=== PATIENT | female | born 1965 | race Caucasian/White ===

== ENCOUNTER 2017-04-27 17:59 | Observation (INO) | payer MEDICAID, SELFPAY ==
[2017-04-27 18:12] VITALS: BP 99/40; PULSE 97; RESP 28; TEMP 36.6; O2SAT 97; BMI 42.9
--- NOTE | 2017-04-27 18:22 | CT_ITS ---
CT abdomen pelvis wo con CLINICAL INDICATION: Abdominal pain with vomiting and history of small bowel obstruction ITS.REASON: possible sbo ORDERING PHYSICIAN: Nishant Elder MD PATIENT AGE: 51 years COMPARISON: 01/23/2009 TECHNIQUE: Axial images obtained with sagittal and coronal reformats. PROCEDURE: Oral Contrast: None IV Contrast: None . FINDINGS: Lung bases are clear. The liver is unremarkable. There has been a prior cholecystectomy without ductal dilatation. There is mild splenomegaly at 14 cm. The pancreas and adrenal glands are unremarkable. No obstructing renal or ureteral calculi. No hydronephrosis. There are few scattered small mesenteric lymph nodes nonspecific. Unremarkable appearing appendix. No evidence of diverticulitis. Mildly prominent fluid-filled small bowel loops are present with a few air-fluid levels possibly related to enteritis. No transition point identified. No pelvic mass or focal inflammatory change. Post hysterectomy changes. No acute bony anomalies. IMPRESSION: 1. Possible enteritis. 2. Borderline splenomegaly. 3. Otherwise negative CT abdomen pelvis without contrast
--- NOTE | 2017-04-27 18:23 | HMH.EDGENADL ---
ED Disposition Clinical Impression: Enteritis, Upper abdominal pain Vomiting Qualifiers: Vomiting type: unspecified Vomiting Intractability: unspecified Nausea presence: with nausea Qualified Code(s): R11.2 - Nausea with vomiting, unspecified Disposition: Still a Patient Condition on Discharge: Fair - Critical Care Critical Care Time: No Attestation: On , the high probability of a clinically significant, sudden or life threatening deterioration of the following system(s) required my full and direct attention, intervention and personal management. The time I documented below is in addition to time spent performing reported procedures but includes the following listed in this critical care notation. Medical Decision Making - Casimiro Inquiry Pt receiving controlled substance: Yes Casimiro was queried for this patient: No Reason not queried -: Emergent pt cond-no time Risks and benefits of using a controlled substance: were not discussed with pt by me Vital Signs: 04/27/17 18:12 04/27/17 19:32 Temperature 97.9 F Temperature Source Oral Pulse Rate [Left Radial] 97 H 82 Respiratory Rate 28 H 14 Blood Pressure [Left Arm] 99/40 101/69 Blood Pressure Mean [Left Arm] 59 79 Blood Pressure Source [Left Arm] Automatic Cuff Blood Pressure Position [Left Arm] Sitting 02 Sat by Pulse Oximetry 97 93 L Oxygen Delivery Method Room Air Room Air - Lab Data Lab Results 04/27/17 18:40: WBC 18.5 H, RBC 5.72 H, Hgb 16.3 H, Hct 50.8 H, MCV 88.9, MCH 28.5, MCHC 32.0, RDW 14.4, Plt Count 303, MPV 8.8, Neut % (Auto) 86.8 H, Lymph % (Auto) 8.6 L, Navarro % (Auto) 2.8, Eos % (Auto) 1.6, Baso % (Auto) 0.1, Neut # (Auto) 16.0 H, Lymph # (Auto) 1.6, [place] # (Auto) 0.5, Eos # (Auto) 0.3, Baso # (Auto) 0.0, Total Counted 100, Neutrophils % (Manual) 85 H, Lymphocytes % (Manual) 12, Monocytes % (Manual) 2, Eosinophils % (Manual) 1, Platelet Estimate Normal, RBC Morphology Normal 04/27/17 18:40: Sodium 139, Potassium 4.5, Chloride 101, Carbon Dioxide 28, Anion Gap 14.5, BUN 11, Creatinine 0.71, Estimated Creat Clear 80, Estimated GFR 86, Est GFR ( Amer) 105, Glucose 149 H, Calcium 9.2, Total Bilirubin 0.2, AST 13 L, ALT 24, Alkaline Phosphatase 153 H, Total Creatine Kinase 63, CK-MB (CK-2) 0.5, CK-MB (CK-2) Rel Index 0.8, Troponin I < 0.02, Total Protein 8.1, Albumin 4.0, Globulin 4.1 H, Albumin/Globulin Ratio 1.0 L, Lipase 93 Result diagrams: 04/27/17 18:40 04/27/17 18:40 Orders (Tests/Meds): ED MEDICATIONS Discontinued Medications Generic Name Dose Route Start Last Admin Trade Name Dani PRN Reason Stop Dose Admin Morphine Sulfate 4 mg 04/27/17 18:22 04/27/17 18:35 Morphine 4mg/Ml Syringe IV 04/27/17 18:23 4 mg ONCE ONE Administration Ondansetron HCl 4 mg 04/27/17 18:22 04/27/17 18:35 Zofran 4mg/2ml Vial IV 04/27/17 18:23 4 mg ONCE ONE Administration Sodium Chloride 1,000 ml 04/27/17 18:22 04/27/17 18:35 Sod Chlor 0.9% 1000ml Bag IV 04/27/17 18:23 1,000 ml BOLUS ONE Administration ORDERS Category Date Time Status CT abdomen pelvis wo con Stat Cat Scan 04/27/17 18:22 Taken Diarrhea Panel, PCR Stat Lab 04/27/17 18:20 Received - CT Data CT Scan: Abdomen, Pelvis Time Received: 19:[address] Reviewed: Yes: I have viewed the radiologist's interpretation Findings Narrative: Air-fluid levels within minimally distended small bowel loops in the mid abdomen, could be related to enteritis. Possible enteritis. Normal appendix. Normal kidneys. Cholecystectomy. Medical Decision Narrative: 7:52 PM: Patient states the pain is coming back. She is having too much pain and vomiting to be discharged. 8:00 PM: I have discussed the case with Dr. Shirley who agrees to admit the patient to the hospital. We discussed the patient's clinical information, including history, exam, laboratory and radiology results and ED course. Per hospital procedure, I will write temporary bridge inpati
--- NOTE | 2017-04-27 18:27 | ED_ITS ---
ED Disposition Clinical Impression: Enteritis, Upper abdominal pain Vomiting Qualifiers: Vomiting type: unspecified Vomiting Intractability: unspecified Nausea presence : with nausea Qualified Code(s): R11.2 - Nausea with vomiting, unspecified Disposition: Still a Patient Condition on Discharge: Fair - Critical Care Critical Care Time: No Attestation: On , the high probability of a clinically significant, sudden or life threatening deterioration of the following system(s) required my full and direct attention, intervention and personal management. The time I documented below is in addition to time spent performing reported procedures but includes the following listed in this critical care notation. Medical Decision Making - Casimiro Inquiry Pt receiving controlled substance: Yes Casimiro was queried for this patient: No Reason not queried -: Emergent pt cond-no time Risks and benefits of using a controlled substance: were not discussed with pt by me Vital Signs: 04/27/17 18:12 04/27/17 19:32 Temperature 97.9 F Temperature Source Oral Pulse Rate [Left Radial] 97 H 82 Respiratory Rate 28 H 14 Blood Pressure [Left Arm] 99/40 101/69 Blood Pressure Mean [Left Arm] 59 79 Blood Pressure Source [Left Arm] Automatic Cuff Blood Pressure Position [Left Arm] Sitting 02 Sat by Pulse Oximetry 97 93 L Oxygen Delivery Method Room Air Room Air - Lab Data Lab Results 04/27/17 18:40: WBC 18.5 H, RBC 5.72 H, Hgb 16.3 H, Hct 50.8 H, MCV 88.9, MCH 28.5, MCHC 32.0, RDW 14.4, Plt Count 303, MPV 8.8, Neut % (Auto) 86.8 H, Lymph % (Auto) 8.6 L, Greenlee % (Auto) 2.8, Eos % (Auto) 1.6, Baso % (Auto) 0.1, Neut # ( Auto) 16.0 H, Lymph # (Auto) 1.6, Greenlee # (Auto) 0.5, Eos # (Auto) 0.3, Baso # ( Auto) 0.0, Total Counted 100, Neutrophils % (Manual) 85 H, Lymphocytes % (Manual ) 12, Monocytes % (Manual) 2, Eosinophils % (Manual) 1, Platelet Estimate Normal , RBC Morphology Normal 04/27/17 18:40: Sodium 139, Potassium 4.5, Chloride 101, Carbon Dioxide 28, Anion Gap 14.5, BUN 11, Creatinine 0.71, Estimated Creat Clear 80, Estimated GFR 86, Est GFR ( Amer) 105, Glucose 149 H, Calcium 9.2, Total Bilirubin 0.2, AST 13 L, ALT 24, Alkaline Phosphatase 153 H, Total Creatine Kinase 63, CK- MB (CK-2) 0.5, CK-MB (CK-2) Rel Index 0.8, Troponin I < 0.02, Total Protein 8.1 , Albumin 4.0, Globulin 4.1 H, Albumin/Globulin Ratio 1.0 L, Lipase 93 Result diagrams: 04/27/17 18:40 04/27/17 18:40 Orders (Tests/Meds): ED MEDICATIONS Discontinued Medications Generic Name Dose Route Start Last Admin Trade Name Augustoq PRN Reason Stop Dose Admin Morphine Sulfate 4 mg 04/27/17 18:22 04/27/17 18:35 Morphine 4mg/Ml Syringe IV 04/27/17 18:23 4 mg ONCE ONE Administration Ondansetron HCl 4 mg 04/27/17 18:22 04/27/17 18:35 Zofran 4mg/2ml Vial IV 04/27/17 18:23 4 mg ONCE ONE Administration Sodium Chloride 1,000 ml 04/27/17 18:22 04/27/17 18:35 Sod Chlor 0.9% 1000ml Bag IV 04/27/17 18:23 1,000 ml BOLUS ONE Administration ORDERS Category Date Time Status CT abdomen pelvis wo con Stat Cat Scan 04/27/17 18:22 Taken Diarrhea Panel, PCR Stat Lab 04/27/17 18:20 Received - CT Data CT Scan: Abdomen, Pelvis Time Received: 19:[address] Reviewed: Yes: I have viewed the radiologist's interpretation Findings Narrativ
[2017-04-27 18:42] LABS: Adenovirus F 40/41, stool Not Detected (NotDetected); Astrovirus Not Detected (NotDetected); Campylobacter Not Detected (NotDetected); Clostridium Difficile A/B, PCR Not Detected (NotDetected); Cryptosporidium Not Detected (NotDetected); Cyclospora Cayetanesis Not Detected (NotDetected); Entamoeba histolytica Not Detected (NotDetected); Enteroaggregative E coli Not Detected (NotDetected); Enteropathogenic E coli Not Detected (NotDetected); Enterotoxigenic E coli Not Detected (NotDetected); Giardia lamblia Not Detected (NotDetected); Norovirus Not Detected (NotDetected); Plesimonas Shigalloides, PCR Not Detected (NotDetected); Rotavirus A Not Detected (NotDetected); Salmonella, PCR Not Detected (NotDetected); Sapovirus Not Detected (NotDetected); Shiga-like toxin E coli Not Detected (NotDetected); Shigella Enterovasive E coli Not Detected (NotDetected); Vibrio Cholerae Not Detected (NotDetected); Vibrio, PCR Not Detected (NotDetected); Yersinia Entercolitica, PCR Not Detected (NotDetected)
[2017-04-27 18:54] LABS: Basophils % 0.1 % (0.1-2.0); Eosinophils # 0.3 K/mm3 (0.0-0.4); Eosinophils % 1.6 % (0.1-12.0); Hematocrit 50.8 % (37.0-47.0); Hemoglobin 16.3 g/dL (12.2-16.2); Lymphocytes # 1.6 K/mm3 (0.7-4.5); Lymphocytes % 8.6 K/mm3 (10-50); Mean Corpuscular Hemoglobin 28.5 pg (27.0-31.2); Mean Corpuscular Volume 88.9 fl (81-99); Mean Platelet Volume 8.8 fl (7.4-10.4); Monocytes # 0.5 K/mm3 (0.1-1.0); Monocytes % 2.8 % (1.7-9.3); Neutrophils % 86.8 % (37.0-80.0); Platelet Count 303 K/mm3 (142-424); Red Blood Count 5.72 M/mm3 (4.20-5.40); Red Cell Distribution Width 14.4 % (11.5-17.5); White Blood Count 18.5 K/mm3 (4.8-10.8)
[2017-04-27 19:14] LABS: MANUAL DIFFERENTIAL MANUAL DIFFERENTIAL (MANUAL DIFF)
[2017-04-27 19:20] LABS: Eosinophils % 1 % (0-3); Lymphocytes % 12 % (10-50); Monocytes % 2 % (2-9); Neutrophils % 85 % (42-76); Platelet Estimate Normal; RBC Morphology Normal; Total Cells Counted 100
[2017-04-27 19:26] LABS: Alanine Aminotransferase 24 U/L (12-78); Alkaline Phosphatase 153 U/L (46-116); Anion Gap 14.5 mEq/L (5-15); Bilirubin,Total 0.2 mg/dL (0.2-1.0); Blood Urea Nitrogen 11 mg/dL (7-18); CKMB Relative Index 0.8 U/L (0-4.0); Calcium 9.2 mg/dL (8.5-10.1); Carbon Dioxide 28 mmol/L (21.0-32.0); Chloride 101 mmol/L (98-107); Creatine Kinase 63 U/L (26-192); Creatine Kinase MB 0.5 mg/ml (0.0-3.6); Creatinine Clearance Estimated 80 mL/min (0-300); Creatinine,Serum 0.71 mg/dL (0.55-1.02); Estimated Glomerular Filt Rate 86 ml/min (>60); GFR (African American) 105 ML/MIN (>60); Globulin 4.1 gm/dl (1.3-3.2); Glucose 149 mg/dL (74-106); Lipase 93 u/L (73-393); Sodium 139 mmol/L (136-145); Total Protein,Serum 8.1 gm/dL (6.4-8.2); Troponin I < 0.02 ng/ml (0.00-0.06)
[2017-04-27 19:27] LABS: Potassium 4.5 mmoL/L (3.5-5.1)
[2017-04-27 19:28] LABS: Aspartate Amino Transferase 13 U/L (15-37)
[2017-04-27 19:32] VITALS: BP 101/69; PULSE 82; RESP 14; O2SAT 93
[2017-04-27 20:00] VITALS: BP 109/65
--- NOTE | 2017-04-27 20:34 | PC.NURSE ---
PT FULL CODE, REPORT RECEIVED FROM SERENITY
[2017-04-27 20:36] VITALS: BP 109/65; PULSE 79; RESP 20; TEMP 37
[2017-04-27 20:37] VITALS: BMI 41.9
[2017-04-27 20:45] VITALS: BP 155/98; PULSE 84; RESP 18; TEMP 36.2; O2SAT 93
[2017-04-27 23:43] VITALS: O2SAT 93
[2017-04-28 00:43] LABS: POC Glucose,Bedside 142 mg/dL (70-110)
--- NOTE | 2017-04-28 04:21 | PC.NURSE ---
PT STATES WOULD WEAR ANITA HOSE, BUT EVEN THOUGH THEY ARE XLARGE, SHE STATES THEY ARE TOO SMALL FOR HER LEGS
[2017-04-28 04:35] VITALS: BP 104/67; PULSE 78; RESP 20; TEMP 36.6; O2SAT 99
[2017-04-28 06:43] LABS: POC Glucose,Bedside 142 mg/dL (70-110)
--- NOTE | 2017-04-28 07:00 | PC.NURSE ---
PT ALERT AND ORIENTED. SLEPT LONG INTERVALS. C/O PAIN X2 AND NAUSEA X1 MEDS GIVEN PER ORDERS. IV SECURE AND PATENT. CONTINUES ON IV FLUIDS. PT STABLE. WILL CONTINUE TO MONITOR. REPORT TO BE GIVEN TO ONCOMING NURSE.
[2017-04-28 07:10] LABS: Basophils % 0.3 % (0.1-2.0); Eosinophils # 0.3 K/mm3 (0.0-0.4); Eosinophils % 2.3 % (0.1-12.0); Hematocrit 45.2 % (37.0-47.0); Lymphocytes # 3.2 K/mm3 (0.7-4.5); Lymphocytes % 26.8 K/mm3 (10-50); Mean Corpuscular HGB Conc 30.9 g/dL (31.8-35.4); Mean Corpuscular Hemoglobin 28.5 pg (27.0-31.2); Mean Corpuscular Volume 92.2 fl (81-99); Monocytes # 0.5 K/mm3 (0.1-1.0); Monocytes % 4.3 % (1.7-9.3); Neutrophils % 66.2 % (37.0-80.0); Platelet Count 268 K/mm3 (142-424); Red Cell Distribution Width 14.5 % (11.5-17.5); White Blood Count 12.1 K/mm3 (4.8-10.8)
[2017-04-28 07:24] LABS: Anion Gap 5.8 mEq/L (5-15); Blood Urea Nitrogen 10 mg/dL (7-18); Carbon Dioxide 36 mmol/L (21.0-32.0); Chloride 104 mmol/L (98-107); Creatinine Clearance Estimated 91 mL/min (0-300); Creatinine,Serum 0.68 mg/dL (0.55-1.02); Estimated Glomerular Filt Rate 91 ml/min (>60); GFR (African American) 110 ML/MIN (>60); Glucose 122 mg/dL (74-106); Potassium 4.8 mmoL/L (3.5-5.1); Sodium 141 mmol/L (136-145)
--- NOTE | 2017-04-28 07:30 | PC.NURSE ---
REPORT GIVEN TO Yue CORTES W/C
[2017-04-28 07:33] VITALS: BP 98/48; PULSE 71; RESP 22; TEMP 37.7; O2SAT 93
[2017-04-28 07:55] LABS: Hemoglobin 14.2 g/dL (12.2-16.2)
--- NOTE | 2017-04-28 08:05 | HMH.HP ---
*Admission Date: 04/28/17 <Mya Clark 04/28/17 08:23> *Chief complaint: abdominal pain, nausea, vomiting, diarrhea <Mya Clark 04/28/17 08:23> *History of present illness: Ms. Garcia is a 51yo female with a hx of HLP, fibromyalgia, HTN, and DM who began having epigastric abdominal pain with vomiting and diarrhea that started yesterday around 3pm. She denies any fever or sick contacts. She presented to the emergency room for further evaluation and treatment. A CT scan of the abdomen and pelvis showed enteritis. She was admitted and started on IV fluids, antiemetics, and Flagyl. <Mya Clark 04/28/17 08:23> [facility] History Medical History: Reports:: Cerebrovascular Accident, Diabetes Mellitus Type 2, Heart Murmur, Hyperlipidemia, Hypertension Denies:: Cancer, Diabetes Mellitus Type 1, MRSA <Mya Clark 04/28/17 08:23> Other Medical History: Reports: Arthritis, Fibromyalgia, Hypothyroidism, Sinus Problems <Mya Clark 04/28/17 08:23> Comment: Bipolar, Sleep apnea, DJD lumbar spine <Mya Clark 04/28/17 08:23> Laterality Cases: Bilateral: Tonsillectomy, Total Knee Replacement, Partial Knee Replacement, Other <Mya Clark 04/28/17 08:23> Other Surgeries: Yes: , Hysterectomy-Total, Tubal Ligation, Other (Cholecystectomy, Carpal Tunnel, Bone graft right wrist) <Mya Clark 04/28/17 08:23> Amputation: No <Mya Clark 04/28/17 08:23> Fractures: Yes <Mya Clark 04/28/17 08:23> - *Social History Educational Level: Attended College <Mya Clark 04/28/17 08:23> Smoking Status: Current every day smoker <Mya Clark 04/28/17 08:23> Tobacco Type: cigarettes <Mya Clark 04/28/17 08:23> # Packs/Day (cigarettes): 1 <Mya Clark 04/28/17 08:23> #Yrs smoked (if former smoker): 35 <Mya Clark 18 08:23> Alcohol Intake: never <Mya Clark 04/28/17 08:23> Occupational Status: disabled <Mya Clark 04/28/17 08:23> Housing: house <Mya Clark 04/28/17 08:23> Household Members: none <Mya Clark 04/28/17 08:23> - Psychiatric History Expresses thoughts of harming self/others: None <Mya Clark 04/28/17 08:23> Suicide Plan Description: No Plan <Mya Clark 04/28/17 08:23> Pschychiatric History:: Reports:: Bipolar Disorder <Mya Clark 04/28/17 08:23> *Family Hx:: Cancer, Diabetes, Heart Attack, Hypertension, Stroke <Mya Clark 04/28/17 08:23> Review of Systems - Constitutional Reports weakness, Denies fever(s), Denies headache(s) <Mya Clark 04/28/17 08:23> - Eyes Denies blurry vision, Denies double vision <Mya Clark 04/28/17 08:23> - ENT Denies nasal congestion, Denies sore throat <Mya Clark 04/28/17 08:23> - *Cardiovascular Denies chest pain, Denies fast heart rate <Mya Clark 04/28/17 08:23> - *Respiratory Denies cough, Denies shortness of breath <Mya Clark 04/28/17 08:23> - *Gastrointestinal Reports abdominal pain, Reports loose stools, Reports nausea, Reports vomiting, Denies vomiting blood, Denies bright, red blood in stools, Denies black, tarry stools <Mya Clark 04/28/17 08:23> - *Genitourinary Denies difficulty urinating, Denies painful urination <Mya Clark 04/28/17 08:23> - *Musculoskeletal Reports joint pain <Mya Clark 04/28/17 08:23> - *Neurologic Reports weakness, Denies headache(s), Denies dizziness <Mya Clark 04/28/17 08:23> Meds Home Medications Medication Instructions Recorded Confirmed Type Amlodipine Besylate/Benazepril 1 each PO DAILY 04/27/17 04/27/17 History [Lotrel 5-10 mg Capsule] Buprenorphine HCl/Naloxone HCl 2.5 each SL DAILY 04/27/17 04/27/17 History [Suboxone 8 mg-2 mg Sl Film] Fluoxetine HCl [Prozac] 60 mg PO DAILY 04/27/17 04/27/17 History Furosemide [Lasix 40mg tab] 40 mg PO DAILY 04/27/17 04/27/17 History Gabapentin [Neurontin 800mg Tab] 800 mg PO TID 04/27/17 04/27/17 History Levothyroxi
--- NOTE | 2017-04-28 08:09 | P.HP_ITS ---
*Admission Date: 04/28/17 <Mya Clark 04/28/17 08:23> *Chief complaint: abdominal pain, nausea, vomiting, diarrhea <Mya Clark 04/28/17 08:23> *History of present illness: Ms. Garcia is a 51yo female with a hx of HLP, fibromyalgia, HTN, and DM who began having epigastric abdominal pain with vomiting and diarrhea that started yesterday around 3pm. She denies any fever or sick contacts. She presented to the emergency room for further evaluation and treatment. A CT scan of the abdomen and pelvis showed enteritis. She was admitted and started on IV fluids , antiemetics, and Flagyl. <Mya Clark 04/28/17 08:23> [facility] History Medical History: Reports:: Cerebrovascular Accident, Diabetes Mellitus Type 2, Heart Murmur, Hyperlipidemia, Hypertension Denies:: Cancer, Diabetes Mellitus Type 1, MRSA <Mya Clark 04/28/17 08:23> Other Medical History: Reports: Arthritis, Fibromyalgia, Hypothyroidism, Sinus Problems <Mya Clark 04/28/17 08:23> Comment: Bipolar, Sleep apnea, DJD lumbar spine <Mya Clark 04/28/17 08: 23> Laterality Cases: Bilateral: Tonsillectomy, Total Knee Replacement, Partial Knee Replacement, Other <Mya Clark 04/28/17 08:23> Other Surgeries: Yes: , Hysterectomy-Total, Tubal Ligation, Other ( Cholecystectomy, Carpal Tunnel, Bone graft right wrist) <Mya Clark 04/28 08:23> Amputation: No <Mya Clark 04/28/17 08:23> Fractures: Yes <Mya Clark 04/28/17 08:23> - *Social History Educational Level: Attended College <Mya Clark 04/28/17 08:23> Smoking Status: Current every day smoker <Mya Clark 04/28/17 08:23> Tobacco Type: cigarettes <Mya Clark 04/28/17 08:23> # Packs/Day (cigarettes): 1 <Mya Clark 04/28/17 08:23> #Yrs smoked (if former smoker): 35 <Mya Clark 18 08:23> Alcohol Intake: never <Mya Clark 04/28/17 08:23> Occupational Status: disabled <Mya Clark 04/28/17 08:23> Housing: house <Mya Clark 04/28/17 08:23> Household Members: none <Mya Clark 04/28/17 08:23> - Psychiatric History Expresses thoughts of harming self/others: None <Mya Clark 04/28/17 08: 23> Suicide Plan Description: No Plan <Mya Clark 04/28/17 08:23> Pschychiatric History:: Reports:: Bipolar Disorder <Mya Clark 04/28/17 08:23> *Family Hx:: Cancer, Diabetes, Heart Attack, Hypertension, Stroke <Mya Clark 04/28/17 08:23> Review of Systems - Constitutional Reports weakness, Denies fever(s), Denies headache(s) <Mya Clark 08:23> - Eyes Denies blurry vision, Denies double vision <Mya Clark 04/28/17 08:23> - ENT Denies nasal congestion, Denies sore throat <Mya Clark 04/28/17 08:23> - *Cardiovascular Denies chest pain, Denies fast heart rate <Mya Clark 04/28/17 08:23> - *Respiratory Denies cough, Denies shortness of breath <Mya Clark 04/28/17 08:23> - *Gastrointestinal Reports abdominal pain, Reports loose stools, Reports nausea, Reports vomiting, Denies vomiting blood, Denies bright, red blood in stools, Denies black, tarry stools <Mya Clark 04/28/17 08:23> - *Genitourinary Denies difficulty urinating, Denies painful urination <Mya Clark 08:23> - *Musculoskeletal Reports joint pain <Mya Clark 04/28/17 08:23> - *Neurologic Reports weakness, Denies headache(s), Denies dizziness <Mya Clark 08:23> Meds Home Medications Medication Instructions Recorded Confirmed Type Amlodipine Besylate/Benazepril 1 each PO DAILY 04/27/17 04/27/17 Hist
--- NOTE | 2017-04-28 08:19 | P.CONPHA_ITS ---
[facility] Pharmacy VTE Monitoring - Patient Demographics Admission date: 04/27/17 Report Date: 04/28/17 Time: 08:18 Allergies/Adverse Reactions: Patient Allergies Sulfa (Sulfonamide Antibiotics) [SULFA (SULFONAMIDE ANTIBIOTICS)] Allergy ( Unknown, Verified 04/27/17 18:29) Height: 1.68 m Weight: 117.8 kg Patient Problems: Current Active Problems Enteritis (Acute) Upper abdominal pain (Acute) Vomiting (Acute) - VTE Risk Labs: VTE Related Lab Results Hgb 14.2 g/dL (12.2-16.2) D 04/28/17 06:30 Hct 45.2 % (37.0-47.0) 04/28/17 06:30 Plt Count 268 K/mm3 (142-424) 04/28/17 06:30 BUN 10 mg/dL (7-18) 04/28/17 06:30 Creatinine 0.68 mg/dL (0.55-1.02) 04/28/17 06:30 Estimated Creat Clear 91 mL/min (0-300) 04/28/17 06:30 Was VTE Risk Assessment Performed: Yes VTE Score: 5 VTE Risk Level: Low Risk Clinical Trial Participant: No - Prophylaxis VTE Prophylaxis Ordered?: Yes Types of VTE Prophylaxis: TEDS Knee High
--- NOTE | 2017-04-28 09:05 | PC.NURSE ---
[facility] WOULD NOT LET ME EVALUATE THIS PATIENT, PAIN LEVEL 6/10 IN ABDOMEN MORPHINE 4 MG GIVEN PER ORDER. BLAISE FIGUEROA, MSN, RN
--- NOTE | 2017-04-29 14:17 | HMH.DCSUM ---
General - General Admission date: 04/28/17 <Mya Clark - 04/29/17 14:20> Discharge date: 04/28/17 <Mya Clark - 04/29/17 14:20> HPI HPI: Ms. Garcia is a 51yo female with a hx of HLP, fibromyalgia, HTN, and DM who began having epigastric abdominal pain with vomiting and diarrhea that started yesterday around 3pm. She denies any fever or sick contacts. She presented to the emergency room for further evaluation and treatment. A CT scan of the abdomen and pelvis showed enteritis. She was admitted and started on IV fluids, antiemetics, and Flagyl. <Mya Clark - 04/29/17 14:20> Hospital Course Hospital Course: Her vomiting and diarrhea resolved. Her diet was advanced. Her WBC decreased and she was stable to be discharged home with instructions to advance her diet as tolerated. <Mya Clark - 04/29/17 14:20> Objective Vital signs: Temp Pulse Resp BP Pulse Ox 99.9 F H 71 22 98/48 93 L 04/28/17 07:33 04/28/17 07:33 04/28/17 07:33 04/28/17 07:33 04/28/17 07:33 <Kiran Shirley - 05/18/17 08:44> Temp Pulse Resp BP Pulse Ox 99.9 F H 71 22 98/48 93 L 04/28/17 07:33 04/28/17 07:33 04/28/17 07:33 04/28/17 07:33 04/28/17 07:33 <Mya Clark - 04/29/17 14:20> Narrative: - Constitutional no acute distress - *Routine HEENT Exam Head: Present: normocephalic, atraumatic Eye: Present: EOMI, PERRL ENT: Present: mucous membranes dry - *Routine Neck Exam Present: supple, full ROM - *Routine Respiratory Exam Present: CTA bilaterally - *Routine Cardiovascular Exam Present: RRR - *Routine Abdominal Exam Present: soft, normoactive bowel sounds, tenderness (diffuse). Absent: guarding, rigid - *Routine Extremities Exam Absent: edema - *Routine Skin Exam Present: intact - *Routine Neurological Exam Present: alert, oriented X3 <Mya Clark - 04/29/17 14:20> DS: Diagnosis - Discharge Diagnosis (1) Enteritis Status: Acute (2) Hyperlipidemia Status: Chronic (3) Hypertension Status: Chronic (4) Type 2 diabetes mellitus Status: Chronic (5) Fibromyalgia Status: Chronic (6) Bipolar disorder Status: Chronic <Mya Clark - 04/29/17 14:17> (1) Enteritis Status: Acute (2) Hyperlipidemia Status: Chronic (3) Hypertension Status: Chronic (4) Type 2 diabetes mellitus Status: Chronic (5) Fibromyalgia Status: Chronic (6) Bipolar disorder Status: Chronic <Kiran Shirley - 05/18/17 08:44> Discharge Plan - Patient Discharge Instructions ACTIVITY: Continue current activity <Mya Clark - 04/29/17 14:20> DIET: advance to your usual diet <Mya Clark - 04/29/17 14:20> Patient Instructions: DI for Viral Gastroenteritis -- Adult <Kiran Shirley - 05/18/17 08:44> Forms: <Kiran Shirley - 05/18/17 08:44> - Follow up Plan Follow up with: Kiran Shirley MD [Family Provider] - 1 week <Kiran Shirley - 05/18/17 08:44> Disposition: Home, Self-Care <Kiran Shirley - 05/18/17 08:44> Home Medications: Home Medications Medication Instructions Recorded Confirmed Type Amlodipine Besylate/Benazepril 1 each PO DAILY 04/27/17 04/27/17 History [Lotrel 5-10 mg Capsule] Buprenorphine HCl/Naloxone HCl 2.5 each SL DAILY 04/27/17 04/27/17 History [Suboxone 8 mg-2 mg Sl Film] Fluoxetine HCl [Prozac] 60 mg PO DAILY 04/27/17 04/27/17 History Furosemide [Lasix 40mg tablet] 40 mg PO DAILY 04/27/17 04/27/17 History Gabapentin [Neurontin 800mg Tab] 800 mg PO TID 04/27/17 04/27/17 History Levothyroxine Sodium 75 mcg PO DAILY 04/27/17 04/27/17 History [Levothyroxine 75mcg (0.075mg) Tab] Meclizine HCl [Meclizine 25mg Tab] 25 mg PO NEEDED PRN 04/27/17 04/27/17 History Metformin HCl [Metformin 850mg 850 mg PO BID 04/27/17 04/28/17 History Tablet] Naproxen Sodium [Naproxen Sodium 500 mg PO BID
--- NOTE | 2017-04-29 14:20 | P.DS_ITS ---
General - General Admission date: 04/28/17 <Mya Clark - 04/29/17 14:20> Discharge date: 04/28/17 <Mya Clark - 04/29/17 14:20> HPI HPI: Ms. Garcia is a 51yo female with a hx of HLP, fibromyalgia, HTN, and DM who began having epigastric abdominal pain with vomiting and diarrhea that started yesterday around 3pm. She denies any fever or sick contacts. She presented to the emergency room for further evaluation and treatment. A CT scan of the abdomen and pelvis showed enteritis. She was admitted and started on IV fluids , antiemetics, and Flagyl. <Mya Clark - 04/29/17 14:20> Hospital Course Hospital Course: Her vomiting and diarrhea resolved. Her diet was advanced. Her WBC decreased and she was stable to be discharged home with instructions to advance her diet as tolerated. <Mya Clark - 04/29/17 14:20> Objective Vital signs: Temp Pulse Resp BP Pulse Ox 99.9 F H 71 22 98/48 93 L 04/28/17 07:33 04/28/17 07:33 04/28/17 07:33 04/28/17 07:33 04/28/17 07:33 <Kiran Shirley - 05/18/17 08:44> Temp Pulse Resp BP Pulse Ox 99.9 F H 71 22 98/48 93 L 04/28/17 07:33 04/28/17 07:33 04/28/17 07:33 04/28/17 07:33 04/28/17 07:33 <Mya Clark - 04/29/17 14:20> Narrative: - Constitutional no acute distress - *Routine HEENT Exam Head: Present: normocephalic, atraumatic Eye: Present: EOMI, PERRL ENT: Present: mucous membranes dry - *Routine Neck Exam Present: supple, full ROM - *Routine Respiratory Exam Present: CTA bilaterally - *Routine Cardiovascular Exam Present: RRR - *Routine Abdominal Exam Present: soft, normoactive bowel sounds, tenderness (diffuse). Absent: guarding , rigid - *Routine Extremities Exam Absent: edema - *Routine Skin Exam Present: intact - *Routine Neurological Exam Present: alert, oriented X3 <Mya Clark - 04/29/17 14:20> DS: Diagnosis - Discharge Diagnosis (1) Enteritis Status: Acute (2) Hyperlipidemia Status: Chronic (3) Hypertension Status: Chronic (4) Type 2 diabetes mellitus Status: Chronic (5) Fibromyalgia Status: Chronic (6) Bipolar disorder Status: Chronic <Mya Clark - 04/29/17 14:17> (1) Enteritis Status: Acute (2) Hyperlipidemia Status: Chronic (3) Hypertension Status: Chronic (4) Type 2 diabetes mellitus Status: Chronic (5) Fibromyalgia Status: Chronic (6) Bipolar disorder Status: Chronic <Kiran Shirley - 05/18/17 08:44> Discharge Plan - Patient Discharge Instructions ACTIVITY: Continue current activity <Mya Clark - 04/29/17 14:20> DIET: advance to your usual diet <Mya Clark - 04/29/17 14:20> Patient Instructions: DI for Viral Gastroenteritis -- Adult <Kiran Shirley - 05/18/17 08:44> Forms: <Kiran Shirley - 05/18/17 08:44> - Follow up Plan Follow up with: Kiran Shirley MD [Family Provider] - 1 week < Kiran Shirley - 05/18/17 08:44> Disposition: Home, Self-Care <Kiran Shirley - 05/18/17 08:44> Home Medications: Home Medications Medication Instructions Recorded Confirmed Type Amlodipine Besylate/Benazepril 1 each PO DAILY 04/27/17 04/27/17 History [Lotrel 5-10 mg Capsule]
== END 2017-04-28 10:10 | disposition home or self-care (01) ==
LOC: ER 19:53 → 2ND 22:11
PROVIDERS: Admitting Provider Family Medicine; Emergency Provider Emergency Medicine; Family Provider Family Medicine; Visit Provider Family Medicine
DX: K52.9 Noninfective gastroenteritis and colitis, unspecified (principal); E78.9 Disorder of lipoprotein metabolism, unspecified; I10 Essential (primary) hypertension; E11.9 Type 2 diabetes mellitus without complications; M79.7 Fibromyalgia; F31.9 Bipolar disorder, unspecified
CPT/HCPCS: 36415; 74176; 80048; 80053; 82550; 82553; 82962; 83690; 84484; 85007; 85025; 87507; 93005; 93041; 96360; 96365; 96374; 96375; 99284; G0378; J2405

== ENCOUNTER → 2017-11-18 13:47 | Outpatient (CLI) | payer MEDICAID, SELFPAY ==
--- NOTE | 2017-11-18 | XR_ITS ---
EXAM: XR lumbar spine min 4V HISTORY: Low back pain ITS.REASON: PAIN ORDERING PHYSICIAN: LISANDRO Day PATIENT AGE: 52 years COMPARISON: None FINDINGS: There is normal alignment. Degenerative disc disease is present in the lower thoracic spine. Degenerative disc disease is present at L3-L4 L4-5 and L5-S1. There is mild anterolisthesis of L4 on L5 of 5 mm. Prominent bony hypertrophic changes are present involving the facets at L4-L5 and L5-S1. Atherosclerotic calcification noted of the aorta. IMPRESSION: 1. Degenerative disc disease L3-S1 with 5 mm anterolisthesis of L4. 2. Facet arthritic change L4-L5 and L5-S1. 3. Degenerative disc disease lower thoracic spine
== END ==
PROVIDERS: PCP Physician Assistant; Visit Provider Physician Assistant
DX: M47.27 Other spondylosis with radiculopathy, lumbosacral region (principal)
CPT/HCPCS: 72110

== ENCOUNTER → 2017-11-19 12:51 | Outpatient (CLI) | payer MEDICAID, SELFPAY ==
[2017-11-19 16:04] LABS: Hemoglobin A1C 8.7 % (0.0-7.0)
[2017-11-19 16:08] LABS: Alanine Aminotransferase 26 U/L (12-78); Albumin Level 3.7 gm/dL (3.4-5.0); Alkaline Phosphatase 174 U/L (46-116); Anion Gap 13.3 mEq/L (5-15); Aspartate Amino Transferase 13 U/L (15-37); Bilirubin,Total 0.5 mg/dL (0.2-1.0); Blood Urea Nitrogen 10 mg/dL (7-18); Calcium 9.1 mg/dL (8.5-10.1); Carbon Dioxide 30 mmol/L (21.0-32.0); Chloride 102 mmol/L (98-107); Chol/HDL Ratio 5.4 (1-3.5); Cholesterol 210 mg/dL (140-200); Creatinine,Serum 0.58 mg/dL (0.55-1.02); Estimated Glomerular Filt Rate 109 ml/min (>60); GFR (African American) 132 ML/MIN (>60); Globulin 3.6 gm/dl (1.3-3.2); Glucose 134 mg/dL (74-106); HDL Cholesterol 39 mg/dL (29-89); LDL Cholesterol 136 mg/dL (0-130); Potassium 4.3 mmoL/L (3.5-5.1); Sodium 141 mmol/L (136-145); Thyroid Stimulating Hormone 1.95 uIU/ml (0.358-3.740); Total Protein,Serum 7.3 gm/dL (6.4-8.2); Triglycerides 175 mg/dL (30-200); VLDL Cholesterol 35 mg/dL (0-40)
== END ==
PROVIDERS: PCP Family Medicine; Visit Provider Family Medicine
DX: E03.9 Hypothyroidism, unspecified (principal); E11.42 Type 2 diabetes mellitus with diabetic polyneuropathy; E78.2 Mixed hyperlipidemia
CPT/HCPCS: 36415; 80053; 80061; 83036; 84443

== ENCOUNTER → 2017-11-25 07:32 | Outpatient (CLI) | payer MEDICAID, SELFPAY | PROVIDERS: Family Provider Family Medicine; PCP Family Medicine; Visit Provider Physician Assistant | DX: M47.27 Other spondylosis with radiculopathy, lumbosacral region (principal) ==

== ENCOUNTER → 2017-12-08 14:22 | Outpatient (CLI) | payer MEDICAID, SELFPAY ==
--- NOTE | 2017-12-08 14:25 | MR_ITS ---
MR lumbar spine wo con, MR 3-d myelogram/MRCP HISTORY: PT states low back pain X years. Bilateral leg pain, numbness and tingling. PT also states bilateral hand numbness and tingling. No prior surgery. ITS.REASON: LUMBOSACRAL RADICULOPATHY DUE TO DEGENERATIVE JOINT DISEASE ORDERING PHYSICIAN: Sonia Lucas MD PATIENT AGE: 52 years Comparison: X-RAY 11/18/17. CT lumbar 10/21/15 TECHNIQUE: Standard multiplanar multiecho sequences are performed without contrast. 3-D MIP and myelographic images are also rendered and reviewed FINDINGS: The spinal cord ends at the L1-L2 level. There is normal alignment. T11-T12: Degenerative disc disease with minimal bulging disc. T12-L1, L1-L2, and V6-C4-[id number] appearance. L3-L4: Mild disc desiccation with facet and ligamentum flavum hypertrophy and minimal bulging disc with bilateral lateral recess and foraminal narrowing slightly greater on the left. L4-5: Mild anterolisthesis of L4 4 mm with minimal bulging disc along with facet and ligamentum flavum hypertrophy with mild bilateral foraminal narrowing. Prominent bony hypertrophic changes are present of the facets at L4-L5. L5-S1: Mild concentric bulging disc with small central disc protrusion and minimal superior extrusion with facet and ligamentum flavum hypertrophy with mild bilateral foraminal narrowing. There is some edema within the soft tissues of the lumbar region. No canal stenosis. IMPRESSION: 1. Multilevel spondylosis of the lumbar spine with facet and ligamentum flavum hypertrophy and areas of foraminal narrowing. Please see above for detailed description at each level. 2. There is a small central disc protrusion with superior extrusion at L5-S1 without impingement. 3. No evidence of canal stenosis.
== END ==
PROVIDERS: PCP Family Medicine; Visit Provider Family Medicine
DX: M47.27 Other spondylosis with radiculopathy, lumbosacral region (principal)
CPT/HCPCS: 72148; 76376

== ENCOUNTER 2018-04-22 19:03 | Inpatient (IN) ==
[2018-04-22 19:52] LABS: Basophils % 0.4 % (0.1-2.0); Eosinophils # 0.1 K/mm3 (0.0-0.4); Eosinophils % 0.6 % (0.1-12.0); Hematocrit 44.5 % (37.0-47.0); Hemoglobin 15.2 g/dL (12.2-16.2); Lymphocytes # 0.9 K/mm3 (0.7-4.5); Lymphocytes % 8.3 % (10-50); Mean Corpuscular HGB Conc 34.2 g/dL (31.8-35.4); Mean Corpuscular Hemoglobin 30.8 pg (27.0-31.2); Mean Platelet Volume 9.1 fl (7.4-10.4); Monocytes # 0.4 K/mm3 (0.1-1.0); Monocytes % 3.6 % (1.7-9.3); Neutrophils # 9.1 K/mm3 (1.8-7.8); Neutrophils % 87.1 % (37.0-80.0); Platelet Count 224 K/mm3 (142-424); Red Blood Count 4.94 M/mm3 (4.20-5.40); Red Cell Distribution Width 13.7 % (11.5-17.5); White Blood Count 10.5 K/mm3 (4.8-10.8)
[2018-04-22 20:04] LABS: Albumin Level 3.5 gm/dL (3.4-5.0); Albumin/Globulin Ratio 0.7 (1.1-1.8); Anion Gap 14.9 mEq/L (5-15); Bilirubin,Total 0.4 mg/dL (0.2-1.0); Calcium 9.8 mg/dL (8.5-10.1); Potassium 3.9 mmoL/L (3.5-5.1); Total Protein,Serum 8.5 gm/dL (6.4-8.2)
[2018-04-22 20:18] LABS: Eosinophils % 1 % (0-3); Lymphocytes % 10 % (10-50); Neutrophils % 87 % (42-76); RBC Morphology Normal; Total Cells Counted 100
--- NOTE | 2018-04-22 20:25 | Emergency Department Note ---
ED Disposition Clinical Impression: Hypoxia Congestive heart failure Qualifiers: Heart failure type: unspecified Heart failure chronicity: acute Qualified Code(s): I50.9 - Heart failure, unspecified Acute bronchitis Qualifiers: Bronchitis organism: unspecified organism Qualified Code(s): J20.9 - Acute bronchitis, unspecified Disposition: Admitted As Inpatient Condition on Discharge: Fair - Critical Care Critical Care Time: Yes Attestation: On 04/22/18, the high probability of a clinically significant, sudden or life threatening deterioration of the following system(s) required my full and direct attention, intervention and personal management. The time I documented below is in addition to time spent performing reported procedures but includes the following listed in this critical care notation. Total Critical Care Time: 30 Vital system(s) involved:: Respiratory Failure My critical care processes included: Assessment & monitoring of V/S, Initial and Re-exams, Data Review/Interpretation, Coordinating Care, Medication Orders and management, Documentation Medical Decision Making - Casimiro Inquiry Pt receiving controlled substance: No Vital Signs: 04/22/18 19:18 04/22/18 19:53 Temperature 97.8 F Temperature Source Oral Pulse Rate [Right Radial] 88 80 Respiratory Rate 20 14 Blood Pressure [Right Arm] 137/83 144/73 H Blood Pressure Mean [Right Arm] 101 96 Blood Pressure Source [Right Arm] Automatic Cuff Automatic Cuff Blood Pressure Position [Right Arm] Supine Sitting 02 Sat by Pulse Oximetry 88 L 96 Oxygen Delivery Method Room Air Nasal Cannula Oxygen Flow Rate (LPM) 2 - Lab Data Lab Results 04/22/18 19:30: WBC 10.5, RBC 4.94, Hgb 15.2, Hct 44.5, MCV 90.0, MCH 30.8, MCHC 34.2, RDW 13.7, Plt Count 224, MPV 9.1, Neut % (Auto) 87.1 H, Lymph % (Auto) 8.3 L, [place] % (Auto) 3.6, Eos % (Auto) 0.6, Baso % (Auto) 0.4, Neut # (Auto) 9.1 H, Lymph # (Auto) 0.9, [place] # (Auto) 0.4, Eos # (Auto) 0.1, Baso # (Auto) 0.0, Total Counted 100, Neutrophils % (Manual) 87 H, Band Neutrophils % 2.0, Lym phocytes % (Manual) 10, Eosinophils % (Manual) 1, Platelet Estimate Normal, RBC Morphology Normal 04/22/18 19:30: Sodium 140, Potassium 3.9, Chloride 102, Carbon Dioxide 27, A nion Gap 14.9, BUN 28 H, Creatinine 0.81, Estimated Creat Clear 66, Estimated GFR 74, Est GFR ( Amer) 89, Glucose 194 H, Calcium 9.8, Total Bilirubin 0.4, AST 23, ALT 25, Alkaline Phosphatase 191 H, Total Protein 8.5 H, Albumin 3.5, Globulin 5.0 H, Albumin/Globulin Ratio 0.7 L 04/22/18 19:30: Lactate 0.9 04/22/18 19:30: B-Natriuretic Peptide 137 H 04/22/18 19:30: Troponin I < 0.02 04/22/18 19:35: Influenza Type A Ag Negative, Influenza Type B Ag Negative Result diagrams: 04/22/18 19:30 04/22/18 19:30 Orders (Tests/Meds): ED MEDICATIONS Generic Name Dose Route Start Last Admin Trade Name Freq PRN Reason Stop Dose Admin Sodium Chloride 1,000 mls @ 999 mls/hr 04/22/18 19:45 04/22/18 19:41 Sod Chlor 0.9% 1000ml Bag IV 04/22/18 20:45 999 mls/hr .Q1H1M ELIANA Administration Ceftriaxone Sodium 1 gm/ 50 mls @ 100 mls/hr 04/22/18 21:30 04/22/18 21:33 Sodium Chloride IV 05/06/18 21:29 100 mls/hr Q24H ELIANA Administration Protocol Azithromycin 500 mg/ Sodium 250 mls @ 250 mls/hr 04/22/18 21:30 04/22/18 21:39 Chloride IV 05/06/18 21:29 250 mls/hr Q24H ELIANA Administration Protocol Sodium Chloride 10 ml 04/22/18 19:30 Saline Flush 10ml Syringe IV 05/22/18 19:29 NEEDED PRN Maintain IV Site Discontinued Medications Generic Name Dose Route Start Last Admin Trade Name Freq PRN Reason Stop Dose Admin Albuterol/Ipratropium 3 ml 04/22/18 19:33 04/22/18 19:41 Duoneb 3ml Neb IH 04/22/18 19:34 3 ml ONCE ONE Administration Furosemide 40 mg 04/22/18 21:33 04/22/18 21:39 Lasix 40mg/4ml Vial IV 04/22/18 21:34 40 mg ONCE ONE Administration Methylprednisolone Sodium Succinate 125 mg 04/22/18 19:33 04/22/18 19:41 Solu-Medrol 125mg/2ml Vial IV 04/22/18 19:34 125 mg ONCE ONE Administration ORDERS Category Date Time Status Blood Culture Stat Micro 04/22/18 19:30 Received - Radiology Data #1 Image(s): Chest Image Reviewed: Yes I have reviewed radiologist's interpretation IMPRESSION: CHF with interstitial and mild pulmonary edema Dictated By: Gómez Zavala MD Signed By: <Electronically signed by Gómez Zavala MD in [place]> 04/22/182000 - ECG Data Tracing #1 EKG interpreted by Nishant Elder MD: Rhythm: sinus Rate: 80 [place]: normal Ectopy: none Conduction: Incomplete right bundle branch block ST Segment Changes: none T Wave Changes: none Q Waves: none No evidence of acute ischemia or injury - Physician Consults Physician Consulted: Lance Shirley Time: 21:30 Reason -: Admission Comment/Response: Agrees to admit the patient to the hospital. We discussed the patient's clinical information, including history, exam, laboratory and radiology results and ED course. Per hospital procedure, I will write temporary bridge inpatient orders on the patient. Specific orders requested by the admitting physician: Continue antibiotics, steroids, nebulizers, oxygen. Lasix 40 mg IV. Echocardiogram. General Adult HPI - General Chief complaint: Shortness of Breath/Dyspnea Stated complaint: Soa Time Seen by Provider: 04/22/18 20:27 Mode of Arrival: Ambulatory Limitations: No Limitations Description of Symptoms (Recalled from ER Triage Doc. by RN): Pt c/o SOA x 2 days with productive green sputum - History of Present Illness HPI narrative: 2-3-day history of cough producing thick cloudy sputum and shortness of breath. Has a sore throat, but no rhinorrhea. Denies fever. Denies chest pain. Denies swelling. She has oxygen and a nebulizer at home, but does not use either one. She does not have any inhalers. She uses furosemide as needed for leg swelling, but has not had any recent swelling and therefore has not taken it recently. She is a smoker. Denies any prior history of heart disease. States she has had pneumonia. - Related Data Home Medications Medication Instructions Recorded Confirmed Amlodipine Besylate/Benazepril 1 each PO DAILY 04/27/17 04/22/18 [Lotrel 5-10 mg Capsule] Buprenorphine HCl/Naloxone HCl 1.75 each SL DAILY 04/27/17 04/22/18 [Suboxone 8 mg-2 mg Sl Film] Fluoxetine HCl [Prozac] 60 mg PO DAILY 04/27/17 04/22/18 Furosemide [Lasix 40mg tablet] 40 mg PO DAILY PRN 04/27/17 04/22/18 Gabapentin [Neurontin 800mg Tab] 800 mg PO TID 04/27/17 04/22/18 Levothyroxine Sodium 75 mcg PO DAILY 04/27/17 04/22/18 [Levothyroxine 75mcg (0.075mg) Tab] Metformin HCl [Metformin 850mg 850 mg PO BID 04/27/17 04/22/18 Tablet] Naproxen Sodium [Naproxen Sodium 500 mg PO BID 04/27/17 04/22/18 Cr] Quetiapine Fumarate [Seroquel] 300 mg PO HS 04/27/17 04/22/18 Tizanidine HCl [Zanaflex] 12 mg PO HS 04/27/17 04/22/18 Atorvastatin Calcium [Atorvastatin 80 mg PO HS 04/28/17 04/22/18 80mg Tab] Insulin Degludec [Tresiba 38 units SQ 1400 04/28/17 04/22/18 Flextouch U-100] Albuterol Sulfate [Albuterol 2.5 mg IH Q4-6H PRN 04/22/18 04/22/18 0.083% 2.5mg/3mL neb] Allergies Allergy/AdvReac Type Severity Reaction Status Date / Time Sulfa (Sulfonamide Allergy Unknown Verified 04/22/18 19:26 Antibiotics) [SULFA (SULFONAMIDE ANTIBIOTICS)] [facility] History - Hepatitis A Screen Drug use history?: No High risk sexual behaviors?: No History of sexually transmitted infection?: No Currently employed?: No Childcare worker?: No Do you have indoor plumbing?: Yes Do you have electricity?: Yes Attestation statement:: This patient has been screened for Hepatitis A risk factors. I have reviewed the patient's past medical history: Yes Medical History: Reports:: Cerebrovascular Accident, Diabetes Mellitus Type 1, Heart Murmur, Hyperlipidemia, Hypertension Denies:: Cancer, Diabetes Mellitus Type 2, MRSA Other Medical History: Reports: Arthritis, Fibromyalgia, Hypothyroidism, Sinus Problems Comment: Bipolar, Sleep apnea, DJD lumbar spine Laterality Cases: Bilateral: Tonsillectomy, Other Other Surgeries: Yes: , Hysterectomy-Total, Tubal Ligation, Other (Cholecystectomy, Carpal Tunnel, Bone graft right wrist) Amputation: No Fractures: Yes - Social History Smoking Status: Current every day smoker Tobacco Type: cigarettes, e-cigarettes # Packs/Day (cigarettes): 3 #Yrs smoked (if former smoker): 35 Alcohol Intake: never Occupational Status: disabled Housing: house Household Members: none - Psychiatric History Expresses thoughts of harming self/others: None Suicide Plan Description: No Plan Pschychiatric History:: Reports:: Bipolar Disorder Family Hx:: Cancer, Diabetes, Heart Attack, Hypertension, Stroke ROS Obtained: Yes All systems reviewed & no additional complaints - Constitutional Constitutional: Denies fever(s) - ENT Ears, Nose, Mouth, and Throat: Denies nasal discharge, Reports sore throat - Cardiovascular Cardiovascular: Denies chest pain - Respiratory Respiratory: Yes cough, Yes dyspnea, Yes excessive phlegm production - Gastrointestinal Gastrointestingal: Denies: vomiting Physical Exam - General General appearance: alert, in no apparent distress - Head Head exam: atraumatic, normocephalic - Eye Eye exam: Present: normal appearance, PERRL, EOMI - ENT ENT exam: Present: normal oropharynx, mucous membranes moist - Chest Chest inspection: Present: normal inspection, symmetric chest wall rise - Respiratory Respiratory exam: Present: other (bilateral crackles). Absent: respiratory distress, wheezes - Cardiovascular Cardiovascular exam: Present: regular rate, normal rhythm, normal heart sounds - Abdominal Exam Abdominal exam: Present: soft. Absent: distention, tenderness - Extremities Exam Extremities exam: Present: normal inspection. Absent: tenderness, pedal edema, calf tenderness - Neurological Exam Neurological exam: Present: alert, oriented X3 - Psychiatric Psychiatric exam: Present: normal affect, normal mood - Skin Skin exam: Present: warm, dry
[2018-04-22 22:11] LABS: Microscopic, Urine URINE MICROSCOPIC (MICROSCOPIC)
[2018-04-22 22:40] LABS: Appearance,Urine CLEAR (Clear); Bilirubin,Urine Negative (Negative); Blood, Urine TRACE-I (Negative); Color,Urine YELLOW (Yellow); Glucose,Urine (UA) Negative (Negative); Ketones,Urine Negative (Negative); Leukocyte Esterase,Urine Negative (Negative); Protein,Urine TRACE (Negative); Urobilinogen,Urine 0.2 EU/dl (0.2)
[2018-04-22 22:44] LABS: Amorphous Sediment,Urine 1+ /lpf
[2018-04-23 07:18] LABS: Anion Gap 12.5 mEq/L (5-15); Calcium 9.3 mg/dL (8.5-10.1); Potassium 4.5 mmoL/L (3.5-5.1)
--- NOTE | 2018-04-23 09:46 | History & Physical Report ---
*Admission Date: 04/23/18 *Chief complaint: Shortness of breath *History of present illness: Doris presented to the emergency room last evening with a 3-day history that started with a sore throat that became progressively worse associated with congestion and cough. Last night she started feeling more short of breath which prompted her visit to the ER. She was evaluated in the emergency room. Most significant finding was chest x-ray showing some pulmonary congestion consistent with congestive heart failure. She has no history of heart failure. She does use Lasix as needed for leg swelling but denies any recent swelling in her feet or legs. Her cough is been productive of thick yellow sputum. She states yesterday she just generally felt weak and tired. No complaints of nausea or vomiting. No chest pain, palpitations or abdominal pain. She has been admitted at this time for further evaluation and treatment. She has been empirically started on IV antibiotics for acute bronchitis and was given Lasix for her pulmonary edema. Of note her BNP was only mildly elevated at 137. [facility] History Medical History: Reports:: Chronic Obstructive Pulmonary Disease (COPD), Cerebrovascular Accident, Diabetes Mellitus Type 2, Heart Murmur, Hyperlipidemia, Hypertension Denies:: Cancer, Diabetes Mellitus Type 1, MRSA *Have you ever received a pneumonia vaccine?: Yes *Have you received a flu vaccine this season?: No Other Medical History: Reports: Arthritis, Fibromyalgia, Hypothyroidism, Sinus Problems, Other (bipolar d/o; DDD with chronic back pain;Opioid dependence (Suboxone clinic)) Laterality Cases: Right: Carpal Tunnel Release, Bilateral: Tonsillectomy, Total Knee Replacement, Other Other Surgeries: Yes: Cholecystectomy, , Hysterectomy-Total, Tubal Ligation, Other ( Bone graft right wrist) Amputation: No Fractures: Yes - *Social History Educational Level: Attended College Smoking Status: Current every day smoker Tobacco Type: cigarettes # Packs/Day (cigarettes): 2 #Yrs smoked (if former smoker): 35 Alcohol Intake: never *Occupational Status:: disabled Housing: house Household Members: none *Travel in the last 8 weeks: None - Psychiatric History Expresses thoughts of harming self/others: None Suicide Plan Description: No Plan Pschychiatric History:: Reports:: Bipolar Disorder Family Hx:: Cancer, Diabetes, Heart Attack, Hypertension, Stroke Review of Systems - Constitutional Reports body ache(s), Reports fatigue, Reports malaise - Eyes Denies change in vision, Denies double vision, Denies sensitivity to light - ENT Reports dry mouth, Reports hoarseness (with acute illness), Reports nasal discharge, Denies abnormal hearing - *Cardiovascular Reports shortness of breath, Reports shortness of breath with activity, Denies chest pain, Denies generalized swelling, Denies irregular heart rhythm, Denies leg swelling, Denies rapid, pounding, or irregular heartbeat - *Respiratory Reports change in phlegm color, Reports chest congestion, Reports cough, Reports shortness of breath, Denies pain with cough - *Gastrointestinal Denies abdominal pain, Denies change in bowel habits, Denies loose stools, Denies nausea, Denies vomiting - *Genitourinary Reports urinary urgency, Denies urinary incontinence - *Musculoskeletal Reports back pain (chronic), Reports muscle weakness - Integumentary/Breasts Denies hair loss, Denies yellowing of the skin - *Neurologic Denies dizziness, Denies headache(s), Denies dizziness - Psychiatric Reports abnormal sleep pattern, Denies hearing things others do not hear, Denies behavioral changes, Denies mood swings - Endocrine Denies cold intolerance, Denies excessive sweating - Hematologic/Lymphatic Denies easy bleeding - Allergic/Immunologic Denies seasonal runny nose Meds Home Medications Medication Instructions Recorded Confirmed Type Amlodipine Besylate/Benazepril 1 each PO DAILY 04/27/17 04/22/18 History [Lotrel 5-10 mg Capsule] Fluoxetine HCl [Prozac] 60 mg PO DAILY 04/27/17 04/22/18 History Furosemide [Lasix 40mg tablet] 40 mg PO DAILY PRN 04/27/17 04/22/18 History Gabapentin [Neurontin 800mg Tab] 800 mg PO TID 04/27/17 04/22/18 History Levothyroxine Sodium 75 mcg PO DAILY 04/27/17 04/22/18 History [Levothyroxine 75mcg (0.075mg) Tab] Metformin HCl [Metformin 850mg 850 mg PO BID 04/27/17 04/22/18 History Tablet] Naproxen Sodium [Naproxen Sodium 500 mg PO BID PRN 04/27/17 04/22/18 History Cr] Quetiapine Fumarate [Seroquel] 300 mg PO HS 04/27/17 04/22/18 History Tizanidine HCl [Zanaflex] 12 mg PO HS 04/27/17 04/22/18 History Atorvastatin Calcium [Atorvastatin 80 mg PO HS 04/28/17 04/22/18 History 80mg Tab] Insulin Degludec [Tresiba 38 units SQ 1400 04/28/17 04/22/18 History Flextouch U-100] Albuterol Sulfate [Albuterol 2.5 mg IH Q4-6H PRN 04/22/18 04/22/18 History 0.083% 2.5mg/3mL neb] Buprenorphine HCl/Naloxone HCl 2 each SL DAILY 04/23/18 04/23/18 History [Buprenorphin-Naloxon 8-2 mg Sl] Allergies Allergy/AdvReac Type Severity Reaction Status Date / Time Sulfa (Sulfonamide Allergy Unknown Verified 04/22/18 19:26 Antibiotics) [SULFA (SULFONAMIDE ANTIBIOTICS)] Exam Vital signs and Labs for Last 24 Hours: Temp Pulse Resp BP Pulse Ox 97.6 F 72 19 97/69 L 92 L 04/23/18 07:51 04/23/18 07:51 04/23/18 07:51 04/23/18 07:51 04/23/18 08:00 Laboratory Results - last 24 hr 04/22/18 19:30: WBC 10.5, RBC 4.94, Hgb 15.2, Hct 44.5, MCV 90.0, MCH 30.8, MCHC 34.2, RDW 13.7, Plt Count 224, MPV 9.1, Neut % (Auto) 87.1 H, Lymph % (Auto) 8.3 L, [place] % (Auto) 3.6, Eos % (Auto) 0.6, Baso % (Auto) 0.4, Neut # (Auto) 9.1 H, Lymph # (Auto) 0.9, [place] # (Auto) 0.4, Eos # (Auto) 0.1, Baso # (Auto) 0.0, Total Counted 100, Neutrophils % (Manual) 87 H, Band Neutrophils % 2.0, Lymphocytes % (Manual) 10, Eosinophils % (Manual) 1, Platelet Estimate Normal, RBC Morphology Normal 04/22/18 19:30: Sodium 140, Potassium 3.9, Chloride 102, Carbon Dioxide 27, Anion Gap 14.9, BUN 28 H, Creatinine 0.81, Estimated Creat Clear 66, Estimated GFR 74, Est GFR ( Amer) 89, Glucose 194 H, Calcium 9.8, Total Bilirubin 0.4, AST 23, ALT 25, Alkaline Phosphatase 191 H, Total Protein 8.5 H, Albumin 3.5, Globulin 5.0 H, Albumin/Globulin Ratio 0.7 L 04/22/18 19:30: Lactate 0.9 04/22/18 19:30: B-Natriuretic Peptide 137 H 04/22/18 19:30: Troponin I < 0.02 04/22/18 19:35: Influenza Type A Ag Negative, Influenza Type B Ag Negative 04/22/18 22:00: Urine Color Yellow, Urine Appearance Clear, Urine pH 6.0, Ur Specific [place] 1.020, Urine Protein Trace, Urine Glucose (UA) Negative, Urine Ketones Negative, Urine Blood Trace-i, Urine Nitrate Negative, Urine Bilirubin Negative, Urine Urobilinogen 0.2, Ur Leukocyte Esterase Negative, Urine RBC 3-5, Ur Squamous Epith Cells 10-20, Amorphous Sediment 1+ 04/23/18 05:55: Sodium 140, Potassium 4.5, Chloride 102, Carbon Dioxide 30, Anion Gap 12.5, BUN 26 H, Creatinine 0.79, Estimated Creat Clear 68, Estimated GFR 76, Est GFR ( Amer) 92, Glucose 267 H D, Calcium 9.3 04/23/18 06:07: POC Glucose 255 H I & O for Last 24 hours: Intake & Output 04/20/18 04/21/18 04/22/18 04/23/18 11:59 11:59 11:59 11:59 Intake Total 300 / 300 Output Total 1600 / 1600 Balance -1300 / -1300 Weight 248 lb Narrative: She is sleeping initially but arouses easily. She appears drowsy. Color is normal. No respiratory distress. HEENT shows the sclerae and conjunctivae to be clear. Mild nasal congestion. Throat is erythematous with no exudate. Voice is hoarse. Neck is stocky but supple with no adenopathy or thyromegaly. No bruits. Chest reveals generally diminished breath sounds. There are some fine rales in the bases. No wheezes. Heart tones are distant but regular with no murmurs. Abdomen obese, soft, nondistended. No unusual tenderness. Bowel sounds are present. Extremities show no edema. Assessment and Plan (1) Acute bronchitis Current visit: Yes Status: Acute Qualifiers: Bronchitis organism: unspecified organism Qualified Code(s): J20.9 - Acute bronchitis, unspecified Category: Medical Code(s): J20.9 - Acute bronchitis, unspecified (2) Congestive heart failure Current visit: Yes Status: Acute Qualifiers: Heart failure type: unspecified Heart failure chronicity: acute Qualified Code(s): I50.9 - Heart failure, unspecified Category: Medical Code(s): I50.9 - Heart failure, unspecified (3) Dyspnea or other respiratory complaints Current visit: No Status: Acute Category: Medical (4) Chronic back pain Current visit: Yes Status: Acute Category: Medical Code(s): M54.9 - Dorsalgia, unspecified; G89.29 - Other chronic pain (5) Opioid dependence in controlled environment Current visit: Yes Status: Acute Category: Medical Code(s): F11.20 - Opioid dependence, uncomplicated (6) Bipolar disorder Current visit: No Status: Chronic Category: Medical Code(s): F31.9 - Bipolar disorder, unspecified (7) Fibromyalgia Current visit: No Status: Chronic Category: Medical Code(s): M79.7 - Fibromyalgia (8) Hypertension Current visit: No Status: Chronic Category: Medical Code(s): I10 - Essential (primary) hypertension (9) Type 2 diabetes mellitus Current visit: No Status: Chronic Category: Medical Code(s): E11.9 - Type 2 diabetes mellitus without complications (10) Hypothyroidism Current visit: Yes Status: Acute Category: Medical Code(s): E03.9 - Hypothyroidism, unspecified (11) Hyperlipidemia Current visit: No Status: Chronic Category: Medical Code(s): E78.5 - Hyperlipidemia, unspecified - Assessment and plan all Dx Assessment and Plan for all problems:: She has been admitted for further observation and treatment. She has been empirically started on IV Rocephin and Zithromax for acute bronchitis. She has received Lasix for congestive heart failure. We will plan to obtain echocardiogram. She will be continued on her maintenance medications from home. She has been placed on sliding scale insulin with close monitoring of her blood sugar as she received IV steroids in the emergency room. Additional workup and treatment will be as indicated by her hospital course.
--- NOTE | 2018-04-23 13:13 | Pharmacy Consult Notes ---
[facility] Pharmacy VTE Monitoring - Patient Demographics Admission date: 04/23/18 Report Date: 04/23/18 Time: 13:13 Allergies/Adverse Reactions: Patient Allergies Sulfa (Sulfonamide Antibiotics) [SULFA (SULFONAMIDE ANTIBIOTICS)] Allergy (Unknown, Verified 04/22/18 19:26) Height: 1.6 m Weight: 112.491 kg Patient Problems: Current Active Problems Hypoxia (Acute) Congestive heart failure (Acute) Acute bronchitis (Acute) Chronic back pain (Acute) Opioid dependence in controlled environment (Acute) Hypothyroidism (Acute) - VTE Risk Labs: VTE Related Lab Results Hgb 15.2 g/dL (12.2-16.2) 04/22/18 19:30 Hct 44.5 % (37.0-47.0) 04/22/18 19:30 Plt Count 224 K/mm3 (142-424) 04/22/18 19:30 BUN 26 mg/dL (7-18) H 04/23/18 05:55 Creatinine 0.79 mg/dL (0.55-1.02) 04/23/18 05:55 Estimated Creat Clear 68 mL/min (50-200) 04/23/18 05:55 Was VTE Risk Assessment Performed: Yes VTE Score: 4 VTE Risk Level: Low Risk - Prophylaxis Types of VTE Prophylaxis: TEDS Knee High (ANITA HOSE ORDERED)
[2018-04-24 07:03] LABS: Basophils % 0.1 % (0.1-2.0); Eosinophils # 0.1 K/mm3 (0.0-0.4); Eosinophils % 0.6 % (0.1-12.0); Hematocrit 40.9 % (37.0-47.0); Hemoglobin 13.4 g/dL (12.2-16.2); Lymphocytes % 5.4 % (10-50); Mean Corpuscular HGB Conc 32.7 g/dL (31.8-35.4); Mean Corpuscular Volume 91.8 fl (81-99); Monocytes # 0.5 K/mm3 (0.1-1.0); Monocytes % 2.6 % (1.7-9.3); Neutrophils # 16.8 K/mm3 (1.8-7.8); Neutrophils % 91.4 % (37.0-80.0); Platelet Count 298 K/mm3 (142-424); Red Blood Count 4.46 M/mm3 (4.20-5.40); Red Cell Distribution Width 13.6 % (11.5-17.5); White Blood Count 18.3 K/mm3 (4.8-10.8)
[2018-04-24 07:14] LABS: Anion Gap 12.2 mEq/L (5-15); Calcium 9.6 mg/dL (8.5-10.1); Potassium 5.2 mmoL/L (3.5-5.1)
[2018-04-24 07:21] LABS: Lymphocytes % 12 % (10-50); Neutrophils % 81 % (42-76); Rouleaux 1+; Total Cells Counted 100
--- NOTE | 2018-04-24 09:44 | Progress Note ---
Internal Medicine - PN: Subj Interval history: She states she rested fairly well last night. Her throat is not as sore and her voice has improved. She still has a cough that is mostly nonproductive. She feels less tight in her chest. Appetite is okay. Exam Vital signs and Labs for Last 24 Hours: Temp Pulse Resp BP Pulse Ox 97.6 F 66 18 107/60 L 90 L 04/24/18 03:59 04/24/18 06:53 04/24/18 03:59 04/24/18 09:20 04/24/18 06:53 Laboratory Results - last 24 hr 04/23/18 11:11: POC Glucose 280 H 04/23/18 16:58: POC Glucose 307 H* 04/23/18 21:02: POC Glucose 334 H* 04/24/18 06:37: WBC 18.3 H D, RBC 4.46, Hgb 13.4, Hct 40.9, MCV 91.8, MCH 30.0, MCHC 32.7, RDW 13.6, Plt Count 298 D, MPV 9.0, Neut % (Auto) 91.4 H, Lymph % (Auto) 5.4 L, [place] % (Auto) 2.6, Eos % (Auto) 0.6, Baso % (Auto) 0.1, Neut # (Auto) 16.8 H, Lymph # (Auto) 1.0, [place] # (Auto) 0.5, Eos # (Auto) 0.1, Baso # (Auto) 0.0, Total Counted 100, Neutrophils % (Manual) 81 H, Band Neutrophils % 7.0, Lymphocytes % (Manual) 12, Platelet Estimate Normal, Rouleaux 1+ 04/24/18 06:37: Sodium 137, Potassium 5.2 H, Chloride 99, Carbon Dioxide 31, Anion Gap 12.2, BUN 26 H, Creatinine 0.79, Estimated Creat Clear 68, Estimated GFR 76, Est GFR ( Amer) 92, Glucose 322 H, Calcium 9.6 04/24/18 07:03: POC Glucose 313 H* I & O for Last 24 hours: Intake & Output 04/21/18 04/22/18 04/23/18 04/24/18 11:59 11:59 11:59 12:59 Intake Total 300 / 300 840 / 840 Output Total 1600 / 1600 2300 / 2300 Balance -1300 / -1300 -1460 / -1460 Weight 248 lb 252 lb 3 oz Microbiology Reports for the Last 24 Hours: Microbiology 04/23/18 10:50 Sputum - Expectorated Sputum Gram Stain - Final 04/23/18 10:50 Sputum - Expectorated Sputum Sputum Culture - Preliminary Narrative: She is sitting up in bed and appears in no respiratory distress. Mucous membranes are slightly dry. Chest reveals coarse breath sounds with scattered rhonchi and a few faint wheezes. Heart is regular. Abdomen is obese, soft, and nondistended. No tenderness. Extremities show no edema. Assessment and Plan (1) Acute bronchitis Current visit: Yes Status: Acute Qualifiers: Bronchitis organism: unspecified organism Qualified Code(s): J20.9 - Acute bronchitis, unspecified Category: Medical Code(s): J20.9 - Acute bronchitis, unspecified (2) Congestive heart failure Current visit: Yes Status: Acute Qualifiers: Heart failure type: unspecified Heart failure chronicity: acute Qualified Code(s): I50.9 - Heart failure, unspecified Category: Medical Code(s): I50.9 - Heart failure, unspecified (3) Dyspnea or other respiratory complaints Current visit: No Status: Acute Category: Medical (4) Chronic back pain Current visit: Yes Status: Acute Category: Medical Code(s): M54.9 - Dorsalgia, unspecified; G89.29 - Other chronic pain (5) Opioid dependence in controlled environment Current visit: Yes Status: Acute Category: Medical Code(s): F11.20 - Opioid dependence, uncomplicated (6) Bipolar disorder Current visit: No Status: Chronic Category: Medical Code(s): F31.9 - Bipolar disorder, unspecified (7) Fibromyalgia Current visit: No Status: Chronic Category: Medical Code(s): M79.7 - Fibromyalgia (8) Hypertension Current visit: No Status: Chronic Category: Medical Code(s): I10 - Essential (primary) hypertension (9) Type 2 diabetes mellitus Current visit: No Status: Chronic Category: Medical Code(s): E11.9 - Type 2 diabetes mellitus without complications (10) Hypothyroidism Current visit: Yes Status: Acute Category: Medical Code(s): E03.9 - H ypothyroidism, unspecified (11) Hyperlipidemia Current visit: No Status: Chronic Category: Medical Code(s): E78.5 - Hyperlipidemia, unspecified - Assessment and plan all Dx Assessment and Plan for all problems:: She is feeling a little better. Her white blood cell count has increased significantly which may be related to the steroids. We will switch from the IV Solu-Medrol to oral prednisone. Echocardiogram is still pending. We will repeat her chest x-ray today.
[2018-04-25 07:16] LABS: Basophils % 0.1 % (0.1-2.0); Eosinophils # 0.1 K/mm3 (0.0-0.4); Eosinophils % 0.5 % (0.1-12.0); Hematocrit 43.2 % (37.0-47.0); Hemoglobin 13.8 g/dL (12.2-16.2); Lymphocytes # 3.1 K/mm3 (0.7-4.5); Lymphocytes % 21.1 % (10-50); Mean Corpuscular HGB Conc 31.9 g/dL (31.8-35.4); Mean Corpuscular Hemoglobin 29.5 pg (27.0-31.2); Mean Corpuscular Volume 92.7 fl (81-99); Mean Platelet Volume 8.9 fl (7.4-10.4); Monocytes # 0.7 K/mm3 (0.1-1.0); Neutrophils # 10.7 K/mm3 (1.8-7.8); Neutrophils % 73.2 % (37.0-80.0); Platelet Count 254 K/mm3 (142-424); Red Blood Count 4.66 M/mm3 (4.20-5.40); Red Cell Distribution Width 13.9 % (11.5-17.5); White Blood Count 14.6 K/mm3 (4.8-10.8)
[2018-04-25 07:31] LABS: Anion Gap 13.2 mEq/L (5-15); Calcium 9.7 mg/dL (8.5-10.1); Potassium 5.2 mmoL/L (3.5-5.1)
--- NOTE | 2018-04-25 13:36 | Progress Note ---
Internal Medicine - PN: Subj *Date: 04/25/18 *Time: 08:05 Interval history: She rested well last night and is feeling better. Still with nonproductive cough. Tolerating activity in her room. No chest pain. No swelling. Exam Vital signs and Labs for Last 24 Hours: Temp Pulse Resp BP Pulse Ox 98.1 F 70 16 141/69 H 79 L 04/25/18 08:00 04/25/18 09:43 04/25/18 08:00 04/25/18 08:00 04/25/18 09:43 Laboratory Results - last 24 hr 04/24/18 16:37: POC Glucose 339 H* 04/24/18 20:47: POC Glucose 301 H* 04/25/18 06:01: POC Glucose 265 H 04/25/18 06:38: WBC 14.6 H, RBC 4.66, Hgb 13.8, Hct 43.2, MCV 92.7, MCH 29.5, MCHC 31.9, RDW 13.9, Plt Count 254, MPV 8.9, Neut % (Auto) 73.2, Lymph % (Auto) 21.1, [place] % (Auto) 5.0, Eos % (Auto) 0.5, Baso % (Auto) 0.1, Neut # (Auto) 10.7 H, Lymph # (Auto) 3.1, [place] # (Auto) 0.7, Eos # (Auto) 0.1, Baso # (Auto) 0.0 04/25/18 06:38: Sodium 138, Potassium 5.2 H, Chloride 100, Carbon Dioxide 30, Anion Gap 13.2, BUN 25 H, Creatinine 0.72, Estimated Creat Clear 75, Estimated GFR 85, Est GFR ( Amer) 103, Glucose 245 H, Calcium 9.7 04/25/18 10:57: POC Glucose 236 H I & O for Last 24 hours: Intake & Output 04/23/18 04/24/18 04/25/18 04/26/18 10:59 11:59 11:59 11:59 Intake Total 600 / 600 Output Total Balance 600 / 600 Weight 252 lb 3 oz 252 lb Microbiology Reports for the Last 24 Hours: Microbiology 04/23/18 10:50 Sputum - Expectorated Sputum Gram Stain - Final 04/23/18 10:50 Sputum - Expectorated Sputum Sputum Culture - Preliminary Gram Positive Cocci 04/22/18 19:30 Blood Blood Culture - Preliminary NO GROWTH AFTER 48 HOURS 04/22/18 19:30 Blood Blood Culture - Preliminary NO GROWTH AFTER 48 HOURS - Constitutional no acute distress - *Routine HEENT Exam Comments: voice still hoarse - *Routine Respiratory Exam Comments: coarse BS, no rales or wheezes Assessment and Plan (1) Acute bronchitis Current visit: Yes Status: Acute Qualifiers: Bronchitis organism: unspecified organism Qualified Code(s): J20.9 - Acute bronchitis, unspecified Category: Medical Code(s): J20.9 - Acute bronchitis, unspecified (2) Congestive heart failure Current visit: Yes Status: Acute Qualifiers: Heart failure type: unspecified Heart failure chronicity: acute Qualified Code(s): I50.9 - Heart failure, unspecified Category: Medical Code(s): I50.9 - Heart failure, unspecified (3) Dyspnea or other respiratory complaints Current visit: No Status: Acute Category: Medical (4) Chronic back pain Current visit: Yes Status: Acute Category: Medical Code(s): M54.9 - Dorsalgia, unspecified; G89.29 - Other chronic pain (5) Opioid dependence in controlled environment Current visit: Yes Status: Acute Category: Medical Code(s): F11.20 - Opioid dependence, uncomplicated (6) Bipolar disorder Current visit: No Status: Chronic Category: Medical Code(s): F31.9 - Bipolar disorder, unspecified (7) Fibromyalgia Current visit: No Status: Chronic Category: Medical Code(s): M79.7 - Fibromyalgia (8) Hypertension Current visit: No Status: Chronic Category: Medical Code(s): I10 - Essential (primary) hypertension (9) Type 2 diabetes mellitus Current visit: No Status: Chronic Category: Medical Code(s): E11.9 - Type 2 diabetes mellitus without complications (10) Hypothyroidism Current visit: Yes Status: Acute Category: Medical Code(s): E03.9 - Hypothyroidism, unspecified (11) Hyperlipidemia Current visit: No Status: Chronic Category: Medical Code(s): E78.5 - Hyperlipidemia, unspecified - Assessment and plan all Dx Assessment and Plan for all problems:: Clincially improved. Awaiting Echo to be done this AM. If stable, will likely discharge home later today.
--- NOTE | 2018-04-25 19:42 | Cardiology Report ---
PROCEDURE: 2-D M-mode and color Doppler study INDICATIONS FOR THE TEST: Chest pain COPD+ Heart Murmur+ Tobacco Smoking Palpitations Fatigue Syncope Edema Hypertension+Diabetes Mellitus+ Rheumatic Fever SOB RUTLEDGE Obesity Hyperlipidemia+ Family History HD Additional History CVA PATIENT INFORMATION HEIGHT: 62 WEIGHT:260 GENDER: Female B/P:97/69 2-D/M-MODE INTERPRETATION: 2-D MEASUREMENTS OBSERVED VALUES IN CMS Right Ventricular Dimension (RVDd) 1.8 Interventricular Septum (Thickness)(IVsd) 1.6 Left Ventricular Internal Dimensions(LVIDd) 5.2 Left Ventricular Posterior Wall (Thickness)(LVPWd) 0.9 Aortic Root 2.9 Aortic Cusp Separation 1.8 Left Atrial Dimensions (LAD) 4.5 2D 1. Left atrium is mildly enlarged, left ventricle is normal size, mild concentric left ventricular hypertrophy, visually estimated ejection fraction 55% with no regional wall motion abnormality. 2. The right atrium is mildly enlarged, right ventricle is mildly dilated with normal contractility. 3. The aortic valve is thickened and calcified leaflet mobility. 4. The mitral and tricuspid valvular grossly normal. 5. The pulmonic valve is poorly visualized. 6. No significant pericardial effusion noted. DOPPLER INTERROGATION: Doppler interrogation of the aortic, mitral and tricuspid valvular presence of mild mitral and tricuspid regurgitation, calculated right ventricular systolic pressure is 44 mmHg consistent with moderate pulmonary hypertension, diastolic parameters are inconclusive. CONCLUSION: 1. Mild biatrial enlargement, normal left ventricular size, mild concentric left ventricular hypertrophy, visually estimated ejection fraction 55% with no regional wall motion abnormality, diastolic parameters are inconclusive. 2. Mildly enlarged right ventricle with normal contractility. 3. Mild mitral and tricuspid regurgitation, calculated right ventricular systolic pressure is 44 mmHg consistent with moderate pulmonary hypertension. 4. No significant pericardial effusion noted.
--- NOTE | 2018-04-25 22:15 | Discharge Summary ---
General - General Admission date:: 04/22/18 Discharge date: 04/25/18 HPI HPI: Doris presented to the emergency room last evening with a 3-day history that started with a sore throat that became progressively worse associated with congestion and cough. Last night she started feeling more short of breath which prompted her visit to the ER. She was evaluated in the emergency room. Most significant finding was chest x-ray showing some pulmonary congestion consistent with congestive heart failure. She has no history of heart failure. She does use Lasix as needed for leg swelling but denies any recent swelling in her feet or legs. Her cough is been productive of thick yellow sputum. She states yesterday she just generally felt weak and tired. No complaints of nausea or vomiting. No chest pain, palpitations or abdominal pain. She has been admitted at this time for further evaluation and treatment. She has been empirically started on IV antibiotics for acute bronchitis and was given Lasix for her pulmonary edema. Of note her BNP was only mildly elevated at 137. Hospital Course Hospital Course: The patient was empirically started on IV Rocephin and Zithromax for acute bronchitis. She received Lasix for CHF and an echocardiogram was ordered. She was continued on her maintenance medications from home and was placed on sliding scale insulin with close monitoring of her blood sugar as she received IV steroids in the emergency room. The patient did begin feeling better. Her white blood cell count increased significantly likely related to the steroids. She was switched from IV Solu-Medrol to oral prednisone. A repeat chest x-ray was ordered. Her echo showed an EF of 55%. There was mild biatrial enlargement and mild concentric left ventricular hypertrophy. There was also moderate pulmonary hypertension. The patient's symptoms greatly improved and she was stable to be discharged home on Ceftin 250 mg p.o. twice daily. She will follow-up in the office [facility] with Dr. Shirley. Objective Vital signs: Temp Pulse Resp BP Pulse Ox 98.1 F 78 16 141/69 H 79 L 04/25/18 08:00 04/25/18 14:02 04/25/18 08:00 04/25/18 08:00 04/25/18 09:43 Narrative: She is sleeping initially but arouses easily. She appears drowsy. Color is normal. No respiratory distress. HEENT shows the sclerae and conjunctivae to be clear. Mild nasal congestion. Throat is erythematous with no exudate. Voice is hoarse. Neck is stocky but supple with no adenopathy or thyromegaly. No bruits. Chest reveals generally diminished breath sounds. There are some fine rales in the bases. No wheezes. Heart tones are distant but regular with no murmurs. Abdomen obese, soft, nondistended. No unusual tenderness. Bowel sounds are present. Extremities show no edema. Results Labs on day of discharge: Labs from last 24 hours 04/25/18 04/25/18 04/25/18 10:57 06:38 06:38 WBC 14.6 H RBC 4.66 Hgb 13.8 Hct 43.2 MCV 92.7 MCH 29.5 MCHC 31.9 RDW 13.9 Plt Count 254 MPV 8.9 Neut % (Auto) 73.2 Lymph % (Auto) 21.1 [place] % (Auto) 5.0 Eos % (Auto) 0.5 Baso % (Auto) 0.1 Neut # (Auto) 10.7 H Lymph # (Auto) 3.1 [place] # (Auto) 0.7 Eos # (Auto) 0.1 Baso # (Auto) 0.0 Sodium 138 Potassium 5.2 H Chloride 100 Carbon Dioxide 30 Anion Gap 13.2 BUN 25 H Creatinine 0.72 Estimated Creat Clear 75 Estimated GFR 85 Est GFR ( Amer) 103 Glucose 245 H POC Glucose 236 H Calcium 9.7 04/25/18 04/24/18 06:01 20:47 WBC RBC Hgb Hct MCV MCH MCHC RDW Plt Count MPV Neut % (Auto) Lymph % (Auto) [place] % (Auto) Eos % (Auto) Baso % (Auto) Neut # (Auto) Lymph # (Auto) [place] # (Auto) Eos # (Auto) Baso # (Auto) Sodium Potassium Chloride Carbon Dioxide Anion Gap BUN Creatinine Estimated Creat Clear Estimated GFR Est GFR ( Amer) Glucose POC Glucose 265 H 301 H* Calcium Preliminary micro results at discharge 04/23/18 10:50 Sputum Culture - Preliminary Sputum - Expectorated Sputum Gram Positive Cocci 04/22/18 19:30 Blood Culture - Preliminary Blood NO GROWTH AFTER 48 HOURS 04/22/18 19:30 Blood Culture - Preliminary Blood NO GROWTH AFTER 48 HOURS DS: Diagnosis - Discharge Diagnosis (1) Acute bronchitis Status: Acute (2) Congestive heart failure Status: Acute (3) Dyspnea or other respiratory complaints Status: Acute (4) Chronic back pain Status: Acute (5) Opioid dependence in controlled environment Status: Acute (6) Bipolar disorder Status: Chronic (7) Fibromyalgia Status: Chronic (8) Hypertension Status: Chronic (9) Type 2 diabetes mellitus Status: Chronic (10) Hypothyroidism Status: Acute (11) Hyperlipidemia Status: Chronic Discharge Plan - Patient Discharge Instructions ACTIVITY: Continue current activity DIET: diabetic diet Patient Instructions: Acute Bronchitis, DI for Heart Failure, DI for Acute Bronchitis - Follow up Plan Follow up with: Kiran Shirley MD [Primary Care Provider] - 1 week Disposition: Home, Self-Residential Medications: Home Medications Medication Instructions Recorded Confirmed Type Amlodipine Besylate/Benazepril 1 each PO DAILY 04/27/17 04/22/18 History [Lotrel 5-10 mg Capsule] Fluoxetine HCl [Prozac] 20 mg PO DAILY 04/27/17 04/23/18 History Furosemide [Lasix 40mg tablet] 40 mg PO DAILY PRN 04/27/17 04/22/18 History Gabapentin [Neurontin 800mg Tab] 800 mg PO TID 04/27/17 04/22/18 History Levothyroxine Sodium 75 mcg PO DAILY 04/27/17 04/22/18 History [Levothyroxine 75mcg (0.075mg) Tab] Metformin HCl [Metformin 850mg 850 mg PO BID 04/27/17 04/22/18 History Tablet] Naproxen Sodium [Naproxen Sodium 500 mg PO BID PRN 04/27/17 04/22/18 History Cr] Quetiapine Fumarate [Seroquel] 300 mg PO HS 04/27/17 04/22/18 History Tizanidine HCl [Zanaflex] 12 mg PO HS 04/27/17 04/22/18 History Atorvastatin Calcium [Atorvastatin 80 mg PO HS 04/28/17 04/22/18 History 80mg Tab] Insulin Degludec [Tresiba 38 units SQ 1400 04/28/17 04/22/18 History Flextouch U-100] Albuterol Sulfate [Albuterol 2.5 mg IH Q4-6H PRN 04/22/18 04/22/18 History 0.083% 2.5mg/3mL neb] Buprenorphine HCl/Naloxone HCl 2 each SL DAILY 04/23/18 04/23/18 History [Buprenorphin-Naloxon 8-2 mg Sl] Fluoxetine HCl 40 mg PO DAILY 04/23/18 04/23/18 History cefUROXime axetil [Ceftin 250mg 250 mg PO BID #14 tab 04/25/18 Rx Tablet] Prescriptions/Medication Reconciliation: New cefUROXime axetil [Ceftin 250mg Tablet] 250 mg PO BID #14 tab Continue Furosemide [Lasix 40mg tablet] 40 mg PO DAILY PRN PRN Reason: Edema Levothyroxine Sodium [Levothyroxine 75mcg (0.075mg) Tab] 75 mcg PO DAILY Tizanidine HCl [Zanaflex] 12 mg PO HS Quetiapine Fumarate [Seroquel] 300 mg PO HS Naproxen Sodium [Naproxen Sodium Cr] 500 mg PO BID PRN PRN Reason: PAIN Metformin HCl [Metformin 850mg Tablet] 850 mg PO BID Fluoxetine HCl [Prozac] 20 mg PO DAILY Amlodipine Besylate/Benazepril [Lotrel 5-10 mg Capsule] 1 each PO DAILY Atorvastatin Calcium [Atorvastatin 80mg Tab] 80 mg PO HS Insulin Degludec [Tresiba Flextouch U-100] 38 units SQ 1400 Fluoxetine HCl 40 mg PO DAILY Gabapentin [Neurontin 800mg Tab] 800 mg PO TID Albuterol Sulfate [Albuterol 0.083% 2.5mg/3mL neb] 2.5 mg IH Q4-6H PRN PRN Reason: Shortness Of Breath Buprenorphine HCl/Naloxone HCl [Buprenorphin-Naloxon 8-2 mg Sl] 2 each SL DAILY
== END 2018-04-25 14:46 | disposition home or self-care (01) | DRG 202 ==
LOC: ER 19:03 → 2ND 21:43
PROVIDERS: ADMIT Family Medicine; ATTEND Family Medicine
CPT/HCPCS: 36415; 71020; 71046; 80048; 80053; 81001; 82962; 83605; 83880; 84484; 85007; 85025; 87040; 87070; 87077; 87186; 87205; 87275; 87276; 90686; 90732; 93005; 93306; 94640; 94761; 96365; 96366; 99285; J0456; J0571

== ENCOUNTER 2018-05-14 12:33 | Inpatient (IN) ==
--- NOTE | 2018-05-14 13:27 | Progress Note ---
Internal Medicine - PN: Subj *Date: 05/14/18 *Time: 13:24 Interval history: 52 y.o. WF seen in [facility] today. Admitted with abdominal pain, distention, fullness on exam on the left side, and with bandemia. Symptoms over past 2 months, possible colitis. See H&P from office. Patient with chronic pain, diabetes, hypothyroidism. Exam Vital signs and Labs for Last 24 Hours: Temp Pulse Resp BP Pulse Ox 98.6 F 111 H 20 118/98 H 93 L 05/14/18 13:05 05/14/18 13:05 05/14/18 13:05 05/14/18 13:05 05/14/18 13:05 I & O for Last 24 hours: Intake & Output 05/12/18 05/13/18 05/14/18 05/15/18 11:59 11:59 11:59 11:59 Weight 261 lb 3 oz - Constitutional no acute distress - *Routine HEENT Exam Eye: Present: PERRL ENT: Present: mucous membranes dry - *Routine Respiratory Exam Present: CTA bilaterally - *Routine Cardiovascular Exam Present: RRR - *Routine Abdominal Exam Present: distended, firm (especially on left. Obese) - *Routine Extremities Exam Present: edema (3+) Assessment and Plan (1) Abdominal pain Current visit: Yes Status: Acute Category: Medical Code(s): R10.9 - Unspecified abdominal pain (2) Diverticulitis Current visit: Yes Status: Acute Category: Medical Code(s): K57.92 - Diverticulitis of intestine, part unspecified, without perforation or abscess without bleeding (3) Edema Current visit: Yes Status: Acute Category: Medical Code(s): R60.9 - Edema, unspecified (4) Bandemia Current visit: Yes Status: Acute Category: Medical Code(s): D72.825 - Bandemia (5) Hypothyroidism Current visit: No Status: Acute Category: Medical Code(s): E03.9 - Hypothyroidism, unspecified (6) Opioid dependence in controlled environment Current visit: No Status: Acute Category: Medical Code(s): F11.20 - Opioid dependence, uncomplicated (7) Upper abdominal pain Current visit: No Status: Acute Category: Medical Code(s): R10.10 - Upper abdominal pain, unspecified (8) Vomiting Current visit: No Status: Acute Qualifiers: Vomiting type: unspecified Vomiting Intractability: unspecified Nausea presence: with nausea Qualified Code(s): R11.2 - Nausea with vomiting, unspecified Category: Medical Code(s): R11.10 - Vomiting, unspecified (9) Bipolar disorder Current visit: No Status: Chronic Category: Medical Code(s): F31.9 - Bipolar disorder, unspecified (10) Hypertension Current visit: No Status: Chronic Category: Medical Code(s): I10 - Essential (primary) hypertension (11) Type 2 diabetes mellitus Current visit: No Status: Chronic Category: Medical Code(s): E11.9 - Type 2 diabetes mellitus without complications - Assessment and plan all Dx Assessment and Plan for all problems:: See orders. CT, IV antibiotics
--- NOTE | 2018-05-15 08:32 | Progress Note ---
Internal Medicine - PN: Subj Interval history: Doris was admitted from the office yesterday with epigastric abdominal pain and elevated white count with concern for diverticulitis. She states she has been having upper abdominal pain off and on for several weeks and has been to the emergency room at least twice this month although I can only find documentation of one visit which was for respiratory symptoms. Of note, she does go to a Suboxone clinic for chronic pain and has had issues with constipation for the last few weeks. She has been taking medication at home and states she had a good bowel movement 3 days ago. Since then she has had some loose stool. She has had no nausea or vomiting. No history of peptic ulcer disease. She has had a previous cholecystectomy. CT scan of the abdomen and pelvis did not show diverticulitis. She has some air-fluid levels consistent with enteritis versus ileus. She still has a large amount of stool in the colon. Exam Vital signs and Labs for Last 24 Hours: Temp Pulse Resp BP Pulse Ox 97.8 F 73 20 94/55 L 90 L 05/15/18 07:57 05/15/18 07:57 05/15/18 07:57 05/15/18 07:57 05/15/18 07:57 Laboratory Results - last 24 hr 05/14/18 17:05: POC Glucose 173 H 05/14/18 20:05: POC Glucose 159 H 05/15/18 06:41: POC Glucose 125 H I & O for Last 24 hours: Intake & Output 05/12/18 05/13/18 05/14/18 05/15/18 11:59 11:59 11:59 11:59 Intake Total 657 / 657 Output Total 3000 / 3000 Balance -2343 / -2343 Weight 261 lb 3 oz Narrative: She is sitting up in bed and appears in no distress. Color is normal. Rotation. Heart is distant but regular with no murmurs. Abdomen is obese, soft, and slightly distended. There is mild epigastric tenderness. No rebound or guarding. Extremities show no edema. Assessment and Plan (1) Therapeutic opioid-induced constipation (OIC) Current visit: Yes Status: Acute Category: Medical Code(s): K59.03 - Drug induced constipation; T40.2X5A - Adverse effect of other opioids, initial encounter (2) Chronic pain disorder Current visit: Yes Status: Acute Category: Medical Code(s): G89.4 - Chronic pain syndrome (3) Abdominal pain Current visit: Yes Status: Acute Category: Medical Code(s): R10.9 - Unspecified abdominal pain (4) Edema Current visit: Yes Status: Acute Category: Medical Code(s): R60.9 - Edema, unspecified (5) Hypothyroidism Current visit: No Status: Acute Category: Medical Code(s): E03.9 - Hypothyroidism, unspecified (6) Opioid dependence in controlled environment Current visit: No Status: Acute Category: Medical Code(s): F11.20 - Opioid dependence, uncomplicated (7) Upper abdominal pain Current visit: No Status: Acute Category: Medical Code(s): R10.10 - Upper abdominal pain, unspecified (8) Vomiting Current visit: No Status: Acute Qualifiers: Vomiting type: unspecified Vomiting Intractability: unspecified Nausea presence: with nausea Qualified Code(s): R11.2 - Nausea with vomiting, unspecified Category: Medical Code(s): R11.10 - Vomiting, unspecified (9) Bipolar disorder Current visit: No Status: Chronic Category: Medical Code(s): F31.9 - Bipolar disorder, unspecified (10) Hypertension Current visit: No Status: Chronic Category: Medical Code(s): I10 - Essential (primary) hypertension (11) Type 2 diabetes mellitus Current visit: No Status: Chronic Category: Medical Code(s): E11.9 - Type 2 diabetes mellitus without complications - Assessment and plan all Dx Assessment and Plan for all problems:: She will be started on MiraLAX, stool softeners, and Dulcolax suppository for constipation. Diet will be advanced. Morning labs are pending
[2018-05-15 09:16] LABS: Basophils % 0.3 % (0.1-2.0); Eosinophils # 0.3 K/mm3 (0.0-0.4); Eosinophils % 3.5 % (0.1-12.0); Hematocrit 41.6 % (37.0-47.0); Hemoglobin 13.4 g/dL (12.2-16.2); Lymphocytes # 2.7 K/mm3 (0.7-4.5); Lymphocytes % 30.1 % (10-50); Mean Corpuscular HGB Conc 32.3 g/dL (31.8-35.4); Mean Corpuscular Hemoglobin 29.2 pg (27.0-31.2); Mean Corpuscular Volume 90.6 fl (81-99); Monocytes # 0.4 K/mm3 (0.1-1.0); Monocytes % 4.2 % (1.7-9.3); Neutrophils # 5.6 K/mm3 (1.8-7.8); Neutrophils % 61.8 % (37.0-80.0); Platelet Count 225 K/mm3 (142-424); Red Blood Count 4.59 M/mm3 (4.20-5.40); Red Cell Distribution Width 14.5 % (11.5-17.5); White Blood Count 9.1 K/mm3 (4.8-10.8)
--- NOTE | 2018-05-15 09:17 | Pharmacy Consult Notes ---
[facility] Pharmacy VTE Monitoring - Patient Demographics Admission date: 05/15/18 Report Date: 05/15/18 Time: 09:17 Allergies/Adverse Reactions: Patient Allergies codeine Allergy (Unknown, Verified 05/14/18 13:47) duloxetine [From Cymbalta] Allergy (Unknown, Verified 05/14/18 13:47) Sulfa (Sulfonamide Antibiotics) [SULFA (SULFONAMIDE ANTIBIOTICS)] Allergy (Unknown, Verified 04/22/18 19:26) atorvastatin [From Lipitor] Adverse Reaction (Mild, Verified 05/14/18 13:47) leg pain Height: 1.6 m Weight: 118.473 kg Patient Problems: Current Active Problems Abdominal pain (Acute) Edema (Acute) Bandemia (Acute) Therapeutic opioid-induced constipation (OIC) (Acute) Chronic pain disorder (Acute) - VTE Risk VTE Score: 4 VTE Risk Level: Low Risk - Prophylaxis VTE Prophylaxis Ordered?: Yes Types of VTE Prophylaxis: TEDS Knee High (ANITA HOSE ORDER PLACED.) Location of Applied Device: Refused
[2018-05-15 09:29] LABS: Albumin Level 3.3 gm/dL (3.4-5.0); Albumin/Globulin Ratio 0.8 (1.1-1.8); Anion Gap 8.9 mEq/L (5-15); Bilirubin,Total 0.6 mg/dL (0.2-1.0); Calcium 8.8 mg/dL (8.5-10.1); Globulin 3.9 gm/dl (1.3-3.2); Potassium 3.9 mmoL/L (3.5-5.1); Total Protein,Serum 7.2 gm/dL (6.4-8.2)
[2018-05-16 07:31] VITALS: BP 122/79
--- NOTE | 2018-05-16 08:00 | Progress Note ---
<Melissa Lincoln - Last Filed: 05/16/18 07:53> Internal Medicine - PN: Subj *Date: 05/16/18 *Time: 07:53 Interval history: Bowels still not have not moved. She is passing very little flatus. She has been ambulating without difficulty. She is voiding QS. She denies chest pain, shortness of breath, and vomiting. She has had very little nausea. She does have periodic upper abdominal discomfort. She is eating well. Exam Vital signs and Labs for Last 24 Hours: Temp Pulse Resp BP Pulse Ox 97.7 F 88 18 122/79 96 05/16/18 07:30 05/16/18 07:30 05/16/18 07:30 05/16/18 07:30 05/16/18 07:30 Laboratory Results - last 24 hr 05/15/18 09:02: WBC 9.1, RBC 4.59, Hgb 13.4, Hct 41.6, MCV 90.6, MCH 29.2, MCHC 32.3, RDW 14.5, Plt Count 225, MPV 8.0, Neut % (Auto) 61.8, Lymph % (Auto) 30.1, Sac % (Auto) 4.2, Eos % (Auto) 3.5, Baso % (Auto) 0.3, Neut # (Auto) 5.6, Lymph # (Auto) 2.7, Sac # (Auto) 0.4, Eos # (Auto) 0.3, Baso # (Auto) 0.0 05/15/18 09:02: Sodium 140, Potassium 3.9, Chloride 103, Carbon Dioxide 32, Anion Gap 8.9, BUN 6 L, Creatinine 0.70, Estimated Creat Clear 77, Estimated GFR 88, Est GFR ( Amer) 106, Glucose 115 H, Calcium 8.8, Total Bilirubin 0.6, AST 20, ALT 21, Alkaline Phosphatase 142 H, Total Protein 7.2, Albumin 3.3 L, Globulin 3.9 H, Albumin/Globulin Ratio 0.8 L, Amylase 21 L, Lipase 59 L 05/15/18 21:35: POC Glucose 128 H I & O for Last 24 hours: Intake & Output 05/13/18 05/14/18 05/15/18 05/16/18 11:59 11:59 11:59 11:59 Intake Total 657 / 657 2331 / 2331 Output Total 3000 / 3000 3500 / 3500 Balance -2343 / -2343 -1169 / -1169 Weight 261 lb 3 oz 265 lb 2 oz - Constitutional no acute distress Comments: Sitting up in the bed and appears comfortable. - *Routine Respiratory Exam Present: CTA bilaterally (Anteriorly and posteriorly) - *Routine Cardiovascular Exam Present: RRR - *Routine Abdominal Exam Present: soft Comments: Has good bowel sounds in all 4 quads - *Routine Extremities Exam Absent: edema, calf tenderness - *Routine Neurological Exam Present: alert, oriented X3 Assessment and Plan (1) Therapeutic opioid-induced constipation (OIC) Current visit: Yes Status: Acute Category: Medical Code(s): K59.03 - Drug induced constipation; T40.2X5A - Adverse effect of other opioids, initial encounter (2) Chronic pain disorder Current visit: Yes Status: Acute Category: Medical Code(s): G89.4 - Chronic pain syndrome (3) Abdominal pain Current visit: Yes Status: Acute Category: Medical Code(s): R10.9 - Unspecified abdominal pain (4) Edema Current visit: Yes Status: Acute Category: Medical Code(s): R60.9 - Edema, unspecified (5) Hypothyroidism Current visit: No Status: Acute Category: Medical Code(s): E03.9 - Hypothyroidism, unspecified (6) Opioid dependence in controlled environment Current visit: No Status: Acute Category: Medical Code(s): F11.20 - Opioid dependence, uncomplicated (7) Upper abdominal pain Current visit: No Status: Acute Category: Medical Code(s): R10.10 - Upper abdominal pain, unspecified (8) Vomiting Current visit: No Status: Acute Qualifiers: Vomiting type: unspecified Vomiting Intractability: unspecified Nausea presence: with nausea Qualified Code(s): R11.2 - Nausea with vomiting, unspecified Category: Medical Code(s): R11.10 - Vomiting, unspecified (9) Bipolar disorder Current visit: No Status: Chronic Category: Medical Code(s): F31.9 - Bipolar disorder, unspecified (10) Hypertension Current visit: No Status: Chronic Category: Medical Code(s): I10 - Essential (primary) hypertension (11) Type 2 diabetes mellitus Current visit: No Status: Chronic Category: Medical Code(s): E11.9 - Type 2 diabetes mellitus without complications - Assessment and plan all Dx Assessment and Plan for all problems:: Will discharge home today on Linzess. <Kiran Shirley - Last Filed: 05/16/18 08:16> Exam Vital signs and Labs for Last 24 Hours: Temp Pulse Resp BP Pulse Ox 97.7 F 88 18 122/79 96 05/16/18 07:30 05/16/18 07:30 05/16/18 07:30 05/16/18 07:30 05/16/18 07:30 Laboratory Results - last 24 hr 05/15/18 09:02: WBC 9.1, RBC 4.59, Hgb 13.4, Hct 41.6, MCV 90.6, MCH 29.2, MCHC 32.3, RDW 14.5, Plt Count 225, MPV 8.0, Neut % (Auto) 61.8, Lymph % (Auto) 30.1, Sac % (Auto) 4.2, Eos % (Auto) 3.5, Baso % (Auto) 0.3, Neut # (Auto) 5.6, Lymph # (Auto) 2.7, Sac # (Auto) 0.4, Eos # (Auto) 0.3, Baso # (Auto) 0.0 05/15/18 09:02: Sodium 140, Potassium 3.9, Chloride 103, Carbon Dioxide 32, Anion Gap 8.9, BUN 6 L, Creatinine 0.70, Estimated Creat Clear 77, Estimated GFR 88, Est GFR ( Amer) 106, Glucose 115 H, Calcium 8.8, Total Bilirubin 0.6, AST 20, ALT 21, Alkaline Phosphatase 142 H, Total Protein 7.2, Albumin 3.3 L, Globulin 3.9 H, Albumin/Globulin Ratio 0.8 L, Amylase 21 L, Lipase 59 L 05/15/18 21:35: POC Glucose 128 H I & O for Last 24 hours: Intake & Output 05/13/18 05/14/18 05/15/18 05/16/18 11:59 11:59 11:59 11:59 Intake Total 657 / 657 2331 / 2331 Output Total 3000 / 3000 3500 / 3500 Balance -2343 / -2343 -1169 / -1169 Weight 261 lb 3 oz 265 lb 2 oz Assessment and Plan (1) Therapeutic opioid-induced constipation (OIC) Current visit: Yes Status: Acute Category: Medical Code(s): K59.03 - Drug induced constipation; T40.2X5A - Adverse effect of other opioids, initial encounter (2) Chronic pain disorder Current visit: Yes Status: Acute Category: Medical Code(s): G89.4 - Chronic pain syndrome (3) Abdominal pain Current visit: Yes Status: Acute Category: Medical Code(s): R10.9 - Unspecified abdominal pain (4) Edema Current visit: Yes Status: Acute Category: Medical Code(s): R60.9 - Edema, unspecified (5) Hypothyroidism Current visit: No Status: Acute Category: Medical Code(s): E03.9 - Hypothyroidism, unspecified (6) Opioid dependence in controlled environment Current visit: No Status: Acute Category: Medical Code(s): F11.20 - Opioid dependence, uncomplicated (7) Upper abdominal pain Current visit: No Status: Acute Category: Medical Code(s): R10.10 - Upper abdominal pain, unspecified (8) Vomiting Current visit: No Status: Acute Qualifiers: Vomiting type: unspecified Vomiting Intractability: unspecified Nausea presence: with nausea Qualified Code(s): R11.2 - Nausea with vomiting, unspecified Category: Medical Code(s): R11.10 - Vomiting, unspecified (9) Bipolar disorder Current visit: No Status: Chronic Category: Medical Code(s): F31.9 - Bipolar disorder, unspecified (10) Hypertension Current visit: No Status: Chronic Category: Medical Code(s): I10 - Essential (primary) hypertension (11) Type 2 diabetes mellitus Current visit: No Status: Chronic Category: Medical Code(s): E11.9 - Type 2 diabetes mellitus without complications - Assessment and plan all Dx Assessment and Plan for all problems:: Patient seen and examined. Will discharge home on Linzess and Miralax and f/u in 1 week.
--- NOTE | 2018-05-17 22:04 | Discharge Summary ---
General - General Admission date:: 05/14/18 <Kiran Shirley - 05/18/18 09:10> 05/14/18 <Mya Clark - 05/17/18 22:10> Discharge date: 05/16/18 <Mya Clark - 05/17/18 22:10> HPI HPI: Ms. Garcia is a 52-year-old female who presented to the office of [facility] on 05/14/18 stating she had been in the hospital and ER off and on for approximately 2 months and was told she had had a colitis. She was still having trouble with her bowels and felt like she had a bowel blockage. She was having upper abdominal pains and some shortness of breath. She was also having some swelling in her legs. She was evaluated in the office and felt to have a diverticulitis with an elevated white blood cell count. She stated she has been having upper abdominal pain off and on for several weeks and has been to the emergency room at least twice this month although Dr. Shirley could only find documentation of one visit which was for respiratory symptoms. Of note, she d oes go to a Suboxone clinic for chronic pain and has had issues with constipation for the last few weeks. She has been taking medication at home and states she had a good bowel movement 3 days ago. Since then she has had some loose stool. She has had no nausea or vomiting. No history of peptic ulcer disease. She has had a previous cholecystectomy. <Mya Clark - 05/17/18 22:10> Hospital Course Hospital Course: The patient was started on IV antibiotics and pain management and a CT scan was ordered. It showed mild developing enteritis versus a possible ileus. The patient was started on MiraLAX, stool softeners, and Dulcolax suppositories for constipation as stool was seen in the colon. Her diet was advanced. Her bowels still did not move but she was passing flatus. She was ambulating without difficulty. She was eating well. She was stable to be discharged home on Linzess and MiraLAX and will follow-up in the office [facility] in 1 week. <Mya Clark - 05/17/18 22:10> Objective Vital signs: Temp Pulse Resp BP Pulse Ox 97.7 F 88 18 122/79 96 05/16/18 07:30 05/16/18 07:30 05/16/18 07:30 05/16/18 07:30 05/16/18 07:30 <Kiran Shirley - 05/18/18 09:10> Temp Pulse Resp BP Pulse Ox 97.7 F 88 18 122/79 96 05/16/18 07:30 05/16/18 07:30 05/16/18 07:30 05/16/18 07:30 05/16/18 07:30 <Mya Clark - 05/17/18 22:10> Narrative: - Constitutional no acute distress - *Routine HEENT Exam Eye: Present: PERRL ENT: Present: mucous membranes dry - *Routine Respiratory Exam Present: CTA bilaterally - *Routine Cardiovascular Exam Present: RRR - *Routine Abdominal Exam Present: distended, firm (especially on left. Obese) - *Routine Extremities Exam Present: edema (3+) <Mya Clark 05/17/18 22:10> Results Labs on day of discharge: Preliminary micro results at discharge 05/14/18 14:15 Blood Culture - Preliminary Blood NO GROWTH AFTER 48 HOURS 05/14/18 14:15 Blood Culture - Preliminary Blood NO GROWTH AFTER 48 HOURS <Kiran Shirley - 05/18/18 09:10> Preliminary micro results at discharge 05/14/18 14:15 Blood Culture - Preliminary Blood NO GROWTH AFTER 48 HOURS 05/14/18 14:15 Blood Culture - Preliminary Blood NO GROWTH AFTER 48 HOURS <Mya Clark - 05/17/18 22:10> DS: Diagnosis - Discharge Diagnosis (1) Therapeutic opioid-induced constipation (OIC) Status: Acute (2) Chronic pain disorder Status: Acute (3) Abdominal pain Status: Acute (4) Edema Status: Acute (5) Hypothyroidism Status: Acute (6) Opioid dependence in controlled environment Status: Acute (7) Upper abdominal pain Status: Acute (8) Vomiting Status: Acute (9) Bipolar disorder Status: Chronic (10) Hypertension Status: Chronic (11) Type 2 diabetes mellitus Status: Chronic <Mya Clark 05/17/18 22:01> (1) Therapeutic opioid-induced constipation (OIC) Status: Acute (2) Chronic pain disorder Status: Acute (3) Abdominal pain Status: Acute (4) Edema Status: Acute (5) Hypothyroidism Status: Acute (6) Opioid dependence in controlled environment Status: Acute (7) Upper abdominal pain Status: Acute (8) Vomiting Status: Acute (9) Bipolar disorder Status: Chronic (10) Hypertension Status: Chronic (11) Type 2 diabetes mellitus Status: Chronic <Kiran Shirley - 05/18/18 09:10> Discharge Plan - Patient Discharge Instructions ACTIVITY: Continue current activity <Mya Clark - 05/17/18 22:10> DIET: continue same diet <Mya Clark - 05/17/18 22:10> Additional Instructions: Please take medications as prescribed. Follow up with Dr. Shirley in one week. <Kiran Shirley - 05/18/18 09:10> Patient Instructions: Constipation (Alternative Therapy), DI for Constipation <Kiran Shirley - 05/18/18 09:10> Forms: <Kiran Shirley - 05/18/18 09:10> - Follow up Plan Follow up with: Kiran Shirley MD [Staff Physician] - 1 week <Kiran Shirley - 05/18/18 09:10> Disposition: Home, Self-Care <Kiran Shirley - 05/18/18 09:10> Home Medications: Home Medications Medication Instructions Recorded Confirmed Type RX: Fluoxetine HCl [Prozac] 20 mg PO DAILY 04/27/17 05/14/18 History RX: Furosemide [Lasix 40mg tablet] 40 mg PO DAILY PRN 04/27/17 05/14/18 History RX: Gabapentin [Neurontin 800mg 800 mg PO TID 04/27/17 05/14/18 History Tab] RX: Levothyroxine Sodium 75 mcg PO DAILY 04/27/17 05/14/18 History [Levothyroxine 75mcg (0.075mg) Tab] RX: Metformin HCl [Metformin 850mg 850 mg PO BID 04/27/17 05/14/18 History Tablet] RX: Naproxen Sodium [Naproxen 500 mg PO BID PRN 04/27/17 05/14/18 History Sodium Cr] RX: Tizanidine HCl [Zanaflex] 12 mg PO HS 04/27/17 05/14/18 History RX: Atorvastatin Calcium 80 mg PO HS 04/28/17 05/14/18 History [Atorvastatin 80mg Tab] RX: Insulin Degludec [Tresiba 30 units SQ 1400 04/28/17 05/14/18 History Flextouch U-100] RX: Albuterol Sulfate [Albuterol 2.5 mg IH Q4-6H PRN 04/22/18 05/14/18 History 0.083% 2.5mg/3mL neb] RX: Buprenorphine HCl/Naloxone HCl 2 each SL DAILY 04/23/18 05/14/18 History [Buprenorphin-Naloxon 8-2 mg Sl] RX: Fluoxetine HCl 40 mg PO DAILY 04/23/18 05/14/18 History RX: Amlodipine Besylate/Benazepril 1 each PO DAILY 05/14/18 05/14/18 History [Lotrel 5-10 mg Capsule] RX: Quetiapine Fumarate [Seroquel] 400 mg PO HS 05/14/18 05/14/18 History Linaclotide [Linzess] 290 mcg PO DAILY #30 cap 05/16/18 Rx Polyethylene Glycol 3350 [Miralax 17 gm PO DAILY #1 bottle 05/16/18 Rx Powder] <Kiran Shirley - 05/18/18 09:10> Prescriptions/Medication Reconciliation: New Linaclotide [Linzess] 290 mcg PO DAILY #30 cap Polyethylene Glycol 3350 [Miralax Powder] 17 gm PO DAILY #1 bottle Continue RX: Furosemide [Lasix 40mg tablet] 40 mg PO DAILY PRN PRN Reason: Edema RX: Levothyroxine Sodium [Levothyroxine 75mcg (0.075mg) Tab] 75 mcg PO DAILY RX: Tizanidine HCl [Zanaflex] 12 mg PO HS RX: Naproxen Sodium [Naproxen Sodium Cr] 500 mg PO BID PRN PRN Reason: PAIN RX: Metformin HCl [Metformin 850mg Tablet] 850 mg PO BID RX: Fluoxetine HCl [Prozac] 20 mg PO DAILY RX: Atorvastatin Calcium [Atorvastatin 80mg Tab] 80 mg PO HS RX: Insulin Degludec [Tresiba Flextouch U-100] 30 units SQ 1400 RX: Fluoxetine HCl 40 mg PO DAILY RX: Quetiapine Fumarate [Seroquel] 400 mg PO HS RX: Gabapentin [Neurontin 800mg Tab] 800 mg PO TID RX: Albuterol Sulfate [Albuterol 0.083% 2.5mg/3mL neb] 2.5 mg IH Q4-6H PRN PRN Reason: Shortness Of Breath RX: Buprenorphine HCl/Naloxone HCl [Buprenorphin-Naloxon 8-2 mg Sl] 2 each SL DAILY RX: Amlodipine Besylate/Benazepril [Lotrel 5-10 mg Capsule] 1 each PO DAILY <Kiran Shirley - 05/18/18 09:10> - Additional Information Additional Information: Concur with above plan for discharge. <Kiran Shirley - 05/18/18 09:10>
== END 2018-05-16 14:09 | disposition home or self-care (01) | DRG 392 ==
LOC: INTOOBSV 12:33 → 2ND 12:33 → OBSVTOIN 12:33
PROVIDERS: ADMIT Family Medicine; ATTEND Family Medicine
CPT/HCPCS: 36415; 74176; 80053; 82150; 82962; 83690; 85025; 87040; J1335

== ENCOUNTER → 2018-08-15 17:20 | Outpatient (CLI) | payer MEDICAID, SELFPAY ==
[2018-08-15 18:23] LABS: Blood Urea Nitrogen 13 mg/dL (7-18); Creatinine,Serum 0.84 mg/dL (0.55-1.02); Estimated Glomerular Filt Rate 71 ml/min (>60); GFR (African American) 86 ML/MIN (>60)
== END ==
PROVIDERS: Visit Provider Nurse Practitioner Family
DX: Z01.818 Encounter for other preprocedural examination (principal)
CPT/HCPCS: 36415; 82565; 84520

== ENCOUNTER → 2018-08-16 13:47 | Outpatient (CLI) | payer MEDICAID, SELFPAY ==
--- NOTE | 2018-08-16 13:54 | CT_ITS ---
CT chest wo/w con HISTORY: Cough and shortness of air, smoker ITS.REASON: COUGH ORDERING PHYSICIAN: Melissa Lincoln APRN PATIENT AGE: 52 years COMPARISON: None Technique: Contrast Used:75ml Optiray 350 Axial images were obtained without and with contrast. Sagittal, and coronal reformatted images are also generated and reviewed. All CT scans at the facility use one or more dose reduction, viz: automated exposure control, ma/kV adjustment per patient size (including targeted exams where dose is matched to indication, i.e. head), or iterative reconstruction technique. FINDINGS: Scattered small nodes are present in the mediastinum and axilla. There are scattered coronary artery calcifications. No evidence of aortic aneurysm. There is mild thickening of the esophagus throughout possibly related to esophagitis. Coarsening of the bronchovascular markings which may be seen with smoking-related lung disease. There are scattered calcified nodules. There is a subsolid 4 mm nodule within the left upper lobe. Patchy groundglass density is also present in the left upper lobe. No effusions or infiltrates. No central obstructing lesions. There is mild diffuse bronchial thickening. IMPRESSION: 1. Mild diffuse bronchial thickening with coarsening of the bronchovascular markings/mild prominence of the interstitium which may be related to smoking-related lung disease. 2. Patchy groundglass density is present in the left upper lobe suggesting some mild pneumonitis. 3. 4 mm noncalcified nodule left upper lobe. This may have been present previously slightly more prominent. Consider 6 month follow-up.
== END ==
PROVIDERS: PCP Nurse Practitioner Family; Visit Provider Nurse Practitioner Family
DX: R05 Cough (principal)
CPT/HCPCS: 71270; Q9967

== ENCOUNTER → 2018-08-25 15:59 | Outpatient (CLI) | payer MEDICAID, SELFPAY ==
--- NOTE | 2018-08-25 16:03 | CT_ITS ---
CT head/brain wo con HISTORY: Headache, pain, dizziness with headache and swelling left parietal high following injury ITS.REASON: HEAD INJURY ORDERING PHYSICIAN: LISANDRO Day PATIENT AGE: 52 years COMPARISON: 10/21/2015 TECHNIQUE: Axial images were obtained. Brain and bone windows reviewed. All CT scans at the facility use one or more dose reduction, viz: automated exposure control, ma/kV adjustment per patient size (including targeted exams where dose is matched to indication, i.e. head), or iterative reconstruction technique. FINDINGS: No midline shift, mass effect, intracranial hemorrhage, hydrocephalus, or extra-axial fluid collection is evident. Encephalomalacic changes are present in the left occipital lobe. Prominent soft tissue swelling is present in the right supraorbital region without obvious underlying fracture. The calvarium has an unremarkable appearance. No mastoid effusion. No sinus air-fluid levels.. IMPRESSION: 1. No acute intracranial findings. 2. Right supraorbital hematoma
== END ==
PROVIDERS: PCP Family Medicine; Visit Provider Physician Assistant
DX: S09.90XA Unspecified injury of head, initial encounter (principal)
CPT/HCPCS: 70450

== ENCOUNTER → 2018-09-05 15:58 | Outpatient (CLI) | payer MEDICAID, SELFPAY ==
--- NOTE | 2018-09-05 16:30 | MM_ITS ---
MM Dig screening mamm BI w/CAD CAD Screening COMPARISON: Digital mammograms with CAD 09/14/2013 INDICATION: There is no personal or family history of breast cancer TECHNIQUE: Standard CC and MLO images were obtained. R2 CAD reviewed. FINDINGS: Scattered fibroglandular densities are seen throughout each breast. There is a tubular metallic device overlying the inner quadrant left breast likely a loop recorder. There is a stable benign-appearing nodular density outer quadrant left breast. There is no new or suspicious lesion in either breast and there are no suspicious microcalcifications. IMPRESSION: Fibrofatty parenchyma no suspicious lesion seen BI-RADS Category: 2 Benign Finding(s) RECOMMENDED FOLLOW-UP: 1YR - 1 YEAR FOLLOW-UP (A letter has been sent to the patient regarding results of the study.)
== END ==
PROVIDERS: PCP Family Medicine; Visit Provider Nurse Practitioner Family
DX: Z12.31 Encounter for screening mammogram for malignant neoplasm of breast (principal)
CPT/HCPCS: 77067

== ENCOUNTER → 2018-09-08 20:21 | Outpatient (CLI) | payer MEDICAID, SELFPAY | PROVIDERS: PCP Family Medicine; Visit Provider Nurse Practitioner Family | DX: G47.33 Obstructive sleep apnea (adult) (pediatric) (principal); I10 Essential (primary) hypertension; R40.0 Somnolence; R06.83 Snoring | CPT/HCPCS: 95810 ==

== ENCOUNTER → 2019-07-20 14:06 | Outpatient (CLI) | payer OTHER, SELFPAY ==
--- NOTE | 2019-07-20 14:10 | MR_ITS ---
PROCEDURE: MR LUMBAR SPINE WO CON CLINICAL INDICATION: LUMBOSACRAL RADICULOPATHY Low back pain when walking and standing COMPARISON: SPLUMBWO MR lumbar spine wo con from 12/08/2017 TECHNIQUE: Standard multiplanar multiecho sequences are performed without contrast. 3-D MIP and myelographic images are also rendered and reviewed FINDINGS: Spinal cord ends at the L1-L2 level. Degenerative disc disease T11-T12 T12-L1: Mild disc desiccation. L1-L2: Mild disc desiccation. L2-L3: Unremarkable. L3-L4: Mild degenerative disc disease with minimal bulging disc along with facet and ligamentum hypertrophy with mild bilateral lateral recess and foraminal narrowing not significantly changed. L4-5: Bulging disc. There is mild anterolisthesis of L4 on L5 of 5 mm not significantly changed. There is facet and ligamentum hypertrophy with moderate bilateral foraminal narrowing not significantly changed. L5-S1: Degenerative disc disease with bulging disc. There is a small central herniated disc with superior extrusion without impingement not significantly changed. There is mild bilateral foraminal narrowing from facet hypertrophy. There is generalized subcutaneous edema in the lumbar region. IMPRESSION: 1. Mild multilevel lumbar spondylosis. Please see above for detailed description at each level. Degenerative disc disease bulging disc along facet ligamentum hypertrophy with lateral recess and foraminal narrowing. Not significantly changed. 2. Small central disc herniation with minimal superior extrusion at L5-S1 without impingement not significantly changed Dictated by: Gómez Zavala MD 07/21/2019 11:44 Electronically signed by Gómez Zavala MD in [place] 07/21/2019 11:44
== END ==
PROVIDERS: PCP Family Medicine; Visit Provider Family Medicine
DX: M47.27 Other spondylosis with radiculopathy, lumbosacral region (principal)
CPT/HCPCS: 72148; 76376

== ENCOUNTER → 2019-08-08 10:09 | Outpatient (CLI) | payer OTHER, SELFPAY ==
[2019-08-08 11:17] LABS: Total Iron Binding Capacity 342 ug/dL (265-497)
[2019-08-08 11:19] LABS: Hemoglobin A1C 8.3 % (4.0-6.0)
[2019-08-08 11:41] LABS: Thyroid Stimulating Hormone 6.25 uIU/mL (0.465-4.68)
[2019-08-08 11:47] LABS: Alanine Aminotransferase 15 U/L (12-78); Albumin Level 4.3 g/dl (3.5-5.0); Albumin/Globulin Ratio 1.5 (1.1-1.8); Alkaline Phosphatase 142 U/L (38-126); Anion Gap 9.3 mEq/L (5-15); Aspartate Amino Transferase 19 U/L (14-36); Bilirubin,Total 0.4 mg/dl (0.2-1.3); Blood Urea Nitrogen 7 mg/dl (7-17); Calcium 9.6 mg/dl (8.4-10.2); Carbon Dioxide 36 mmol/L (22.0-30.0); Chloride 98 mmol/L (98-107); Chol/HDL Ratio 4.1 (1-3.5); Cholesterol 176 mg/dl (140-200); Estimated Glomerular Filt Rate 104 ml/min (>60); GFR (African American) 126 ML/MIN (>60); Globulin 2.9 g/dL (1.3-3.2); Glucose 163 mg/dl (74-100); HDL Cholesterol 43 mg/dl (40-60); Iron 32 ug/dL (37-170); Potassium 4.3 mmoL/L (3.5-5.1); Sodium 139 mmol/L (136-145); Total Protein,Serum 7.2 g/dl (6.3-8.2); Triglycerides 178 mg/dl (30-150); VLDL Cholesterol 36 mg/dL (0-40)
[2019-08-08 11:58] LABS: Direct LDL Cholesterol 111.06 mg/dL (100-129)
[2019-08-09 11:01] LABS: Vitamin B12 364 pg/mL (232-1245)
== END ==
PROVIDERS: Visit Provider Family Medicine
DX: E11.42 Type 2 diabetes mellitus with diabetic polyneuropathy (principal); E53.8 Deficiency of other specified B group vitamins; E03.9 Hypothyroidism, unspecified; I10 Essential (primary) hypertension; D64.9 Anemia, unspecified; Z79.84 Long term (current) use of oral hypoglycemic drugs
CPT/HCPCS: 36415; 80053; 80061; 82607; 83036; 83540; 83550; 84443

== ENCOUNTER → 2020-06-10 16:22 | Outpatient (CLI) | payer OTHER, SELFPAY ==
--- NOTE | 2020-06-10 16:27 | XR_ITS ---
PROCEDURE: XR HIP RT 2-3V W/PELVIS CLINICAL INDICATION: Right lower quadrant pain COMPARISON: CR XR PELVIS 1-2V from 03/08/2019 FINDINGS: Igot-la-nmiboicv osteoarthritic changes are present involving the right hip with decrease in the joint space osteosclerosis of the acetabular roof and osteophyte formation along the head. No acute fracture or dislocation. There is sclerosis of the pubic bone on both sides consistent with osteitis pubis. 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 Dictated by: Gómez Zavala MD 06/11/2020 05:18 Gómez Zavala MD in [facility] 06/11/2020 05:18
== END ==
PROVIDERS: PCP Family Medicine; Visit Provider Family Medicine
DX: R10.31 Right lower quadrant pain (principal); M25.551 Pain in right hip
CPT/HCPCS: 73502

== ENCOUNTER 2020-06-12 18:17 | Emergency (ER) | payer OTHER, SELFPAY ==
[2020-06-12 18:18] VITALS: BP 155/74; PULSE 89; RESP 18; TEMP 36.6; O2SAT 98; BMI 44.6
--- NOTE | 2020-06-12 19:05 | [facility].EDGENADL ---
ED Disposition Clinical Impression: Esophageal obstruction due to food impaction Disposition: Home, Self-Care Condition on Discharge: Good Instructions: DI for Removal of Foreign Body From Esophagus Referrals: Kiran Shirley MD [Primary Care Provider] - Dawson Rivera MD [Staff Physician] - - Critical Care Critical Care Time: No Attestation: On 06/12/20, the high probability of a clinically significant, sudden or life threatening deterioration of the following system(s) required my full and direct attention, intervention and personal management. The time I documented below is in addition to time spent performing reported procedures but includes the following listed in this critical care notation. Medical Decision Making - Medical Records Medical records reviewed: Yes: I reviewed the patient's medical records. - Casimiro Inquiry Pt receiving controlled substance: No Vital Signs: 06/12/20 18:18 Temperature 97.8 F Temperature Source Oral Pulse Rate [Right] 89 Respiratory Rate 18 Blood Pressure [Right Arm] 155/74 H Blood Pressure Mean [Right Arm] 101 02 Sat by Pulse Oximetry 98 Orders (Tests/Meds): ED MEDICATIONS Discontinued Medications Generic Name Dose Route Start Last Admin Trade Name Dani PRN Reason Stop Dose Admin Glucagon 1 mg 06/12/20 18:40 06/12/20 18:42 Glucagon 1 Mg/Ml Vial IM 06/12/20 18:41 1 mg ONCE ONE Administration Nitroglycerin 0.4 mg 06/12/20 18:40 06/12/20 18:49 Nitroglycerin 0.4mg Sl Tablet SL 06/12/20 18:41 1 % ONCE ONE Administration - Reevaluation(s) Time: 19:25 Reevaluation #1: On reevaluation, patient is feeling much better. Tolerating oral intake. No vomiting. Patient was placed on clear liquid diet. Needs to follow-up with PCP in 24 hours. Given strict return precautions. Verbalized understanding. Medical Decision Narrative: 54-year-old female presented to the emergency department with a possible food bolus. Patient was having some nausea and vomiting. She was provided nitroglycerin as well as glucagon. She will be given oral challenge and reevaluated. No evidence of respiratory compromise. General Adult HPI - General Chief complaint: PAIN Stated complaint: FB in throat Time Seen by Provider: 06/12/20 18:20 Mode of Arrival: Family Vehicle Limitations: No Limitations Description of Symptoms (Recalled from ER Triage Doc. by RN): PATIENT REPORTS SHE WAS EATING ONE HOUR PRIOR TO ARRIVAL AND IS HERE DUE TO FEELING LIKE THERE IS A FOOD BOLUS STUCK IN HER THROAT. PT REPORTS THIS HAS HAPPENED BEFORE BUT HAS NEVER NEEDED MEDICAL ATTENTION. PT DENIES DIFFICULTY BREATHING AT THIS TIME. PT REPORTS SHE WAS ABLE TO VOMMIT SOME FOOD PARTICLES UP PRIOR TO ARRIVAL BUT PT REPORTS SHE STILL FEELS LIKE THERE IS A FOOD BOLUS STUCK. - History of Present Illness HPI narrative: 54-year-old female presented to the emergency department with discomfort after eating. The patient states that she was eating some lobster ravioli when she felt like it got stuck in her upper throat. Patient proceeded to vomit afterwards, but had some discomfort in her upper throat. Patient states that she has been nauseous since then. She feels like something is stuck in her throat. She has not been able to tolerate oral intake. She denies any chest pain or shortness of breath. No coughing. No fevers or chills. No headache or change in vision. No focal weakness. No abdominal pain. - Related Data Home Medications Medication Instructions Recorded Confirmed Fluoxetine HCl [Prozac] 20 mg PO DAILY 04/27/17 03/08/19 Furosemide [Lasix 40mg tablet] 40 mg PO DAILY PRN 04/27/17 03/08/19 Gabapentin [Neurontin 800mg Tab] 800 mg PO QID 04/27/17 03/08/19 Levothyroxine Sodium 1,000 mcg PO DAILY 04/27/17 03/08/19 [Levothyroxine 75mcg (0.075mg) Tab] Metformin HCl [Metformin 850mg 1,000 mg PO BID 04/27/17 03/08/19 Tablet] Naproxen Sodium [Naproxen Sodium 50
[2020-06-12 19:32] VITALS: BP 105/56; PULSE 78; RESP 16; TEMP 36.6; O2SAT 95
== END 2020-06-12 19:33 | disposition home or self-care (01) ==
PROVIDERS: Emergency Provider Emergency Medicine; PCP Family Medicine
DX: K22.2 Esophageal obstruction (principal); T17.228A Food in pharynx causing other injury, initial encounter; R01.1 Cardiac murmur, unspecified; F41.8 Other specified anxiety disorders; J44.9 Chronic obstructive pulmonary disease, unspecified; E11.9 Type 2 diabetes mellitus without complications; I10 Essential (primary) hypertension; E03.9 Hypothyroidism, unspecified; M79.7 Fibromyalgia; F17.210 Nicotine dependence, cigarettes, uncomplicated; Z86.73 Personal history of transient ischemic attack (TIA), and cerebral infarction without residual deficits; E78.5 Hyperlipidemia, unspecified; Z79.899 Other long term (current) drug therapy
CPT/HCPCS: 99281; J1610

== ENCOUNTER 2020-09-01 16:09 | Emergency (ER) | payer OTHER, SELFPAY ==
[2020-09-01 16:24] VITALS: BP 147/77; PULSE 88; RESP 20; TEMP 36.9; O2SAT 93; BMI 41.1
[2020-09-01 16:30] LABS: UTC Strep Screen (Rapid) Negative (Negative)
--- NOTE | 2020-09-01 16:32 | HMH.EDUTC ---
[facility] [place] Impression: COPD exacerbation Pharyngitis Qualifiers: Pharyngitis/tonsillitis etiology: unspecified etiology Qualified Code(s): J02.9 - Acute pharyngitis, unspecified Disposition: Home, Self-Care Condition on Discharge: Good Instructions: DI for Chronic Obstructive Pulmonary Disease, DI for Pharyngitis/Tonsillopharyngitis -- Adult Additional Instructions: Drink plenty of fluids. Take tylenol or ibuprofen for pain or fever. Take the medications as directed. Follow up with your regular doctor. GO TO THE ER FOR ANY WORSENING SYMPTOMS Prescriptions: Promethazine/Dextromethorphan [Promethazine-Dm Syrup] 5 ml PO Q6HP PRN #240 syrup PRN Reason: Cough Transmission Status: Received by [facility] Amoxicillin/Potassium Clav [Augmentin 875-125 Tablet] 1 tab PO Q12H 10 Days #20 tab Transmission Status: Received by [facility] predniSONE [Prednisone 20mg Tab] 20 mg PO BID 4 Days #8 tab Transmission Status: Received by [facility] Benzonatate [Tessalon Perle 100mg Cap] 100 mg PO TIDP PRN #30 cap PRN Reason: Cough Transmission Status: Received by [facility] Referrals: Kiran Shirley MD [Primary Care Provider] - Time of Disposition: 16:39 Medical Decision Making - Medical Records Medical records reviewed: No: I reviewed the patient's medical records. - Casimiro Inquiry Pt receiving controlled substance: No Vital Signs: 09/01/20 16:24 09/01/20 16:37 Temperature 98.5 F 98.5 F Temperature Source Oral Pulse Rate 82 Pulse Rate [Left] 88 Respiratory Rate 20 20 Blood Pressure 147/77 H Blood Pressure [Right Arm] 147/77 H Blood Pressure Mean [Right Arm] 100 02 Sat by Pulse Oximetry 93 L Oxygen Delivery Method Room Air - Lab Data Lab results reviewed: Yes: I reviewed the patient's lab results. Lab Results 09/01/20 16:26: Strep Scn Rapid Clinic Negative Orders (Tests/Meds): ORDERS Category Date Time Status Strep Screen Confirmation Stat Micro 09/01/20 16:26 [place] [facility] [place] - General Stated complaint: sore throat,cough Time Seen by Provider: 09/01/20 16:32 Mode of Arrival: Ambulatory Source of Information: Patient Limitations: No Limitations Description of Symptoms (Recalled from Triage Doc. by RN): pt c/o a sore throat and nonproductive cough. HEENT Symptoms (Recalled from RN notes): Yes (sore throat) Resp Symptoms (Recalled from RN notes): Yes (nonproductive cough) Skin Symptoms (Recalled from RN notes): No MS Symptoms (Recalled from RN notes): No Functional Status (Recalled from RN notes): na - History of Present Illness Provider Complaint: She complains of having a sore throat for the past 2 days. She also has a cough that has been ongoing for the past 2 weeks. She denies any fever/chills or other symptoms. - Related Data Home Medications Medication Instructions Recorded Confirmed Fluoxetine HCl [Prozac] 20 mg PO DAILY 04/27/17 03/08/19 Furosemide [Lasix 40mg tablet] 40 mg PO DAILY PRN 04/27/17 03/08/19 Gabapentin [Neurontin 800mg Tab] 800 mg PO QID 04/27/17 03/08/19 Levothyroxine Sodium 1,000 mcg PO DAILY 04/27/17 03/08/19 [Levothyroxine 75mcg (0.075mg) Tab] Metformin HCl [Metformin 850mg 1,000 mg PO BID 04/27/17 03/08/19 Tablet] Naproxen Sodium [Naproxen Sodium 500 mg PO BID PRN 04/27/17 03/08/19 Cr] Tizanidine HCl [Zanaflex] 12 mg PO HS 04/27/17 03/08/19 Atorvastatin Calcium [Lipitor 80mg 80 mg PO HS 04/28/17 03/08/19 Tab] Insulin Degludec [Tresiba 40 units SQ 1400 04/28/17 03/08/19 Flextouch U-100] Albuterol Sulfate [Albuterol 2.5 mg IH Q4-6H PRN 04/22/18 03/08/19 0.083% 2.5mg/3mL neb] Buprenorphine HCl/Naloxone HCl 1.5 each SL DAILY 04/23/18 03/08/19 [Buprenorphine-Nalox 8-2 mg Tab] Fluoxetine HCl 40 mg PO DAILY 04/23/18 03/08/19 Amlodipine Besylate/Benazepril 1 each PO DAILY 05/14/18 03/08/19 [Lotrel 5-10 mg Capsule] Quetiapine Fumarate [S
[2020-09-01 16:37] VITALS: BP 147/77; PULSE 82; RESP 20; TEMP 36.9
== END 2020-09-01 16:50 | disposition home or self-care (01) ==
LOC: ER 16:14 → UTC 16:15
PROVIDERS: Emergency Provider Nurse Practitioner Family; PCP Family Medicine
DX: J44.1 Chronic obstructive pulmonary disease with (acute) exacerbation (principal); J02.9 Acute pharyngitis, unspecified; E11.9 Type 2 diabetes mellitus without complications; M79.7 Fibromyalgia; F41.8 Other specified anxiety disorders; E78.5 Hyperlipidemia, unspecified; I10 Essential (primary) hypertension; F17.210 Nicotine dependence, cigarettes, uncomplicated
CPT/HCPCS: 87880; 99202; G0463

== ENCOUNTER → 2020-10-14 06:17 | Outpatient (CLI) | payer OTHER, SELFPAY ==
--- NOTE | 2020-10-14 | CA_ITS ---
APPROVED REPORT Exam: Pharmacologic Technologist: Yuliet Zuniga Ht: 5 ft 3 in Wt: 260 lbs BSA: 2.16 m2 HR: 76 bpm BP: 133/79 mmHg Medical History Medications: Levothyroxine,,,,, Metformin,,,,, Gabapentin,,,,, Lasix,,,,, Naproxen,,,,, Lipitor,,,,, Zanaflex,,,,, Seroquel,,,,, Prozac,,,,, Fluoxetine,,,,, LoTREL,,,,, LiNZESS,,,,, Stress Test Details Test: LEXISCAN HR Resting HR: 73 bpm Max Heart Rate (APMHR): 165.938505 bpm Max HR Achieved: 94 bpm Target HR (85% APMHR): 140.655234 bpm % of APMHR: 56.97 Recovery HR: 91 bpm BP Resting BP: 133.0/79.0 mmHg Max BP: 133.0/79.0 mmHg Recovery BP: 121.0/72.0 mmHg ECG Resting ECG: Normal sinus rhythm, NSST abnormalities inferiorly. Clinical Reason for Termination: Completed Protocol Exercise duration: 04:05 min Highest Stage Achieved: Exercise capacity: 1.0 METs Stress ECG Conclusion Non-diagnostic lexiscan stress test. Patient received the infusion per protocol without chest pain, ST segment changes or arrhythmias. See the nuclear report for further information. Electronically signed by : Darion Trammell MD 10/14/2020 19:21:29
--- NOTE | 2020-10-14 06:35 | NM_ITS ---
APPROVED REPORT Exam: Nuclear Stress Test Indication: Chest pain, HTN, DM, High cholesterol, Tobacco use Patient Location: Outpatient Stress Tech: Yuliet Zuniga MT Tech:Jayla Mondragon, ARRT, RT (R)(N) Ht: 5 ft 4 in Wt: 260 lbs Bra Size: 42DD HR: 76 bpm BP: 133/79 mmHg BSA: 2.19 m2 BMI: 44.6 History: Chest pain, HTN, DM, High cholesterol, Tobacco use Procedure: Patient received a 0.4 mg of intravenous Lexiscan, resting heart rate 76 bpm, resting blood pressure 133/79 mmHg, with Lexiscan maximum heart rate achived was 89 bpm which is Less than 85 % of the maximum predicted heart rate and blood pressure was 125/70 mmHg. With Lexiscan, patient denied any complaint of chest pain. Electrocardiogram Resting electrocardiogram showed sinus rhythm, with Lexiscan there is less than 1.[address] segment depression noted from the baseline EKG. The EKG portion of the Lexiscan is nondiagnostic. Cardiac Stress and Resting SPECT Images: Cardiac Stress and Resting SPECT images were obtained using technetium 99m Myoview 28.5 mCi stress and 10.61 mCi at rest. Gated SPECT for analysis of segmental wall motion and calculation of the ejection fraction also done. Cardiac stress and rest SPECT images show uniform myocardial activity without segmental perfusion abnormality, computer derived ejection fraction is 61% with no regional wall motion abnormality, right ventricle is normal size and contractility. Conclusion: 1. The EKG portion of the Lexiscan is nondiagnostic. 2. No scintigraphic evidence of reversible ischemia seen, computer derived ejection fraction 61% with no regional wall motion abnormality, right ventricle is normal size and contractility. 3. Normal Lexiscan Myoview study. Electronically signed by : Darion Trammell MD 10/14/2020 19:44:28
--- NOTE | 2020-10-14 08:59 | HMH.ITSHM ---
Current Home Medications as stated by this patient Shoshana Garcia or veterans contact representative. []PREDNISONE TIZANIDINE SEROQUEL METFORMIN LINZESS LEVOTHYROXINE INSULIN GABAPENTIN FUROSEMIDE FLUOXETINE BENSONATATE ATORVASTATIN ALBUTEROL AMLODIPINE
[2020-10-14 11:23] LABS: Alanine Aminotransferase 25 U/L (12-78); Albumin Level 4.3 g/dl (3.5-5.0); Albumin/Globulin Ratio 1.3 (1.1-1.8); Alkaline Phosphatase 168 U/L (38-126); Aspartate Amino Transferase 28 U/L (14-36); Bilirubin,Total 0.4 mg/dl (0.2-1.3); Blood Urea Nitrogen 13 mg/dl (7-17); Calcium 9.2 mg/dl (8.4-10.2); Carbon Dioxide 35 mmol/L (22.0-30.0); Chloride 97 mmol/L (98-107); Cholesterol 190 mg/dl (140-200); Estimated Glomerular Filt Rate 104 ml/min (>60); GFR (African American) 126 ML/MIN (>60); Globulin 3.2 g/dL (1.3-3.2); Glucose 174 mg/dl (74-100); HDL Cholesterol 38 mg/dl (40-60); Sodium 140 mmol/L (136-145); Total Protein,Serum 7.5 g/dl (6.3-8.2); Triglycerides 209 mg/dl (30-150); VLDL Cholesterol 42 mg/dL (0-40)
[2020-10-14 11:53] LABS: Thyroid Stimulating Hormone 2.84 uIU/mL (0.465-4.68)
== END ==
PROVIDERS: PCP Family Medicine; Visit Provider Family Medicine
DX: R07.9 Chest pain, unspecified (principal); Z79.899 Other long term (current) drug therapy
CPT/HCPCS: 36415; 78452; 80053; 80061; 84443; 93017; A9502; J2785

== ENCOUNTER → 2020-10-28 10:51 | Outpatient (POV) | payer OTHER, SELFPAY ==
[2020-10-28 11:22] VITALS: BP 141/84; PULSE 109; RESP 20; O2SAT 93; BMI 44.6
--- NOTE | 2020-10-28 11:45 | HMH.PMCON ---
Assessment and Plan (1) Chronic low back pain Status: Chronic Category: Medical Code(s): M54.5 - Low back pain; G89.29 - Other chronic pain (2) Bilateral sacroiliitis Status: Chronic Category: Medical Code(s): M46.1 - Sacroiliitis, not elsewhere classified - Assessment and plan all Dx Assessment and Plan for all problems:: We will schedule the patient for bilateral SI joint injections. She is not on any anticoagulation therapy. She has pain in her low back with radiation into her bilateral buttock, thighs, and legs. She is tender to palpation to her bilateral SI joints today. She also has positive Sara's, compression, distraction test. We will schedule her for bilateral SI joint injections with her psychiatrist to reevaluate her symptoms. She has been instructed to contact If she has any concerns for next appointment. Possible side effects of corticosteroids have been discussed with the patient. Risks and benefits of the procedure have been explained to the patient. Patient would like to proceed with the procedure. Patient has been instructed to contact the clinic with any concerns before the next appointment. Dr. Lee has reviewed this note and agrees with this plan of care. This note was dictated using voice recognition software and make contain errors or omissions. HPI - Data of Consult Patient: new to practice Consult date: 10/28/20 Requesting Physician: Calista Azul APRN - Consult Narrative Reason for consult: Low back pain History of present illness: Ms. Garcia is a 55 year old female who presents today for consultation for chronic low back pain. Patient says that she has had back pain for nearly 10 years. It has progressively worsened over the last 5 to 7 years. Patient says that she has had worsening pain to her low back area with radiation into her bilateral buttock, groin, and hips. She is also having pain into her bilateral lower extremities with numbness and tingling. Patient is having a heaviness and weakness sensation to her bilateral legs and feet. Patient says that her pain will stop as soon as she sits down. Immediately upon standing, the pain starts once again. She is diabetic. She does take insulin and Metformin for blood glucose control. She has tried physical therapy for greater than 6 weeks and does continue with home stretching. She is also tried ice and heat therapies. Patient does take Suboxone. She is inquiring about oral pain medication today. She does rate her pain a 7 or an 8 out of 10. CC: Calista Azul APRN [facility] History I have reviewed the patient's past medical history: Yes Medical History: Reports:: Anxiety, Chronic Obstructive Pulmonary Disease (COPD), Cerebrovascular Accident, Depression, Diabetes Mellitus Type 2, Heart Murmur, Hyperlipidemia, Hypertension Denies:: Cancer, Diabetes Mellitus Type 1, MRSA *Have you ever received a pneumonia vaccine?: No *Have you received a flu vaccine this season?: No Other Medical History: Reports: Arthritis, Fibromyalgia, Hypothyroidism, Sinus Problems, Thyroid Disease, Other Laterality Cases: Right: Carpal Tunnel Release, Bilateral: Arthroscopy Knee, Tonsillectomy, Other Other Surgeries: Yes: Appendectomy, Cholecystectomy, , Hysterectomy-Total, Tubal Ligation, Other ( Bone graft right wrist) Amputation: No Fractures: Yes - *Social History Smoking Status: Current every day smoker Tobacco Type: cigarettes # Packs/Day (cigarettes): 2 #Yrs smoked (if former smoker): 35 Alcohol Intake: former Alcohol Intake Frequency:: other Substance Use Type: denies use *Occupational Status:: unemployed Housing: house Household Members: none *Travel in the last 8 weeks: None - Psychiatric History Pschychiatric History:: Reports:: Anxiety, Bipolar Disorder, Depression Family Hx:: Cancer, Diabetes, Heart Attack, Hypertension, Stroke Review of Systems - Review of Systems review of Systems General: No recent weight changes,
== END ==
PROVIDERS: Visit Provider Clinical Nurse Specialist Family Health
DX: M54.5 Low back pain (principal); M46.1 Sacroiliitis, not elsewhere classified; G89.29 Other chronic pain
CPT/HCPCS: 99202; G0463

== ENCOUNTER 2020-11-01 11:23 | Day surgery (SDC) | payer OTHER, SELFPAY ==
[2020-11-01 11:25] VITALS: BP 132/71; PULSE 90; RESP 18; TEMP 36.4; O2SAT 93; BMI 44.6
[2020-11-01 11:45] VITALS: BP 144/72; PULSE 85; RESP 18; O2SAT 95
[2020-11-01 11:47] VITALS: BP 144/72; PULSE 89; RESP 18; O2SAT 94
--- NOTE | 2020-11-01 12:06 | HMH.PMPROC ---
- Procedure Date: 11/01/20 Time: 12:07 Anesthesiologist:: Manav Lee MD Complications:: None Pre-procedure Diagnosis:: Sacroiliitis Post-procedure Diagnosis:: Same Indications for Procedure:: Patient is a pleasant 55-year-old white female who we are treating for bilateral hip pain. She is tender over both SI joints. She has a positive Sara's test bilaterally. She has positive SI joint compression test bilaterally. She has a positive distraction test bilaterally. We will plan on bilateral SI joint injections under fluoroscopy today to help with pain symptoms. Procedure Details:: B/L SI joint injection under fluoroscopy Informed consent was obtained and the risks and benefits of the procedure was explained to the patient. The patient was taken to the procedure room and placed prone on the procedure table. The patient was prepped using ChloraPrep. The skin and subcutaneous tissues overlying the SI joints were anesthetized using lidocaine. I placed a 22-gauge needle first in the left SI joint and second in the right SI joint. Needle placement was confirmed with dye. After this we injected 5 mL bupivacaine 0.25% and Depo-Medrol 40 mg into each SI joint. Patient tolerated the procedure well with no complication. Plan and Disposition:: We will follow-up with her in 2 weeks. Will reevaluate symptoms at that time.
[2020-11-01 12:09] VITALS: BP 136/83; PULSE 83; RESP 20; TEMP 36.4; O2SAT 95
== END 2020-11-01 12:10 | disposition home or self-care (01) ==
LOC: SC.PAINP 11:24
PROVIDERS: PCP Family Medicine; Visit Provider Anesthesiology
DX: M46.1 Sacroiliitis, not elsewhere classified (principal); E78.5 Hyperlipidemia, unspecified; I10 Essential (primary) hypertension; J44.9 Chronic obstructive pulmonary disease, unspecified; M19.90 Unspecified osteoarthritis, unspecified site; E11.9 Type 2 diabetes mellitus without complications; E03.9 Hypothyroidism, unspecified; F41.9 Anxiety disorder, unspecified; F32.9 Major depressive disorder, single episode, unspecified; M79.18 Myalgia, other site; Z88.2 Allergy status to sulfonamides; Z88.6 Allergy status to analgesic agent
CPT/HCPCS: 27096; G0260; J1040; Q9966

== ENCOUNTER → 2020-11-26 11:26 | Outpatient (POV) | payer OTHER, SELFPAY ==
[2020-11-26 11:53] VITALS: BP 95/62; PULSE 68; RESP 18; O2SAT 95; BMI 43.9
--- NOTE | 2020-11-26 12:39 | HMH.PAINSOAP ---
[facility] Pain Management SOAP Note Subjective:: Patient is a 55-year-old white female who presents today for follow-up after an SI injection bilaterally. Patient is having low back pain with radiation into her bilateral lower extremities. She describes the pain is burning and with a great deal of pressure to the area. The patient says she is having significant leg pain. She is being worked up for possible blockages in bilateral lower extremities. She rates her pain a 7 out of 10. She is having difficulty ambulating. She reports to have not gotten minimal relief with the injections. She has tried physical therapy for more than 6 weeks and continues with home stretching. She does have imaging of her lumbar spine. Patient is not interested in neurosurgery evaluation. She is on Suboxone for history of opiate abuse. She does not want any controlled substances for pain relief. She is using ice and heat therapies as needed as well. Review of Systems General: No recent weight changes, no fever, no sleep disturbances Respiratory: No cough, no shortness of air, no recurring pulmonary infections Cardiovascular/peripheral vascular: No chest pain, no palpitations, no edema, no shortness of breath Gastrointestinal: No new onset incontinence, normal bowel movements reported Genitourinary: No new onset incontinence Musculoskeletal: Low back pain with radiation into bilateral lower extremities with with burning and pressure to the low back area, severe leg pain weakness bilateral lower extremities Psychiatric: [Normal mood/affect] Neurological: [Denies weakness in extremities], [denies balance issues] Objective:: Physical exam General: Alert and oriented x3, no acute distress, pleasant and cooperative Lungs: Respirations even and unlabored, symmetrical chest expansion Eyes: PERRL Musculoskeletal: Flexion and extension of lumbar [spine] somewhat guarded secondary to pain, [antalgic gait noted] Neurological: Speech clear, no gross sensory deficit Assessment:: Degenerative disc disease lumbar spine with lumbar radiculopathy symptoms Plan:: Patient is a 55-year-old white female who is following up after bilateral SI injections. The patient did not get any relief from the injections. We did discuss the patient's MRI in detail today. Per the MRI report, Small central disc herniation with minimal superior extrusion at L5-S1 without impingement . Patient is certain she is not interested in neurosurgical evaluation. She would like to proceed with a injection. We will schedule the patient for a lumbar epidural steroid injection at the L4-L5 area. She is not on any anticoagulation therapy. Patient is diabetic. She and I did discuss if she gets significant relief with the injection but pain returns she may require more than 1 injection. If she does not get any significant relief with injective therapy, she may be a candidate for implanted devices with spinal cord stimulation versus bupivacaine only intrathecal therapy. She was given educational information today. Possible side effects of corticosteroids have been discussed with the patient. Risks and benefits of the procedure have been explained to the patient. Patient would like to proceed with the procedure. Patient has been instructed to contact the clinic with any concerns before the next appointment. Dr. Lee has reviewed this note and agrees with this plan of care. This note was dictated using voice recognition software and make contain errors or omissions. [facility] History I have reviewed the patient's past medical history: Yes Medical History: Reports:: Anxiety, Chronic Obstructive Pulmonary Disease (COPD), Congenital Heart Disease, Cerebrovascular Accident, Depression, Diabetes Mellitus Type 2, Heart Murmur, Hyperlipidemia, Hypertension Denies:: Cancer, Diabetes Mellitus Type 1, MRSA, Seizures *Have you ever received a pneumonia vaccine?: No *Have you received a flu vaccine this sea
== END ==
PROVIDERS: Visit Provider Clinical Nurse Specialist Family Health
DX: M51.16 Intervertebral disc disorders with radiculopathy, lumbar region (principal)
CPT/HCPCS: 99212; G0463

== ENCOUNTER → 2020-12-02 13:19 | Outpatient (CLI) | payer OTHER, SELFPAY ==
--- NOTE | 2020-12-02 13:28 | US_ITS ---
APPROVED REPORT Exam Type: Ankle to Brachial Index Process Mechanic: RT Constantine(R) Indications Claudication: Bilaterally Rest Pain: Bilaterally Current Smoker PAD, bilateral hip and thigh pain Risk Factors Hypertension Hyperlipidemia Diabetes Pressures/Indices Right Indices Left Indices Brachial 111.00 mmHg Brachial 116.00 mmHg Low Thigh 108.00 mmHg 0.93 Low Thigh 114.00 mmHg 0.98 Calf 141.00 mmHg 1.22 Calf 120.00 mmHg 1.03 Ankle(PT) 137.00 mmHg 1.18 Ankle(PT) 110.00 mmHg 0.95 Ankle(DP) 103.00 mmHg 0.89 Ankle(DP) 115.00 mmHg 0.99 Digit 93.00 mmHg 0.80 Digit 90.00 mmHg 0.78 Findings RT YOLIS=1.18 LT YOLIS=0.99 RT TBI=0.80 LT TBI=0.78 Normal pulses Normal waveforms Conclusion RT YOLIS=1.18 LT YOLIS=0.99 RT TBI=0.80 LT TBI=0.78 Normal pulses Normal waveforms Normal appearing resting noninvasive lower extremity arterial study. Electronically signed by : Gómez Zavala MD 12/02/2020 15:22:23
--- NOTE | 2020-12-02 13:48 | XR_ITS ---
PROCEDURE: XR HIP LT 2-3V W/PELVIS CLINICAL INDICATION: EDE HIP PAIN COMPARISON: CR XR HIP RT 2-3V W/PELVIS from 06/10/2020 FINDINGS: Mild osteoarthritis of the left hip. No fracture or dislocation. No lytic or blastic change. Minimal sclerosis of the inferior aspect of the left SI joint. Osteitis pubis. IMPRESSION: Mild osteoarthritis of the left hip. Osteitis pubis Mild sclerotic changes inferior aspect of the left SI joint Dictated by: Gómez Zavala MD 12/02/2020 14:50 Gómez Zavala MD in [facility] 12/02/2020 14:50
--- NOTE | 2020-12-02 13:48 | XR_ITS ---
PROCEDURE: XR HIP RT 2-3V W/PELVIS CLINICAL INDICATION: EDE HIP PAIN COMPARISON: CR XR HIP RT 2-3V W/PELVIS from 06/10/2020 FINDINGS: Mild to moderate osteoarthritic changes are present involving the right hip with loss of joint space and osteophyte formation. No fracture or dislocation. No lytic or blastic change. Osteitis pubis is noted. IMPRESSION: Osteoarthritis right hip. Dictated by: Gómez Zavala MD 12/02/2020 14:46 Gómez Zavala MD in [facility] 12/02/2020 14:46
--- NOTE | 2020-12-02 13:48 | XR_ITS ---
PROCEDURE: XR FEMUR LT 2V CLINICAL INDICATION: EDE HIP PAIN COMPARISON: CR XR HIP RT 2-3V W/PELVIS from 12/02/2020 FINDINGS: No fracture or dislocation. No lytic or blastic change. There is normal mineralization. Mild osteoarthritic changes are present involving the left hip. Total knee prosthesis is present with good alignment. IMPRESSION: Status post total left knee replacement with good alignment. Mild osteoarthritic change left hip Dictated by: Gómze Zavala MD 12/02/2020 14:48 Gómez Zavala MD in [facility] 12/02/2020 14:48
--- NOTE | 2020-12-02 13:48 | XR_ITS ---
PROCEDURE: XR FEMUR RT 2V CLINICAL INDICATION: EDE HIP PAIN COMPARISON: No exams were available for comparison FINDINGS: There [id number] osteoarthritic changes of the right hip. There is a total knee prosthesis present with good alignment. No acute fracture or dislocation. No lytic or blastic change. Other findings:None. IMPRESSION: Right total knee prosthesis present with osteoarthritic change of the right hip. No acute finding. Dictated by: Gómez Zavala MD 12/02/2020 14:49 Gómez Zavala MD in [facility] 12/02/2020 14:49
== END ==
PROVIDERS: PCP Family Medicine; Visit Provider Nurse Practitioner Family
DX: M25.552 Pain in left hip (principal); M25.551 Pain in right hip; M79.652 Pain in left thigh; M79.651 Pain in right thigh; I73.9 Peripheral vascular disease, unspecified
CPT/HCPCS: 73502; 73552; 93923

== ENCOUNTER 2020-12-13 13:57 | Day surgery (SDC) | payer OTHER, SELFPAY ==
[2020-12-13 14:06] VITALS: BP 135/68; PULSE 102; RESP 18; TEMP 36.7; O2SAT 91; BMI 41.1
[2020-12-13 14:31] VITALS: BP 132/84; PULSE 110; RESP 18; O2SAT 92
[2020-12-13 14:32] VITALS: BP 132/84; PULSE 101; RESP 18; O2SAT 92
--- NOTE | 2020-12-13 14:36 | P.PCN_ITS ---
- Procedure Date: 12/13/20 Time: 14:36 Anesthesiologist:: Manav Lee MD Complications:: None Pre-procedure Diagnosis:: Degenerative disc disease of lumbar spine with lumbar radiculopathy symptoms Post-procedure Diagnosis:: Same Indications for Procedure:: Patient is a pleasant 55-year-old white female who we are treating for low back pain with lumbar radiculopathy symptoms. She did have SI joint injections which did help her some however she still has significant radicular symptoms down both legs. We will do lumbar epidural steroid injection today to see if this helps with her pain symptoms. Procedure Details:: Informed consent was obtained and the risk and benefits of the procedure was explained to the patient. The patient was taken to the procedure room. The patient was placed prone on the procedure table. The patient was prepped and draped in sterile fashion. C-arm fluoroscopy was used to view the lumbar spine. Skin and subcutaneous tissues were anesthetized using lidocaine. I placed an 18-gauge epidural needle and advanced into the L4-L5 interspace using fluoroscopic guidance and [id number] to air. After confirmation of n eedle placement in the epidural space with dye I injected 2 mL of lidocaine 1.5% with Depo-Medrol 80 mg. Patient tolerated the procedure well with no complications. Plan and Disposition:: We will follow-up with her in 2 weeks. Will reevaluate her symptoms at that time.
[2020-12-13 14:47] VITALS: BP 133/76; PULSE 96; RESP 20; O2SAT 92
== END 2020-12-13 14:48 | disposition home or self-care (01) ==
LOC: SC.PAINP 13:59
PROVIDERS: PCP Family Medicine; Visit Provider Anesthesiology
DX: M51.16 Intervertebral disc disorders with radiculopathy, lumbar region (principal); E78.5 Hyperlipidemia, unspecified; I10 Essential (primary) hypertension; J44.9 Chronic obstructive pulmonary disease, unspecified; E11.9 Type 2 diabetes mellitus without complications; E03.9 Hypothyroidism, unspecified; F41.9 Anxiety disorder, unspecified; F32.9 Major depressive disorder, single episode, unspecified; Z72.0 Tobacco use; I50.9 Heart failure, unspecified; Z99.81 Dependence on supplemental oxygen; Z88.2 Allergy status to sulfonamides
CPT/HCPCS: 62323; J1040; Q9966

== ENCOUNTER → 2020-12-31 14:13 | Outpatient (POV) | payer OTHER, SELFPAY ==
[2020-12-31 14:26] VITALS: BP 120/75; PULSE 91; RESP 20; O2SAT 96; BMI 40.7
--- NOTE | 2020-12-31 15:21 | HMH.PAINSOAP ---
[facility] Pain Management SOAP Note Subjective:: Patient is a 55-year-old white female who presents today for follow-up after a lumbar epidural steroid injection at L4-L5. Patient is having pain in her low back with radiation into her bilateral lower extremities and anterior thigh area. She has had bilateral SI joint injections which gave her some relief but not as much relief as the lumbar epidural steroid injection. Patient says that she was much more mobile and able to walk for longer distances following the injection. Pain is slowly returning. She has tried physical therapy for more than 6 weeks and continues with home stretching. She has also tried anti-inflammatories with limited relief. Patient is not diabetic and is not on any anticoagulation therapy. She would like to proceed with a repeat lumbar epidural steroid injection. Review of Systems General: No recent weight changes, no fever, no sleep disturbances Respiratory: No cough, no shortness of air, no recurring pulmonary infections Cardiovascular/peripheral vascular: No chest pain, no palpitations, no edema, no shortness of breath Gastrointestinal: No new onset incontinence, normal bowel movements reported Genitourinary: No new onset incontinence Musculoskeletal: Back pain with radiation into bilateral lower extremities Psychiatric: [Normal mood/affect] Neurological: [Denies weakness in extremities], [denies balance issues] Objective:: Physical exam General: Alert and oriented x3, no acute distress, pleasant and cooperative Lungs: Respirations even and unlabored, symmetrical chest expansion Eyes: PERRL Musculoskeletal: Flexion and extension of lumbar [spine] somewhat guarded secondary to pain, [antalgic gait noted] Neurological: Speech clear, no gross sensory deficit Assessment:: Degenerative disc disease lumbar spine with lumbar radiculopathy symptoms Plan:: Patient did get up to 70 to 80% relief with her last lumbar epidural steroid injection for approximately 2 weeks. The patient's pain has returned. She would like to undergo a second lumbar epidural steroid injection at L4-L5. We will schedule her for the injection and see her back afterwards for reevaluation symptoms. Patient is not on any anticoagulation therapy and is not diabetic. She has had bilateral SI injections with some relief but not as well as the epidural. Possible side effects of corticosteroids have been discussed with the patient. Risks and benefits of the procedure have been explained to the patient. Patient would like to proceed with the procedure. Patient has been instructed to contact the clinic with any concerns before the next appointment. Dr. Lee has reviewed this note and agrees with this plan of care. This note was dictated using voice recognition software and make contain errors or omissions. [facility] History I have reviewed the patient's past medical history: Yes Medical History: Reports:: Anxiety, Congestive Heart Failure, Chronic Obstructive Pulmonary Disease (COPD), Congenital Heart Disease, Cerebrovascular Accident, Depression, Diabetes Mellitus Type 2, Heart Murmur, Hyperlipidemia, Hypertension Denies:: Cancer, Diabetes Mellitus Type 1, MRSA, Seizures *Have you ever received a pneumonia vaccine?: Yes *Have you received a flu vaccine this season?: Yes Other Medical History: Reports: Arthritis, Fibromyalgia, Hypothyroidism, Sinus Problems, Thyroid Disease, Other. Denies: Blood Transfusion Reaction Laterality Cases: Right: Carpal Tunnel Release, Bilateral: Arthroscopy Knee, Tonsillectomy, Other Other Surgeries: Yes: Appendectomy, Cholecystectomy, , Hysterectomy-Total, Tubal Ligation, Other ( Bone graft right wrist) Amputation: No Fractures: Yes - *Social History Smoking Status: Current every day smoker Tobacco Type: cigarettes # Packs/Day (cigarettes): 1 #Yrs smoked (if former smoker): 35 Alcohol Intake: never Alcohol Intake Frequency:: other Substance Use Type:
== END ==
PROVIDERS: PCP Family Medicine; Visit Provider Clinical Nurse Specialist Family Health
DX: M51.16 Intervertebral disc disorders with radiculopathy, lumbar region (principal)
CPT/HCPCS: 99212; G0463

== ENCOUNTER 2021-01-17 13:03 | Day surgery (SDC) | payer OTHER, SELFPAY ==
[2021-01-17 13:07] VITALS: BP 117/69; PULSE 86; RESP 18; TEMP 36.4; O2SAT 93; BMI 41.1
[2021-01-17 13:21] VITALS: BP 100/69; PULSE 84; RESP 18; O2SAT 94
[2021-01-17 13:24] VITALS: PULSE 79; RESP 18; O2SAT 95
[2021-01-17 13:32] VITALS: BP 123/72; PULSE 81; RESP 20; O2SAT 93
--- NOTE | 2021-01-17 13:37 | HMH.PMPROC ---
- Procedure Date: 01/17/21 Time: 13:37 Anesthesiologist:: Manav Lee MD Complications:: None Pre-procedure Diagnosis:: Degenerative disc disease of lumbar spine with lumbar radiculopathy symptoms Post-procedure Diagnosis:: Same Indications for Procedure:: Patient is a pleasant 55-year-old white female who we are treating for low back pain with lumbar radiculopathy symptoms. She has increasing pain radiating to her back down both legs. We will do a repeat lumbar epidural steroid injection under fluoroscopy today to help with her pain symptoms. Procedure Details:: Informed consent was obtained and the risk and benefits of the procedure was explained to the patient. The patient was taken to the procedure room. The patient was placed prone on the procedure table. The patient was prepped and draped in sterile fashion. C-arm fluoroscopy was used to view the lumbar spine. Skin and subcutaneous tissues were anesthetized using lidocaine. I placed an 18-gauge epidural needle and advanced into the L4-L5 interspace using fluoroscopic guidance and [id number] to air. After confirmation of needle placement in the epidural space with dye I injected 2 mL of lidocaine 1.5% with Depo-Medrol 80 mg. Patient tolerated the procedure well with no complications. Plan and Disposition:: We will follow-up with her in 2 weeks. Will reevaluate symptoms at that time.
== END 2021-01-17 13:33 | disposition home or self-care (01) ==
LOC: SC.PAINP 13:04
PROVIDERS: PCP Family Medicine; Visit Provider Anesthesiology
DX: M51.16 Intervertebral disc disorders with radiculopathy, lumbar region (principal); E78.5 Hyperlipidemia, unspecified; E07.9 Disorder of thyroid, unspecified; I10 Essential (primary) hypertension; J44.9 Chronic obstructive pulmonary disease, unspecified; E11.9 Type 2 diabetes mellitus without complications; I50.9 Heart failure, unspecified; M79.7 Fibromyalgia; Z72.0 Tobacco use; Z99.81 Dependence on supplemental oxygen; F31.9 Bipolar disorder, unspecified; F32.A Depression, unspecified; Z86.73 Personal history of transient ischemic attack (TIA), and cerebral infarction without residual deficits
CPT/HCPCS: 62323; J1040; Q9966

== ENCOUNTER 2021-01-31 13:35 | Day surgery (SDC) | payer OTHER, SELFPAY ==
[2021-01-31 14:05] VITALS: BP 123/65; PULSE 97; RESP 18; TEMP 36.5; O2SAT 98; BMI 46.3
--- NOTE | 2021-01-31 14:32 | P.PCN_ITS ---
- Procedure Date: 01/31/21 Time: 14:32 Anesthesiologist:: Inge Ley MD Complications:: None Pre-procedure Diagnosis:: bilateral sacroiliitis, chronic low back pain, bilateral hip pain Post-procedure Diagnosis:: same Indications for Procedure:: Patient is a very pleasant 55-year-old white female who presents today with chronic low back pain and bilateral hip pain related to the above diagnosis. She has tried and failed conservative treatment including oral pain medications at home stretching program for greater than 6 weeks. She has previously undergone lumbar epidural steroid injection at L4-L5 helped with her low back and leg pain. The plan for today is for the patient to undergo repeat bilateral SI joint injections under fluoroscopy. Procedure Details:: B/L SI joint injection under fluoroscopy Informed consent was obtained and the risks and benefits of the procedure was explained to the patient. The patient was taken to the procedure room and placed prone on the procedure table. The patient was prepped using ChloraPrep. The skin and subcutaneous tissues overlying the SI joints were anesthetized using lidocaine. I placed a 22-gauge needle first in the left SI joint and second in the right SI joint. Needle placement was confirmed with dye. After this we injected 5 mL bupivacaine 0.25% and Depo-Medrol 40 mg into each SI join t. Patient tolerated the procedure well with no complication. Plan and Disposition:: Follow-up with this patient in 2 weeks. Will evaluate pain symptoms at that time.
[2021-01-31 14:35] VITALS: BP 120/76; PULSE 101; RESP 18; O2SAT 92
[2021-01-31 14:37] VITALS: PULSE 102; RESP 18; O2SAT 92
[2021-01-31 14:54] VITALS: BP 99/62; PULSE 78; RESP 20; O2SAT 96
== END 2021-01-31 14:55 | disposition home or self-care (01) ==
LOC: SC.PAINP 13:35
PROVIDERS: PCP Family Medicine; Visit Provider Anesthesiology Pain Medicine
DX: M46.1 Sacroiliitis, not elsewhere classified (principal); M54.59 Other low back pain; M25.551 Pain in right hip; M25.552 Pain in left hip; G89.29 Other chronic pain; E03.9 Hypothyroidism, unspecified; E78.5 Hyperlipidemia, unspecified; I10 Essential (primary) hypertension; J44.9 Chronic obstructive pulmonary disease, unspecified; E11.9 Type 2 diabetes mellitus without complications; M79.18 Myalgia, other site; I50.9 Heart failure, unspecified
CPT/HCPCS: 27096; G0260; J1040; Q9966

== ENCOUNTER → 2021-02-20 12:41 | Outpatient (POV) | payer OTHER, SELFPAY ==
--- NOTE | 2021-02-23 20:03 | HMH.VVPMSO ---
[facility] Virtual Visit SOAP Consent for virtual visit:: With the recent concerns about the COVID-19, we are trying to minimize exposure to you by shifting to telehealth appointments whenever possible. It restricts me from seeing you in person, but the trade off is protecting you during this pandemic. Can you see and hear me okay, and do you consent to this option? If not, I would be happy to see if we can reschedule your appointment in the future, when feasible. Has patient consented to this virtual visit?: Yes Subjective:: Patient is a 55-year-old white female who is following up today via telehealth medicine. She is following up after bilateral SI joint injections. She reports that she got significant relief of her hip pain, but continues to have low back pain bilaterally. Pain is going into her lower extremities as well. Today, she rates her pain a 7 out of 10. In the past, she has had injective therapy with lumbar epidural steroid injections. She says that she feels the lumbar epidural steroid injections have given her better relief in the past compared to the SI injections. She has tried physical therapy for more than 6 weeks in the past along with continued home stretching. She is also tried anti-inflammatories in the past. She would like to proceed with a repeat lumbar epidural steroid injection. At last injection, she does report that she got up to 80% relief for 2 weeks with the injection. Review of Systems General: No recent weight changes, no fever, no sleep disturbances Respiratory: No cough, no shortness of air, no recurring pulmonary infections Cardiovascular/peripheral vascular: No chest pain, no palpitations, no edema, no shortness of breath Gastrointestinal: No new onset incontinence, normal bowel movements reported Genitourinary: No new onset incontinence Musculoskeletal: Low back pain with radiation into lower extremities made worse with standing and walking. Psychiatric: [Normal mood/affect] Neurological: [Denies weakness in extremities], [denies balance issues] Objective:: Physical exam General: Alert and oriented x3, no acute distress, pleasant and cooperative Assessment:: Degenerative disc disease lumbar spine with lumbar radiculopathy symptoms Plan:: We will schedule the patient for a lumbar epidural steroid injection at L5-S1. She is not on any anticoagulation therapy She is diabetic. We will follow up with her after the injection for further evaluation. Possible side effects of corticosteroids have been discussed with the patient. Risks and benefits of the procedure have been explained to the patient. Patient would like to proceed with the procedure. Patient has been instructed to contact the clinic with any concerns before the next appointment. Dr. Lee has reviewed this note and agrees with this plan of care. This note was dictated using voice recognition software and make contain errors or omissions. Time In:: 11:15 Time Out:: 11:25 [facility] History I have reviewed the patient's past medical history: Yes Medical History: Reports:: Anxiety, Congestive Heart Failure, Chronic Obstructive Pulmonary Disease (COPD), Congenital Heart Disease, Cerebrovascular Accident, Depression, Diabetes Mellitus Type 2, Heart Murmur, Hyperlipidemia, Hypertension Denies:: Cancer, Diabetes Mellitus Type 1, MRSA, Seizures *Have you ever received a pneumonia vaccine?: No *Have you received a flu vaccine this season?: No Other Medical History: Reports: Arthritis, Fibromyalgia, Hypothyroidism, Sinus Problems, Thyroid Disease, Other. Denies: Blood Transfusion Reaction Laterality Cases: Right: Carpal Tunnel Release, Bilateral: Arthroscopy Knee, Tonsillectomy, Other Other Surgeries: Yes: Appendectomy, Cholecystectomy, , Hysterectomy-Total, Tubal Ligation, Other ( Bone graft right wrist) Amputation: No Fractures: Yes - *Social History Smoking Status: Current every day smoker Tobacco Type: cigarettes # Pack
== END ==
PROVIDERS: Visit Provider Clinical Nurse Specialist Family Health
DX: M51.16 Intervertebral disc disorders with radiculopathy, lumbar region (principal)
CPT/HCPCS: 99212; G0463

== ENCOUNTER 2021-03-14 12:27 | Day surgery (SDC) | payer OTHER, SELFPAY ==
[2021-03-14 12:53] VITALS: BP 96/49; PULSE 94; RESP 18; TEMP 37; O2SAT 92; BMI 41.1
--- NOTE | 2021-03-14 13:04 | P.PCN_ITS ---
- Procedure Date: 03/14/21 Time: 13:07 Anesthesiologist:: Manav Lee MD Complications:: None Pre-procedure Diagnosis:: Degenerative disc disease of lumbar spine with lumbar spinal stenosis and neurogenic claudication with radiculopathy symptoms Post-procedure Diagnosis:: Same Indications for Procedure:: The patient is a pleasant 55-year-old white female who we are treating for low back pain with lumbar radiculopathy symptoms and lumbar spinal stenosis with neurogenic claudication symptoms. She has increasing pain in her back radiating down her right leg. Worst pain is while walking and standing. She does have neurogenic claudication is in her back and down her legs especially while walking and standing. We will plan on lumbar pleural steroid injection with epidurogram today to assess levels of stenosis and candidacy for minimally invasive lumbar decompression. Procedure Details:: Informed consent was obtained and the risk and benefits of the procedure was explained to the patient. The patient was taken to the procedure room. The patient was placed prone on the procedure table. The patient was prepped and draped in sterile fashion. C-arm fluoroscopy was used to view the lumbar spine. Skin and subcutaneous tissues were anesthetized using lidocaine. I placed an 18-gauge epidural needle and advanced into the L4-L5 interspace using f luoroscopic guidance and [id number] to air. After confirmation of needle placement in the epidural space with dye I injected 2 mL of lidocaine 1.5% with Depo-Medrol 80 mg. Patient tolerated the procedure well with no complications. Plan and Disposition:: We will follow-up with her in 2 weeks. Will reevaluate symptoms at that time. We will plan on SI joint injections at that time as she has had these in the past her pain is starting to return. Also based on epidurogram she is a candidate for minimally invasive lumbar decompression bilateral L3-L4 and L4-L5. We will schedule this as soon as possible.
[2021-03-14 13:15] VITALS: BP 117/79; PULSE 89; RESP 18; O2SAT 93
[2021-03-14 13:16] VITALS: PULSE 89; RESP 18; O2SAT 93
[2021-03-14 13:27] VITALS: BP 127/88; PULSE 94; RESP 20; O2SAT 93
== END 2021-03-14 13:28 | disposition home or self-care (01) ==
LOC: SC.PAINP 12:27
PROVIDERS: PCP Family Medicine; Visit Provider Anesthesiology
DX: M51.36 Other intervertebral disc degeneration, lumbar region (principal); M48.062 Spinal stenosis, lumbar region with neurogenic claudication; E07.9 Disorder of thyroid, unspecified; E78.5 Hyperlipidemia, unspecified; I11.0 Hypertensive heart disease with heart failure; I50.9 Heart failure, unspecified; J44.9 Chronic obstructive pulmonary disease, unspecified; E11.9 Type 2 diabetes mellitus without complications; M79.7 Fibromyalgia; Z86.73 Personal history of transient ischemic attack (TIA), and cerebral infarction without residual deficits
CPT/HCPCS: 62323; J1040; Q9966

== ENCOUNTER → 2021-04-04 14:33 | Outpatient (CLI) | payer OTHER, SELFPAY ==
--- NOTE | 2021-04-04 14:38 | MM_ITS ---
PROCEDURE INFORMATION: Exam: MG Bilateral Screening 3D Mammography Exam date and time: 04/04/2021 2:38 PM Age: 55 years old Clinical indication: Screening mammogram TECHNIQUE: Imaging protocol: Bilateral Screening tomosynthesis and 2D mammography including computer-aided detection (CAD) when performed. COMPARISON: DIG MAMM-SCREEN EDE 09/05/2018 4:37 PM FINDINGS: MAMMOGRAPHY: Breast composition: There are scattered areas of fibroglandular density. Mass: None. Architectural distortion: No new or suspicious architectural distortion. Calcifications: No new or suspicious calcifications are present Asymmetric density: No new or suspicious asymmetric density is present Skin thickening: None. Axillary adenopathy: None. IMPRESSION: No mammographic evidence of malignancy. Recommend annual screening mammography unless otherwise clinically indicated. ASSESSMENT: BI-RADS category 1: Negative
== END ==
PROVIDERS: PCP Family Medicine; Visit Provider Family Medicine
DX: Z12.31 Encounter for screening mammogram for malignant neoplasm of breast (principal)
CPT/HCPCS: 77063; 77067

== ENCOUNTER 2021-04-18 12:24 | Day surgery (SDC) | payer OTHER, SELFPAY ==
[2021-04-18 12:29] VITALS: BP 119/77; BP 139/82; PULSE 102; PULSE 109; RESP 18; TEMP 36.9; O2SAT 92; BMI 44.6
[2021-04-18 12:49] VITALS: BP 140/82; PULSE 110; RESP 20; O2SAT 92
--- NOTE | 2021-04-18 12:53 | P.PCN_ITS ---
- Procedure Date: 04/18/21 Time: 12:53 Anesthesiologist:: Manav Lee MD Complications:: None Pre-procedure Diagnosis:: Sacroiliitis Post-procedure Diagnosis:: Same Indications for Procedure:: Patient is a pleasant 55-year-old white female who we have been treating for low back pain with lumbar radicular symptoms. She has pain over both SI joints. She is tender over both SI joints. Positive Sara's test bilaterally. She is positive SI joint compression test bilaterally. She has positive distraction test bilaterally. We will plan on bilateral SI joint injections under fluorosc opy to help her with her pain symptoms. We are also awaiting schedule for her mill invasive lumbar decompression bilateral L3-L4 and L4-L5. Procedure Details:: B/L SI joint injection under fluoroscopy Informed consent was obtained and the risks and benefits of the procedure was explained to the patient. The patient was taken to the procedure room and placed prone on the procedure table. The patient was prepped using ChloraPrep. The skin and subcutaneous tissues overlying the SI joints were anesthetized using lidocaine. I placed a 22-gauge needle first in the left SI joint and second in the right SI joint. Needle placement was confirmed with dye. After this we injected 5 mL bupivacaine 0.25% and Depo-Medrol 40 mg into each SI joint. Patient tolerated the procedure well with no complication. Plan and Disposition:: We will follow-up with her in 2 weeks. Will reevaluate symptoms at that time. We will also follow-up on when we are scheduling her bilateral minimally invasive lumbar decompression L3-L4 and L4-L5.
[2021-04-18 13:02] VITALS: BP 125/83; PULSE 102; O2SAT 95
== END 2021-04-18 13:02 | disposition home or self-care (01) ==
LOC: SC.PAINP 12:24
PROVIDERS: PCP Family Medicine; Visit Provider Anesthesiology
DX: M46.1 Sacroiliitis, not elsewhere classified (principal); E78.5 Hyperlipidemia, unspecified; I11.0 Hypertensive heart disease with heart failure; I50.9 Heart failure, unspecified; J44.9 Chronic obstructive pulmonary disease, unspecified; E11.9 Type 2 diabetes mellitus without complications; E03.9 Hypothyroidism, unspecified; M79.7 Fibromyalgia; Z72.0 Tobacco use
CPT/HCPCS: 27096; G0260; J1040; Q9966

== ENCOUNTER → 2021-05-05 14:32 | Outpatient (POV) | payer OTHER, SELFPAY ==
[2021-05-05 15:04] VITALS: BP 112/73; PULSE 96; RESP 18; TEMP 36.7; O2SAT 90; BMI 44.6
--- NOTE | 2021-05-05 15:37 | HMH.PAINSOAP ---
[facility] Pain Management SOAP Note Subjective:: Patient is a pleasant 55-year-old female who is here today for follow-up after a bilateral SI joint injection. After the procedure, patient had relief of about 60 to 70%. Patient reports no issues after the injection. Patient says that he still having low back pain that radiates to bilateral lower extremities. Patient says that her SI pains have improved, however, she is still not able to walk for long periods of time and feels like her legs are weighing down on her after a while. She says that she needs to sit on the electronic chair to do grocery shopping. This pain that she gets on her low back does get better whenever she leans down. She denies any recent falls or traumas. She denies any loss of bowel and bladder functions. For pain management, she is taking naproxen and gabapentin. [facility] #[id number] with an active morphine equivalent of 0. She rates her pain today as 6 out of 10. ORT score is low risk. General: No recent weight changes, no fever, no sleep disturbances Respiratory: No cough, no shortness of air, no recurring pulmonary infections Cardiovascular/peripheral vascular: No chest pain, no palpitations, no edema, no shortness of breath Gastrointestinal: No new onset incontinence, normal bowel movements reported Genitourinary: No new onset incontinence Musculoskeletal: Low back pain Psychiatric: [Normal mood/affect] Neurological: [Denies weakness in extremities], [denies balance issues] Objective:: General: Alert and oriented x3, no acute distress, pleasant and cooperative, [on room air] Lungs: Respirations even and unlabored, symmetrical chest expansion Eyes: PERRL Musculoskeletal: Flexion and extension of lumbar [spine] somewhat guarded secondary to pain, [antalgic gait noted]; limited range of motion of bilateral hips secondary to pain Neurological: Speech clear, no gross sensory deficit Assessment:: Sacroiliitis Degenerative disc disease of the lumbar spine with lumbar radiculopathy symptoms Facet arthropathy Osteoarthritis of bilateral hips Plan:: Patient had 60 to 70% relief after her bilateral SI injections. Patient says that her SI pain have gotten better. She is still having low back pain that radiates to bilateral lower extremities. We have done 2 lumbar epidural steroid injections with minimal relief. I will refer the patient to physical therapy for evaluation and treatment of low back pain. Additionally, I discussed with the patient that she would be a good candidate for a spinal cord stimulator. I will also refer her for psychiatric evaluation. Also provided her with information regarding the stimulator. Patient is still having pain around her groin and hips even after the SI injections. Patient does have arthritis on bilateral hip joints. I will schedule the patient for an intra-articular bilateral hip injections. Risks and benefits of the procedure have been explained to the patient. Patient would like to proceed with the procedure. Patient has been instructed to contact the clinic with any concerns before the next appointment. Dr. Lee has reviewed this note and agrees with this plan of care. This note was dictated using voice recognition software and make contain errors or omissions. [facility] History Medical History: Reports:: Anxiety, Congestive Heart Failure, Chronic Obstructive Pulmonary Disease (COPD), Congenital Heart Disease, Cerebrovascular Accident, Depression, Diabetes Mellitus Type 2, Heart Murmur, Hyperlipidemia, Hypertension Denies:: Cancer, Diabetes Mellitus Type 1, Internal Pacemaker, MRSA, Seizures *Have you ever received a pneumonia vaccine?: Yes *Have you received a flu vaccine this season?: Yes Other Medical History: Reports: Arthritis, Fibromyalgia, Hypothyroidism, Sinus Problems, Thyroid Disease, Other. Denies: Blood Transfusion Reaction Laterality Cases: Right: Carpal Tunnel Release, Bilateral: Arthroscopy Knee, Tonsill
== END ==
PROVIDERS: Visit Provider Student in an Organized Health Care Education/Training Program
DX: M46.1 Sacroiliitis, not elsewhere classified (principal); M51.16 Intervertebral disc disorders with radiculopathy, lumbar region; M54.06 Panniculitis affecting regions of neck and back, lumbar region; M16.0 Bilateral primary osteoarthritis of hip
CPT/HCPCS: 99212; G0463

== ENCOUNTER 2021-06-03 14:10 | Outpatient (RCR) | payer OTHER, SELFPAY ==
--- NOTE | 2021-06-03 14:59 | HMH.PTOPEV ---
PT Outpatient Evaluation Rehab PT Outpatient Evaluation Start: 06/03/21 14:18 Freq: Status: Active Protocol: Document 06/03/21 14:39 GUSTAVO (Rec: 06/03/21 14:59 GUSTAVO [id number]) Electronically Signed By Kip Bo, PT 06/03/21 14:39 Outpatient Therapy Subjective History Subjective History Pt reports h/o chronic LBP for ~2 yrs, recent exacerbation of LBP has caused right LE radicular s/s. Pt reports right LE s/s from hip to lateral thigh to knee level. Pt reports recent imaging studies of lumbar spine have revealed disc buldging and herniations. Pt reports recent pain mngt injections have ' only helped temporarily'. Chief Complaint Pain,Stiff,Swelling, Paresthesia,Weakness Symptom Type Ache,Sharp,Dull,Burning Symptoms Relieved By Rest/Positioning,Heat,Ice Symptoms Aggravated By Standing,Physical Activity, Walking Prior Functional Limitations Housework,Standing,Walking Current Functional Limitations Lifting,Housework,Standing, Walking Symptom Description Constant but Variable Level of pain today (0-10) 8 Pain scale - at its best (0-10) 6 Pain scale - at its worst (0-10) 8 Lumbopelvic Eval Posture Thoracic Spine Posture Standing Position Flattened Lumbar Spine Posture Standing Position Flattened Gait Observation General Gait Pattern Observation Antalgic Gait Palapation tenderness bilateral lumbar spinal tenderness Yes: 1/4 paraspinal tenderness Yes: 3/4 buttock tenderness Yes: 3/4 Lumbar/Sacral Palpation Findings Tenderness,Trigger Point, Muscle Guarding Accessory Movement L-spine Vertebrae Accessory Movements [place] [employer] [place] that Elicit Symptoms L4 right L5 right Range of Motion Lumbar Spine Active Flexion Range of 0-90 Motion (degrees) Lumbar Spine Active Extension Range of 0-25 Motion (degrees) Left Lumbar Spine Lateral Flexion Active 0-30 Range of Motion (degrees) Right Lumbar Spine Lateral Flexion 0-30 Active Range of Motion (degrees) Lumbar Spine ROM Limitations Pain Manual Muscle Test Bilateral Knee Extension Strength Grade 5 Normal Knee Flexion Strength Grade 5 Normal Hip Flexion Strength Grade 4- Good- Hip Abduction Strength Grade 4- Good- Hip Adduction Strength Grade 4- Goo
== END 2021-06-03 14:15 | disposition home or self-care (01) ==
LOC: PT 14:10
PROVIDERS: PCP Family Medicine; Visit Provider Student in an Organized Health Care Education/Training Program
DX: M54.50 Low back pain, unspecified (principal); M25.552 Pain in left hip; M25.551 Pain in right hip; M79.605 Pain in left leg; M79.604 Pain in right leg
CPT/HCPCS: 97163

== ENCOUNTER → 2021-06-06 12:53 | Day surgery (SDC) | payer OTHER, SELFPAY ==
[2021-06-06 13:21] VITALS: BP 99/63; PULSE 65; RESP 24; TEMP 36.7; O2SAT 90; BMI 44.6
--- NOTE | 2021-06-06 13:35 | P.PCN_ITS ---
- Procedure Date: 06/06/21 Time: 13:35 Anesthesiologist:: Terrell Lunsford CRNA Complications:: None Pre-procedure Diagnosis:: Bilateral hip osteoarthritis Post-procedure Diagnosis:: Same Indications for Procedure:: Very pleasant 55-year-old white female that comes to our injection clinic today for bilateral intra-articular hip injections. Patient has had bilateral SI joint injections with some improvement. However continuing to walk any long distance and or sit causes can to annual bilateral anterior hip pain. She rates the pain 6/10. Procedure Details:: Procedure: Right sacroliliac joint injection under fluoroscopy Informed consent was obtained and the risk and benefits of the procedure were explained to the patient.~ The patient was taken to the procedure room and noninvasive monitors were placed including noninvasive blood pressure cuff and pulse oximeter.~ The patient was placed prone on the procedure table.~ The~ right hip was cleansed using Betadine as a cleansing solution.~ C-arm fluorosocpy was used to view the right SI joint.~ The skin and subcutaneous tissues were anesthetized using Lidocaine 1.5% and a 25-gauge needle.~ After thi s, a 22-gauge spinal needle was inserted under fluoroscopic guidance into the inferior aspect of the right SI joint.~ Omnipaque dye was injected and a good spread was seen throughout the joint.~ After this, approximately 5 mL of bupivacaine 0.25% and Depo-Medrol 40 mg was incrementally injected into the sacroiliac joint.~ The patient tolerated the procedure well with no complications.~ The patient was observed in the Pain Clinic, then discharged home neurologically intact.~ Procedure: Right trochanteric bursa injection under fluoroscopy We then moved to the right trochanteric bursa.~ C-arm fluoroscopy was used to view the left greater trochanter.~ The skin and subcutaneous tissues overlying the right greater trochanter were anesthetized using lidocaine, 1.5% and a 25- gauge needle.~ After this, a 22-gauge spinal needle was inserted and advanced until it contacted the right greater trochanter.~ Dye was injected and good spread was seen throughout the right trochanteric bursa. After this, approximately 5 mL of bupivacaine, 0.25% and Depo-Medrol, 40 mg was incrementally injected into the right right trochanteric bursa.~ The patient tolerated the procedure well with no complications. Plan and Disposition:: Patient was discharged without incident.
[2021-06-06 13:54] VITALS: BP 135/78; PULSE 83; RESP 18; O2SAT 95
[2021-06-06 14:02] VITALS: BP 143/86; PULSE 81; RESP 18; O2SAT 96
--- NOTE | 2021-06-06 14:05 | HMH.PMPROC ---
- Procedure Date: 06/06/21 Time: 14:05 Anesthesiologist:: Terrell Lunsford CRNA Complications:: None Pre-procedure Diagnosis:: Bilateral hip osteoarthritis Post-procedure Diagnosis:: Same Indications for Procedure:: This pleasant 55-year-old white female that has been seen in our clinic in the past regarding lumbar back pain as well as bilateral hip and leg pain. She had responded well to bilateral SI joint injections. However, still having some anterior hip pain that she describes as constant, dull, aching. We will inject her bilateral hips today. Procedure Details:: Details of the procedure were explained to the patient. The patient was taken to the procedure room placed in the supine position on the fluoroscopy table. The area over the bilateral groins anterior hip was cleaned using chlorhexidine as a cleansing solution. Using fluoroscopy guidance a 3 and half inch spinal needle 22-gauge was used to access the intra-articular right hip joint. At this time an injection of 5 cc containing 2 cc of 1% lidocaine 2 cc of 0.25% Marcaine +40 mg of Depo-Medrol was injected. The same procedure was carried out on the left side without incident. Patient tolerated the procedure without difficulty. There were no complications. Plan and Disposition:: Patient was discharged home without incident.
[2021-06-06 14:14] VITALS: BP 127/83; PULSE 71; RESP 20; O2SAT 99
== END ==
PROVIDERS: PCP Family Medicine; Visit Provider Nurse Anesthetist, Certified Registered
DX: M16.0 Bilateral primary osteoarthritis of hip (principal); F41.9 Anxiety disorder, unspecified; J44.9 Chronic obstructive pulmonary disease, unspecified; F32.A Depression, unspecified; E11.9 Type 2 diabetes mellitus without complications; E78.5 Hyperlipidemia, unspecified; I11.0 Hypertensive heart disease with heart failure; I50.9 Heart failure, unspecified; M19.90 Unspecified osteoarthritis, unspecified site; E03.9 Hypothyroidism, unspecified; Z86.73 Personal history of transient ischemic attack (TIA), and cerebral infarction without residual deficits; R01.1 Cardiac murmur, unspecified
CPT/HCPCS: 20610; 77002; J1030

== ENCOUNTER → 2021-08-28 14:19 | Outpatient (POV) | payer OTHER, SELFPAY ==
[2021-08-28 14:45] VITALS: BP 126/73; PULSE 94; RESP 20; TEMP 36.4; O2SAT 91; BMI 44.6
--- NOTE | 2021-08-30 08:47 | HMH.PAINSOAP ---
[facility] Pain Management SOAP Note Subjective:: Patient is a pleasant 55-year-old female who presents today for follow-up. We are currently treating this patient for degenerative disc disease lumbar spine with lumbar radiculopathy symptoms, facet arthropathy, sacroiliitis, osteoarthritis of bilateral hips. We have been managing this patient with injective therapy. She previously had bilateral SI injections that provided 60 to 70% relief. States that her SI pain has gotten better. We also have done 2 lumbar epidural steroid injections that provided minimal relief. When I last saw this patient, she states that she was still having pain around her hips so I had scheduled her for intra-articular hip injections. She states that she only had about a week of relief after this hip injection. Today, she is complaining of pain around her right buttocks that radiates down to her right leg. She cannot tolerate any prolonged activities such as standing and walking. For pain, she does take naproxen and gabapentin which are helping manage some of her pain. She also uses a compounding cream that has been providing significant relief. She finished her physical therapy that provided some relief as well. Rates pain today as 8 out of 10. Patient is currently on Suboxone therapy and has been for years. Casimiro [phone] with an active morphine equivalent of 0. Review of Systems: General: No recent weight changes, no fever, no sleep disturbances Respiratory: No cough, no shortness of air, no recurring pulmonary infections Cardiovascular/peripheral vascular: No chest pain, no palpitations, no edema, no shortness of breath Gastrointestinal: No new onset incontinence, normal bowel movements reported Genitourinary: No new onset incontinence Musculoskeletal: Low back pain, hip pain Psychiatric: [Normal mood/affect] Neurological: [Denies weakness in extremities], [denies balance issues] Objective:: Physical Exam: General: Alert and oriented x3, no acute distress, pleasant and cooperative Lungs: Respirations even and unlabored, symmetrical chest expansion Eyes: PERRL Musculoskeletal: Flexion and extension of lumbar [spine] somewhat guarded secondary to pain, [antalgic gait noted]; patient is tender to palpation around the right piriformis muscle and has reproducible radicular pain going down her leg during palpation; negative SI exam Neurological: Speech clear, no gross sensory deficit Assessment:: Sacroiliitis, degenerative disc disease of lumbar spine with lumbar radiculopathy symptoms, piriformis syndrome, osteoarthritis of bilateral hips Plan:: Patient presents today with a complaint of pain starting around her right buttock that radiates down to her right leg. She does have reproducible radicular pain after palpating the right piriformis muscle. We will schedule the patient for a right piriformis injection. I discussed previously that if the patient gets minimal relief from these injections, she might be a good candidate for spinal cord stimulator therapy. I did refer her to psychiatric evaluation last time, she canceled that appointment. Patient has been instructed to contact the clinic with any concerns before the next appointment. Dr. Lee has reviewed this note and agrees with this plan of care. This note was dictated using voice recognition software and make contain errors or omissions. [facility] History Medical History: Reports:: Anxiety, Congestive Heart Failure, Chronic Obstructive Pulmonary Disease (COPD), Congenital Heart Disease, Cerebrovascular Accident, Depression, Diabetes Mellitus Type 2, Heart Murmur, Hyperlipidemia, Hypertension Denies:: Cancer, Diabetes Mellitus Type 1, Internal Pacemaker, MRSA, Seizures *Have you ever received a pneumonia vaccine?: Yes *Have you received a flu vaccine this season?: Yes Other Medical History: Reports: Arthritis, Fibromyalgia, Hypothyroidism, Sinus Problems, Thyroid Disease, Other. Denies: Blood Transfusion Reaction Late
== END ==
PROVIDERS: Visit Provider Student in an Organized Health Care Education/Training Program
DX: M51.16 Intervertebral disc disorders with radiculopathy, lumbar region (principal); G57.00 Lesion of sciatic nerve, unspecified lower limb; M46.1 Sacroiliitis, not elsewhere classified; M16.0 Bilateral primary osteoarthritis of hip
CPT/HCPCS: 99212; G0463

== ENCOUNTER 2021-09-05 14:24 | Day surgery (SDC) | payer OTHER, SELFPAY ==
[2021-09-05 14:29] VITALS: BP 110/73; PULSE 93; RESP 18; TEMP 36.5; O2SAT 93; BMI 44.6
--- NOTE | 2021-09-05 14:35 | HMH.PMPROC ---
- Procedure Date: 09/05/21 Time: 14:35 Anesthesiologist:: Terrell Lunsford CRNA Complications:: None Pre-procedure Diagnosis:: Right piriformis muscle inflammation and pain. Post-procedure Diagnosis:: Same. Indications for Procedure:: This patient is a pleasant 55-year-old female that comes today for with right buttock pain that she also describes radiates into the lateral thigh including some of the anterior thigh above the knee. She rates the pain 8/10. Patient states the pain is intermittent. Its not a constant pain. However, when the pain comes on it is a 10/10 sharp stabbing. Procedure Details:: Details of the procedure were explained to the patient. The patient was taken the procedure room placed in the prone position on the fluoroscopy table. The area over the right buttock was cleansed using chlorhexidine as a cleansing solution. Using fluoroscopy guidance a 22-gauge 3 inch needle was used to access the right piriformis muscle. 3 cc 1% lidocaine +3 cc of 0.25% Marcaine and 40 mg of Depo-Medrol was injected. This was after negative aspiration. Patient tolerated procedure without difficulty. Plan and Disposition:: I discussed in detail with the patient regarding her pain. I informed the patient we may need to try several different type of injections before we are able to eliminate her pain or help her significantly. This would be a good place to start with the right piriformis. Patient understands. She was discharged from the clinic without incident.
[2021-09-05 14:37] VITALS: BP 115/93; PULSE 97; RESP 20
[2021-09-05 14:44] VITALS: BP 112/72; PULSE 87; RESP 18; O2SAT 94
== END 2021-09-05 14:46 | disposition home or self-care (01) ==
LOC: SC.PAINP 14:25
PROVIDERS: PCP Family Medicine; Visit Provider Nurse Anesthetist, Certified Registered
DX: G57.01 Lesion of sciatic nerve, right lower limb (principal); M19.90 Unspecified osteoarthritis, unspecified site; M79.7 Fibromyalgia; M46.1 Sacroiliitis, not elsewhere classified; M51.16 Intervertebral disc disorders with radiculopathy, lumbar region
CPT/HCPCS: 20552; 77002; J1040

== ENCOUNTER → 2021-09-22 13:30 | Outpatient (POV) | payer OTHER, SELFPAY ==
[2021-09-22 13:39] VITALS: BP 130/82; PULSE 101; RESP 20; BMI 44.6
--- NOTE | 2021-09-22 13:54 | HMH.PAINSOAP ---
[facility] Pain Management SOAP Note Subjective:: Patient is a pleasant 55-year-old female who presents today for a follow-up of a right piriformis injection on 09/05/2021. We are currently treating the patient for right piriformis muscle inflammation and pain. Patient states that she has had significant improvement from her injection. She states that she has had 90% improvement and is still currently helping. Today, however she does rate her pain an 8 out of 10. She states that she had mowed the yard last week and when she got off she got twisted and fell on her left side. She states the pain is in her low back and left hip to her knee. Patient states it is a constant aching sensation. She states it is hard to be comfortable even when she sleeps. She states she has tried [id number] Tylenol/ibuprofen and heat and ice with minimal improvement. She states she has been using her compounding cream and it does work well. Patient is interested in injective therapy at this time. Patient does take gabapentin 800 mg 4 times a day that is prescribed by Dr. Shirley. She states this does adequately manage her pain. She denies any side effects from this medication. Her Casimiro is [id number]. It has been reviewed and appropriate. Review of Systems: General: No recent weight changes, no fever, no sleep disturbances Respiratory: No cough, no shortness of air, no recurring pulmonary infections Cardiovascular/peripheral vascular: No chest pain, no palpitations, no edema, no shortness of breath Gastrointestinal: No new onset incontinence, normal bowel movements reported Genitourinary: No new onset incontinence Musculoskeletal: Left low back pain, left hip pain, left leg pain Psychiatric: [Normal mood/affect] Neurological: [Denies weakness in extremities], [denies balance issues] Objective:: Physical Exam: General: Alert and oriented x3, no acute distress, pleasant and cooperative Lungs: Respirations even and unlabored, symmetrical chest expansion Eyes: PERRL Musculoskeletal: Flexion and extension of left lumbar [spine] somewhat guarded secondary to pain, [antalgic gait noted] point tenderness noted at the left lumbar spine and left hip. Positive left Sara's, Diandra's, Gaenslen's, compression and distraction exam Neurological: Speech clear, no gross sensory deficit Assessment:: Right piriformis muscle inflammation and pain, left sacroiliitis, left greater trochanteric bursitis Plan:: Patient has had significant improvement in her right sided lumbar pain since having her right piriformis injection. Patient has worsening left lumbar pain and left hip pain from falling off her mower last week. She did have positive point tenderness along her lumbar spine on the left side and left hip. Patient had a positive left Diandra's, Sara, Gaenslen's, compression and distraction test during today's exam. I have discussed with the patient regarding a left SI and left greater trochanteric bursa injection. Risk and benefits were discussed with the patient. The patient would like to proceed forward with these injections. Patient is not currently on any blood thinners. We will also prescribe diclofenac 75 mg twice daily. I will give a 14-day supply of this medication. Patient has been counseled on taking the medication with food and stopping all other NSAIDs while using the diclofenac. I will schedule the patient for a left SI and left greater trochanteric bursa injection at today's visit. Patient has been instructed to contact the clinic with any concerns before the next appointment. Dr. Lee has reviewed this note and agrees with this plan of care. This note was dictated using voice recognition software and make contain errors or omissions. [facility] History I have reviewed the patient's past medical history: Yes Medical History: Reports:: Anxiety, Congestive Heart Failure, Chronic Obstructive Pulmonary Disease (COPD), Congenital Heart Disease, Cerebrovascular Accident, Depr
== END ==
PROVIDERS: PCP Family Medicine; Visit Provider Nurse Practitioner Family
DX: M46.1 Sacroiliitis, not elsewhere classified (principal); M70.62 Trochanteric bursitis, left hip; M79.18 Myalgia, other site
CPT/HCPCS: 99212; G0463

== ENCOUNTER 2021-10-06 17:32 | Emergency (ER) | payer OTHER, SELFPAY ==
--- NOTE | 2021-10-06 17:56 | HMH.EDUTC ---
[facility] [place]position Clinical Impression: UTI (urinary tract infection) Qualifiers: Urinary tract infection type: site unspecified Hematuria presence: with hematuria Qualified Code(s): N39.0 - Urinary tract infection, site not specified Disposition: Home, Self-Care Condition on Discharge: Good Instructions: Urinary Tract Infection, DI for Urinary Tract Infection (UTI), Phenazopyridine Additional Instructions: Drink plenty of fluids. Take tylenol or ibuprofen for pain or fever. Take the medications as directed. Follow up with your regular doctor. GO TO THE ER FOR ANY WORSENING SYMPTOMS The pyridium will make your urine turn orange, this is an expected side effect. It will stain your clothes if it comes into contact with them. We will culture the urine. That will tell what bacteria is causing your infection and which antibiotics will treat it best. Sometimes the first antibiotic we prescribe turns out to not work against different bacteria. So, make sure you follow up within 3 days if you are not getting better. Prescriptions: Ondansetron [Zofran 4mg ODT] 4 mg PO Q8HP PRN #20 tab PRN Reason: Nausea Transmission Status: Received by [facility] Cefdinir [Omnicef 300mg Capsule] 300 mg PO BID #20 cap Transmission Status: Received by [facility] Phenazopyridine HCl [Pyridium 200mg Tablet] 200 pow PO TID #6 tab Transmission Status: Received by [facility] Referrals: Kiran Shirley MD [Primary Care Provider] - Time of Disposition: 18:44 Medical Decision Making - Medical Records Medical records reviewed: No: I reviewed the patient's medical records. - Casimiro Inquiry Pt receiving controlled substance: No Vital Signs: 10/06/21 18:10 10/06/21 18:43 Temperature 97.8 F 97.8 F Temperature Source Oral Pulse Rate 88 Pulse Rate [Right Brachial] 88 Respiratory Rate 24 24 Blood Pressure 158/81 H Blood Pressure [Right Arm] 158/81 H Blood Pressure Mean [Right Arm] 106 Blood Pressure Source [Right Arm] Automatic Cuff Blood Pressure Position [Right Arm] Sitting 02 Sat by Pulse Oximetry 95 Oxygen Delivery Method Room Air - Lab Data Lab results reviewed: Yes: I reviewed the patient's lab results. Lab Results 10/06/21 18:08: Urine Color Yellow, Urine Appearance Clear, Urine pH 6.0, Ur Specific [place] <= 1.005, Urine Protein Negative, Urine Glucose (UA) Negative, Urine Ketones Negative, Urine Blood 2+, Urine Nitrate Negative, Urine Bilirubin Negative, Urine Urobilinogen 0.2, Ur Leukocyte Esterase Negative Orders (Tests/Meds): ED MEDICATIONS Discontinued Medications Generic Name Dose Route Start Last Admin Trade Name Dani PRN Reason Stop Dose Admin Ceftriaxone Sodium 1 gm 10/06/21 18:35 10/06/21 18:43 Ceftriaxone 1gm Vial IM 10/06/21 18:36 1 gm ONCE ONE Administration Lidocaine HCl 0 ml 10/06/21 18:35 10/06/21 18:43 Lidocaine 1% 5ml Pf Vial IM 10/06/21 18:36 2 ml ONCE ONE Administration Ondansetron HCl 4 mg 10/06/21 18:36 10/06/21 18:42 Ondansetron 4mg Odt SL 10/06/21 18:37 4 mg ONCE ONE Administration ORDERS Category Date Time Status Urine Culture Stat Micro 10/06/21 18:00 Received [facility] [place] HPI - General Stated complaint: possible uti, blood in urine Time Seen by Provider: 10/06/21 17:56 - History of Present Illness Provider Complaint: She states that for the past 2 days she has had worsening dysuria and urinary frequency. She has also had some low back pain. - Related Data Home Medications Medication Instructions Recorded Confirmed Furosemide [Lasix 40mg tablet] 40 mg PO DAILY PRN 04/27/17 09/22/21 Gabapentin [Neurontin 800mg Tab] 800 mg PO QID 04/27/17 09/22/21 Levothyroxine Sodium 75 mcg PO DAILY 04/27/17 09/22/21 [Levothyroxine 75mcg (0.075mg) Tab] Metformin HCl [Metformin 850mg 1,000 mg PO BID 04/27/17 09/22/21 Tablet] Tizanidine HCl [Zanaflex] 12 mg PO HS
[2021-10-06 18:10] VITALS: BP 158/81; PULSE 88; RESP 24; TEMP 36.6; O2SAT 95; BMI 44.1
[2021-10-06 18:33] LABS: Apearance,Urine Clear (Clear); Bilirubin,Urine Negative (Negative); Blood, Urine 2+ (Negative); Color,Urine Yellow (Yellow); Glucose,Urine (UA) Negative (Negative); Ketones,Urine Negative (Negative); Protein,Urine Negative (Negative); Specific Gravity, Urine <= 1.005 (1.005-1.030); UTC Leukocyte Esterase,Urine Negative (Negative); UTC Nitrate,Urine Negative (Negative); Urobilinogen,Urine 0.2 EU/dl (0.2)
[2021-10-06 18:43] VITALS: BP 158/81; PULSE 88; RESP 24; TEMP 36.6; O2SAT 95
== END 2021-10-06 18:51 | disposition home or self-care (01) ==
PROVIDERS: Emergency Provider Nurse Practitioner Family; PCP Family Medicine
DX: M54.50 Low back pain, unspecified; R31.9 Hematuria, unspecified; I11.0 Hypertensive heart disease with heart failure; I50.9 Heart failure, unspecified; R01.1 Cardiac murmur, unspecified; E78.5 Hyperlipidemia, unspecified; E11.9 Type 2 diabetes mellitus without complications; E03.9 Hypothyroidism, unspecified; M19.90 Unspecified osteoarthritis, unspecified site; M79.7 Fibromyalgia; G47.30 Sleep apnea, unspecified; Q24.9 Congenital malformation of heart, unspecified; F17.210 Nicotine dependence, cigarettes, uncomplicated; J44.9 Chronic obstructive pulmonary disease, unspecified; F31.9 Bipolar disorder, unspecified; F41.9 Anxiety disorder, unspecified; Z79.1 Long term (current) use of non-steroidal anti-inflammatories (NSAID); Z79.4 Long term (current) use of insulin; Z79.51 Long term (current) use of inhaled steroids; Z79.84 Long term (current) use of oral hypoglycemic drugs; Z88.2 Allergy status to sulfonamides; Z88.5 Allergy status to narcotic agent; Z88.8 Allergy status to other drugs, medicaments and biological substances; Z86.73 Personal history of transient ischemic attack (TIA), and cerebral infarction without residual deficits
CPT/HCPCS: 81003; 87086; 96372; 99212; 99213; G0463; J0696

== ENCOUNTER 2021-11-19 17:31 | Emergency (ER) | payer OTHER, SELFPAY ==
[2021-11-19 18:10] VITALS: BP 136/78; PULSE 86; RESP 16; TEMP 36.9; O2SAT 99; BMI 46.0
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
[2021-11-19 19:04] VITALS: BP 136/78; PULSE 86; RESP 16; TEMP 36.9
== END 2021-11-19 19:10 | disposition home or self-care (01) ==
PROVIDERS: Emergency Provider Nurse Practitioner; PCP Family Medicine
DX: T25.222A Burn of second degree of left foot, initial encounter (principal); T79.9XXA Unspecified early complication of trauma, initial encounter; R06.02 Shortness of breath; R60.0 Localized edema; I10 Essential (primary) hypertension; F17.210 Nicotine dependence, cigarettes, uncomplicated; Z79.4 Long term (current) use of insulin; Z79.51 Long term (current) use of inhaled steroids; Z79.84 Long term (current) use of oral hypoglycemic drugs; Z79.899 Other long term (current) drug therapy; Z88.5 Allergy status to narcotic agent; Z88.8 Allergy status to other drugs, medicaments and biological substances; X08.8XXA Exposure to other specified smoke, fire and flames, initial encounter; Y92.009 Unspecified place in unspecified non-institutional (private) residence as the place of occurrence of the external cause
CPT/HCPCS: 16000; 99213; G0463

== ENCOUNTER 2021-12-01 11:40 | Emergency (ER) | payer OTHER, SELFPAY ==
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
[2021-12-01 12:41] VITALS: BP 123/75; PULSE 107; RESP 16; TEMP 36.9; O2SAT 96; BMI 46.0
[2021-12-01 13:13] VITALS: BP 123/75; PULSE 107; RESP 16; TEMP 36.9
== END 2021-12-01 13:18 | disposition home or self-care (01) ==
PROVIDERS: Emergency Provider Nurse Practitioner Family; PCP Family Medicine
DX: T25.022D Burn of unspecified degree of left foot, subsequent encounter (principal); E11.9 Type 2 diabetes mellitus without complications; Z79.84 Long term (current) use of oral hypoglycemic drugs; Z79.899 Other long term (current) drug therapy; Z88.6 Allergy status to analgesic agent; Z88.8 Allergy status to other drugs, medicaments and biological substances
CPT/HCPCS: 99212; G0463

== ENCOUNTER → 2022-01-05 09:27 | Outpatient (POV) | payer OTHER, SELFPAY ==
--- NOTE | 2022-01-05 09:50 | A.OFFVIS_ITS ---
[facility] Pain Management SOAP Note Subjective:: Patient is a pleasant 56-year-old female who presents today for follow-up. We are currently treating the patient for right piriformis syndrome, low back pain. Patient rates her pain today an 8 out of 10. Patient denies any new trauma or injury. Patient denies any change location or type of pain she experiences. Patient states her pain started approximately 2 weeks ago. Patient states that her last piriformis injection provided 90% improvement for over 2 months. Patient is interested in injective therapy at today's visit. Patient is prescribed compounding cream that she states provides significant improvement of her symptoms. She is also managed with gabapentin 800 mg 4 times a day from Dr. Shirley's office. Patient denies any side effects from this medication. She states this medication helps with her neuropathy. Patient is on Suboxone therapy from Marisel Roa's office. Her Casimiro is [phone]. It is been reviewed and appropriate. Review of Systems: General: No recent weight changes, no fever, no sleep disturbances Respiratory: No cough, no shortness of air, no recurring pulmonary infections Cardiovascular/peripheral vascular: No chest pain, no palpitations, no edema, no shortness of breath Gastrointestinal: No new onset incontinence, normal bowel movements reported Genitourinary: No new onset incontinence Musculoskeletal: Right buttocks pain Psychiatric: [Normal mood/affect] Neurological: [Denies weakness in extremities], [denies balance issues] Objective:: Physical Exam: General: Alert and oriented x3, no acute distress, pleasant and cooperative Lungs: Respirations even and unlabored, symmetrical chest expansion Eyes: PERRL Musculoskeletal: Flexion and extension of lumbar [spine] somewhat guarded secondary to pain, [antalgic gait noted]. Extreme point tenderness along right piriformis muscle Neurological: Speech clear, no gross sensory deficit Assessment:: Chronic piriformis syndrome, low back pain Plan:: Patient is experiencing worsening pain in her right buttocks. Patient did have limited range of motion of her lumbar spine during today's visit and extreme point tenderness along her right piriformis muscle. I have counseled the patient that she may benefit from a repeat right piriformis injection. Risk and benefits were discussed with the patient. She would like to proceed forward with this plan of care. We will schedule her for a right piriformis injection. Patient has been instructed to contact the clinic with any concerns before the next appointment. Dr. Lee has reviewed this note and agrees with this plan of care. This note was dictated using voice recognition software and make contain errors or omissions. [facility] Social History Smoking Status: Current every day smoker tobacco type: cigarettes packs per day: 1 second hand exposure: No alcohol intake: never substance use type: denies use current occupational status: other Travel in the last 8 weeks: None household members: none housing: house current occupational exposures/hazards: No caffeine: Yes
[2022-01-05 10:09] VITALS: BP 138/83; PULSE 93; RESP 18; O2SAT 95; BMI 43.7
== END ==
PROVIDERS: PCP Family Medicine; Visit Provider Nurse Practitioner Family
DX: G57.00 Lesion of sciatic nerve, unspecified lower limb (principal)
CPT/HCPCS: 99212; G0463

== ENCOUNTER 2022-01-13 10:06 | Day surgery (SDC) | payer OTHER, SELFPAY ==
[2022-01-13 10:20] VITALS: BP 133/82; PULSE 88; RESP 18; TEMP 36.6; O2SAT 96; BMI 42.4
[2022-01-13 10:49] VITALS: BP 118/82; PULSE 91; RESP 18; O2SAT 97
[2022-01-13 10:50] VITALS: BP 118/82; PULSE 91; RESP 18; O2SAT 97
[2022-01-13 10:57] VITALS: BP 132/68; PULSE 80; RESP 18; O2SAT 96
--- NOTE | 2022-01-13 11:29 | P.PCN_ITS ---
Procedure Date: 01/13/22 Time: 10:50 Anesthesiologist:: Terrell Lunsford CRNA Complications:: None Pre-procedure Diagnosis:: Chronic right posterior hip pain. Post-procedure Diagnosis:: Same. Indications for Procedure:: Very pleasant 56-year-old female that comes our clinic today for right pir iformis injection. Patient describes right posterior hip pain is constant, dull, sharp, stabbing at times. She rates her pain 8/10. Patient also complaining of left side posterior hip pain. Patient would like to return in 2 weeks for left side piriformis injection. Procedure Details:: Details of the procedure were explained to the patient. The patient was taken the procedure room placed in prone position. The area over the right posterior hip was cleansed using chlorhexidine as a cleansing solution. Using a 25-gauge 3-1/2 inch needle the right piriformis muscle was accessed with ease. Needle position was confirmed using 0.5 cc of contrast dye and obvious spread laterally in the piriformis muscle. At this time after negative aspiration 2 cc of 0.25% Marcaine +3 cc of 1% lidocaine and 40 mg of Depo-Medrol was injected. Patient taught the procedure without difficulty. There are no complications. Plan and Disposition:: Patient was discharged without incident
== END 2022-01-13 10:57 | disposition home or self-care (01) ==
LOC: SC.PAINP 10:06
PROVIDERS: PCP Family Medicine; Visit Provider Nurse Anesthetist, Certified Registered
DX: G57.01 Lesion of sciatic nerve, right lower limb (principal); M25.551 Pain in right hip; G89.29 Other chronic pain
CPT/HCPCS: 20552; 77002; J1040; Q9966

== ENCOUNTER 2022-01-20 09:33 | Day surgery (SDC) | payer OTHER, SELFPAY ==
[2022-01-20 09:45] VITALS: BP 125/75; PULSE 87; RESP 18; TEMP 36.8; O2SAT 94; BMI 43.4
[2022-01-20 09:48] VITALS: BP 127/85; PULSE 91; RESP 18; O2SAT 97
[2022-01-20 09:49] VITALS: BP 127/85; PULSE 91; RESP 18; O2SAT 97
[2022-01-20 10:09] VITALS: BP 120/75; PULSE 84; RESP 20; O2SAT 94
--- NOTE | 2022-01-20 13:46 | EXP.PAIN.PRO ---
Procedure Date: 01/20/22 Time: 09:15 Anesthesiologist:: Terrell Lunsford CRNA Complications:: None Pre-procedure Diagnosis:: Left piriformis syndrome Post-procedure Diagnosis:: Same Indications for Procedure:: Patient is a pleasant 56-year-old female that comes our clinic today for left piriformis injection. Patient has had the right side injected in the past with significant improvement. She has point tenderness in the posterior hip/buttock area. She describes it as constant, sharp, stabbing. She rates her pain 8/10. Procedure Details:: Details of the procedure were explained to the patient. The patient taken procedure room placed in the prone position. The area over the posterior hip was cleaned using chlorhexidine as a cleansing solution. Using fluoroscopy guidance and a 3 and half inch 22-gauge needle the left piriformis muscle was accessed. Needle position confirmed using 0.5 cc of contrast dye and a lateral spread. After negative aspiration 3 cc of 0.25% Marcaine +3 cc of 1% lidocaine and 40 mg of Depo-Medrol was injected. Needle was removed. Patient was discharged without incident. Plan and Disposition:: Patient was discharged without incident.
== END 2022-01-20 10:10 | disposition home or self-care (01) ==
LOC: SC.PAINP 09:33
PROVIDERS: PCP Family Medicine; Visit Provider Nurse Anesthetist, Certified Registered
DX: G57.02 Lesion of sciatic nerve, left lower limb (principal)
CPT/HCPCS: 20552; 77002; J1040; Q9966

== ENCOUNTER 2022-02-07 12:53 | Observation (INO) | payer OTHER, SELFPAY ==
[2022-02-07] VITALS (12 sets, daily range): BP systolic 120–175; BP diastolic 92–115; PULSE 103–119; RESP 18–22; TEMP 36.8–36.9; O2SAT 92–98; BMI 42.9; BMI 40.1
--- NOTE | 2022-02-07 12:59 | CT_ITS ---
PROCEDURE INFORMATION: Exam: CT Head Without Contrast Exam date and time: 02/07/2022 1:10 PM Age: 56 years old Clinical indication: Altered mental status/memory loss; Additional info: AMS, stroke protocol TECHNIQUE: Imaging protocol: Computed tomography of the head without contrast. Radiation optimization: All CT scans at this facility use at least one of these dose optimization techniques: automated exposure control; mA and/or kV adjustment per patient size (includes targeted exams where dose is matched to clinical indication); or iterative reconstruction. COMPARISON: CT HEAD/BRAIN WO CON 03/08/2019 9:28 PM FINDINGS: Brain: Encephalomalacia changes noted within the left posterior parietal lobe. Age-related atrophy and chronic white matter ischemic changes, with no evidence of an acute intracranial abnormality. No hemorrhage, mass effect or midline shift. Old right occipital lobe infarct. Cerebral ventricles: No ventriculomegaly. Paranasal sinuses: Visualized sinuses are unremarkable. No fluid levels. Mastoid air cells: Visualized mastoid air cells are well aerated. Bones/joints: No acute fracture. Soft tissues: No acute changes Vasculature: The vasculature demonstrates diffuse mild atherosclerotic calcification. IMPRESSION: 1. Age-related atrophy and chronic white matter ischemic changes, with no evidence of an acute intracranial abnormality. 2. No hemorrhage, mass effect or midline shift.
--- NOTE | 2022-02-07 13:02 | PC.NURSE ---
pt to Ct via stretcher
--- NOTE | 2022-02-07 13:03 | CT_ITS ---
PROCEDURE INFORMATION: Exam: CTA Head With Contrast, Arteriography Exam date and time: 02/07/2022 1:38 PM Age: 56 years old Clinical indication: Cognitive deficit; Type not specified; Additional info: Cvavrule out. Aphasia TECHNIQUE: Imaging protocol: Computed tomographic angiography of the head with contrast. Exam focused on the arteries. 3D rendering (Not supervised by radiologist): MIP and/or 3D reconstructed images were created by the technologist. Radiation optimization: All CT scans at this facility use at least one of these dose optimization techniques: automated exposure control; mA and/or kV adjustment per patient size (includes targeted exams where dose is matched to clinical indication); or iterative reconstruction. Contrast material: ISOVUE; Contrast volume: 72 ml; Contrast route: INTRAVENOUS (IV); COMPARISON: CT ANGIO HEAD 02/07/2022 1:26 PM FINDINGS: ANTERIOR CIRCULATION: Right internal carotid artery: Intracranial segment is patent with mild significant stenosis. No aneurysm. Right middle cerebral artery: No occlusion or significant stenosis. No aneurysm. Right anterior cerebral artery: No occlusion or significant stenosis. No aneurysm. Left internal carotid artery: Intracranial segment is patent with mild significant stenosis. No aneurysm. Left middle cerebral artery: No occlusion or significant stenosis. No aneurysm. Left anterior cerebral artery: No occlusion or significant stenosis. No aneurysm. POSTERIOR CIRCULATION: Right vertebral artery: No occlusion or significant stenosis. No aneurysm. Left vertebral artery: No occlusion or significant stenosis. No aneurysm. Basilar artery: No occlusion or significant stenosis. No aneurysm. Right posterior cerebral artery: No occlusion or significant stenosis. No aneurysm. Left posterior cerebral artery: No occlusion or significant stenosis. No aneurysm. Brain: No definite mass, mass effect, or midline shift. Left occipital encephalomalacia/gliosis. Cerebral ventricles: No ventriculomegaly. Bones/joints: Unremarkable. No acute fracture. Soft tissues: Unremarkable. IMPRESSION: 1. No large vessel stenosis or occlusion. 2. Mild atherosclerotic changes in cavernous carotid arteries bilaterally.
--- NOTE | 2022-02-07 13:03 | CT_ITS ---
PROCEDURE INFORMATION: Exam: CTA Neck With Contrast Exam date and time: 02/07/2022 1:38 PM Age: 56 years old Clinical indication: Cognitive deficit; Type not specified; Additional info: CVA rule out. Aphasia TECHNIQUE: Imaging protocol: Computed tomographic angiography of the neck with contrast. 3D rendering (Not supervised by radiologist): MIP and/or 3D reconstructed images were created by the technologist. Radiation optimization: All CT scans at this facility use at least one of these dose optimization techniques: automated exposure control; mA and/or kV adjustment per patient size (includes targeted exams where dose is matched to clinical indication); or iterative reconstruction. Contrast material: ISOVUE; Contrast volume: 72 ml; Contrast route: INTRAVENOUS (IV); COMPARISON: CT ANGIO NECK 02/07/2022 1:26 PM FINDINGS: Right common carotid artery: Mild atherosclerotic changes in the right carotid bulb without flow-limiting stenosis. Right internal carotid artery: No stenosis of the extracranial segment. No dissection or occlusion. Right external carotid artery: No occlusion or stenosis of the origin. Left common carotid artery: Mild atherosclerotic changes in the left carotid bulb without flow-limiting stenosis. Left internal carotid artery: No stenosis of the extracranial segment. No dissection or occlusion. Left external carotid artery: No occlusion or stenosis of the origin. Right vertebral artery: No stenosis. No dissection or occlusion. Left vertebral artery: No stenosis. No dissection or occlusion. Left subclavian artery: Drqxqabj-ex-rrftph narrowing of the origin of left subclavian artery. Soft tissues: Normal. No significant soft tissue swelling. Bones/joints: No acute fracture. Lungs: Scattered ground-glass opacities in both lungs accentuated by motion respiratory artifact. Findings are nonspecific and can be seen in the context of multifocal pneumonia or interstitial edema. Correlate clinically. Other findings: Motion artifact does moderately limit the sensitivity of this examination. IMPRESSION: 1. Usysdhvh-vo-beebck narrowing of the origin of left subclavian artery. 2. Mild atherosclerotic changes in carotid bulbs without flow-limiting stenosis. 3. Scattered ground-glass opacities in both lungs accentuated by motion respiratory artifact. Findings are nonspecific and can be seen in the context of multifocal pneumonia or interstitial edema. Correlate clinically. REFERENCES: NASCET CRITERIA. The degree of stenosis in the cervical segment of the internal carotid artery is based on NASCET criteria. Normal is no stenosis. Mild is less than 50% stenosis. Moderate is 50-69% stenosis. Severe is 70% to 99% stenosis. Total occlusion is no detectable patent lumen.
--- NOTE | 2022-02-07 13:12 | HMH.EDGENADL ---
Discharge Plan Disposition Patient Disposition: Admitted As Inpatient Condition: Undetermined Prescriptions Prescriptions: No Action albuterol sulfate 2.5 MG/NEB solution for nebulization 2.5 mg IH Q4-6H PRN (Reason: Shortness Of Breath) buprenorphine-naloxone 1 EACH tablet, sublingual 1.5 each SL DAILY Rx Instructions: CALLED TO VERIFY AT [facility]. 2 (16mg) SL TABLETS DAILY fluoxetine 40 MG capsule 40 mg PO DAILY Rx Instructions: TAKES WITH 20 MG FOR TOTAL DOSE OF 60 MG quetiapine 400 MG tablet 400 mg PO HS amlodipine-benazepril 1 EACH capsule 1 each PO DAILY ondansetron 4 MG tablet,disintegrating 4 mg PO Q8HP PRN (Reason: Nausea) Qty: 20 0RF furosemide 40 MG tablet 40 mg PO DAILY PRN (Reason: Edema) metformin 850 MG tablet 1,000 mg PO BID levothyroxine 75 MCG tablet 75 mcg PO DAILY gabapentin 800 MG tablet 800 mg PO QID tizanidine 4 MG capsule 12 mg PO HS atorvastatin 80 MG tablet 80 mg PO HS insulin degludec 100 insulin pen 60 units SQ 1400 Label Comments: linaclotide 290 MCG capsule 290 mcg PO DAILY naproxen 500 MG tablet 500 mg PO BID phenazopyridine 200 MG tablet 200 pow PO TID diclofenac sodium 75 MG tablet,delayed release (DR/EC) 75 mg PO BID buprenorphine-naloxone 8-2 mg tablet, sublingual 2 tab SUBLINGUAL DAILY Referrals Follow up/Referrals: Kiran Shirley MD [Primary Care Provider] - See instructions Clinical Impressions Clinical Impression: Polycythemia, Influenza A with pneumonia, Acute non-ST elevation myocardial infarction (NSTEMI) Altered mental status Qualifiers: Altered mental status type: disorientation Qualified Code(s): R41.0 - Disorientation, unspecified Discharge ED Provider: Juwan Sibley General Adult HPI General Chief complaint: Altered Mental Status Stated complaint: AMS Time Seen by Provider: 02/07/22 13:00 Mode of Arrival: EMS Source of Information: EMS Limitations: Aphasia versus uncooperative History of Present Illness HPI narrative: This is a 56-year-old female with history (obtained from chart review) of type 2 diabetes, bipolar disorder, fibromyalgia, COPD, CHF, diabetes, coronary artery disease presenting with altered mental status. Little history is known, but per EMS, daughter called EMS for evaluation because patient was agitated, uncooperative, not following commands. Patient just keeps repeating yes, and I don't know, without regard for question context or timing. Review of systems unable to be obtained secondary to aphasia versus altered mental status versus uncooperative behavior. Related Data Home Medications Medication Instructions Recorded Confirmed furosemide 40 mg tablet 40 mg PO DAILY PRN Edema 04/27/17 01/20/22 gabapentin 800 mg tablet 800 mg PO QID NEUROPATHY 04/27/17 01/20/22 levothyroxine 75 mcg tablet 75 mcg PO DAILY hypothyroidism 04/27/17 01/20/22 metformin 850 mg tablet 1,000 mg PO BID Diabetes 04/27/17 01/20/22 tizanidine 4 mg capsule 12 mg PO HS muscle pain 04/27/17 01/20/22 atorvastatin 80 mg tablet 80 mg PO HS hyperlipidemia 04/28/17 01/20/22 insulin degludec 100 unit/mL (3 60 units SQ 1400 Diabetes 04/28/17 01/20/22 mL) subcutaneous pen albuterol sulfate 2.5 mg/3 mL 2.5 mg IH Q4-6H PRN Shortness Of 04/22/18 01/20/22 (0.083 %) solution for nebulization Breath buprenorphine 8 mg-naloxone 2 mg 1.5 each SL DAILY WITHDRAWAL 04/23/18 01/20/22 sublingual tablet fluoxetine 40 mg capsule 40 mg PO DAILY Depression 04/23/18 01/20/22 amlodipine 5 mg-benazepril 10 mg 1 each PO DAILY BLOOD PRESSURE 05/14/18 01/20/22 capsule quetiapine 400 mg tablet 400 mg PO HS sleep 05/14/18 01/20/22 linaclotide 290 mcg capsule 290 mcg PO DAILY UNK 03/08/19 01/20/22 naproxen 500 mg tablet 500 mg PO BID Pain 04/02/21 01/20/22 diclofenac sodium 75 mg 75 mg PO BID Pain 01/05/22 01/20/22 tablet,
[2022-02-07 13:13] LABS: Basophils # 0.3 K/mm3 (0-0.2); Basophils % 1.9 % (0.1-2.0); Eosinophils # 0.1 K/mm3 (0.0-0.4); Eosinophils % 0.8 % (0.1-12.0); Lymphocytes # 1.1 K/mm3 (0.7-4.5); Lymphocytes % 7.7 % (10-50); Mean Corpuscular HGB Conc 32.4 g/dL (31.8-35.4); Mean Corpuscular Hemoglobin 31.2 pg (27.0-31.2); Mean Corpuscular Volume 96.3 fl (81-99); Mean Platelet Volume 8.7 fl (7.4-10.4); Monocytes # 0.6 K/mm3 (0.1-1.0); Monocytes % 3.9 % (1.7-9.3); Neutrophils # 12.7 K/mm3 (1.8-7.8); Neutrophils % 85.8 % (37.0-80.0); Platelet Count 266 K/mm3 (142-424); Red Blood Count 6.24 M/mm3 (4.20-5.40); Red Cell Distribution Width 13.4 % (11.5-17.5); White Blood Count 14.7 K/mm3 (4.8-10.8)
[2022-02-07 13:27] LABS: Hematocrit 60.1 % (37.0-47.0)
--- NOTE | 2022-02-07 13:27 | PC.NURSE ---
CRITICAL HEMATOCRIT RECEIVED AT THIS TIME FROM [facility] IN LAB. PT NAME AND R/V. DR. OSCAR NOTIFIED
[2022-02-07 13:28] LABS: MANUAL DIFFERENTIAL MANUAL DIFFERENTIAL (MANUAL DIFF)
[2022-02-07 13:35] LABS: Chloride 96 mmol/L (98-107); Potassium 4.8 mmoL/L (3.5-5.1); Sodium 140 mmol/L (136-145)
[2022-02-07 13:37] LABS: Alanine Aminotransferase 38 U/L (12-78); Aspartate Amino Transferase 61 U/L (14-36); Blood Urea Nitrogen 12 mg/dl (7-17); Creatinine Clearance Estimated 107 mL/min (50-200); Estimated Glomerular Filt Rate 127 ml/min (>60); GFR (African American) 154 ML/MIN (>60)
[2022-02-07 13:38] LABS: Albumin Level 4.5 g/dl (3.5-5.0); Albumin/Globulin Ratio 1.2 (1.1-1.8); Alkaline Phosphatase 206 U/L (38-126); Anion Gap 15.8 mEq/L (5-15); Bilirubin,Total 1.8 mg/dl (0.2-1.3); Calcium 9.5 mg/dl (8.4-10.2); Carbon Dioxide 33 mmol/L (22.0-30.0); Globulin 3.8 g/dL (1.3-3.2); Glucose 240 mg/dl (74-100); Lipase 356 U/L (23-300); Total Protein,Serum 8.3 g/dl (6.3-8.2)
[2022-02-07 13:48] LABS: Lymphocytes % 15 % (10-50); Monocytes % 1 % (2-9); Neutrophils % 84 % (42-76); Platelet Estimate Normal; RBC Morphology Normal; Total Cells Counted 100
--- NOTE | 2022-02-07 13:54 | ECG_ITS ---
APPROVED REPORT Exam: Resting ECG HR:110 bpm ECG Measurements Heart Rate 110 AXES MS 150 P 76 QRSd 96 QRS 85 QT 372 T 60 QTc [address] ELEVATION, PROBABLY EARLY REPOLARIZATION [ST ELEVATION WITH NORMALLY INFLECTED T-WAVE] ABNORMAL RHYTHM ECG UNCONFIRMED REPORT Electronically signed by : Juan R Potter MD 02/09/2022 11:13:10
[2022-02-07 13:55] LABS: T4 (Thyroxine) 10.3 ug/dl (5.53-11.0)
[2022-02-07 14:04] LABS: Microscopic, Urine URINE MICROSCOPIC (MICROSCOPIC)
--- NOTE | 2022-02-07 14:04 | HMH.ITSTN ---
Patient came in stroke protocol. ER doctor wanted CTA head and neck. Per protocol we are supposed to wait for LABS. ER doctor did not want to wait and we continued with giving contrast.
[2022-02-07 14:08] LABS: Appearance,Urine CLEAR (Clear); Blood, Urine TRACE-L (Negative); Color,Urine YELLOW (Yellow); Glucose,Urine (UA) Negative (Negative); Ketones,Urine TRACE (Negative); Leukocyte Esterase,Urine Negative (Negative); Nitrate,Urine Negative (Negative); Protein,Urine 2+ (Negative); Specific Gravity, Urine <= 1.005 (1.005-1.030)
[2022-02-07 14:09] LABS: Thyroid Stimulating Hormone 2.07 uIU/mL (0.465-4.68)
[2022-02-07 14:20] LABS: Bilirubin,Urine 1+ (Negative)
[2022-02-07 14:21] LABS: RBC,Urine Occasional #/hpf (0-3); WBC,Urine Occasional #/hpf (0-3)
[2022-02-07 14:22] LABS: Hemoglobin 19.6 g/dL (12.2-16.2)
--- NOTE | 2022-02-07 14:22 | PC.NURSE ---
pt daughter at ER has spoken with pt daughter and went over POC with her. pt sleeping at this
[2022-02-07 14:36] LABS: Coronavirus 19, PCR Not Detected (NotDetected); Influenza B, PCR Not Detected (NotDetected)
[2022-02-07 14:38] LABS: Troponin I 1.94 ng/ml (0.00-0.034)
--- NOTE | 2022-02-07 14:38 | PC.NURSE ---
notified ER of critical troponin.
--- NOTE | 2022-02-07 14:42 | PC.NURSE ---
BRETT HERNANDEZ speaking with Dr. Alicea
--- NOTE | 2022-02-07 14:55 | CT_ITS ---
PROCEDURE INFORMATION: Exam: CT Abdomen And Pelvis With Contrast Exam date and time: 02/07/2022 4:04 PM Age: 56 years old Clinical indication: Abdominal pain; Additional info: Epigastric pain, n/v, polycythemia TECHNIQUE: Imaging protocol: Computed tomography of the abdomen and pelvis with contrast. Radiation optimization: All CT scans at this facility use at least one of these dose optimization techniques: automated exposure control; mA and/or kV adjustment per patient size (includes targeted exams where dose is matched to clinical indication); or iterative reconstruction. Contrast material: ISOVUE; Contrast volume: 50 ml; Contrast route: IV; COMPARISON: ABDPEL CT abdomen pelvis wo con 05/14/2018 1:46 PM FINDINGS: Lungs: Punctate granuloma in the right lower lobe. Nonspecific regions of mosaic attenuation in lower lobes. Liver: No focal hepatic lesions. Gallbladder and bile ducts: There has been a cholecystectomy. No biliary ductal dilation. Pancreas: No peripancreatic fluid stranding. No main pancreatic ductal dilation. Spleen: No splenomegaly. Adrenal glands: The adrenal glands are normal. Kidneys and ureters: Nephrograms are symmetric. No nephrolithiasis or hydroureteronephrosis on either side. No solid lesions Stomach and bowel: Large length of ascending colon demonstrates mucosal hyperenhancement, submucosal edema in thumbprinting of the wall. Mesenteric stranding noted. Appendix: A normal appendix is identified. Intraperitoneal space: Trace amount of pelvic free fluid. Vasculature: The aorta demonstrates moderate atherosclerotic calcification. Lymph nodes: No evidence of retroperitoneal or mesenteric lymphadenopathy. Urinary bladder: Urinary bladder is decompressed around a Mcclellan catheter. Intravesicular air likely from recent instrumentation. Reproductive: Status post hysterectomy. Bones/joints: Unremarkable. No acute fracture. Soft tissues: Unremarkable. IMPRESSION: Inflammatory/infectious colitis. Nonspecific regions of mosaic attenuation in lower lobes. Common etiologies include air entrapment versus developing pneumonia.
[2022-02-07 15:08] LABS: Lactic Acid 1.9 mmol/L (0.7-2.1)
[2022-02-07 15:08] LABS: ABG Base Excess 6.9 mmol/L (-2.4-2.3); ABG HCO3 29.7 mmhg (22.0-26.0); ABG Oxygen Saturation 93 % (90-100); ABG PCO2 36.6 mmhg (35.0-45.0); ABG PH 7.53 mmol/L (7.35-7.45); ABG PO2 60.4 mmhg (80-100); ABG TCO2 30.8 mmhg (23-27)
--- NOTE | 2022-02-07 15:09 | PC.NURSE ---
spoke with [facility] to verify heparin bolus and drip dosing states bolus should be 4000 units okayed heparin drip rate notified ER of pharmacy recommendations, order changed in the computer
[2022-02-07 15:11] LABS: Oxygen RA %
[2022-02-07 15:12] LABS: Allen's Test Acceptable; Source Left Radial
[2022-02-07 15:39] LABS: Influenza A, PCR Detected (NotDetected)
--- NOTE | 2022-02-07 15:44 | CT_ITS ---
PROCEDURE INFORMATION: Exam: CTA Chest With Contrast Exam date and time: 02/07/2022 4:04 PM Age: 56 years old Clinical indication: Shortness of breath; Additional info: Pe suspected. Hypoxemia, AMS, tachycardia TECHNIQUE: Imaging protocol: Computed tomographic angiography of the chest with contrast. 3D rendering (Not supervised by radiologist): MIP and/or 3D reconstructed images were created by the technologist. Radiation optimization: All CT scans at this facility use at least one of these dose optimization techniques: automated exposure control; mA and/or kV adjustment per patient size (includes targeted exams where dose is matched to clinical indication); or iterative reconstruction. Contrast material: ISOVUE; Contrast volume: 50 ml; Contrast route: INTRAVENOUS (IV); COMPARISON: CHESTWW CT chest wo/w con 08/16/2018 2:04 PM FINDINGS: Pulmonary arteries: No evidence of filling defects to suggest pulmonary emboli. The RV: LV ratio is less than 1. Aorta: Aorta is nonaneurysmal. Lungs: Moderate to large areas of bilateral predominantly peripheral ground-glass and interstitial opacities. Right lower lobe punctate granuloma noted. Pleural spaces: No pneumothorax. No pleural effusion. Heart: No cardiomegaly or pericardial effusion. The left atrial appendage is normal. Lymph nodes: Borderline prominent, multi station lymph nodes likely reactive Bones/joints: Unremarkable. No acute fracture. Soft tissues: Unremarkable. IMPRESSION: 1. No pulmonary embolus. 2. Moderate to large areas of bilateral predominantly peripheral ground-glass and interstitial opacities. Commonly reported imaging features of COVID-19 pneumonia are present. Other processes such as influenza pneumonia and organizing pneumonia, as can be seen with drug toxicity and connective tissue disease, can cause a similar imaging pattern. (Reference: [place]) REFERENCES: cristobal Carrillo al., Radiological Society of [place] Expert Consensus Statement on Reporting Chest CT Findings Related to COVID-19. Endorsed by the Society of Thoracic Radiology, the [place] [employer], and RSNA. Published May 10, 2019.
[2022-02-07 15:45] LABS: PTT Heparin (inpatient only) 28.9 Seconds (23.6-34.0)
--- NOTE | 2022-02-07 15:51 | XR_ITS ---
PROCEDURE INFORMATION: Exam: XR Chest Exam date and time: 02/07/2022 4:39 PM Age: 56 years old Clinical indication: Other: Chest pain; Additional info: Cp TECHNIQUE: Imaging protocol: Radiologic exam of the chest. Views: 1 view. COMPARISON: CT ANGIO CHEST PE PROTOCOL 02/07/2022 4:04 PM FINDINGS: Tubes, catheters and devices: Wireless loop recorder projected over the left chest wall. Lungs: There is diffuse prominence of the interstitial markings. Cherelle B-lines noted. Pleural spaces: Unremarkable. No pleural effusion. No pneumothorax. Heart/Mediastinum: Unremarkable. No cardiomegaly. Bones/joints: Unremarkable. IMPRESSION: Findings can be attributed to interstitial edema in the appropriate clinical context.
--- NOTE | 2022-02-07 15:57 | PC.NURSE ---
PT TO CT AT THIS TIME
--- NOTE | 2022-02-07 16:16 | PC.NURSE ---
pt return from CT
--- NOTE | 2022-02-07 16:48 | PC.NURSE ---
grinder set up operator thread paging dr. quintana
[2022-02-07 16:56] LABS: Amphetamine/Metha Screen,Urine Negative ng/ml (<1000)
[2022-02-07 16:57] LABS: Barbiturates Screen,Urine Negative ng/ml (<200); Benzodiazepines Screen,Urine Negative ng/ml (<200)
[2022-02-07 16:58] LABS: Cannabinoid Screen,Urine Negative ng/ml (<50)
[2022-02-07 16:59] LABS: Cocaine Screen,Urine Negative ng/ml (<300); Methadone Screen,Urine Negative ng/ml (<300)
--- NOTE | 2022-02-07 16:59 | PC.NURSE ---
PC to [facility] re transfer, spoke with [facility] ED doctor on phone with Dr. Portillo. patient placed on wait list
--- NOTE | 2022-02-07 16:59 | PC.NURSE ---
BRETT HERNANDEZ spoke with dr. quintana, who requested pt to be transferred contacting [facility]
[2022-02-07 17:00] LABS: Opiate Screen,Urine Negative ng/ml (<300); Phencyclidine Screen,Urine Negative ng/ml (<25)
[2022-02-07 17:01] LABS: Troponin I 1.81 ng/ml (0.00-0.034)
--- NOTE | 2022-02-07 17:26 | PC.NURSE ---
ER spoke with Dr. Saenz again at this time. requested we check with other facilities
--- NOTE | 2022-02-07 17:40 | PC.NURSE ---
PC made to [facility] re transfer to their facility. Patient has been placed on wait list at both facilities
--- NOTE | 2022-02-07 17:42 | PC.NURSE ---
roundhouse worker notified of admission
--- NOTE | 2022-02-07 17:44 | PC.NURSE ---
BRETT HERNANDEZ speaking with Dr. Sánchez [facility] hospitalist.
--- NOTE | 2022-02-07 18:20 | PC.NURSE ---
report called to apolinar farris rn on second floor at this time, states she will come down to transport pt.
--- NOTE | 2022-02-07 18:45 | PC.NURSE ---
pt arrived on the floor via stretcher. family is with her. She is alert but completely disoriented. unable to follow commands or answer any questions. saturation is 96% on RA so i removed o2 @ this time. heparin drip infusing per ER order
[2022-02-07 19:03] LABS: POC Glucose,Bedside 207 (70-110)
[2022-02-07 20:21] LABS: Hematocrit 51.1 % (37.0-47.0); Hemoglobin 17.5 g/dL (12.2-16.2)
[2022-02-07 22:09] LABS: PTT Heparin (inpatient only) 31.9 Seconds (23.6-34.0)
[2022-02-07 22:41] LABS: POC Glucose,Bedside 175 (70-110)
--- NOTE | 2022-02-07 23:27 | PC.NURSE ---
[facility] CALLED FOR AN UPDATE ON PT STATES. THERE IS STILL NO BED AVAILABLE.
[2022-02-08] VITALS: BP 146/90; PULSE 107; RESP 22; TEMP 36.4; O2SAT 96
[2022-02-08 04:00] VITALS: BP 147/84; PULSE 108; RESP 24; TEMP 36.7; O2SAT 92; BMI 39.4
[2022-02-08 05:18] LABS: Basophils # 0.1 K/mm3 (0-0.2); Basophils % 0.9 % (0.1-2.0); Eosinophils % 0.1 % (0.1-12.0); Hematocrit 48.4 % (37.0-47.0); Hemoglobin 16.1 g/dL (12.2-16.2); Lymphocytes # 1.7 K/mm3 (0.7-4.5); Lymphocytes % 13.9 % (10-50); Mean Corpuscular HGB Conc 33.2 g/dL (31.8-35.4); Mean Corpuscular Hemoglobin 31.5 pg (27.0-31.2); Mean Platelet Volume 9.7 fl (7.4-10.4); Monocytes # 0.7 K/mm3 (0.1-1.0); Monocytes % 5.4 % (1.7-9.3); Neutrophils # 9.8 K/mm3 (1.8-7.8); Neutrophils % 79.7 % (37.0-80.0); Platelet Count 223 K/mm3 (142-424); Red Cell Distribution Width 13.4 % (11.5-17.5); White Blood Count 12.3 K/mm3 (4.8-10.8)
[2022-02-08 05:29] LABS: Alanine Aminotransferase 24 U/L (12-78); Albumin Level 3.6 g/dl (3.5-5.0); Alkaline Phosphatase 141 U/L (38-126); Anion Gap 9.7 mEq/L (5-15); Aspartate Amino Transferase 40 U/L (14-36); Bilirubin,Total 1.2 mg/dl (0.2-1.3); Blood Urea Nitrogen 15 mg/dl (7-17); Calcium 8.5 mg/dl (8.4-10.2); Carbon Dioxide 32 mmol/L (22.0-30.0); Chloride 100 mmol/L (98-107); Creatinine Clearance Estimated 171 mL/min (50-200); Estimated Glomerular Filt Rate 103 ml/min (>60); GFR (African American) 125 ML/MIN (>60); Globulin 3.5 g/dL (1.3-3.2); Glucose 214 mg/dl (74-100); Potassium 3.7 mmoL/L (3.5-5.1); Sodium 138 mmol/L (136-145); Total Protein,Serum 7.1 g/dl (6.3-8.2)
[2022-02-08 06:44] LABS: POC Glucose,Bedside 211 (70-110)
[2022-02-08 07:50] VITALS: BP 133/79; PULSE 105; RESP 20; TEMP 36.7; O2SAT 92
[2022-02-08 08:00] VITALS: O2SAT 92
--- NOTE | 2022-02-08 09:16 | PC.NURSE ---
Received call from [facility], spoke with [facility], no beds available at this time. Will remain on wait list.
--- NOTE | 2022-02-08 10:29 | HMH.PHAHEP ---
[facility] Pharmacy Heparin Dosing Demographic Data Admission date:: 02/07/22 Date: 02/08/22 Time: 10:29 Allergies Allergy/AdvReac Type Severity Reaction Status Date / Time codeine Allergy Unknown Verified 01/20/22 09:46 duloxetine [From Cymbalta] Allergy Unknown Verified 01/20/22 09:46 Height: 1.63 m Weight: 104.8 kg Indication Medication therapy:: Heparin Current Active Problems (Updated 02/08/22 @ 11:03 by Mike Saenz MD) Hyperlipidemia (Chronic) Hypertension (Chronic) Type 2 diabetes mellitus (Chronic) Fibromyalgia (Chronic) Bipolar disorder (Chronic) Chronic back pain (Acute) Opioid dependence in controlled environment (Acute) Hypothyroidism (Acute) Chronic pain disorder (Acute) Altered mental status (Acute) Polycythemia (Acute) Influenza A with pneumonia (Acute) Acute non-ST elevation myocardial infarction (NSTEMI) (Acute) CVA?: No Bleeding problem?: No Kidney disease?: No [place]?: No Desired PTT range:: 50-75 seconds Labs Anticoagulation Lab Results:: 02/07/22 02/07/22 02/08/22 13:00 19:35 04:30 Hgb 19.6 H 17.5 H D 16.1 Hct 60.1 H* 51.1 H 48.4 H Plt Count 266 223 Monitoring Dose Monitor 1: Date: 02/07/22 Time: 15:12 PTT Result:: 28.9 Infusion Rate:: 1,000 UNITS/HR Comment:: 4,000 UNIT BOLUS Dose Monitor 2: Date: 02/07/22 Time: 21:45 PTT Result:: 31.9 Infusion Rate:: INCREASE RATE TO 1,400 UNITS/HR Comment:: 4,000 UNIT BOLUS Dose Monitor 3: Date: 02/08/22 Time: 04:30 PTT Result:: 35.0 Infusion Rate:: INCREASE RATE TO 1,800 UNITS/HR Comment:: 4,000 UNIT BOLUS Dose Monitor 4: Date: 02/08/22 Time: 12:00 Comment:: CHANGED TO LOVENOX Core Measures Is INR > or = 2 at discharge?: No Most Recent Labs:: Laboratory Results - last 24 hr 02/07/22 13:00: WBC 14.7 H, RBC 6.24 H, Hgb 19.6 H, Hct 60.1 H*, MCV 96.3, MCH 31.2, MCHC 32.4, RDW 13.4, Plt Count 266, MPV 8.7, Neut % (Auto) 85.8 H, Lymph % (Auto) 7.7 L, [place] % (Auto) 3.9, Eos % (Auto) 0.8, Baso % (Auto) 1.9, Neut # (Auto) 12.7 H, Lymph # (Auto) 1.1, [place] # (Auto) 0.6, Eos # (Auto) 0.1, Baso # (Auto) 0.3 H, Total Counted 100, Neutrophils % (Manual) 84 H, Lymphocytes % (Manual) 15, Monocytes % (Manual) 1 L, Platelet Estimate Normal, RBC Morphology Normal 02/07/22 13:00: Sodium 140, Potassium 4.8, Chloride 96 L, Carbon Dioxide 33 H, Anion Gap 15.8 H, BUN 12, Creatinine 0.50 L, Estimated Creat Clear 107, Estimated GFR 127, Est GFR ( Amer) 154, Glucose 240 H, Calcium 9.5, Total Bilirubin 1.8 H, AST 61 H, ALT 38, Alkaline Phosphatase 206 H, Total Protein 8.3 H, Albumin 4.5, Globulin 3.8 H, Albumin/Globulin Ratio 1.2 02/07/22 13:00: Troponin I 1.94 H, TSH 2.07, Thyroxine (T4) 10.3 02/07/22 13:00: Lipase 356 H 02/07/22 13:54: Urine Color Yellow, Urine Appearance Clear, Urine pH 8.0, Ur Specific [place] <= 1.005, Urine Protein 2+, Urine Glucose (UA) Negative, Urine Ketones Trace, Urine Blood Trace-l, Urine Nitrate Negative, Urine Bilirubin 1+ A, Urine Urobilinogen 2.0, Ur Leukocyte Esterase Negative, Urine RBC Occasional, Urine WBC Occasional, Ur Squamous Epith Cells None, Urine Bacteria None 02/07/22 14:17: Lactate 1.9 02/07/22 14:17: SARS-CoV-2 (PCR) Not detected, Influenza A Untype (PCR) Detected A, Influenza Type B (PCR) Not detected 02/07/22 14:48: Specimen Source Left radial, O2 % Ra, ABG pH 7.53 H, ABG pCO2 36.6, ABG pO2 60.4 L, ABG HCO3 29.7 H, ABG Total CO2 30.8 H, ABG O2 Saturation 93, ABG Base Excess 6.9 H, Gómez Test Acceptable 02/07/22 15:12: APTT 28.9 02/07/22 15:54: Urine Opiates Screen Negative, Urine Methadone Screen Negative, Ur Barbituates Screen Negative, Ur Phencyclidine Scrn Negative, Ur Amphetamines Screen Negative, U Benzodiazepines Scrn Negative, Urine Cocaine Screen Negative, U Marijuana (THC) Screen Negative 02/07/22 16:20: Troponin I 1.81 H 02/07/22 18:55: POC Glucose 207 H 02/07/22 19:35: Troponin I 1.40
--- NOTE | 2022-02-08 10:52 | EXP.HP ---
History of Present Illness *Admission Date: 02/07/22 *Reason for visit:: Altered mental status *History of present illness: Mrs. Garcia is a 56 year old female patient of [facility], who is followed by Dr. Shirley. She was brought to [facility] ER yesterday via EMS after her daughter became concerned about her mental status. Pt is unable to provide any history now. Per the ER note, This is a 56-year-old female with history (obtained from chart review) of type 2 diabetes, bipolar disorder, fibromyalgia, COPD, CHF, diabetes, coronary artery disease presenting with altered mental status.? Little history is known, but per EMS, daughter called EMS for evaluation because patient was agitated, uncooperative, not following commands.? Patient just keeps repeating yes, and I don't know, without regard for question context or timing.? Review of systems unable to be obtained secondary to aphasia versus altered mental status versus uncooperative behavior. She was admitted with a Non STEMI, AMS, Influenza A and polycythemia. Dr. Alicea was consulted by the ER doctor and ordered therapeutic phlebotomy due to a possible hyperviscosity syndrome. She has been placed on a waiting list for transfer to , [facility] and [facility] Disclaimer: The information contained in this section may have been updated after the patient was seen, as this information can be updated by other users. Medical History (Updated 02/08/22 @ 11:03 by Mike Saenz MD) Anxiety Burn of left foot Concussion without loss of consciousness Congestive heart failure COPD exacerbation Degenerative disc disease Depression Diabetes mellitus type 2 in obese Esophageal obstruction due to food impaction Hyperlipemia Sleep apnea Thyroid disease UTI (urinary tract infection) Surgical History History of History of hysterectomy History of right wrist replacement History of total bilateral knee replacement Hx of cholecystectomy Hx of tubal ligation Family History Family history of hypertension Family history of diabetes mellitus type II Family history of myocardial infarction Cancer Stroke Social History (Updated 02/08/22 @ 01:50 by Jennifer Crook RN) Smoking Status: Current every day smoker tobacco type: cigarettes packs per day: 1 second hand exposure: No alcohol intake: never substance use type: denies use current occupational status: disabled Travel in the last 8 weeks: None household members: none housing: house current occupational exposures/hazards: No caffeine: Yes Review of Systems Review of Systems Review of systems:: unable to obtain Meds Home Medications and Allergies Home Medications Medication Instructions Recorded Confirmed Type furosemide 40 mg tablet 40 mg PO DAILY PRN Edema 04/27/17 01/20/22 History gabapentin 800 mg tablet 800 mg PO QID NEUROPATHY 04/27/17 01/20/22 History levothyroxine 75 mcg tablet 75 mcg PO DAILY hypothyroidism 04/27/17 01/20/22 History metformin 850 mg tablet 1,000 mg PO BID Diabetes 04/27/17 01/20/22 History tizanidine 4 mg capsule 12 mg PO HS muscle pain 04/27/17 01/20/22 History atorvastatin 80 mg tablet 80 mg PO HS hyperlipidemia 04/28/17 01/20/22 History insulin degludec 100 unit/mL (3 60 units SQ 1400 Diabetes 04/28/17 01/20/22 History mL) subcutaneous pen albuterol sulfate 2.5 mg/3 mL 2.5 mg IH Q4-6H PRN Shortness Of 04/22/18 01/20/22 History (0.083 %) solution for nebulization Breath buprenorphine 8 mg-naloxone 2 mg 1.5 each SL DAILY WITHDRAWAL 04/23/18 01/20/22 History sublingual tablet fluoxetine 40 mg capsule 40 mg PO DAILY Depression 04/23/18 01/20/22 History amlodipine 5 mg-benazepril 10 mg 1 each PO DAILY BLOOD PRESSURE 05/14/18 01/20/22 History capsule quetiapine 400 mg tablet 400 mg PO HS sleep 05/14/18 01/20/22 History l
[2022-02-08 12:00] VITALS: BP 170/89; PULSE 114; RESP 20; TEMP 36.6; O2SAT 92
--- NOTE | 2022-02-08 12:12 | HMH.PHAINT1 ---
Pharmacy Intervention Comments: MEDICATION RECONCILIATION COMPLETED ON PATIENT USING EXTERNAL FILL HISTORY FROM PHARMACY. -MICHA CADET, STARRD
[2022-02-08 15:39] VITALS: BP 154/87; PULSE 104; RESP 18; TEMP 36.8; O2SAT 92
--- NOTE | 2022-02-08 16:00 | PC.NURSE ---
Patient unable to answer name, place & time; continues to try to get out of bed without assistance - bed alarm actived, continues to take her gown off but yet states she is cold; able to follow few commands such as swallow pills, turn toward nurseContinues to ask for Marisel throughout the day. 2 daughters and 2 sister came to visit today. Patient able to state their names; 300mL out total for the day and getting NS 150mL/hr; has drank approximately 240mL; Patient VS stable, b/l lungs clear to auscultation, no bm today, bowel sound active all 4 quadrants.
--- NOTE | 2022-02-08 16:07 | PC.NURSE ---
Addendum entered by Sonia Nolasco RN 02/08/22 16:14: Called report to MICHELE Montemayor in Transfer Unit at [facility] Accepting Physician at [facility] is Taco ALBERTO MD Original Note: Received call at 1530 from MICHELE Blas in the transfer department at [facility] stating they had a bed available on the Transfer Unit Room 216 Bed H Provider, Dr. Saenz, notified and gave a v.o. for transfer discharge to be entered. Next of Kin, Carolyne SCHWARZ, notified. Radiology call for copy of films. [facility] notified.
--- NOTE | 2022-02-10 15:09 | EXP.DC.SUM ---
General Admission date:: 02/07/22 Discharge date: 02/08/22 HPI HPI HPI: Mrs. Garcia is a 56 year old female patient of [facility], who is followed by Dr. Shirley. She was brought to [facility] ER yesterday via EMS after her daughter became concerned about her mental status. Pt is unable to provide any history now. Per the ER note, This is a 56-year-old female with history (obtained from chart review) of type 2 diabetes, bipolar disorder, fibromyalgia, COPD, CHF, diabetes, coronary artery disease presenting with altered mental status.? Little history is known, but per EMS, daughter called EMS for evaluation because patient was agitated, uncooperative, not following commands.? Patient just keeps repeating yes, and I don't know, without regard for question context or timing.? Review of systems unable to be obtained secondary to aphasia versus altered mental status versus uncooperative behavior. She was admitted with a Non STEMI, AMS, Influenza A and polycythemia. Dr. Alicea was consulted by the ER doctor and ordered therapeutic phlebotomy due to a possible hyperviscosity syndrome. She has been placed on a waiting list for transfer to , [facility] and [facility] Course Hospital Course Hospital Course: Patient was admitted pending transfer. Dr. Saenz spoke to Dr. Alicea and there was no need for further phlebotomy. Her heparin drip was discontinued and she was treated with sub Q Lovenox. A bed was found for her at and she was transferred under the care of Taco Villaseñor MD. Exam Data for Last 24 hours Vital signs and Labs for Last 24 Hours: Temp Pulse Resp BP Pulse Ox 98.2 F 104 H 18 154/87 H 92 L 02/08/22 15:39 02/08/22 15:39 02/08/22 15:39 02/08/22 15:39 02/08/22 15:39 I & O for Last 24 hours: Intake & Output 02/08/22 02/09/22 02/10/22 02/11/22 11:59 11:59 11:59 11:59 Intake Total 1000 / 1000 1696 / 1696 Output Total 975 / 975 300 / 300 Balance 1396 / 1396 Weight 231 lb 0.711 oz Narrative: Constitutional Constitutional: somnolent *Routine HEENT Exam Head: Present normocephalic Eye: Present other (unable to assess) ENT: Present mucous membranes moist *Routine Neck Exam Neck: Present supple; Absent lymphadenopathy *Routine Respiratory Exam Respiratory: Present CTA bilaterally *Routine Cardiovascular Exam Cardiovascular: Present RRR *Routine Abdominal Exam Abdominal: Present soft and normoactive bowel sounds; Absent tenderness *Routine Rectal Exam Rectal:: deferred *Routine Genitalia Exam Genitalia:: deferred *Routine Extremities Exam Extremities: Absent cyanosis, clubbing or edema *Routine Skin Exam Skin: Present warm; Absent rash *Routine Neurological Exam Comments: Unable to assess, no focal deficits per ER record. DS: Diagnosis Discharge Diagnosis (1) Acute non-ST elevation myocardial infarction (NSTEMI): Status: Acute (2) Influenza A with pneumonia: Status: Acute (3) Polycythemia: Status: Acute (4) Altered mental status: Status: Acute (5) Chronic pain disorder: Status: Acute (6) Opioid dependence in controlled environment: Status: Acute (7) Chronic back pain: Status: Acute (8) Bipolar disorder: Status: Chronic (9) Fibromyalgia: Status: Chronic (10) Type 2 diabetes mellitus: Status: Chronic (11) Hypertension: Status: Chronic (12) Hyperlipidemia: Status: Chronic (13) Hypothyroidism: Status: Acute Meds Home Medications and Allergies Home Medications Medication Instructions Recorded Confirmed Type furosemide 40 mg tablet 40 mg PO DAILY Fluid 04/27/17 02/08/22 History gabapentin 800 mg tablet 800 mg PO QID NEUROPATHY 04/27/17 02/08/22 History atorvastatin 80 mg tablet 80 mg PO HS Cholesterol 04/28/17 02/08/22 History fluoxetine 40 mg capsule 40 mg PO DAILY Depression 04/23/18 02/08/22 History quetiapine 400 mg
== END 2022-02-08 17:05 | disposition short-term general hospital (02) ==
LOC: ER 16:46 → 2ND 18:49
PROVIDERS: Internal Medicine; Admitting Provider Family Medicine; Emergency Provider Emergency Medicine; PCP Family Medicine; Visit Provider Family Medicine
DX: I21.4 Non-ST elevation (NSTEMI) myocardial infarction (principal); J10.00 Influenza due to other identified influenza virus with unspecified type of pneumonia; Z20.822 Contact with and (suspected) exposure to COVID-19; J18.9 Pneumonia, unspecified organism; E11.9 Type 2 diabetes mellitus without complications; Z79.4 Long term (current) use of insulin; D75.1 Secondary polycythemia; G89.4 Chronic pain syndrome; I25.10 Atherosclerotic heart disease of native coronary artery without angina pectoris; F31.9 Bipolar disorder, unspecified; I50.9 Heart failure, unspecified; F17.210 Nicotine dependence, cigarettes, uncomplicated; Z79.899 Other long term (current) drug therapy; E03.9 Hypothyroidism, unspecified; I11.0 Hypertensive heart disease with heart failure
CPT/HCPCS: 36415; 70450; 70496; 70498; 71045; 71275; 74177; 80053; 80305; 81001; 82803; 82962; 83605; 83690; 84436; 84443; 84484; 85007; 85014; 85018; 85025; 85730; 93005; 99195; 99291; C9803; G0378; J0574; Q9967; U0003; U0005

== ENCOUNTER → 2022-03-12 10:48 | Outpatient (POV) | payer OTHER, SELFPAY ==
[2022-03-12 10:57] VITALS: BP 118/72; PULSE 96; RESP 18; O2SAT 98; BMI 42.0
--- NOTE | 2022-03-12 11:28 | EXP.PAIN.SOA ---
[facility] Pain Management SOAP Note Subjective:: Patient is a pleasant 56-year-old female who presents today for follow-up. We are currently treating the patient for right piriformis syndrome, low back pain. Patient rates her pain an 8 out of 10 today. Patient denies any new trauma or injury. Patient states that her last piriformis injection provided 100% relief for over 2 months. Patient states she was able to increase her activity following this injection and had much better functionality. Patient states she does feel like she is back at her baseline at today's visit. Patient's state it does affect her ability to perform activities of daily living such as cooking and cleaning. Patient does describe this as a shooting, sharp pain that is worse with increased activity. Patient is interested in injective therapy at today's visit. Patient is prescribed compounding cream that she states provides significant improvement of her symptoms. She is also managed with gabapentin 800 mg 4 times a day from Dr. Shirley's office. Patient denies any side effects from this medication. She states she states she takes this medication to help with her neuropathy. Patient is on Suboxone therapy from Marisel Roa's office. Her Casimiro #[id number] was reviewed and appropriate. Review of Systems: General: No recent weight changes, no fever, no sleep disturbances Respiratory: No cough, no shortness of air, no recurring pulmonary infections Cardiovascular/peripheral vascular: No chest pain, no palpitations, no edema, no shortness of breath Gastrointestinal: No new onset incontinence, normal bowel movements reported Genitourinary: No new onset incontinence Musculoskeletal: Back pain, right buttocks pain, left buttocks pain Psychiatric: [Normal mood/affect] Neurological: [Denies weakness in extremities], [denies balance issues] Objective:: Physical Exam: General: Alert and oriented x3, no acute distress, pleasant and cooperative Lungs: Respirations even and unlabored, symmetrical chest expansion Eyes: PERRL Musculoskeletal: Flexion and extension of lumbar [spine] somewhat guarded secondary to pain, [antalgic gait noted], extreme point tenderness along right and left piriformis muscle. Neurological: Speech clear, no gross sensory deficit ORT reviewed and low risk Assessment:: Chronic piriformis syndrome, low back pain Plan:: Patient is experiencing worsening pain in her bilateral buttocks. Patient did have limited range of motion of her lumbar spine during today's visit and extreme point tenderness along her bilateral piriformis muscle. I have counseled the patient that she may benefit from a bilateral piriformis injection. Risk and benefits were discussed with the patient. She would like to proceed forward with this plan of care. We will schedule her for a bilateral piriformis injection. Patient has been instructed to contact the clinic with any concerns before the next appointment. Dr. Lee has reviewed this note and agrees with this plan of care. This note was dictated using voice recognition software and make contain errors or omissions. [facility] Disclaimer: The information contained in this section may have been updated after the patient was seen, as this information can be updated by other users. Medical History (Updated 02/08/22 @ 11:03 by Mike Saenz MD) Anxiety Burn of left foot Concussion without loss of consciousness Congestive heart failure COPD exacerbation Degenerative disc disease Depression Diabetes mellitus type 2 in obese Esophageal obstruction due to food impaction Hyperlipemia Sleep apnea Thyroid disease UTI (urinary tract infection) Surgical History History of History of hysterectomy History of right wrist replacement History of total bilateral knee replacement Hx of cholecystectomy Hx of tubal ligation Family History (Reviewed 02/08/22 @ 01:50 by Pacheco Whitaker
== END ==
PROVIDERS: PCP Family Medicine; Visit Provider Nurse Practitioner Family
DX: G57.00 Lesion of sciatic nerve, unspecified lower limb (principal); M54.50 Low back pain, unspecified
CPT/HCPCS: 99212; G0463

== ENCOUNTER 2022-03-17 11:59 | Day surgery (SDC) | payer OTHER, SELFPAY ==
[2022-03-17 12:08] VITALS: BP 131/80; BP 161/96; PULSE 75; PULSE 82; RESP 18; TEMP 36.7; O2SAT 94; O2SAT 97; O2SAT 98; BMI 42.0
[2022-03-17 12:20] VITALS: BP 146/94; PULSE 77; RESP 18; O2SAT 96
--- NOTE | 2022-03-20 08:42 | P.PCN_ITS ---
Procedure Date: 03/10/22 Time: 10:00 Anesthesiologist:: Terrell Lunsford CRNA Complications:: None Pre-procedure Diagnosis:: Bilateral piriformis syndrome Post-procedure Diagnosis:: Same. Indications for Procedure:: Very pleasant 56-year-old female that comes our clinic today with suspected bi lateral piriformis syndrome. Patient has had unsuccessful results with bilateral sacroiliac joint injections. She complains of pain low buttock bilaterally. Some degree of radicular component bilaterally. She rates her pain 8/10. Procedure Details:: Details of the procedure explained to the patient. Patient taken to procedure room placed in the prone position. The area over the bilateral distal buttocks was cleansed using chlorhexidine cleansing solution. Using fluoroscopy guidance a 3 and half inch needle was used to access the right piriformis muscle. Needle position was confirmed using 0.5 cc contrast dye and obvious linear spread. At this time after negative aspiration 3 cc of 0.25% Marcaine +3 cc of 1% lidocaine and 40 mg Depo-Medrol was injected. The same procedure was carried out at the left piriformis muscle. Patient tolerated procedure without difficulty. There are no complications Plan and Disposition:: Patient was discharged without incident.
== END 2022-03-17 12:20 | disposition home or self-care (01) ==
LOC: SC.PAINP 12:00
PROVIDERS: PCP Family Medicine; Visit Provider Nurse Anesthetist, Certified Registered
DX: G57.03 Lesion of sciatic nerve, bilateral lower limbs (principal); M54.50 Low back pain, unspecified
CPT/HCPCS: 20552; 77002; J1040

== ENCOUNTER → 2022-03-18 14:02 | Outpatient (CLI) | payer OTHER, SELFPAY ==
--- NOTE | 2022-03-18 14:07 | XR_ITS ---
FINAL REPORT CLINICAL HISTORY: knee pain FINDINGS: LEFT KNEE 3 views of the left knee were obtained. There are postoperative changes from knee arthroplasty. There is no acute fracture or dislocation. Visualized joint spaces are normally aligned. Soft tissues are unremarkable. IMPRESSION: Postoperative changes with no acute bony abnormality. Reviewed, Interpreted and Dictated by Nilson Rivas III, MD Transcribed by Nyasia Cabrera Authenticated and [facility]
--- NOTE | 2022-03-18 14:07 | XR_ITS ---
FINAL REPORT CLINICAL HISTORY: knee pain FINDINGS: RIGHT KNEE 3 views of the right knee were obtained. There are postoperative changes from knee arthroplasty. There is no acute fracture or dislocation. Visualized joint spaces are normally aligned. There is a 15 mm soft tissue calcification medial to the tibial plateau. IMPRESSION: Postoperative changes with no acute bony abnormality. 15 mm soft tissue calcification medial to the tibial plateau. Reviewed, Interpreted and Dictated by Nilson Rivas III, MD Transcribed by Nyasia Cabrera Authenticated and [facility]
== END ==
PROVIDERS: PCP Family Medicine; Visit Provider Orthopaedic Surgery
DX: M25.561 Pain in right knee (principal); M25.562 Pain in left knee
CPT/HCPCS: 73562

== ENCOUNTER → 2022-03-30 13:10 | Outpatient (POV) | payer OTHER, SELFPAY ==
[2022-03-30 13:36] VITALS: BP 130/75; PULSE 80; RESP 18; O2SAT 98; BMI 42.0
--- NOTE | 2022-03-30 13:40 | EXP.PAIN.SOA ---
[facility] Pain Management SOAP Note Subjective:: Patient is a pleasant 56-year-old female who presents today for follow-up of bilateral piriformis injection on 03/17/2022. We are currently treating the patient for right piriformis syndrome, low back pain with lumbar radiculopathy symptoms. Today she rates her pain an 8 out of 10. Patient states she did have moderate improvement following these injections however they only lasted 2 days. Patient previously had 2 other piriformis injections that provided significant relief for approximately 2 months. Patient denies any new injury or trauma. Patient denies any change to location or type of pain she experiences. Patient states her pain is all around her buttocks bilaterally and radiates into her hips and groin. Patient does describe this as a sharp achy sensation that is worse with increased activity. Patient does state this affects her ability to perform activities of daily living such as cooking and cleaning. Patient is prescribed compounding cream that she states provides some improvement as well has Suboxone therapy. Patient is prescribed gabapentin 800 mg 4 times a day from Dr. Shirley's office. Patient denies any side effects from this medication. Patient denies any side effects from these medications. Her Casimiro is [id number]. Its been reviewed and appropriate. Review of Systems: General: No recent weight changes, no fever, no sleep disturbances Respiratory: No cough, no shortness of air, no recurring pulmonary infections Cardiovascular/peripheral vascular: No chest pain, no palpitations, no edema, no shortness of breath Gastrointestinal: No new onset incontinence, normal bowel movements reported Genitourinary: No new onset incontinence Musculoskeletal: Buttocks pain, hip pain, groin pain Psychiatric: [Normal mood/affect] Neurological: [Denies weakness in extremities], [denies balance issues] Objective:: Physical Exam: General: Alert and oriented x3, no acute distress, pleasant and cooperative Lungs: Respirations even and unlabored, symmetrical chest expansion Eyes: PERRL Musculoskeletal: Flexion and extension of lumbar [spine] somewhat guarded secondary to pain, [antalgic gait noted] Neurological: Speech clear, no gross sensory deficit Assessment:: Right piriformis syndrome, low back pain with lumbar radiculopathy symptoms, buttocks pain Plan:: Patient continues to experience significant pain in her buttocks with radiating symptoms to her hips and groin. Patient did have limited range of motion of her lumbar spine during today's visit. I have discussed with the patient that she may benefit from a diagnostic caudal epidural. Risk and benefits were discussed with the patient. She would like to proceed forward with this plan of care. Patient is not on any blood thinners. I will also order the patient x-rays of her bilateral hips and pelvis. Patient will be scheduled for a diagnostic caudal epidural. Patient has been instructed to contact the clinic with any concerns before the next appointment. Dr. Lee has reviewed this note and agrees with this plan of care. This note was dictated using voice recognition software and make contain errors or omissions. [facility] Disclaimer: The information contained in this section may have been updated after the patient was seen, as this information can be updated by other users. Medical History Anxiety Burn of left foot Concussion without loss of consciousness Congestive heart failure COPD exacerbation Degenerative disc disease Depression Diabetes mellitus type 2 in obese Esophageal obstruction due to food impaction Hyperlipemia Sleep apnea Thyroid disease UTI (urinary tract infection) Surgical History History of History of hysterectomy History of right wrist replacement History of total bilateral knee replacement Hx of cholecy
== END ==
PROVIDERS: PCP Family Medicine; Visit Provider Nurse Practitioner Family
DX: M54.16 Radiculopathy, lumbar region (principal); M54.50 Low back pain, unspecified; G57.01 Lesion of sciatic nerve, right lower limb
CPT/HCPCS: 99212; G0463

== ENCOUNTER → 2022-04-07 09:15 | Outpatient (POV) | payer OTHER, SELFPAY ==
[2022-04-07 09:23] VITALS: BP 136/88; PULSE 105; RESP 20; TEMP 36.8; O2SAT 93; BMI 42.0
--- NOTE | 2022-04-07 09:28 | EXP.PAIN.SOA ---
[facility] [place] Pain Management SOAP Note Subjective:: This patient is a very pleasant 56-year-old female that comes our clinic today for follow-up visit after insurance denial regarding a caudal epidural steroid injection. Patient in fact has not had imaging of her low spine inside the last 24 months. We will send her for lumbar MRI to further discern pathology. Patient complains today of low back pain she describes as constant, dull, aching. Patient also complains of bilateral hip and leg radicular symptoms to the feet. She rates her pain 7/10. Patient presents to our clinic today in a wheelchair due to the distance of ambulation from the parking lot to our clinic. Otherwise, patient is ambulatory at home. Objective:: Patient is awake alert [place] x3. In no acute distress. Flexion-extension lumbar spine very guarded secondary to pain. Deep tendon reflexes upper and lower extremities normal. Motor strength upper and lower extremities normal. There is no gross sensory deficit. Gait is normal. Assessment:: Bilateral piriformis syndrome. Low back pain. Bilateral hip and leg radicular symptoms. Plan:: We will plan lumbar MRI. Patient will return to the clinic for follow-up visit to review findings. [facility] Disclaimer: The information contained in this section may have been updated after the patient was seen, as this information can be updated by other users. Medical History Anxiety Burn of left foot Concussion without loss of consciousness Congestive heart failure COPD exacerbation Degenerative disc disease Depression Diabetes mellitus type 2 in obese Esophageal obstruction due to food impaction Hyperlipemia Sleep apnea Thyroid disease UTI (urinary tract infection) Surgical History History of History of hysterectomy History of right wrist replacement History of total bilateral knee replacement Hx of cholecystectomy Hx of tubal ligation Family History Other Cancer Family history of diabetes mellitus type II Family history of hypertension Family history of myocardial infarction Stroke Social History Smoking Status: Current every day smoker tobacco type: cigarettes packs per day: 1 second hand exposure: No alcohol intake: never substance use type: denies use current occupational status: other Travel in the last 8 weeks: None household members: none housing: house current occupational exposures/hazards: No caffeine: Yes
== END ==
PROVIDERS: PCP Family Medicine; Visit Provider Nurse Anesthetist, Certified Registered
DX: G57.03 Lesion of sciatic nerve, bilateral lower limbs (principal); M54.50 Low back pain, unspecified; F17.210 Nicotine dependence, cigarettes, uncomplicated
CPT/HCPCS: 99212; G0463

== ENCOUNTER → 2022-04-10 11:00 | Outpatient (CLI) | payer OTHER, SELFPAY ==
--- NOTE | 2022-04-10 11:06 | CT_ITS ---
FINAL REPORT TECHNIQUE: Axial images were obtained from the lung apex to the mid abdomen by computed tomography. This study was performed with techniques to keep radiation doses as low as reasonably achievable (ALARA). Individualized dose reduction techniques using automated exposure control or adjustment of mA and/or kV according to the patient's size were employed. CLINICAL HISTORY: TOBACCO USE smoker, 1ppd x44 years COMPARISON: 02/07/2022 and 08/16/2018 FINDINGS: CHEST CT LOW DOSE CTDI vol (mGy): 2.90 DLP (mGy-cm): 96.38 There is no axillary adenopathy. There are small mediastinal nodes without evidence of adenopathy. The heart is normal in size. There is no pericardial or pleural effusion. There is mild diffuse bronchial wall thickening consistent with bronchitis. There is a calcified granuloma in the right lower lobe. There are several, less than 5 mm right lower lobe nodules which are stable since August of 2018. Note is made of mild scarring. Limited images of the upper abdomen show the gallbladder to be absent. IMPRESSION: Lung RADS category 1. Recommend 12 month follow-up low-dose chest CT. Reviewed, Interpreted and Dictated by Nilson Rivas III, MD Transcribed by Melissa Vuong Authenticated and [facility]
== END ==
PROVIDERS: PCP Family Medicine; Visit Provider Family Medicine
DX: Z87.891 Personal history of nicotine dependence (principal); Z12.2 Encounter for screening for malignant neoplasm of respiratory organs
CPT/HCPCS: 71271

== ENCOUNTER → 2022-04-16 14:48 | Outpatient (CLI) | payer OTHER, SELFPAY ==
--- NOTE | 2022-04-16 14:51 | MR_ITS ---
FINAL REPORT TECHNIQUE: Multiplanar and multisequence imaging of the lumbar spine was obtained without contrast. CLINICAL HISTORY: LOW BACK PAIN. bilateral leg pain, numbness, and tingling worse on right side FINDINGS: There is grade 1 anterior spondylolisthesis of L4 on 5. The alignment is otherwise normal. Vertebral body height is preserved. The spinal cord ends at the level of L1. There is normal signal intensity within the substance of the distal spinal cord. Bone marrow signal intensity is normal. No acute paraspinal abnormality is identified. L1-2: There is no focal disc herniation, central canal stenosis or neuroforaminal narrowing. L2-3: There is no focal disc herniation, central canal stenosis or neuroforaminal narrowing. L3-4: An annular bulge is present with facet osteoarthropathy. There is mild right and severe left neural foraminal narrowing. L4-5: Bilateral facet osteoarthropathy is present. There is a mild disc osteophyte complex laterally with severe right and moderate left neural foraminal narrowing. L5-S1: An annular disc bulge is present with degenerative endplate changes and facet osteoarthropathy. There is moderate right and severe left neural foraminal narrowing. IMPRESSION: Grade 1 anterior spondylolisthesis of L4 on 5. Multilevel degenerative disc disease. Reviewed, Interpreted and Dictated by Gema Flores MD Transcribed by Melissa Vuong Authenticated and [facility]
== END ==
PROVIDERS: PCP Family Medicine; Visit Provider Nurse Practitioner Family
DX: M54.50 Low back pain, unspecified (principal)
CPT/HCPCS: 72148; 76376

== ENCOUNTER 2022-04-17 00:59 | Emergency (ER) | payer OTHER, SELFPAY ==
[2022-04-17 01:12] VITALS: BMI 45.7
[2022-04-17 01:15] VITALS: BP 142/84; PULSE 86; RESP 18; TEMP 36.8; O2SAT 96; BMI 42.5
[2022-04-17 01:52] VITALS: BP 138/68; PULSE 80; RESP 19; TEMP 36.8; O2SAT 94
--- NOTE | 2022-04-17 01:54 | HMH.EDBACK ---
Discharge Plan Disposition Patient Disposition: Home, Self-Care Prescriptions Prescriptions: New ketorolac 10 mg tablet 10 mg PO Q8H PRN (Reason: pain) 2 Days Qty: 7 0RF No Action fluoxetine 40 MG capsule 40 mg PO DAILY quetiapine 400 MG tablet 400 mg PO DAILY furosemide 40 MG tablet 40 mg PO DAILY gabapentin 800 MG tablet 800 mg PO QID atorvastatin 80 MG tablet 80 mg PO HS buprenorphine-naloxone 8-2 mg tablet, sublingual 2 tab SUBLINGUAL DAILY tizanidine 4 mg tablet 12 mg PO HS Label Comments: TAKE TWO TABLETS BY MOUTH EVERY DAY IN THE MORNING and TAKE THREE TABLETS EVERY DAY IN THE EVENING AT BEDTIME MAY CAUSE DROWSINESS tizanidine 4 mg tablet 8 mg PO DAILY Label Comments: TAKE TWO TABLETS BY MOUTH EVERY DAY IN THE MORNING and TAKE THREE TABLETS EVERY DAY IN THE EVENING AT BEDTIME MAY CAUSE DROWSINESS albuterol sulfate [Ventolin HFA] 90 mcg/actuation HFA aerosol inhaler 2 puff INHALATION QIDP PRN (Reason: Shortness Of Breath) Label Comments: INHALE 2 puffs BY MOUTH FOUR TIMES DAILY NEEDED --SHAKE WELL BEFORE USE-- levothyroxine 100 mcg tablet 100 mcg PO DAILY Label Comments: TAKE ONE TABLET BY MOUTH EVERY DAY amlodipine-benazepril 5-10 mg capsule 1 cap PO DAILY Label Comments: TAKE ONE CAPSULE BY MOUTH EVERY DAY metformin 1,000 mg tablet 1,000 mg PO BID Label Comments: TAKE ONE TABLET BY MOUTH TWICE DAILY ezetimibe 10 mg tablet 10 mg PO DAILY Label Comments: TAKE ONE TABLET BY MOUTH EVERY DAY insulin glargine [Lantus Solostar U-100 Insulin] 100 unit/mL (3 mL) insulin pen 60 unit SQ DAILY Label Comments: inject 60 UNITS SUBCUTANEOUSLY EVERY DAY Farxiga 5 mg tablet 5 mg PO DAILY Label Comments: TAKE ONE TABLET BY MOUTH EVERY DAY diclofenac sodium [Voltaren Arthritis Pain] 1 % gel 2 g topical QID Rx Instructions: Apply to knees as directed Referrals Follow up/Referrals: Kiran Shirley MD [Primary Care Provider] - See instructions Clinical Impressions Clinical Impression: Lumbar radiculopathy Instructions Patient Instructions: DI for Low Back Pain Discharge ED Provider: Yael (ED)Jim Back Pain HPI General Chief Complaint: Back Pain/Injury Stated Complaint: lower back pain radiation down right leg Time Seen by Provider: 04/17/22 01:54 Mode of Arrival: Wheelchair Source of Information: Patient and Medical Record Limitations: No Limitations Description of Symptoms (Recalled from ER Triage Doc. by RN): Pt arrives via private vehicle, c/o right sided sciatic nerve pain that is chronic, but has been hurting more than normal for the last 24 hours. States that she see's pain management and received an MRI yesterday (04/16/22). History of Present Illness HPI Narrative: acute exacerbation of back pain with rad to rt lower leg w/o cauda equina sx Complaint: back pain Onset (ago): day(s) Duration: intermittent Similar Symptoms Previously: Yes Location: lumbar spine Severity: moderate Quality: sharp Radiation: right leg Associated symptoms: denies other symptoms Related Data Home Medications Medication Instructions Recorded Confirmed furosemide 40 mg tablet 40 mg PO DAILY Fluid 04/27/17 04/07/22 gabapentin 800 mg tablet 800 mg PO QID NEUROPATHY 04/27/17 04/07/22 atorvastatin 80 mg tablet 80 mg PO HS Cholesterol 04/28/17 04/07/22 fluoxetine 40 mg capsule 40 mg PO DAILY Depression 04/23/18 04/07/22 quetiapine 400 mg tablet 400 mg PO DAILY MOOD 05/14/18 04/07/22 buprenorphine 8 mg-naloxone 2 mg 2 tab sublingual DAILY WITHDRAWAL 02/07/22 04/07/22 sublingual tablet albuterol sulfate 90 mcg/actuation 2 puff inhalation QIDP PRN 02/08/22 04/07/22 aerosol inhaler (Ventolin HFA) Shortness Of Breath amlodipine 5 mg-benazepril 10 mg 1 cap PO DAILY Hypertension 02/08/22 04/07/22 capsule dapagliflozin 5 mg tablet (F
== END 2022-04-17 02:02 | disposition home or self-care (01) ==
PROVIDERS: Emergency Provider Emergency Medicine; PCP Family Medicine
DX: M54.16 Radiculopathy, lumbar region (principal); I50.9 Heart failure, unspecified; F41.8 Other specified anxiety disorders; E11.9 Type 2 diabetes mellitus without complications; E78.5 Hyperlipidemia, unspecified; E03.9 Hypothyroidism, unspecified; Z87.440 Personal history of urinary (tract) infections; Z90.49 Acquired absence of other specified parts of digestive tract; Z90.710 Acquired absence of both cervix and uterus; Z80.9 Family history of malignant neoplasm, unspecified; Z83.3 Family history of diabetes mellitus; Z82.3 Family history of stroke; Z82.49 Family history of ischemic heart disease and other diseases of the circulatory system; Z98.51 Tubal ligation status; Z96.631 Presence of right artificial wrist joint; Z96.653 Presence of artificial knee joint, bilateral; F17.210 Nicotine dependence, cigarettes, uncomplicated
CPT/HCPCS: 96374; 96375; 99285; J0131

== ENCOUNTER → 2022-04-23 13:28 | Outpatient (POV) | payer OTHER, SELFPAY ==
[2022-04-23 15:54] VITALS: BP 142/64; PULSE 85; RESP 18; O2SAT 97; BMI 42.5
--- NOTE | 2022-04-23 15:54 | EXP.PAIN.SOA ---
[facility] Pain Management SOAP Note Subjective:: Patient is a pleasant 56-year-old female who presents today for follow-up of MRI imaging of her lumbar spine. We are currently treating the patient for bilateral piriformis syndrome, low back pain, sacroiliitis, bilateral hip and leg pain. Today she rates her pain an 8 out of 10. Patient denies any new trauma or injury. Patient denies any change to location or type of pain she experiences. Patient states she continues to have pain in around her low back and buttocks area with radiating symptoms down her leg. Patient does state that the right side is worse than the left. She does describe this as an aching, throbbing sensation that is worse with increased activity however remains fairly constant. Patient states she is unable to tolerate activities of daily living such as cooking and cleaning and even ambulation is difficult. She states she frequently has to take multiple breaks to get any relief. She is currently prescribed compounding cream along with Suboxone therapy from an outside provider. Patient denies any side effects from this medication. Patient states she has also been on Zanaflex in the past. Her Casimiro is [id number]. Its been reviewed and appropriate. Review of Systems: General: No recent weight changes, no fever, no sleep disturbances Respiratory: No cough, no shortness of air, no recurring pulmonary infections Cardiovascular/peripheral vascular: No chest pain, no palpitations, no edema, no shortness of breath Gastrointestinal: No new onset incontinence, normal bowel movements reported Genitourinary: No new onset incontinence Musculoskeletal: Low back pain, buttocks pain, bilateral leg pain Psychiatric: [Normal mood/affect] Neurological: [Denies weakness in extremities], [denies balance issues] Objective:: Physical Exam: General: Alert and oriented x3, no acute distress, pleasant and cooperative Lungs: Respirations even and unlabored, symmetrical chest expansion Eyes: PERRL Musculoskeletal: Flexion and extension of lumbar [spine] somewhat guarded secondary to pain, [antalgic gait noted] Neurological: Speech clear, no gross sensory deficit FINAL REPORT TECHNIQUE: Multiplanar and multisequence imaging of the lumbar spine was obtained without contrast. CLINICAL HISTORY: LOW BACK PAIN. bilateral leg pain, numbness, and tingling worse on right side FINDINGS: There is grade 1 anterior spondylolisthesis of L4 on 5.? The alignment is otherwise normal. Vertebral body height is preserved. The spinal cord ends at the level of L1. There is normal signal intensity within the substance of the distal spinal cord. Bone marrow signal intensity is normal.? No acute paraspinal abnormality is identified.? L1-2: There is no focal disc herniation, central canal stenosis or neuroforaminal narrowing.? L2-3: There is no focal disc herniation, central canal stenosis or neuroforaminal narrowing.? L3-4:? An annular bulge is present with facet osteoarthropathy.? There is mild right and severe left neural foraminal narrowing.? L4-5: Bilateral facet osteoarthropathy is present.? There is a mild disc osteophyte complex laterally with severe right and moderate left neural foraminal narrowing.? L5-S1:? An annular disc bulge is present with degenerative endplate changes and facet osteoarthropathy.? There is moderate right and severe left neural foraminal narrowing. IMPRESSION: Grade 1 anterior spondylolisthesis of L4 on 5.? ? Multilevel degenerative disc disease. Reviewed, Interpreted and Dictated by Gema Flores MD Transcribed by Melissa Vuong Authenticated and [facility] Assessment:: Degenerative disc disease of lumbar spine with lumbar radiculopathy symptoms, bilateral piriformis syndrome, low back pain, sacroiliitis, lumbar facet arthropathy, neuroforaminal narrowing lumbar spine, bilateral hip pain, coccydynia Plan:: Patient ewa
== END ==
PROVIDERS: PCP Family Medicine; Visit Provider Nurse Practitioner Family
DX: M51.16 Intervertebral disc disorders with radiculopathy, lumbar region (principal); M47.26 Other spondylosis with radiculopathy, lumbar region; G57.03 Lesion of sciatic nerve, bilateral lower limbs; M53.3 Sacrococcygeal disorders, not elsewhere classified; M25.551 Pain in right hip; M25.552 Pain in left hip
CPT/HCPCS: 99212; G0463

== ENCOUNTER 2022-04-30 21:21 | Emergency (ER) | payer OTHER, SELFPAY ==
[2022-04-30 21:21] VITALS: BP 154/67; PULSE 94; RESP 16; TEMP 37; O2SAT 97; BMI 42.5
--- NOTE | 2022-04-30 21:36 | HMH.EDEXTP ---
Discharge Plan Disposition Patient Disposition: Home, Self-Care Prescriptions Prescriptions: New ketorolac 10 mg tablet 10 mg PO Q8H 5 Days Qty: 15 0RF No Action fluoxetine 40 MG capsule 40 mg PO DAILY quetiapine 400 MG tablet 400 mg PO DAILY ketorolac 10 mg tablet 10 mg PO Q8H PRN (Reason: pain) 2 Days Qty: 7 0RF furosemide 40 MG tablet 40 mg PO DAILY gabapentin 800 MG tablet 800 mg PO QID atorvastatin 80 MG tablet 80 mg PO HS buprenorphine-naloxone 8-2 mg tablet, sublingual 2 tab SUBLINGUAL DAILY tizanidine 4 mg tablet 12 mg PO HS Label Comments: TAKE TWO TABLETS BY MOUTH EVERY DAY IN THE MORNING and TAKE THREE TABLETS EVERY DAY IN THE EVENING AT BEDTIME MAY CAUSE DROWSINESS tizanidine 4 mg tablet 8 mg PO DAILY Label Comments: TAKE TWO TABLETS BY MOUTH EVERY DAY IN THE MORNING and TAKE THREE TABLETS EVERY DAY IN THE EVENING AT BEDTIME MAY CAUSE DROWSINESS albuterol sulfate [Ventolin HFA] 90 mcg/actuation HFA aerosol inhaler 2 puff INHALATION QIDP PRN (Reason: Shortness Of Breath) Label Comments: INHALE 2 puffs BY MOUTH FOUR TIMES DAILY NEEDED --SHAKE WELL BEFORE USE-- levothyroxine 100 mcg tablet 100 mcg PO DAILY Label Comments: TAKE ONE TABLET BY MOUTH EVERY DAY amlodipine-benazepril 5-10 mg capsule 1 cap PO DAILY Label Comments: TAKE ONE CAPSULE BY MOUTH EVERY DAY metformin 1,000 mg tablet 1,000 mg PO BID Label Comments: TAKE ONE TABLET BY MOUTH TWICE DAILY ezetimibe 10 mg tablet 10 mg PO DAILY Label Comments: TAKE ONE TABLET BY MOUTH EVERY DAY insulin glargine [Lantus Solostar U-100 Insulin] 100 unit/mL (3 mL) insulin pen 60 unit SQ DAILY Label Comments: inject 60 UNITS SUBCUTANEOUSLY EVERY DAY Farxiga 5 mg tablet 5 mg PO DAILY Label Comments: TAKE ONE TABLET BY MOUTH EVERY DAY diclofenac sodium [Voltaren Arthritis Pain] 1 % gel 2 g topical QID Rx Instructions: Apply to knees as directed Referrals Follow up/Referrals: Kiran Shirley MD [Primary Care Provider] - See instructions Clinical Impressions Clinical Impression: Lumbar radiculopathy Instructions Patient Instructions: DI for Back Pain With Sciatica Discharge ED Provider: Yael (ED)Jim Extremity Problem HPI General Chief complaint: Extremity Injury, Lower Stated complaint: back pain Time Seen by Provider: 04/30/22 21:36 Mode of Arrival: Wheelchair Source of Information: Patient and Medical Record Limitations: No Limitations Description of Symptoms (Recalled from ER Triage Doc. by RN): pt c/o rt hip pain radiating down rt leg. pt states this is a flare up of SI joint. currently goes to pain management but having issues with insurance approval. History of Present Illness HPI Narrative: pt with ongoing rt hip pain with rad to rt lower ext - hx of same - pt has seen pain center and pcp - MD Complaint: extremity pain Onset (ago): hour(s) Consistency: intermittent Location: right and lower extremity Quality: burning Exacerbating factors: range of motion Related Data Home Medications Medication Instructions Recorded Confirmed furosemide 40 mg tablet 40 mg PO DAILY Fluid 04/27/17 04/23/22 gabapentin 800 mg tablet 800 mg PO QID NEUROPATHY 04/27/17 04/23/22 atorvastatin 80 mg tablet 80 mg PO HS Cholesterol 04/28/17 04/23/22 fluoxetine 40 mg capsule 40 mg PO DAILY Depression 04/23/18 04/23/22 quetiapine 400 mg tablet 400 mg PO DAILY MOOD 05/14/18 04/23/22 buprenorphine 8 mg-naloxone 2 mg 2 tab sublingual DAILY WITHDRAWAL 02/07/22 04/23/22 sublingual tablet albuterol sulfate 90 mcg/actuation 2 puff inhalation QIDP PRN 02/08/22 04/23/22 aerosol inhaler (Ventolin HFA) Shortness Of Breath amlodipine 5 mg-benazepril 10 mg 1 cap PO DAILY Hypertension 02/08/22 04/23/22 capsule dapagliflozin 5 mg tablet (Farxiga) 5 mg PO DAILY Diabetes 02/08/22
[2022-04-30 21:37] VITALS: BP 152/71; PULSE 91; RESP 16; TEMP 37; O2SAT 97
== END 2022-04-30 21:45 | disposition home or self-care (01) ==
PROVIDERS: Emergency Provider Emergency Medicine; PCP Family Medicine
DX: M54.31 Sciatica, right side (principal)
CPT/HCPCS: 96372; 99284

== ENCOUNTER 2022-05-05 10:54 | Day surgery (SDC) | payer OTHER, SELFPAY ==
[2022-05-05 11:08] VITALS: BP 144/88; PULSE 78; RESP 18; TEMP 36.8; O2SAT 96; BMI 42.5
[2022-05-05 11:29] VITALS: BP 127/90; PULSE 78; RESP 18; O2SAT 97
[2022-05-05 11:31] VITALS: BP 127/90; PULSE 78; RESP 18; O2SAT 97
[2022-05-05 11:35] VITALS: BP 123/72; PULSE 72; RESP 18; O2SAT 96
--- NOTE | 2022-05-05 12:16 | EXP.PAIN.PRO ---
Procedure Date: 05/05/22 Time: 11:30 Anesthesiologist:: Terrell Lunsford CRNA Complications:: None Pre-procedure Diagnosis:: Degenerative disc disease lumbar spine multilevels. Lumbar radiculopathy. Post-procedure Diagnosis:: Same Indications for Procedure:: This patient is a pleasant 56-year-old female that comes our clinic today for a caudal epidural steroid injection. Patient has low back pain she describes as constant, dull, aching. However, her main complaint is bilateral leg radicular symptoms to the feet. Patient has difficulty with ambulation due to pain in the legs. She rates her pain 7/10 Procedure Details:: Procedure: Caudal epidural steroid injection under fluoroscopy Informed consent was obtained and the risks and benefits of the procedure were explained to the patient. The patient was taken to the procedure room and noninvasive monitors placed, including noninvasive blood pressure cuff and pulse oximeter. The back was viewed using C-arm Fluoroscopy and lateral position. Low lumbar sacral area prepped using Chloraprep as a cleansing solution. Skin and subcutaneous tissues were anesthetized using lidocaine 1.5% and a 25-gauge needle. After this, a 25-gauge spinal needle was placed into the caudal space and advanced using cephalad using fluoroscopic guidance. After confirmation of needle placement in the caudal epidural space, with dye, a solution containing normal saline, 3 mL and Depo-Medrol 80 mg and 1 mL of 1% lidocaine were incrementally injected into the caudal epidural space. The patient tolerated the procedure well with no complications. The patient was observed in the Pain Clinic and then discharged home neurologically intact. Plan and Disposition:: Patient was discharged without incident.
== END 2022-05-05 11:35 | disposition home or self-care (01) ==
LOC: SC.PAINP 10:55
PROVIDERS: PCP Family Medicine; Visit Provider Nurse Anesthetist, Certified Registered
DX: M51.16 Intervertebral disc disorders with radiculopathy, lumbar region (principal)
CPT/HCPCS: 62323; J1030; Q9966

== ENCOUNTER → 2022-05-14 10:47 | Outpatient (CLI) | payer OTHER, SELFPAY ==
--- NOTE | 2022-05-14 10:53 | XR_ITS ---
FINAL REPORT CLINICAL HISTORY: LT HIP PAIN, NKT. Pain radiates down leg COMPARISON: CT abdomen and pelvis 02/07/2022 FINDINGS: AP and frog leg views of the left hip were obtained. There is advanced degenerative disease of the hips bilateral. There is complete loss of the superior joint space. On the left there has been further deformity of the left femoral head even compared to recent CT scan. No acute fracture or dislocation. AVN is not excluded. IMPRESSION: Advanced degenerative disease. Further deformity left femoral head. AVN not excluded. Reviewed, Interpreted and Dictated by Gema Flores MD Transcribed by Nuzhat Amezquita Authenticated and [facility]
== END ==
PROVIDERS: PCP Family Medicine; Visit Provider Family Medicine
DX: M25.552 Pain in left hip (principal)
CPT/HCPCS: 73502

== ENCOUNTER 2022-05-18 15:21 | Emergency (ER) | payer OTHER, SELFPAY ==
[2022-05-18 15:21] VITALS: BP 160/87; PULSE 87; RESP 18; TEMP 36.8; O2SAT 98; BMI 40.7
[2022-05-18 15:30] VITALS: BP 158/91; PULSE 86; O2SAT 94
--- NOTE | 2022-05-18 15:53 | HMH.EDGENADL ---
Discharge Plan Disposition Patient Disposition: Home, Self-Care Prescriptions Prescriptions: No Action fluoxetine 40 MG capsule 40 mg PO DAILY quetiapine 400 MG tablet 400 mg PO DAILY naproxen 500 mg Tablet 500 mg PO BID PRN (Reason: Pain) furosemide 40 MG tablet 40 mg PO DAILY gabapentin 800 MG tablet 800 mg PO QID atorvastatin 80 MG tablet 80 mg PO HS buprenorphine-naloxone 8-2 mg tablet, sublingual 2 tab SUBLINGUAL DAILY tizanidine 4 mg tablet 12 mg PO HS Label Comments: TAKE TWO TABLETS BY MOUTH EVERY DAY IN THE MORNING and TAKE THREE TABLETS EVERY DAY IN THE EVENING AT BEDTIME MAY CAUSE DROWSINESS tizanidine 4 mg tablet 8 mg PO DAILY Label Comments: TAKE TWO TABLETS BY MOUTH EVERY DAY IN THE MORNING and TAKE THREE TABLETS EVERY DAY IN THE EVENING AT BEDTIME MAY CAUSE DROWSINESS albuterol sulfate [Ventolin HFA] 90 mcg/actuation HFA aerosol inhaler 2 puff INHALATION QIDP PRN (Reason: Shortness Of Breath) Label Comments: INHALE 2 puffs BY MOUTH FOUR TIMES DAILY NEEDED --SHAKE WELL BEFORE USE-- levothyroxine 100 mcg tablet 100 mcg PO DAILY Label Comments: TAKE ONE TABLET BY MOUTH EVERY DAY amlodipine-benazepril 5-10 mg capsule 1 cap PO DAILY Label Comments: TAKE ONE CAPSULE BY MOUTH EVERY DAY metformin 1,000 mg tablet 1,000 mg PO BID Label Comments: TAKE ONE TABLET BY MOUTH TWICE DAILY ezetimibe 10 mg tablet 10 mg PO DAILY Label Comments: TAKE ONE TABLET BY MOUTH EVERY DAY insulin glargine [Lantus Solostar U-100 Insulin] 100 unit/mL (3 mL) insulin pen 60 unit SQ DAILY Label Comments: inject 60 UNITS SUBCUTANEOUSLY EVERY DAY Farxiga 5 mg tablet 5 mg PO DAILY Label Comments: TAKE ONE TABLET BY MOUTH EVERY DAY Referrals Follow up/Referrals: Michael Sánchez JR, MD [Physician] - See instructions Kiran Shirley MD [Primary Care Provider] - See instructions Activity Restrictions/Add. Instructions Additional Instructions/Restrictions: Take 800 mg of ibuprofen 3 times a day as needed for pain with food please. You have severe bilateral osteoarthritis and possible avascular necrosis of the hips this needs orthopedic surgery referral. We have given you referral to Dr. Michael Sánchez please make this appointment to be evaluated for possible intra-articular joint injections and/or evaluation for hip replacement. Regarding your chronic pain control please follow-up with your pain clinic for further escalation. Clinical Impressions Clinical Impression: Osteoarthritis of hips, bilateral Discharge ED Provider: Duyen Garcia General Adult HPI General Chief complaint: PAIN Stated complaint: left leg pain Time Seen by Provider: 05/18/22 15:53 Mode of Arrival: EMS Source of Information: Patient, EMS and Medical Record Limitations: No Limitations Description of Symptoms (Recalled from ER Triage Doc. by RN): c/o thigh and hip pain, no fall or injury to site. Pt states that she has seen pain mgn a few weeks ago for an injection for pain. right side improved but not the left. IF she wraps the thigh in bud wrap and puts pressure to the site, the pain improves. Upon arrival pt c/o heartburn. History of Present Illness HPI narrative: 56-year-old female with chronic lower back and bilateral hip pain presents today with increased left hip pain. No trauma associated with this. She was seen by Dr. Shirley on and had x-rays due to her worsening pain and has not heard of her results yet. States that she is now to the point where she cannot walk because the pain is so severe. She is on Suboxone at home. Has not had any other anti-inflammatory medications or other pain medicine but her pain has been not adequately treated. She recently had a lower lumbar spine nerve block to bathe her nerve roots for bilateral sciatica pain which she said and did improve her pain radiating down her leg. Has not been any leg swelling no decrease in temperature sense in the lower extremity no change in motor or sensory function. She did states she has had some difficulty with urination and is concerned she might have a urinary tract infection but there has not been any overt urinary or bowel incontinence urinary retention saddle anesthesia or paralysis. Related Data Home Medications Medication Instructions Recorded Confirmed furosemide 40 mg tablet 40 mg PO DAILY Fluid 04/27/17 05/18/22 gabapentin 800 mg tablet 800 mg PO QID NEUROPATHY 04/27/17 05/18/22 atorvastatin 80 mg tablet 80 mg PO HS Cholesterol 04/28/17 05/18/22 fluoxetine 40 mg capsule 40 mg PO DAILY Depression 04/23/18 05/18/22 quetiapine 400 mg tablet 400 mg PO DAILY MOOD 05/14/18 05/18/22 buprenorphine 8 mg-naloxone 2 mg 2 tab sublingual DAILY WITHDRAWAL 02/07/22 05/18/22 sublingual tablet albuterol sulfate 90 mcg/actuation 2 puff inhalation QIDP PRN 02/08/22 05/18/22 aerosol inhaler (Ventolin HFA) Shortness Of Breath amlodipine 5 mg-benazepril 10 mg 1 cap PO DAILY Hypertension 02/08/22 05/18/22 capsule dapagliflozin 5 mg tablet (Farxiga) 5 mg PO DAILY Diabetes 02/08/22 05/18/22 ezetimibe 10 mg tablet 10 mg PO DAILY Cholesterol 02/08/22 05/18/22 insulin glargine 100 unit/mL (3 60 unit SQ DAILY Diabetes 02/08/22 05/18/22 mL) subcutaneous pen (Lantus Solostar U-100 Insulin) levothyroxine 100 mcg tablet 100 mcg PO DAILY THYROID 02/08/22 05/18/22 metformin 1,000 mg tablet 1,000 mg PO BID Diabetes 02/08/22 05/18/22 tizanidine 4 mg tablet 8 mg PO DAILY MUSCLE PAIN 02/08/22 05/18/22 tizanidine 4 mg tablet 12 mg PO HS MUSCLE PAIN 02/08/22 05/18/22 naproxen 500 mg tablet 500 mg PO BID PRN Pain 05/18/22 05/18/22 Allergies Allergy/AdvReac Type Severity Reaction Status Date / Time codeine Allergy Unknown Verified 05/05/22 11:09 duloxetine [From Cymbalta] Allergy Unknown Verified 05/05/22 11:09 [facility] Disclaimer: The information contained in this section may have been updated after the patient was seen, as this information can be updated by other users. Medical History Anxiety Burn of left foot Concussion without loss of consciousness Congestive heart failure COPD exacerbation Degenerative disc disease Depression Diabetes mellitus type 2 in obese Esophageal obstruction due to food impaction Hyperlipemia Sleep apnea Thyroid disease UTI (urinary tract infection) Surgical History History of History of hysterectomy History of right wrist replacement History of total bilateral knee replacement Hx of cholecystectomy Hx of tubal ligation Family History Other Cancer Family history of diabetes mellitus type II Family history of hypertension Family history of myocardial infarction Stroke Social History Smoking Status: Unknown if ever smoked second hand exposure: No alcohol intake: never substance use type: denies use current occupational status: other Travel in the last 8 weeks: None household members: none housing: house current occupational exposures/hazards: No caffeine: Yes ROS Obtained: Yes All systems reviewed & no additional complaints except as documented Physical Exam General General appearance: alert and in no apparent distress Respiratory Respiratory exam: Present normal lung sounds bilaterally; Absent respiratory distress Cardiovascular Cardiovascular exam: Absent tachycardia Extremities Exam Extremities exam: Present other (Left hip pain with tenderness palpation over the left greater trochanter and femoral neck there is pain with internal/external rotation flexion or extension distal neurovascular intact) Neurological Exam Neurological exam: Present alert and oriented X3 Medical Decision Making Casimiro Inquiry Pt receiving controlled substance: No Vital Signs: 05/18/22 15:21 05/18/22 15:30 05/18/22 16:00 Temperature 98.2 F Temperature Source Oral Pulse Rate 86 87 Pulse Rate [Left Radial] 87 Respiratory Rate 18 Blood Pressure 158/91 H 151/84 H Blood Pressure [Right Arm] 160/87 H Blood Pressure Mean 113 106 Blood Pressure Mean [Right Arm] 111 Blood Pressure Source [Right Arm] Automatic Cuff Blood Pressure Position [Right Arm] Sitting 02 Sat by Pulse Oximetry 98 94 L 96 Oxygen Delivery Method Room Air Room Air Room Air 05/18/22 17:38 Temperature Temperature Source Pulse Rate 84 Pulse Rate [Left Radial] Respiratory Rate 20 Blood Pressure 161/86 H Blood Pressure [Right Arm] Blood Pressure Mean 121 Blood Pressure Mean [Right Arm] Blood Pressure Source [Right Arm] Blood Pressure Position [Right Arm] 02 Sat by Pulse Oximetry 94 L Oxygen Delivery Method Lab Data Lab Results 05/18/22 17:38: Urine Color Yellow, Urine Appearance Clear, Urine pH 6.0, Ur Specific [place] 1.020, Urine Protein Negative, Urine Glucose (UA) Negative, Urine Ketones Negative, Urine Blood Negative, Urine Nitrate Negative, Urine Bilirubin Negative, Urine Urobilinogen 0.2, Ur Leukocyte Esterase Negative, Ur Squamous Epith Cells 5-10, Urine Bacteria Trace Orders (Tests/Meds): ED MEDICATIONS Discontinued Medications Generic Name Dose Route Start Last Admin Trade Name Freq PRN Reason Stop Dose Admin Belladonna Alkaloids 60 ml 05/18/22 16:19 05/18/22 16:37 Belladonna Alkaloids 60 Ml Ml PO 05/18/22 16:20 60 ml ONCE ONE Administration Ketorolac Tromethamine 15 mg 05/18/22 16:09 05/18/22 16:37 Ketorolac 30mg/Ml Vial IV 05/18/22 16:10 15 mg ONCE ONE Administration Morphine Sulfate 4 mg 05/18/22 16:09 05/18/22 16:37 Morphine 4mg/Ml Syringe IV 05/18/22 16:10 4 mg ONCE ONE Administration ORDERS Category Date Time Status UA [Urinalysis and Microscopic] Stat Lab 05/18/22 17:38 Completed Medical Decision Narrative: Presents with acute on chronic hip pain. I personally reviewed the patient's x-rays from this past week and she shows advanced very severe degenerative disease of bilateral hips essentially [id number] pathology and advanced bony thickening possibly even in avascular necrosis. She definitely needs to be seen by joint specialist for this and possibly intra-articular joint injections versus complete joint replacements. I am giving her some parenteral pain medication to see if we get on top of her pain to where she can walk at which point we will discharge her to follow-up with orthopedics. If she does not improve and this is worsening may have to get a bony pelvis CT scan. I do not suspect cauda equina syndrome at this point however her urinary symptoms are remotely concerning for that especially in the setting of recent injection of the lumbar spine but I think of the unlikely further be expanding epidural abscess hematoma or [employer] compression of herniated disc. This seems to be very focally located to the left femoral neck in zone and will treated appropriately at this point. We will reassess after her pain control. Reassessment 6:26 PM patient improved but not significantly she is able to get up and move around a little bit at this point. X-ray shows severe osteoarthritis bilaterally and possibly avascular necrosis. She needs to be evaluated by an orthopedic surgeon and possibly a joint replacement and or intra-articular joint injections. Nonetheless this is severe and chronic. Left is greater than right and this is consistent with the localized pain that she is feeling. There is no UTI. She has been advised to follow-up outpatient with Dr. Michael Sánchez who is on-call today for orthopedic surgery. And to return to the emergency part with any worsening of her symptoms. She has chronic pain is on Suboxone and will be difficult to get on top of her pain from an opiate standpoint advised that she follow-up with her pain medicine physicians if she needs escalation of her pain control. In addition to this I advised that she take anti-inflammatory medications. She was understandable and agreeable to this plan. She will return with any worsening symptoms. Prior to her discharge she was able to get up and demonstrate the ability to ambulate with a cane adequate to care for herself at home she also states that she has a neighbor who can help her when she goes home. Critical Care Time Critical Care Time Critical Care Time: No Attestation: On 05/18/22, the high probability of a clinically significant, sudden or life threatening deterioration of the following system(s) required my full and direct attention, intervention and personal management. The time I documented below is in addition to time spent performing reported procedures but includes the following listed in this critical care notation.
[2022-05-18 16:00] VITALS: BP 151/84; PULSE 87; O2SAT 96
[2022-05-18] MEDS: BELLADONNA ALKALOIDS 60 ML ML PO (16:37)
[2022-05-18] MEDS: KETOROLAC 30MG/ML VIAL 15 MG IV (16:37)
[2022-05-18] MEDS: MORPHINE 4MG/ML SYRINGE 4 MG IV (16:37)
[2022-05-18 17:38] VITALS: BP 161/86; PULSE 84; RESP 20; O2SAT 94
[2022-05-18 17:41] LABS: Microscopic, Urine URINE MICROSCOPIC (MICROSCOPIC)
[2022-05-18 17:51] LABS: Appearance,Urine CLEAR (Clear); Bilirubin,Urine Negative (Negative); Blood, Urine Negative (Negative); Color,Urine YELLOW (Yellow); Glucose,Urine (UA) Negative (Negative); Ketones,Urine Negative (Negative); Leukocyte Esterase,Urine Negative (Negative); Nitrate,Urine Negative (Negative); Protein,Urine Negative (Negative); Urobilinogen,Urine 0.2 EU/dl (0.2)
--- NOTE | 2022-05-18 17:56 | PC.NURSE ---
rounded on pt. pt sleeping
[2022-05-18 18:00] VITALS: BP 131/84; PULSE 92; RESP 20; O2SAT 95
[2022-05-18 18:06] LABS: Bacteria,Urine Trace /lpf
--- NOTE | 2022-05-18 18:20 | PC.NURSE ---
called dietary to get supper tray for patient.
[2022-05-18 18:58] VITALS: BP 131/84; PULSE 92; RESP 20; TEMP 36.8; O2SAT 95
== END 2022-05-18 19:03 | disposition home or self-care (01) ==
PROVIDERS: Emergency Provider Student in an Organized Health Care Education/Training Program; PCP Family Medicine
DX: M25.551 Pain in right hip; M25.552 Pain in left hip; M54.50 Low back pain, unspecified; I50.9 Heart failure, unspecified; J44.9 Chronic obstructive pulmonary disease, unspecified; E11.9 Type 2 diabetes mellitus without complications; E78.5 Hyperlipidemia, unspecified; G47.30 Sleep apnea, unspecified; E07.9 Disorder of thyroid, unspecified; M16.0 Bilateral primary osteoarthritis of hip
CPT/HCPCS: 81001; 96374; 96375; 99284

== ENCOUNTER 2022-06-03 18:54 | Emergency (ER) | payer OTHER, SELFPAY ==
[2022-06-03 19:40] VITALS: BP 128/91; PULSE 110; RESP 23; TEMP 36.8; O2SAT 94; BMI 40.7
--- NOTE | 2022-06-03 20:11 | HMH.EDSKAF ---
Discharge Plan Disposition Patient Disposition: Home, Self-Care Prescriptions Prescriptions: New clindamycin HCl 300 mg capsule 300 mg PO Q8H 7 Days Qty: 21 0RF No Action fluoxetine 40 MG capsule 40 mg PO DAILY quetiapine 400 MG tablet 400 mg PO DAILY naproxen 500 mg Tablet 500 mg PO BID PRN (Reason: Pain) furosemide 40 MG tablet 40 mg PO DAILY gabapentin 800 MG tablet 800 mg PO QID atorvastatin 80 MG tablet 80 mg PO HS buprenorphine-naloxone 8-2 mg tablet, sublingual 2 tab SUBLINGUAL DAILY tizanidine 4 mg tablet 12 mg PO HS Label Comments: TAKE TWO TABLETS BY MOUTH EVERY DAY IN THE MORNING and TAKE THREE TABLETS EVERY DAY IN THE EVENING AT BEDTIME MAY CAUSE DROWSINESS tizanidine 4 mg tablet 8 mg PO DAILY Label Comments: TAKE TWO TABLETS BY MOUTH EVERY DAY IN THE MORNING and TAKE THREE TABLETS EVERY DAY IN THE EVENING AT BEDTIME MAY CAUSE DROWSINESS albuterol sulfate [Ventolin HFA] 90 mcg/actuation HFA aerosol inhaler 2 puff INHALATION QIDP PRN (Reason: Shortness Of Breath) Label Comments: INHALE 2 puffs BY MOUTH FOUR TIMES DAILY NEEDED --SHAKE WELL BEFORE USE-- levothyroxine 100 mcg tablet 100 mcg PO DAILY Label Comments: TAKE ONE TABLET BY MOUTH EVERY DAY amlodipine-benazepril 5-10 mg capsule 1 cap PO DAILY Label Comments: TAKE ONE CAPSULE BY MOUTH EVERY DAY metformin 1,000 mg tablet 1,000 mg PO BID Label Comments: TAKE ONE TABLET BY MOUTH TWICE DAILY ezetimibe 10 mg tablet 10 mg PO DAILY Label Comments: TAKE ONE TABLET BY MOUTH EVERY DAY insulin glargine [Lantus Solostar U-100 Insulin] 100 unit/mL (3 mL) insulin pen 60 unit SQ DAILY Label Comments: inject 60 UNITS SUBCUTANEOUSLY EVERY DAY Farxiga 5 mg tablet 5 mg PO DAILY Label Comments: TAKE ONE TABLET BY MOUTH EVERY DAY Referrals Follow up/Referrals: Kiran Shirley MD [Primary Care Provider] - See instructions Clinical Impressions Clinical Impression: Cellulitis, gluteal, right Instructions Patient Instructions: Cellulitis Discharge ED Provider: Yael (ED)Jim Skin/Abscess/FB HPI General Chief complaint: Skin/Abscess/Foreign Body Stated complaint: sores on tail.Legs swollen, Time Seen by Provider: 06/03/22 20:00 Mode of Arrival: Family Vehicle Source of Information: Patient and Medical Record Limitations: No Limitations Description of Symptoms (Recalled from ER Triage Doc. by RN): Pt c/o scalding yeast sores to her groin fold and R gluteal cleft. She is using Nystatin powder and received Terbinafine by Dr. Shirley yesterday after a phone call to his office. She ia also concerned about her increase of fluid build up in her BLE. She denies any SOA. She is taking Lasix daily. Pt is very concerned about her health and I want to be admitted so I can have someone take care of me since I can't take care of myself right now . Pt has been able ambulate inthe room without assistance. History of Present Illness HPI narrative: pt has lt sided frontal area infection and lt gluteal area -pt is diabetic MD complaint: rash Onset (ago): day(s) Location: buttocks Severity: moderate Associated symptoms: denies other symptoms Related Data Home Medications Medication Instructions Recorded Confirmed furosemide 40 mg tablet 40 mg PO DAILY Fluid 04/27/17 05/22/22 gabapentin 800 mg tablet 800 mg PO QID NEUROPATHY 04/27/17 05/22/22 atorvastatin 80 mg tablet 80 mg PO HS Cholesterol 04/28/17 05/22/22 fluoxetine 40 mg capsule 40 mg PO DAILY Depression 04/23/18 05/22/22 quetiapine 400 mg tablet 400 mg PO DAILY MOOD 05/14/18 05/22/22 buprenorphine 8 mg-naloxone 2 mg 2 tab sublingual DAILY WITHDRAWAL 02/07/22 05/22/22 sublingual tablet albuterol sulfate 90 mcg/actuation 2 puff inhalation QIDP PRN 02/08/22 05/22/22 aerosol inhaler (Ventolin HFA) Shortness Of Breath amlodipine 5 m
[2022-06-03 20:23] LABS: Basophils # 0.1 K/mm3 (0-0.2); Basophils % 0.8 % (0.1-2.0); Eosinophils # 0.2 K/mm3 (0.0-0.4); Eosinophils % 2.5 % (0.1-12.0); Hemoglobin 15.7 g/dL (12.2-16.2); Lymphocytes # 2.8 K/mm3 (0.7-4.5); Lymphocytes % 29.2 % (10-50); Mean Corpuscular Hemoglobin 29.9 pg (27.0-31.2); Mean Corpuscular Volume 93.4 fl (81-99); Mean Platelet Volume 8.7 fl (7.4-10.4); Monocytes # 0.5 K/mm3 (0.1-1.0); Monocytes % 4.7 % (1.7-9.3); Neutrophils # 6.1 K/mm3 (1.8-7.8); Neutrophils % 62.8 % (37.0-80.0); Platelet Count 225 K/mm3 (142-424); Red Blood Count 5.25 M/mm3 (4.20-5.40); Red Cell Distribution Width 14.5 % (11.5-17.5); White Blood Count 9.7 K/mm3 (4.8-10.8)
[2022-06-03 20:26] LABS: Chloride 96 mmol/L (98-107); Sodium 137 mmol/L (136-145)
[2022-06-03 20:27] LABS: Potassium 3.6 mmoL/L (3.5-5.1)
[2022-06-03 20:29] LABS: Alanine Aminotransferase 27 U/L (12-78); Albumin Level 4.4 g/dl (3.5-5.0); Albumin/Globulin Ratio 1.3 (1.1-1.8); Alkaline Phosphatase 119 U/L (38-126); Anion Gap 10.6 mEq/L (5-15); Aspartate Amino Transferase 29 U/L (14-36); Bilirubin,Total 0.5 mg/dl (0.2-1.3); Blood Urea Nitrogen 14 mg/dl (7-17); Calcium 9.6 mg/dl (8.4-10.2); Carbon Dioxide 34 mmol/L (22.0-30.0); Creatinine Clearance Estimated 204 mL/min (50-200); Estimated Glomerular Filt Rate 127 ml/min (>60); GFR (African American) 154 ML/MIN (>60); Globulin 3.3 g/dL (1.3-3.2); Glucose 188 mg/dl (74-100); Lactic Acid 1.3 mmol/L (0.7-2.1); Total Protein,Serum 7.7 g/dl (6.3-8.2)
[2022-06-03 20:36] LABS: C-Reactive Protein 34.2 mg/L (0-4)
[2022-06-03 20:40] LABS: NT Pro Brain Natriuretic Pep. 38.2 pg/mL (0-125)
[2022-06-03 21:01] VITALS: BP 130/85; PULSE 889; RESP 20; TEMP 37; O2SAT 95
[2022-06-03 21:05] LABS: Erythrocyte Sedimentation Rate 21 mm/hr (0-30)
[2022-06-03 21:16] LABS: Procalcitonin 0.045 ng/mL (0.0-2.0)
== END 2022-06-03 21:05 | disposition home or self-care (01) ==
PROVIDERS: Emergency Provider Emergency Medicine; PCP Family Medicine
DX: L03.317 Cellulitis of buttock (principal); F17.210 Nicotine dependence, cigarettes, uncomplicated
CPT/HCPCS: 80053; 83605; 83880; 84145; 85025; 85651; 86140; 96360; 96374; 99284; 99285

== ENCOUNTER → 2022-09-02 12:06 | Outpatient (CLI) | payer OTHER, SELFPAY ==
[2022-09-18 23:16] LABS: Cotinine 14.7 ng/mL (.); Nicotine 10.2 ng/mL (.)
== END ==
PROVIDERS: PCP Family Medicine; Visit Provider Orthopaedic Surgery Adult Reconstructive Orthopaedic Surgery
DX: M87.9 Osteonecrosis, unspecified (principal)
CPT/HCPCS: 80323; G0480

== ENCOUNTER → 2022-10-20 08:10 | Outpatient (CLI) | payer OTHER, SELFPAY ==
--- NOTE | 2022-10-20 08:11 | CA_ITS ---
APPROVED REPORT EXAM: Comprehensive 2D, Doppler, and color-flow Echocardiogram Billet Shearer: Clarisse Cash RVT Ht: 5 ft 3 in Wt: 230lbs BSA: 2.05 BP: 160/79 mmHg Indications: PRE-OP.HX CVA,CHF,CM.MURMUR,COPD,SMOKER,HTN,HLD,DM 2D Dimensions IVSd 0.79 cm F: 0.6-1.0 LA Volume 28.40 mL PWd 0.92 cm F: 0.6 - 1.0 LA Volume Index 13.85 mL/m2 (M/F) 16-34 LVDd 4.94 cm F: 3.9 - 5.3 LVOT 2.13 cm (M/F) 1.5-2.5 M-Mode Dimensions RVDd 3.04 cm (0.9-2.6) LA Diam 4.04 cm (1.9-4.0) LVDd 5.51 cm (3.5-5.7) Ao Diam 2.83 cm (2.0-3.7) LVDs 4.42 cm (3.5-5.7) IVSd 0.65 cm (0.6-1.1) PWd 0.38 cm (0.6-1.1) EF (Teich) 40.10% FS 19.80% EDV (Teich) 148.00 mL TAPSE 2.13 (<1.7) ESV (Teich) 88.60 mL LV Diastology E Decel Time 197.00 (160-240 msec) E/A Ratio 0.7 MED E' 7.20 (< 7 cm/sec) E'/MED E' Ratio 10.46 (>14) LAT E' 9.90 (<10 cm/sec) E/LAT E' Ratio 7.61 (>14) Aortic Valve AO Peak GR. 7.70 mmHg Mitral Valve MV E Max Andrés. 75.00 (40-130 cm/s) MV A Velocity 101.00 (40-130 cm/s) E/A Ratio 0.74 MV Decel. Time 197.00 (160-240 ms) MV PHT 58.00 ms Pulmonary Valve PV Peak Velocity 88.00 (50-150 cm/s) Tricuspid Valve TR P. Velocity 141.00 cm/s RAP Estimate 10.00 mmHg RVSP 17.90 mmHg Left Ventricle The left ventricle is normal size. The left ventricular systolic function is normal. The left ventricular ejection fraction is within the normal range. There is normal left ventricular wall thickness. There is normal LV segmental wall motion. The left ventricular diastolic function is normal. LVEF is 60%. Right Ventricle The right ventricle is normal size. The right ventricular systolic function is normal. Atria The left atrium size is normal. The right atrium size is normal. There is no Doppler evidence of interatrial shunt. Aortic Valve The aortic valve opens well. There is no aortic valvular stenosis. Trace aortic regurgitation. Mitral Valve The mitral valve is normal in structure. No evidence of mitral valve stenosis. Trace mitral regurgitation. Tricuspid Valve The tricuspid valve leaflets are thin and pliable. Trace tricuspid regurgitation. RVSP is normal. Pulmonic Valve The pulmonary valve is normal in structure. Trace pulmonic regurgitation. Great Vessels The aortic root is normal in size. The ascending aort is not well visualized. IVC is normal in size and collapses >50% with inspiration. Pericardium There is no pericardial effusion. Other Information Study Quality: Adequate Conclusion Normal biventricular systolic function No significant valvular disease. Electronically signed by : Rin Sweet, 10/20/2022 20:24:52
== END ==
PROVIDERS: PCP Family Medicine; Visit Provider Physician Assistant
DX: Z01.810 Encounter for preprocedural cardiovascular examination (principal); I42.9 Cardiomyopathy, unspecified; I10 Essential (primary) hypertension; E11.9 Type 2 diabetes mellitus without complications; E78.5 Hyperlipidemia, unspecified
CPT/HCPCS: 93306

== ENCOUNTER 2023-04-07 10:01 | Outpatient (CLI) | payer OTHER, SELFPAY ==
[2023-04-07 10:16] LABS: Microscopic, Urine URINE MICROSCOPIC (MICROSCOPIC)
--- NOTE | 2023-04-07 10:34 | XR_ITS ---
FINAL REPORT TECHNIQUE: Chest PA & Lateral CLINICAL HISTORY: HTN..pre-op hip surgery FINDINGS: 2 views of the chest were performed. A loop recording device is again noted. The heart size is normal. The mediastinum is within normal limits. There is no acute cardiopulmonary process. There are mild chronic changes in the lung bases. There are no pleural effusions. There is no pneumothorax. The bony thorax appears intact. IMPRESSION: No acute cardiopulmonary process. Reviewed, Interpreted and Dictated by Hubert Alcaraz MD Transcribed by Ju Link Authenticated and [facility]
[2023-04-07 10:44] LABS: Appearance,Urine CLEAR (Clear); Bilirubin,Urine Negative (Negative); Blood, Urine Negative (Negative); Color,Urine YELLOW (Yellow); Glucose,Urine (UA) Negative (Negative); Ketones,Urine Negative (Negative); Leukocyte Esterase,Urine Negative (Negative); Nitrate,Urine Negative (Negative); Protein,Urine Negative (Negative); Specific Gravity, Urine 1.015 (1.005-1.030); Urobilinogen,Urine 0.2 EU/dl (0.2)
[2023-04-07 10:52] LABS: Basophils % 0.4 % (0.1-2.0); Eosinophils # 0.2 K/mm3 (0.0-0.4); Eosinophils % 1.9 % (0.1-12.0); Hematocrit 51.1 % (37.0-47.0); Hemoglobin 16.7 g/dL (12.2-16.2); Lymphocytes % 20.5 % (10-50); Mean Corpuscular HGB Conc 32.8 g/dL (31.8-35.4); Mean Corpuscular Hemoglobin 32.7 pg (27.0-31.2); Mean Corpuscular Volume 99.7 fl (81-99); Monocytes # 0.3 K/mm3 (0.1-1.0); Monocytes % 3.4 % (1.7-9.3); Neutrophils # 7.3 K/mm3 (1.8-7.8); Neutrophils % 73.8 % (37.0-80.0); Platelet Count 179 K/mm3 (142-424); Red Blood Count 5.12 M/mm3 (4.20-5.40); Red Cell Distribution Width 13.1 % (11.5-17.5); White Blood Count 9.9 K/mm3 (4.8-10.8)
[2023-04-07 10:56] LABS: Activated Partial Thrombo Time 32.3 seconds (22.8-30.6); INR 0.95 (0.9-1.1); Prothrombin Time 10.3 seconds (10.1-12.5)
[2023-04-07 11:09] LABS: Squamous Epithelial Cell,Urine Occasional #/hpf (0-5); WBC,Urine Occasional #/hpf (0-3)
[2023-04-07 11:45] LABS: Alanine Aminotransferase 14 U/L (12-78); Albumin Level 4.4 g/dl (3.5-5.0); Albumin/Globulin Ratio 1.6 (1.1-1.8); Alkaline Phosphatase 146 U/L (38-126); Aspartate Amino Transferase 20 U/L (14-36); Bilirubin,Total 0.6 mg/dl (0.2-1.3); Blood Urea Nitrogen 11 mg/dl (7-17); Calcium 9.4 mg/dl (8.4-10.2); Carbon Dioxide 28 mmol/L (22.0-30.0); Chloride 105 mmol/L (98-107); Estimated Glomerular Filt Rate 103 ml/min (>60); GFR (African American) 124 ML/MIN (>60); Globulin 2.8 g/dL (1.3-3.2); Glucose 92 mg/dl (74-100); Sodium 141 mmol/L (136-145); Total Protein,Serum 7.2 g/dl (6.3-8.2)
[2023-04-07 12:27] LABS: Hemoglobin A1C 5.9 % (4.0-6.0)
== END 2023-04-07 23:59 | disposition home or self-care (01) ==
LOC: LAB 10:01
PROVIDERS: PCP Family Medicine; Visit Provider Family Medicine
DX: Z01.818 Encounter for other preprocedural examination (principal); Z01.811 Encounter for preprocedural respiratory examination; J44.9 Chronic obstructive pulmonary disease, unspecified
CPT/HCPCS: 36415; 71046; 80053; 81001; 83036; 85025; 85610; 85730; 87635

== ENCOUNTER 2023-05-12 12:39 | Outpatient (CLI) | payer OTHER, SELFPAY ==
[2023-05-12 12:46] LABS: Microscopic, Urine URINE MICROSCOPIC (MICROSCOPIC)
[2023-05-12 13:12] LABS: Basophils # 0.1 K/mm3 (0-0.2); Basophils % 1.5 % (0.1-2.0); Eosinophils # 0.2 K/mm3 (0.0-0.4); Eosinophils % 2.1 % (0.1-12.0); Hematocrit 49.7 % (37.0-47.0); Hemoglobin 15.8 g/dL (12.2-16.2); Lymphocytes # 2.5 K/mm3 (0.7-4.5); Lymphocytes % 30.3 % (10-50); Mean Corpuscular HGB Conc 31.9 g/dL (31.8-35.4); Mean Corpuscular Hemoglobin 31.8 pg (27.0-31.2); Mean Corpuscular Volume 99.7 fl (81-99); Mean Platelet Volume 9.6 fl (7.4-10.4); Monocytes # 0.3 K/mm3 (0.1-1.0); Monocytes % 4.2 % (1.7-9.3); Neutrophils # 5.1 K/mm3 (1.8-7.8); Platelet Count 226 K/mm3 (142-424); Red Blood Count 4.98 M/mm3 (4.20-5.40); Red Cell Distribution Width 13.4 % (11.5-17.5); White Blood Count 8.2 K/mm3 (4.8-10.8)
[2023-05-12 13:15] LABS: Appearance,Urine CLEAR (Clear); Bilirubin,Urine Negative (Negative); Blood, Urine Negative (Negative); Color,Urine YELLOW (Yellow); Glucose,Urine (UA) Negative (Negative); Ketones,Urine Negative (Negative); Leukocyte Esterase,Urine Negative (Negative); Nitrate,Urine Negative (Negative); Protein,Urine Negative (Negative); Specific Gravity, Urine 1.015 (1.005-1.030); Urobilinogen,Urine 0.2 EU/dl (0.2)
[2023-05-12 13:24] LABS: Activated Partial Thrombo Time 32.8 seconds (22.8-30.6); INR 1.01 (0.9-1.1); Prothrombin Time 10.9 seconds (10.1-12.5)
[2023-05-12 13:48] LABS: Bacteria,Urine Trace /lpf; RBC,Urine Occasional #/hpf (0-3); WBC,Urine Occasional #/hpf (0-3)
[2023-05-12 14:12] LABS: Hemoglobin A1C 6.2 % (4.0-6.0)
[2023-05-12 14:26] LABS: Chloride 101 mmol/L (98-107); Potassium 4.8 mmoL/L (3.5-5.1); Sodium 139 mmol/L (136-145)
[2023-05-12 14:29] LABS: Alanine Aminotransferase 20 U/L (12-78); Albumin Level 4.3 g/dl (3.5-5.0); Albumin/Globulin Ratio 1.5 (1.1-1.8); Alkaline Phosphatase 165 U/L (38-126); Anion Gap 7.8 mEq/L (5-15); Aspartate Amino Transferase 25 U/L (14-36); Bilirubin,Total 0.4 mg/dl (0.2-1.3); Blood Urea Nitrogen 18 mg/dl (7-17); Carbon Dioxide 35 mmol/L (22.0-30.0); Estimated Glomerular Filt Rate 103 ml/min (>60); GFR (African American) 124 ML/MIN (>60); Globulin 2.9 g/dL (1.3-3.2); Total Protein,Serum 7.2 g/dl (6.3-8.2)
[2023-05-12 14:30] LABS: Calcium 9.6 mg/dl (8.4-10.2); Glucose 87 mg/dl (74-100)
== END 2023-05-12 23:59 ==
LOC: LAB 12:40
PROVIDERS: PCP Family Medicine; Visit Provider Orthopaedic Surgery Adult Reconstructive Orthopaedic Surgery
DX: Z01.812 Encounter for preprocedural laboratory examination (principal)
CPT/HCPCS: 36415; 80053; 81001; 83036; 85025; 85610; 85730; 87635

== ENCOUNTER 2023-07-20 11:40 | Outpatient (CLI) | payer OTHER, SELFPAY ==
--- OUTSIDE RECORDS SUMMARY | 2023-07-20 11:43 | XMS_ITS | Continuity of Care Document ---
Author Name Unknown Address [address] [place] [phone] Organization [facility] Phone Care Team Providers Care Oyster Buyer Name Role Phone VAN BELLAMY Surgeon CIARA Weaver Primary Care [phone] VAN BELLAMY Primary Attending Unavaila ble VAN BELLAMY Admitting Unavailabl e ALLERGIES AND ADVERSE REACTIONS ALLERGIES AND ADVERSE REACTIONS Code System Allergy Substance Adverse Reaction Date Reaction (Severity) Comment Status Reported By Updated By No Known Allergies [id number] on June 29, 2023 1:47:47 AM [place] MEDICATIONS HOME MEDICATIONS Status RXNORM NDC Medication Dose Route Frequency Dates Comments Reported By Updated By Drug Treatment Unknown DISCHARGE MEDICATIONS Status RXNORM NDC Medication Dose Route Frequency Dates Comments Physician Updated By No Discharge Medication Info rmation Available INPATIENT MEDICATIONS Status RXNORM NDC Medication Dose Route Frequency Rat e Quantity Dates Comments Physician Updated By Rylee inued [id number] lidocaine (XYLOCAINE) 1% SOLN 20.0 ML ONE TIME ONLY (SCHEDULED DOSE) Start: June 26, 2023 2:13:0 0 AM UTC End: June 26, 2023 2:13:0 0 AM UTC ANITA ARAUJO INTERFAC ED on June 26, 2023 2:13:00 AM UT Discont inued [id number] ceFAZolin (ANCEF) 1 GM SOLR 1.0 GM INTRAV ENOUS ONE TIME ONLY (SCHEDULED DOSE) Start: June 26, 2023 2:42:0 0 AM UTC End: June 26, 2023 2:42:0 0 AM UTC ANITA ARAUJO INTERFAC ED on June 26, 2023 2:40:00 AM UT SOCIAL HISTORY SOCIAL HISTORY SNOMED-CT Social History Element Description Effective Dates Offered Cessation Comment UpdatedBy [id number] Smoking Status Unknown If Ever Smoked SOCIAL HISTORY - Gender Sex: Female SOCIAL HISTORY - Status : status i nformation is not available Intention in Next Year: intention information is not available SOCIAL HISTORY - Sexual Behavior Sexual Orientation Gender Identity SNOMED-CT Description SNO MED -CT Description Activity Level No of Partners Partner Type UpdatedBy Information is not available VITAL SIGNS PATIENT VITAL SIGNS This section displays the mo st recent value for each vital sign as of June 29, 2023 1:48:17 AM [facility] Loinc Code Vital Sign Activity Date Result Updated By 8310-5 Body temperature June 26, 2023 1: 44:02 AM [place] 99.8 [degF] [id number] on June 27, 2023 4:34:21 AM [facility] 8462-4 Diastolic blood pressure June 26, 2023 2:30:00 AM [place] 68.0 mm[Hg] [id number] on June 27, 2023 4:34:30 AM [facility] 8867-4 Heart rate June 26, 2023 2:3 0:00 AM [facility] 107 /min [id number] on June 27, 2023 4:34:30 AM [facility] 54864-5 Oxygen saturation in Arterial blood by Pulse oximetry June 26, 2023 2:30:00 AM [facility] 95.0 % [id number] on June 27, 2023 4:34:30 AM [facility] 8480-6 Systolic blood pressure June 26, 2023 2:30:00 AM [place] 119.0 mm[Hg] [id number] on June 27, 2023 4:34:30 AM [facility] PEDIATRIC GROWTH CHART - VITAL SIGNS This section displays Head C ircumference Percentile, Weight for Length Percentile and BMI Percentile Loinc Code Pediatric Measure Age (Months) Result Updat ed By No Pediatric Growth Chart Pe rcentile Information Available. HEALTH CONCERNS Problems Concern Status Health Concern problem infor mation not available. Smoking Status Status Years Used Consumed packs p er day Health Concern smoking histo ry information not available. Family History Concern Status Health Concern family histor y information not available. ENCOUNTERS ENCOUNTER INFORMATION Reason for Visit OPEN WOUND Admission June 26, 2023 1:39:[address] [phone] Discharge June 26, 2023 4:34:00 AM [facility] DISC HARGED TO HOME OR SELF CARE ENCOUNTER DIAGNOSES Notes information is not arianna ilable. Code System Diagnosis Onset Date Diagnosis information is not available. ABSTRACT DIAGNOSES Code System Diagnosis Updated By S71.012A ICD10 LACERATION WITHO UT FOREIGN BODY, LEFT HIP, INITIAL ENCOUNTER [id number] on June 29, 2023 1:47:39 AM [facility] T81.31XA ICD10 DISRUPTION OF EX TERNAL OPERATION (SURGICAL) WOUND, NOT ELSEWHERE CLASSIFIED, INITIAL ENCOUNTER [id number] on June 29, 2023 1:47:39 AM [facility] CARE TEAM Care Oyster Buyer Role VAN BELLAMY Surgeon CIARA VASQUEZ Primary Care VAN BELLAMY Primary Attending VAN BELLAMY Admitting CARE TEAM CARE microwave engineer Role on Team Status Start Date End Date Update d By JOSESITO ARAUJO Surgeon normal June 26, 2023 1:39:00 AM [facility] June 26, 2023 4:34:00 AM [facility] [id number] on June 29, 2023 1:47:45 AM [facility] normal June 26, 2023 2:26:38 AM [facility] June 26, 2023 4:34:00 AM [facility] [id number] on June 29, 2023 1:47:45 AM [facility] JOSESITO ARAUJO Attending normal June 26, 2023 2:26:38 AM [facility] June 26, 2023 4:34:00 AM [facility] [id number] on June 29, 2023 1:47:45 AM [facility] JOSESITO ARAUJO Admitting normal June 26, 2023 2:26:38 AM [facility] June 26, 2023 4:34:00 AM [facility] [id number] on June 29, 2023 1:47:45 AM [facility]
--- NOTE | 2023-07-20 11:48 | XR_ITS ---
FINAL REPORT CLINICAL HISTORY: RT HIP PAIN pt plans on having surgery for right total hip replacement , unsure when pt has copd, hypertension , chf , and pt is a smoker COMPARISON: 02/07/2022 FINDINGS: TWO-VIEW CHEST The heart size is normal. The mediastinum is normal. There is mild right base opacity, may represent atelectasis or pneumonia but there has been improved aeration since the prior. There is no pneumothorax. IMPRESSION: Right base atelectasis or pneumonia. Reviewed, Interpreted and Dictated by Nilson Rivas III, MD Transcribed by Melissa Vuong Authenticated and [facility]
[2023-07-20 12:06] LABS: Microscopic, Urine URINE MICROSCOPIC (MICROSCOPIC)
[2023-07-20 12:34] LABS: Basophils # 0.1 K/mm3 (0-0.2); Eosinophils # 0.3 K/mm3 (0.0-0.4); Eosinophils % 2.7 % (0.1-12.0); Hematocrit 45.6 % (37.0-47.0); Hemoglobin 14.3 g/dL (12.2-16.2); Lymphocytes # 2.6 K/mm3 (0.7-4.5); Lymphocytes % 23.4 % (10-50); Mean Corpuscular HGB Conc 31.4 g/dL (31.8-35.4); Mean Corpuscular Hemoglobin 27.8 pg (27.0-31.2); Mean Corpuscular Volume 88.6 fl (81-99); Mean Platelet Volume 8.9 fl (7.4-10.4); Monocytes # 0.4 K/mm3 (0.1-1.0); Monocytes % 3.9 % (1.7-9.3); Neutrophils # 7.5 K/mm3 (1.8-7.8); Platelet Count 275 K/mm3 (142-424); Red Blood Count 5.14 M/mm3 (4.20-5.40); Red Cell Distribution Width 16.7 % (11.5-17.5); White Blood Count 10.9 K/mm3 (4.8-10.8)
[2023-07-20 12:53] LABS: Appearance,Urine CLEAR (Clear); Bilirubin,Urine Negative (Negative); Blood, Urine Negative (Negative); Color,Urine YELLOW (Yellow); Glucose,Urine (UA) Negative (Negative); Ketones,Urine Negative (Negative); Leukocyte Esterase,Urine Negative (Negative); Nitrate,Urine Negative (Negative); Protein,Urine Negative (Negative); Specific Gravity, Urine <= 1.005 (1.005-1.030); Urobilinogen,Urine 0.2 EU/dl (0.2)
[2023-07-20 12:54] LABS: Activated Partial Thrombo Time 32.8 seconds (22.8-30.6); INR 1.01 (0.9-1.1); Prothrombin Time 10.9 seconds (10.1-12.5)
[2023-07-20 13:05] LABS: Alanine Aminotransferase 16 U/L (12-78); Albumin Level 4.6 g/dl (3.5-5.0); Albumin/Globulin Ratio 1.4 (1.1-1.8); Alkaline Phosphatase 140 U/L (38-126); Anion Gap 14.5 mEq/L (5-15); Aspartate Amino Transferase 24 U/L (14-36); Bilirubin,Total 0.4 mg/dl (0.2-1.3); Blood Urea Nitrogen 7 mg/dl (7-17); Carbon Dioxide 31 mmol/L (22.0-30.0); Chloride 97 mmol/L (98-107); Estimated Glomerular Filt Rate 103 ml/min (>60); GFR (African American) 124 ML/MIN (>60); Globulin 3.2 g/dL (1.3-3.2); Glucose 89 mg/dl (74-100); Potassium 4.5 mmoL/L (3.5-5.1); Sodium 138 mmol/L (136-145); Total Protein,Serum 7.8 g/dl (6.3-8.2)
[2023-07-20 13:09] LABS: Amphetamine/Metha Screen,Urine Negative ng/ml (<1000)
[2023-07-20 13:10] LABS: Barbiturates Screen,Urine Negative ng/ml (<200); Benzodiazepines Screen,Urine Negative ng/ml (<200)
[2023-07-20 13:11] LABS: Cannabinoid Screen,Urine Positive ng/ml (<50); Cocaine Screen,Urine Negative ng/ml (<300)
[2023-07-20 13:12] LABS: Methadone Screen,Urine Negative ng/ml (<300)
[2023-07-20 13:13] LABS: Opiate Screen,Urine Negative ng/ml (<300)
[2023-07-20 13:14] LABS: Phencyclidine Screen,Urine Negative ng/ml (<25)
[2023-07-20 13:17] LABS: Squamous Epithelial Cell,Urine Occasional #/hpf (0-5)
[2023-07-20 13:23] LABS: Hemoglobin A1C 5.9 % (4.0-6.0)
== END 2023-07-20 23:59 | disposition home or self-care (01) ==
LOC: LAB 11:41
PROVIDERS: PCP Family Medicine; Visit Provider Orthopaedic Surgery Adult Reconstructive Orthopaedic Surgery
DX: Z01.812 Encounter for preprocedural laboratory examination (principal); Z01.811 Encounter for preprocedural respiratory examination; M16.11 Unilateral primary osteoarthritis, right hip
CPT/HCPCS: 36415; 71046; 80053; 80307; 81001; 83036; 85025; 85610; 85730; 87081

== ENCOUNTER 2023-10-24 18:40 | Emergency (ER) | payer OTHER, SELFPAY ==
[2023-10-24 18:41] VITALS: BP 156/85; PULSE 108; RESP 20; TEMP 36.9; O2SAT 95; BMI 40.7
--- NOTE | 2023-10-24 18:46 | HMH.EDGENADL ---
Discharge Plan Disposition Patient Disposition: Home, Self-Care Condition: Fair Prescriptions Prescriptions: New clindamycin HCl 300 mg capsule 300 mg PO Q8H 7 Days Qty: 21 0RF No Action benazepril 5 mg tablet 5 mg PO DAILY metoprolol succinate 25 mg tablet extended release 24 hr PO fluticasone propionate 110 mcg/actuation HFA aerosol inhaler inhalation Patient Comments: INHALE TWO PUFFS BY MOUTH TWICE DAILY quetiapine [Seroquel] 400 mg tablet 400 mg PO BID buprenorphine-naloxone [Suboxone] 8-2 mg film 1 film buccal BID gabapentin 800 mg tablet 800 mg PO QID fluoxetine 40 MG capsule 40 mg PO DAILY atorvastatin 80 MG tablet 80 mg PO HS tizanidine 4 mg tablet 12 mg PO HS Patient Comments: TAKE TWO TABLETS BY MOUTH EVERY DAY IN THE MORNING and TAKE THREE TABLETS EVERY DAY IN THE EVENING AT BEDTIME MAY CAUSE DROWSINESS tizanidine 4 mg tablet 8 mg PO DAILY Patient Comments: TAKE TWO TABLETS BY MOUTH EVERY DAY IN THE MORNING and TAKE THREE TABLETS EVERY DAY IN THE EVENING AT BEDTIME MAY CAUSE DROWSINESS albuterol sulfate [Ventolin HFA] 90 mcg/actuation HFA aerosol inhaler 2 puff INHALATION QIDP PRN (Reason: Shortness Of Breath) Patient Comments: INHALE 2 puffs BY MOUTH FOUR TIMES DAILY NEEDED --SHAKE WELL BEFORE USE-- levothyroxine 100 mcg tablet 100 mcg PO DAILY Patient Comments: TAKE ONE TABLET BY MOUTH EVERY DAY metformin 1,000 mg tablet 1,000 mg PO BID Patient Comments: TAKE ONE TABLET BY MOUTH TWICE DAILY ezetimibe 10 mg tablet 10 mg PO DAILY Patient Comments: TAKE ONE TABLET BY MOUTH EVERY DAY insulin glargine [Lantus Solostar U-100 Insulin] 100 unit/mL (3 mL) insulin pen 60 unit SQ DAILY Patient Comments: inject 60 UNITS SUBCUTANEOUSLY EVERY DAY Referrals Follow up/Referrals: Kiran [place] MD [Primary Care Provider] - See instructions Activity Restrictions/Add. Instructions Additional Instructions/Restrictions: As we discussed, follow-up with Dr White in the morning. Follow-up with your PCP as scheduled. Return to ER for any worsening signs or symptoms as needed Clinical Impressions Clinical Impression: Postoperative wound dehiscence Qualifiers: Encounter type: initial encounter Qualified Code(s): T81.31XA - Disruption of external operation (surgical) wound, not elsewhere classified, initial encounter Print Language Print Language: Greenlandic Discharge ED Provider: Juwan Sibley General Adult HPI <LISANDRO Bang - Last Filed: 10/24/23 21:17> General Chief complaint: Extremity Problem,Nontraumatic Stated complaint: hip replacement-draining,painful Time Seen by Provider: 10/24/23 18:46 History of Present Illness HPI narrative: Patient presents for evaluation of a postoperative incision problem. Patient had a right total hip arthroplasty 3 weeks ago at [facility] by Dr. White. She reports that she has been having increasing serous drainage from the wound over the last few days however she woke up this morning and it was very red. She denies fever chills hemoptysis hematochezia melena nausea vomiting diarrhea. Related Data Home Medications ?Medication ?Instructions ?Recorded ?Confirmed atorvastatin 80 mg tablet 80 mg PO HS Cholesterol 04/28/17 07/20/23 fluoxetine 40 mg capsule 40 mg PO DAILY Depression 04/23/18 07/20/23 albuterol sulfate 90 mcg/actuation 2 puff inhalation QIDP PRN 02/08/22 07/20/23 aerosol inhaler (Ventolin HFA) Shortness Of Breath ezetimibe 10 mg tablet 10 mg PO DAILY Cholesterol 02/08/22 07/20/23 insulin glargine 100 unit/mL (3 60 unit SQ DAILY Diabetes 02/08/22 07/20/23 mL) subcutaneous pen (Lantus Solostar U-100 Insulin) levothyroxine 100 mcg tablet 100 mcg PO DAILY THYROID 02/08/22 07/20/23 metformin 1,000 mg tablet 1,000 mg PO BID Diabetes 02/08/22 07/20/23 tizanidine 4 mg tablet 8 mg PO DAILY MUSCLE PAIN 02/08/22 07/20/23 tizanidine 4 mg tablet 12 mg PO HS MUSCLE PAIN 02/08/22 07/20/23 benazepril 5 mg tablet 5 mg PO DAILY 07/20/23 07/20/23 buprenorphine 8 mg-naloxone 2 mg 1 film buccal BID 07/20/23 07/20/23 sublingual film (Suboxone) fluticasone propionate 110 inhalation 07/20/23 07/20/23 mcg/actuation HFA aerosol inhaler gabapentin 800 mg tablet 800 mg PO QID 07/20/23 07/20/23 metoprolol succinate 25 mg mg PO 07/20/23 07/20/23 tablet,extended release 24 hr quetiapine 400 mg tablet (Seroquel) 400 mg PO BID 07/20/23 07/20/23 Previous Rx's ?Medication ?Instructions ?Recorded clindamycin HCl 300 mg capsule 300 mg PO Q8H 7 days #21 caps 10/24/23 Allergies Allergy/AdvReac Type Severity Reaction Status Date / Time codeine Allergy Unknown Verified 07/20/23 10:55 duloxetine [From Cymbalta] Allergy Unknown Verified 07/20/23 10:55 PFS <LISANDRO Bang - Last Filed: 10/24/23 21:17> [facility] Disclaimer: The information contained in this section may have been updated after the patient was seen, as this information can be updated by other users. Medical History Thyroid disease Sleep apnea Degenerative disc disease Diabetes mellitus type 2 in obese Hyperlipemia Depression Anxiety Burn of left foot UTI (urinary tract infection) Bilateral sacroiliitis Chronic low back pain COPD exacerbation Esophageal obstruction due to food impaction Concussion without loss of consciousness Chronic pain disorder Therapeutic opioid-induced constipation (OIC) Congestive heart failure Surgical History History of hysterectomy Hx of cholecystectomy History of right wrist replacement Hx of tubal ligation History of History of total bilateral knee replacement Family History Other Cancer Family history of diabetes mellitus type II Family history of hypertension Family history of myocardial infarction Stroke Social History Smoking Status: Current every day smoker tobacco type: cigarettes packs per day: 1 second hand exposure: No alcohol intake: never substance use type: denies use current occupational status: other Travel in the last 8 weeks: None household members: none housing: house current occupational exposures/hazards: No caffeine: Yes <LISANDRO Bang - Last Filed: 10/24/23 21:17> ROS Obtained: Yes Systems reviewed as appropriate & no additional complaints except as documented Physical Exam <LISANDRO Bagn - Last Filed: 10/24/23 21:17> General General appearance: alert and in no apparent distress Respiratory Respiratory exam: Present normal lung sounds bilaterally Cardiovascular Cardiovascular exam: Present regular rate Neurological Exam Neurological exam: Present alert and oriented X3 Medical Decision Making <LISANDRO Bang - Last Filed: 10/24/23 21:17> Casimiro Inquiry Pt receiving controlled substance: No Vital Signs: 10/24/23 18:41 10/24/23 20:00 10/24/23 20:03 Temperature 98.5 F 97.8 F Temperature Source Oral Pulse Rate 95 H 79 Pulse Rate [Right] 108 H Respiratory Rate 20 19 Blood Pressure 164/71 H 164/71 H Blood Pressure [Left Arm] 156/85 H Blood Pressure Mean [Left Arm] 108 Blood Pressure Source Automatic Cuff Blood Pressure Position Sitting 02 Sat by Pulse Oximetry 95 97 Oxygen Delivery Method Room Air Room Air Lab Data Lab Results 10/24/23 18:50: WBC 6.8, RBC 4.41, Hgb 13.0, Hct 42.1, MCV 95.5, MCH 29.5, MCHC 30.9 L, RDW 16.8, Plt Count 212, MPV 9.4, Neut % (Auto) 66.3, Lymph % (Auto) 24.3, Whitfield % (Auto) 4.8, Eos % (Auto) 3.8, Baso % (Auto) 0.9, Neut # (Auto) 4.5, Lymph # (Auto) 1.7, Whitfield # (Auto) 0.3, Eos # (Auto) 0.3, Baso # (Auto) 0.1, ESR 37 H, Sodium 136, Potassium 4.0, Chloride 100, Carbon Dioxide 35 H, Anion Gap 5.0, BUN 5 L, Creatinine 0.60, Estimated Creat Clear 166, Estimated GFR 102, Est GFR ( Amer) 124, Glucose 190 H, Calcium 8.8, Total Bilirubin 0.8, AST 24, ALT 21, Alkaline Phosphatase 137 H, Total Protein 7.5, Albumin 4.0, Globulin 3.5 H, Albumin/Globulin Ratio 1.1 10/24/23 18:50 10/24/23 18:50 Orders (Tests/Meds): ED MEDICATIONS Discontinued Medications Generic Name Dose Route Start Last Admin Trade Name Freq PRN Reason Stop Dose Admin Clindamycin HCl 300 mg 10/24/23 19:27 10/24/23 19:54 Clindamycin 150mg Capsule PO 10/24/23 19:28 Not Given ONCE ONE Clindamycin Phosphate 900 mg in 50 mls @ 100 mls/hr 10/24/23 19:34 10/24/23 19:47 Clindamycin 900mg/50ml D5w Premix IV 10/24/23 20:03 100 mls/hr ONCE ONE Administration ORDERS Category Date Time Status CBC w/Auto Diff [Complete Blood Count Auto Diff] Stat Lab 10/24/23 18:50 Completed CMP [Comprehensive Metabolic Panel] Stat Lab 10/24/23 18:50 Completed ESR [Erythrocyte Sedimentation Rate] Stat Lab 10/24/23 18:50 Completed Medical Decision Narrative: In summary patient is a 58-year-old female who presents to the emergency department for evaluation of postoperative complication. Patient is hemodynamically stable upon arrival, afebrile. Physical exam is remarkable for serous drainage from multiple sites along the incision site but no abisai full dehiscence. At the distal end of her surgical incision she has some erythema surrounding the tissue but no induration or fluctuance. Neurovascular intact distally. Differential diagnosis includes wound dehiscence versus cellulitis. Initial workup will be conducted with hematologic labs blood cultures. Initial interventions include clindamycin. Initial workup reviewed by me shows her hematologic labs are nonactionable. Given this I had an interactive discussion with her surgeon regarding patient management. He is reassured by her laboratory vesication's and wants us to discharge her for follow-up in his office tomorrow morning with p.o. antibiotics which clindamycin was given and prescription sent to her pharmacy. Patient informed and is agreeable and understanding. <Juwan Sibley MD - Last Filed: 10/24/23 23:13> Vital Signs: 10/24/23 18:41 10/24/23 20:00 10/24/23 20:03 Temperature 98.5 F 97.8 F Temperature Source Oral Pulse Rate 95 H 79 Pulse Rate [Right] 108 H Respiratory Rate 20 19 Blood Pressure 164/71 H 164/71 H Blood Pressure [Left Arm] 156/85 H Blood Pressure Mean [Left Arm] 108 Blood Pressure Source Automatic Cuff Blood Pressure Position Sitting 02 Sat by Pulse Oximetry 95 97 Oxygen Delivery Method Room Air Room Air Lab Data Lab Results 10/24/23 18:50: WBC 6.8, RBC 4.41, Hgb 13.0, Hct 42.1, MCV 95.5, MCH 29.5, MCHC 30.9 L, RDW 16.8, Plt Count 212, MPV 9.4, Neut % (Auto) 66.3, Lymph % (Auto) 24.3, Whitfield % (Auto) 4.8, Eos % (Auto) 3.8, Baso % (Auto) 0.9, Neut # (Auto) 4.5, Lymph # (Auto) 1.7, Whitfield # (Auto) 0.3, Eos # (Auto) 0.3, Baso # (Auto) 0.1, ESR 37 H, Sodium 136, Potassium 4.0, Chloride 100, Carbon Dioxide 35 H, Anion Gap 5.0, BUN 5 L, Creatinine 0.60, Estimated Creat Clear 166, Estimated GFR 102, Est GFR ( Amer) 124, Glucose 190 H, Calcium 8.8, Total Bilirubin 0.8, AST 24, ALT 21, Alkaline Phosphatase 137 H, Total Protein 7.5, Albumin 4.0, Globulin 3.5 H, Albumin/Globulin Ratio 1.1 Orders (Tests/Meds): ED MEDICATIONS Discontinued Medications Generic Name Dose Route Start Last Admin Trade Name Freq PRN Reason Stop Dose Admin Clindamycin HCl 300 mg 10/24/23 19:27 10/24/23 19:54 Clindamycin 150mg Capsule PO 10/24/23 19:28 Not Given ONCE ONE Clindamycin Phosphate 900 mg in 50 mls @ 100 mls/hr 10/24/23 19:34 10/24/23 19:47 Clindamycin 900mg/50ml D5w Premix IV 10/24/23 20:03 100 mls/hr ONCE ONE Administration ORDERS Category Date Time Status CBC w/Auto Diff [Complete Blood Count Auto Diff] Stat Lab 10/24/23 18:50 Completed CMP [Comprehensive Metabolic Panel] Stat Lab 10/24/23 18:50 Completed ESR [Erythrocyte Sedimentation Rate] Stat Lab 10/24/23 18:50 Completed Medical Decision Narrative: In summary patient is a 58-year-old female who presents to the emergency department for evaluation of postoperative complication. Patient is hemodynamically stable upon arrival, afebrile. Physical exam is remarkable for serous drainage from multiple sites along the incision site but no abisai full dehiscence. At the distal end of her surgical incision she has some erythema surrounding the tissue but no induration or fluctuance. Neurovascular intact distally. Differential diagnosis includes wound dehiscence versus cellulitis. Initial workup will be conducted with hematologic labs blood cultures. Initial interventions include clindamycin. Initial workup reviewed by me shows her hematologic labs are nonactionable. Given this I had an interactive discussion with her surgeon regarding patient management. He is reassured by her laboratory vesication's and wants us to discharge her for follow-up in his office tomorrow morning with p.o. antibiotics which clindamycin was given and prescription sent to her pharmacy. Patient informed and is agreeable and understanding. I was consulted by the REY, and we discussed the complexity of the problems being addressed. I approved the treatment and management plan for this patient's care in the Emergency Department, thus performing a substantive portion of the medical decision making. Juwan Sibley MD Critical Care <LISANDRO Bang - Last Filed: 10/24/23 21:17> Critical Care Time Critical Care Time: No
--- OUTSIDE RECORDS SUMMARY | 2023-10-24 18:55 | XMS_ITS ---
Author Organization [facility] Address [address] [facility] [address] [place] [id number] Care Team Providers Care Patternmaker Bench Name Role Phone Pacheco Shirley Primary Care Provider [phone] Duyen Lucas [phone] MEDICATIONS Medication SIG (Take, Route, Fr equency, Duration) Notes Start Date End Date Status Gabapentin 800 MG 1 tab(s) orally Four times a day 10/16/2023 Active Encounters Encounter Location Date Provider Diagnosis [facility] [address] [facility] [address] [place] [id number] 10/16/2023 Duyen Lucas H/O bilateral hip replacements Z96.643 ASSESSMENTS Encounter Date Diagnosis Assessment Notes Treatment Notes Treatment Clinical Notes 10/16/2023 H/O bilateral hip replacements (ICD-10 - Z96.643) PLAN OF TREATMENT Medication Medication Name Sig Start Date Stop Date Notes Gabapentin 800 MG 1 tab(s) orally Four times a day 024
--- OUTSIDE RECORDS SUMMARY | 2023-10-24 18:55 | XMS_ITS ---
Author Organization [facility] Address [address] [place] [id number] Care Team Providers Care Sub Assembly Team Worker Name Role Phone Pacheco Shirley Primary Care Provider Duyen Lucas [phone] MEDICATIONS Medication SIG (Take, Route, Fr equency, Duration) Notes Start Date End Date Status Gabapentin 800 MG 1 tab(s) orally Four times a day 2023 Active PROBLEMS Problem Type ICD Code Onset Dates Problem Status W/U Status Risk SNOMED Code Notes Problem S/P bilateral hip replacements (Z96.643) Active confirmed [id number] Encounters Encounter Location Date Provider Diagnosis [facility] [address] [place] [id number] 10/16/2023 Duyen Lucas S/P bilateral hip replacements Z96.643 ASSESSMENTS Encounter Date Diagnosis Assessment Notes Treatment Notes Treatment Clinical Notes 10/16/2023 S/P bilateral hip replacements (ICD-10 - Z96.643) PLAN OF TREATMENT Medication Medication Name Sig Start Date Stop Date Notes Gabapentin 800 MG 1 tab(s) orally Four times a day 024
--- OUTSIDE RECORDS SUMMARY | 2023-10-24 18:55 | XMS_ITS | Continuity of Care Document ---
Author Organization [facility] Phone Care Team Providers Care English Language Arts Teacher Name Role Phone CIARA VASQUZE Primary Care [phone] VAN BELLAMY Primary Attending Unavaila ble VAN BELLAMY Admitting Unavailabl e MEDICATIONS HOME MEDICATIONS Status RXNORM NDC Medication Dose Route Frequency Dates Comments Reported By Updated By Drug Treatment Unknown DISCHARGE MEDICATIONS Status RXNORM NDC Medication Dose Route Frequency Dates Comments Physician Updated By No Discharge Medication Info rmation Available INPATIENT MEDICATIONS Status RXNORM NDC Medication Dose Route Frequency Rat e Quantity Dates Comments Physician Updated By Discont inued [id number] lidocaine (XYLOCAINE) 1% SOLN 20.0 ML ONE TIME ONLY (SCHEDULED DOSE) Start: June 26, 2023 2:13:0 0 AM UTC End: June 26, 2023 2:13:0 0 AM UTC ANITA ARAUJO INTERFAC ED on June 26, 2023 2:13:00 AM UT Discont inued [id number] ceFAZolin (ANCEF) 1 GM SOLR 1.0 GM INTRAV ENOUS ONE TIME ONLY (SCHEDULED DOSE) Start: June 26, 2023 2:42:0 0 AM UTC End: June 26, 2023 2:42:0 0 AM UTC ANITA ARAUJO INTERFAC ED on June 26, 2023 2:40:00 AM UT SOCIAL HISTORY SOCIAL HISTORY SNOMED-CT Social History Element Description Effective Dates Offered Cessation Comment UpdatedBy [id number] Smoking Status Unknown If Ever Smoked SOCIAL [...] for each vital sign as of June 26, 2023 5:34:06 AM [facility] Loinc Code Vital Sign Activity Date Result Updated By 8310-5 Body temperature June 26, 2023 1: 44:00 AM UT 99.8 [degF] [id number] on June 26, 2023 1:44:23 AM UT 8462-4 Diastolic blood pressure June 26, 2023 2:15:00 AM UT 91.0 mm[Hg] [id number] on June 26, 2023 3:43:29 AM [facility] 8867-4 Heart rate June 26, 2023 2:3 0:00 AM UT 107 /min [id number] on June 26, 2023 3:43:30 AM [facility] 22427-6 Oxygen saturation in Arterial blood by Pulse oximetry June 26, 2023 2:30:00 AM UT 95.0 % [id number] on June 26, 2023 3:43:30 AM [facility] 8480-6 Systolic blood pressure June 26, 2023 2:15:00 AM UT 162.0 mm[Hg] [id number] on June 26, 2023 3:43:29 AM [facility] PEDIATRIC GROWTH CHART - VITAL SIGNS This [...] WOUND Admission June 26, 2023 1:39:[address] [id number] Discharge June 26, 2023 4:34:00 AM [facility] DISC HARGED TO HOME OR SELF CARE ENCOUNTER DIAGNOSES Notes information is not arianna ilable. Code System Diagnosis Onset Date Diagnosis information is not available. ABSTRACT DIAGNOSES Code System Diagnosis Updated By Abstract Diagnosis informati on is not available. CARE TEAM Care English Language Arts Teacher Role CIARA VASQUEZ Primary Care VAN BELLAMY Primary Attending VAN BELLAMY Admitting CARE TEAM CARE oral surgery assistant Role on Team Status Start Date End Date Update d By CHRISTINA HALE [facility] normal June 26, 2023 2:26:38 AM UT June 26, 2023 4:34:00 AM [facility] [id number] on June 26, 2023 2:26:38 AM [facility] JOSESITO ARAUJO Attending normal June 26, 2023 2:26:38 AM [facility] June 26, 2023 4:34:00 AM [facility] [id number] on June 26, 2023 2:26:38 AM [facility] JOSESITO ARAUJO Admitting normal June 26, 2023 2:26:38 AM [facility] June 26, 2023 4:34:00 AM [facility] [id number] on June 26, 2023 2:26:38 AM [facility]
--- OUTSIDE RECORDS SUMMARY | 2023-10-24 18:55 | XMS_ITS ---
[facility] Address [address] [place] [id number] Care Team Providers Care Fundraising Manager Name Role Phone Pacheco Shirley Primary Care Provider REASON FOR VISIT f/u after hip replacement;3 month diabetic check up Encounters Encounter Location Date Provider [facility] [address] [place] [id number] 10/21/2023 Pacheco Shirley PLAN OF TREATMENT No Information
[2023-10-24 19:20] LABS: Chloride 100 mmol/L (98-107); Sodium 136 mmol/L (136-145)
[2023-10-24 19:23] LABS: Alanine Aminotransferase 21 U/L (12-78); Albumin/Globulin Ratio 1.1 (1.1-1.8); Alkaline Phosphatase 137 U/L (38-126); Aspartate Amino Transferase 24 U/L (14-36); Bilirubin,Total 0.8 mg/dl (0.2-1.3); Blood Urea Nitrogen 5 mg/dl (7-17); Calcium 8.8 mg/dl (8.4-10.2); Carbon Dioxide 35 mmol/L (22.0-30.0); Creatinine Clearance Estimated 166 mL/min (50-200); Estimated Glomerular Filt Rate 102 ml/min (>60); GFR (African American) 124 ML/MIN (>60); Globulin 3.5 g/dL (1.3-3.2); Glucose 190 mg/dl (74-100); Total Protein,Serum 7.5 g/dl (6.3-8.2)
[2023-10-24 19:34] LABS: Basophils # 0.1 K/mm3 (0-0.2); Basophils % 0.9 % (0.1-2.0); Eosinophils # 0.3 K/mm3 (0.0-0.4); Eosinophils % 3.8 % (0.1-12.0); Hematocrit 42.1 % (37.0-47.0); Lymphocytes # 1.7 K/mm3 (0.7-4.5); Lymphocytes % 24.3 % (10-50); Mean Corpuscular HGB Conc 30.9 g/dL (31.8-35.4); Mean Corpuscular Hemoglobin 29.5 pg (27.0-31.2); Mean Corpuscular Volume 95.5 fl (81-99); Mean Platelet Volume 9.4 fl (7.4-10.4); Monocytes # 0.3 K/mm3 (0.1-1.0); Monocytes % 4.8 % (1.7-9.3); Neutrophils # 4.5 K/mm3 (1.8-7.8); Neutrophils % 66.3 % (37.0-80.0); Platelet Count 212 K/mm3 (142-424); Red Blood Count 4.41 M/mm3 (4.20-5.40); Red Cell Distribution Width 16.8 % (11.5-17.5); White Blood Count 6.8 K/mm3 (4.8-10.8)
[2023-10-24] MEDS: CLINDAMYCIN PHOSPHATE/D5W 900 MG/50 ML PIGGYBACK 100 MG IV (19:47)
[2023-10-24 20:00] VITALS: BP 164/71; PULSE 95; O2SAT 97
[2023-10-24 20:03] VITALS: BP 164/71; PULSE 79; RESP 19; TEMP 36.6; O2SAT 98
[2023-10-24 20:05] LABS: Erythrocyte Sedimentation Rate 37 mm/hr (0-30)
== END 2023-10-24 20:24 | disposition home or self-care (01) ==
PROVIDERS: Physician Assistant; Emergency Provider Emergency Medicine; PCP Family Medicine
DX: T81.31XA Disruption of external operation (surgical) wound, not elsewhere classified, initial encounter (principal); Z96.651 Presence of right artificial knee joint
CPT/HCPCS: 80053; 85025; 85651; 96365; 99284

== ENCOUNTER 2023-11-01 13:15 | Outpatient (CLI) | payer OTHER, SELFPAY ==
[2023-11-01 13:21] VITALS: BMI 37.8
[2023-11-01 13:34] LABS: Basophils # 0.1 K/mm3 (0-0.2); Basophils % 1.2 % (0.1-2.0); Eosinophils # 0.5 K/mm3 (0.0-0.4); Eosinophils % 5.8 % (0.1-12.0); Hematocrit 39.2 % (37.0-47.0); Lymphocytes # 2.2 K/mm3 (0.7-4.5); Lymphocytes % 27.9 % (10-50); Mean Corpuscular HGB Conc 30.7 g/dL (31.8-35.4); Mean Corpuscular Hemoglobin 28.5 pg (27.0-31.2); Mean Corpuscular Volume 92.8 fl (81-99); Mean Platelet Volume 8.9 fl (7.4-10.4); Monocytes # 0.3 K/mm3 (0.1-1.0); Monocytes % 3.9 % (1.7-9.3); Neutrophils # 4.9 K/mm3 (1.8-7.8); Neutrophils % 61.2 % (37.0-80.0); Platelet Count 335 K/mm3 (142-424); Red Blood Count 4.23 M/mm3 (4.20-5.40); Red Cell Distribution Width 16.5 % (11.5-17.5)
[2023-11-01 13:57] LABS: Albumin Level 3.8 g/dl (3.5-5.0); Chloride 102 mmol/L (98-107); Sodium 136 mmol/L (136-145)
[2023-11-01 14:00] LABS: Alanine Aminotransferase 26 U/L (12-78); Albumin/Globulin Ratio 1.2 (1.1-1.8); Alkaline Phosphatase 119 U/L (38-126); Aspartate Amino Transferase 29 U/L (14-36); Bilirubin,Total 0.5 mg/dl (0.2-1.3); Blood Urea Nitrogen 9 mg/dl (7-17); Carbon Dioxide 32 mmol/L (22.0-30.0); Creatine Kinase 30 U/L (30-135); Creatinine Clearance Estimated 191 mL/min (50-200); Estimated Glomerular Filt Rate 126 ml/min (>60); GFR (African American) 153 ML/MIN (>60); Globulin 3.1 g/dL (1.3-3.2); Total Protein,Serum 6.9 g/dl (6.3-8.2)
[2023-11-01 14:01] LABS: Calcium 8.5 mg/dl (8.4-10.2); Glucose 186 mg/dl (74-100)
[2023-11-01 14:06] LABS: C-Reactive Protein 37.1 mg/L (0-4)
[2023-11-01 14:11] LABS: Erythrocyte Sedimentation Rate 83 mm/hr (0-30)
== END 2023-11-01 13:40 | disposition home or self-care (01) ==
LOC: INF 13:16
PROVIDERS: PCP Family Medicine; Visit Provider Internal Medicine Infectious Disease
DX: T84.51XA Infection and inflammatory reaction due to internal right hip prosthesis, initial encounter (principal)
CPT/HCPCS: 36592; 80053; 82550; 85025; 85651; 86140

== ENCOUNTER 2023-11-09 12:52 | Outpatient (CLI) | payer OTHER, SELFPAY ==
[2023-11-09 12:55] VITALS: BMI 38.9
[2023-11-09 13:09] LABS: Basophils # 0.1 K/mm3 (0-0.2); Basophils % 0.7 % (0.1-2.0); Eosinophils # 0.3 K/mm3 (0.0-0.4); Hematocrit 39.8 % (37.0-47.0); Hemoglobin 12.3 g/dL (12.2-16.2); Lymphocytes % 22.8 % (10-50); Mean Corpuscular HGB Conc 30.9 g/dL (31.8-35.4); Mean Corpuscular Hemoglobin 29.5 pg (27.0-31.2); Mean Corpuscular Volume 95.5 fl (81-99); Mean Platelet Volume 7.9 fl (7.4-10.4); Monocytes # 0.4 K/mm3 (0.1-1.0); Monocytes % 4.6 % (1.7-9.3); Neutrophils # 6.2 K/mm3 (1.8-7.8); Neutrophils % 68.8 % (37.0-80.0); Platelet Count 340 K/mm3 (142-424); Red Blood Count 4.17 M/mm3 (4.20-5.40); Red Cell Distribution Width 15.9 % (11.5-17.5)
[2023-11-09 13:16] LABS: Chloride 104 mmol/L (98-107)
[2023-11-09 13:17] LABS: Albumin Level 4.1 g/dl (3.5-5.0); Potassium 3.7 mmoL/L (3.5-5.1); Sodium 137 mmol/L (136-145)
[2023-11-09 13:19] LABS: Blood Urea Nitrogen 6 mg/dl (7-17); Creatinine Clearance Estimated 159 mL/min (50-200); Estimated Glomerular Filt Rate 102 ml/min (>60); GFR (African American) 124 ML/MIN (>60)
[2023-11-09 13:20] LABS: Alanine Aminotransferase 20 U/L (12-78); Albumin/Globulin Ratio 1.2 (1.1-1.8); Alkaline Phosphatase 120 U/L (38-126); Anion Gap 4.7 mEq/L (5-15); Aspartate Amino Transferase 23 U/L (14-36); Bilirubin,Total 0.5 mg/dl (0.2-1.3); Carbon Dioxide 32 mmol/L (22.0-30.0); Globulin 3.4 g/dL (1.3-3.2); Glucose 114 mg/dl (74-100); Total Protein,Serum 7.5 g/dl (6.3-8.2)
[2023-11-09 14:01] LABS: Erythrocyte Sedimentation Rate 77 mm/hr (0-30)
[2023-11-09 14:14] LABS: Creatine Kinase 34 U/L (30-135)
[2023-11-09 14:20] LABS: C-Reactive Protein 59.9 mg/L (0-4)
== END 2023-11-09 13:15 | disposition home or self-care (01) ==
LOC: INF 12:53
PROVIDERS: Internal Medicine Infectious Disease; PCP Family Medicine; Visit Provider Family Medicine
DX: T84.51XA Infection and inflammatory reaction due to internal right hip prosthesis, initial encounter (principal)
CPT/HCPCS: 36592; 80053; 82550; 85025; 85651; 86140

== ENCOUNTER 2023-11-15 13:28 | Outpatient (CLI) | payer OTHER, SELFPAY ==
[2023-11-15 13:50] LABS: Albumin Level 4.2 g/dl (3.5-5.0); Basophils # 0.1 K/mm3 (0-0.2); Basophils % 0.9 % (0.1-2.0); Chloride 100 mmol/L (98-107); Eosinophils # 0.3 K/mm3 (0.0-0.4); Eosinophils % 3.9 % (0.1-12.0); Hematocrit 43.9 % (37.0-47.0); Hemoglobin 13.2 g/dL (12.2-16.2); Lymphocytes # 1.8 K/mm3 (0.7-4.5); Lymphocytes % 23.8 % (10-50); Mean Corpuscular Hemoglobin 28.3 pg (27.0-31.2); Mean Corpuscular Volume 94.4 fl (81-99); Mean Platelet Volume 7.8 fl (7.4-10.4); Monocytes # 0.3 K/mm3 (0.1-1.0); Monocytes % 3.7 % (1.7-9.3); Neutrophils # 5.2 K/mm3 (1.8-7.8); Neutrophils % 67.7 % (37.0-80.0); Platelet Count 356 K/mm3 (142-424); Potassium 4.1 mmoL/L (3.5-5.1); Red Blood Count 4.66 M/mm3 (4.20-5.40); Red Cell Distribution Width 15.5 % (11.5-17.5); Sodium 138 mmol/L (136-145); White Blood Count 7.7 K/mm3 (4.8-10.8)
[2023-11-15 13:53] LABS: Alanine Aminotransferase 20 U/L (12-78); Albumin/Globulin Ratio 1.1 (1.1-1.8); Alkaline Phosphatase 147 U/L (38-126); Anion Gap 11.1 mEq/L (5-15); Aspartate Amino Transferase 23 U/L (14-36); Bilirubin,Total 0.6 mg/dl (0.2-1.3); Blood Urea Nitrogen 5 mg/dl (7-17); Carbon Dioxide 31 mmol/L (22.0-30.0); Creatine Kinase 30 U/L (30-135); Creatinine Clearance Estimated 4 mL/min (50-200); Estimated Glomerular Filt Rate 102 ml/min (>60); GFR (African American) 124 ML/MIN (>60); Globulin 3.8 g/dL (1.3-3.2)
[2023-11-15 13:54] VITALS: BP 140/84; PULSE 84; RESP 18; TEMP 36.6; O2SAT 97
[2023-11-15 13:54] LABS: Calcium 9.2 mg/dl (8.4-10.2); Glucose 169 mg/dl (74-100)
[2023-11-15 13:58] LABS: C-Reactive Protein 42.6 mg/L (0-4)
[2023-11-15 14:48] LABS: Erythrocyte Sedimentation Rate 68 mm/hr (0-30)
== END 2023-11-15 13:56 | disposition home or self-care (01) ==
LOC: INF 13:28
PROVIDERS: PCP Family Medicine; Visit Provider Internal Medicine Infectious Disease
DX: T84.51XA Infection and inflammatory reaction due to internal right hip prosthesis, initial encounter (principal)
CPT/HCPCS: 36592; 80053; 82550; 85025; 85651; 86140

== ENCOUNTER 2023-11-22 13:02 | Outpatient (CLI) | payer OTHER, SELFPAY ==
[2023-11-22 13:08] VITALS: BMI 38.9
[2023-11-22 13:31] LABS: Basophils # 0.1 K/mm3 (0-0.2); Basophils % 1.3 % (0.1-2.0); Eosinophils # 0.4 K/mm3 (0.0-0.4); Hematocrit 39.5 % (37.0-47.0); Lymphocytes # 2.1 K/mm3 (0.7-4.5); Mean Corpuscular HGB Conc 32.9 g/dL (31.8-35.4); Mean Corpuscular Hemoglobin 29.3 pg (27.0-31.2); Mean Corpuscular Volume 88.9 fl (81-99); Mean Platelet Volume 8.8 fl (7.4-10.4); Monocytes # 0.4 K/mm3 (0.1-1.0); Neutrophils # 4.5 K/mm3 (1.8-7.8); Neutrophils % 60.6 % (37.0-80.0); Platelet Count 217 K/mm3 (142-424); Red Blood Count 4.44 M/mm3 (4.20-5.40); Red Cell Distribution Width 15.5 % (11.5-17.5); White Blood Count 7.4 K/mm3 (4.8-10.8)
[2023-11-22 13:42] LABS: Albumin Level 4.1 g/dl (3.5-5.0); Chloride 95 mmol/L (98-107); Potassium 4.2 mmoL/L (3.5-5.1); Sodium 133 mmol/L (136-145)
[2023-11-22 13:44] LABS: Blood Urea Nitrogen 10 mg/dl (7-17); Creatinine Clearance Estimated 159 mL/min (50-200); Estimated Glomerular Filt Rate 102 ml/min (>60); GFR (African American) 124 ML/MIN (>60)
[2023-11-22 13:45] LABS: Alanine Aminotransferase 24 U/L (12-78); Albumin/Globulin Ratio 1.2 (1.1-1.8); Alkaline Phosphatase 107 U/L (38-126); Anion Gap 8.2 mEq/L (5-15); Aspartate Amino Transferase 33 U/L (14-36); Bilirubin,Total 0.5 mg/dl (0.2-1.3); Calcium 9.2 mg/dl (8.4-10.2); Carbon Dioxide 34 mmol/L (22.0-30.0); Creatine Kinase 79 U/L (30-135); Globulin 3.5 g/dL (1.3-3.2); Glucose 261 mg/dl (74-100); Total Protein,Serum 7.6 g/dl (6.3-8.2)
[2023-11-22 13:51] LABS: C-Reactive Protein 39.9 mg/L (0-4)
[2023-11-22 15:17] LABS: Erythrocyte Sedimentation Rate 53 mm/hr (0-30)
== END 2023-11-22 13:40 | disposition home or self-care (01) ==
LOC: INF 13:02
PROVIDERS: PCP Family Medicine; Visit Provider Internal Medicine Infectious Disease
DX: T84.50XA Infection and inflammatory reaction due to unspecified internal joint prosthesis, initial encounter (principal)
CPT/HCPCS: 36592; 80053; 82550; 85025; 85651; 86140

== ENCOUNTER 2023-11-29 12:48 | Outpatient (CLI) | payer OTHER, SELFPAY ==
[2023-11-29 12:48] VITALS: BMI 38.9
[2023-11-29 13:01] LABS: Basophils # 0.1 K/mm3 (0-0.2); Basophils % 1.3 % (0.1-2.0); Eosinophils # 0.3 K/mm3 (0.0-0.4); Eosinophils % 4.1 % (0.1-12.0); Hematocrit 37.7 % (37.0-47.0); Hemoglobin 12.5 g/dL (12.2-16.2); Lymphocytes # 2.3 K/mm3 (0.7-4.5); Lymphocytes % 34.5 % (10-50); Mean Corpuscular HGB Conc 33.2 g/dL (31.8-35.4); Mean Corpuscular Volume 87.4 fl (81-99); Monocytes # 0.3 K/mm3 (0.1-1.0); Monocytes % 4.7 % (1.7-9.3); Neutrophils # 3.6 K/mm3 (1.8-7.8); Neutrophils % 55.4 % (37.0-80.0); Platelet Count 254 K/mm3 (142-424); Red Blood Count 4.32 M/mm3 (4.20-5.40); Red Cell Distribution Width 15.8 % (11.5-17.5); White Blood Count 6.5 K/mm3 (4.8-10.8)
[2023-11-29 13:07] LABS: Albumin Level 3.9 g/dl (3.5-5.0); Chloride 101 mmol/L (98-107); Sodium 136 mmol/L (136-145)
[2023-11-29 13:10] LABS: Alanine Aminotransferase 28 U/L (12-78); Albumin/Globulin Ratio 1.1 (1.1-1.8); Alkaline Phosphatase 110 U/L (38-126); Aspartate Amino Transferase 27 U/L (14-36); Bilirubin,Total 0.4 mg/dl (0.2-1.3); Blood Urea Nitrogen 10 mg/dl (7-17); Carbon Dioxide 31 mmol/L (22.0-30.0); Creatine Kinase 28 U/L (30-135); Creatinine Clearance Estimated 159 mL/min (50-200); Estimated Glomerular Filt Rate 102 ml/min (>60); GFR (African American) 124 ML/MIN (>60); Globulin 3.5 g/dL (1.3-3.2); Glucose 205 mg/dl (74-100); Total Protein,Serum 7.4 g/dl (6.3-8.2)
[2023-11-29 13:17] LABS: C-Reactive Protein 45.4 mg/L (0-4)
[2023-11-29 13:33] LABS: Erythrocyte Sedimentation Rate 55 mm/hr (0-30)
== END 2023-11-29 13:00 | disposition home or self-care (01) ==
LOC: INF 12:48
PROVIDERS: PCP Family Medicine; Visit Provider Internal Medicine Infectious Disease
DX: T84.59XA Infection and inflammatory reaction due to other internal joint prosthesis, initial encounter (principal)
CPT/HCPCS: 36592; 80053; 82550; 85025; 85651; 86140

== ENCOUNTER 2023-12-06 12:56 | Outpatient (CLI) | payer OTHER, SELFPAY ==
[2023-12-06 12:58] VITALS: BMI 33.4
[2023-12-06 13:43] LABS: Alanine Aminotransferase 22 U/L (12-78); Alkaline Phosphatase 123 U/L (38-126); Aspartate Amino Transferase 23 U/L (14-36); Bilirubin,Total 0.4 mg/dl (0.2-1.3); Blood Urea Nitrogen 8 mg/dl (7-17); Calcium 9.1 mg/dl (8.4-10.2); Carbon Dioxide 31 mmol/L (22.0-30.0); Creatinine Clearance Estimated 191 mL/min (50-200); Estimated Glomerular Filt Rate 126 ml/min (>60); GFR (African American) 153 ML/MIN (>60); Globulin 3.9 g/dL (1.3-3.2); Glucose 170 mg/dl (74-100); Total Protein,Serum 7.9 g/dl (6.3-8.2)
[2023-12-06 13:45] LABS: Basophils # 0.1 K/mm3 (0-0.2); Eosinophils # 0.3 K/mm3 (0.0-0.4); Eosinophils % 3.7 % (0.1-12.0); Hematocrit 41.3 % (37.0-47.0); Lymphocytes # 2.1 K/mm3 (0.7-4.5); Lymphocytes % 28.7 % (10-50); Mean Corpuscular HGB Conc 31.6 g/dL (31.8-35.4); Mean Corpuscular Hemoglobin 28.2 pg (27.0-31.2); Mean Corpuscular Volume 89.1 fl (81-99); Mean Platelet Volume 8.3 fl (7.4-10.4); Monocytes # 0.3 K/mm3 (0.1-1.0); Monocytes % 4.2 % (1.7-9.3); Neutrophils # 4.6 K/mm3 (1.8-7.8); Neutrophils % 62.3 % (37.0-80.0); Platelet Count 274 K/mm3 (142-424); Red Blood Count 4.63 M/mm3 (4.20-5.40); Red Cell Distribution Width 15.6 % (11.5-17.5); White Blood Count 7.4 K/mm3 (4.8-10.8)
[2023-12-06 13:48] LABS: C-Reactive Protein 33.1 mg/L (0-4)
[2023-12-06 13:55] LABS: Creatine Kinase 26 U/L (30-135)
[2023-12-06 14:55] LABS: Erythrocyte Sedimentation Rate 9 mm/hr (0-30)
[2023-12-06 15:06] LABS: Anion Gap 9.1 mEq/L (5-15); Chloride 100 mmol/L (98-107); Potassium 4.1 mmoL/L (3.5-5.1); Sodium 136 mmol/L (136-145)
== END 2023-12-06 13:25 | disposition home or self-care (01) ==
LOC: INF 12:57
PROVIDERS: PCP Internal Medicine Infectious Disease; Visit Provider Internal Medicine Infectious Disease
DX: T84.51XA Infection and inflammatory reaction due to internal right hip prosthesis, initial encounter (principal)
CPT/HCPCS: 36592; 80053; 82550; 85025; 85651; 86140

== ENCOUNTER 2024-01-11 16:25 | Emergency (ER) | payer OTHER, SELFPAY ==
--- NOTE | 2024-01-11 16:34 | ED_ITS ---
Discharge Plan Disposition Patient Disposition: Home, Self-Care Condition: Good Prescriptions Prescriptions: New ketorolac 10 mg tablet 10 mg PO Q8H PRN (Reason: pain) 5 Days Qty: 20 0RF No Action benazepril 5 mg tablet 5 mg PO DAILY metoprolol succinate 25 mg tablet extended release 24 hr PO fluticasone propionate 110 mcg/actuation HFA aerosol inhaler inhalation Patient Comments: INHALE TWO PUFFS BY MOUTH TWICE DAILY quetiapine [Seroquel] 400 mg tablet 400 mg PO BID buprenorphine-naloxone [Suboxone] 8-2 mg film 1 film buccal BID gabapentin 800 mg tablet 800 mg PO QID fluoxetine 40 MG capsule 40 mg PO DAILY clindamycin HCl 300 mg capsule 300 mg PO Q8H 7 Days Qty: 21 0RF atorvastatin 80 MG tablet 80 mg PO HS tizanidine 4 mg tablet 12 mg PO HS Patient Comments: TAKE TWO TABLETS BY MOUTH EVERY DAY IN THE MORNING and TAKE THREE TABLETS EVERY DAY IN THE EVENING AT BEDTIME MAY CAUSE DROWSINESS tizanidine 4 mg tablet 8 mg PO DAILY Patient Comments: TAKE TWO TABLETS BY MOUTH EVERY DAY IN THE MORNING and TAKE THREE TABLETS EVERY DAY IN THE EVENING AT BEDTIME MAY CAUSE DROWSINESS albuterol sulfate [Ventolin HFA] 90 mcg/actuation HFA aerosol inhaler 2 puff INHALATION QIDP PRN (Reason: Shortness Of Breath) Patient Comments: INHALE 2 puffs BY MOUTH FOUR TIMES DAILY NEEDED --SHAKE WELL BEFORE USE-- levothyroxine 100 mcg tablet 100 mcg PO DAILY Patient Comments: TAKE ONE TABLET BY MOUTH EVERY DAY metformin 1,000 mg tablet 1,000 mg PO BID Patient Comments: TAKE ONE TABLET BY MOUTH TWICE DAILY ezetimibe 10 mg tablet 10 mg PO DAILY Patient Comments: TAKE ONE TABLET BY MOUTH EVERY DAY insulin glargine [Lantus Solostar U-100 Insulin] 100 unit/mL (3 mL) insulin pen 60 unit SQ DAILY Patient Comments: inject 60 UNITS SUBCUTANEOUSLY EVERY DAY Referrals Follow up/Referrals: Kiran Shirley MD [Primary Care Provider] - See instructions Activity Restrictions/Add. Instructions Additional Instructions/Restrictions: Please call and make an appointment to follow-up with Dr. Carmen Bonilla. Return for any increasing pain fever redness inability to bear weight. I have sent a prescription for Toradol into your pharmacy. Clinical Impressions Clinical Impression: Arthralgia of knee, right Instructions Patient Instructions: DI for Arthralgia, DI for Knee Pain Print Language Print Language: Japanese Discharge ED Provider: Waldo Marsh General Adult HPI <LISANDRO Bang - Last Filed: 01/11/24 21:20> General Chief complaint: Extremity Problem,Nontraumatic Stated complaint: RT knee pain Time Seen by Provider: 01/11/24 16:34 History of Present Illness HPI narrative: Patient presents for evaluation of right knee pain. Patient has been having right knee pain over the last week. She has a history of a right TKA approximately 10 years ago. She denies any trauma. She also reports that her skin is itchy and has been scratching a lot over the area. She denies any fever chills hemoptysis hematochezia melena nausea vomiting diarrhea. She reports that she is able to bear weight but it is painful on the lateral aspect of her knee. Related Data Home Medications ?Medication ?Instructions ?Recorded ?Confirmed atorvastatin 80 mg tablet 80 mg PO HS Cholesterol 04/28/17 07/20/23 fluoxetine 40 mg capsule 40 mg PO DAILY Depression 04/23/18 07/20/23 albuterol sulfate 90 mcg/actuation 2 puff inhalation QIDP PRN 02/08/22 07/20/23 aerosol inhaler (Ventolin HFA) Shortness Of Breath ezetimibe 10 mg tablet 10 mg PO DAILY Cholesterol 02/08/22 07/20/23 insulin glargine 100 unit/mL (3 60 unit SQ DAILY Diabetes 02/08/22 07/20/23 mL) subcutaneous pen (Lantus Solostar U-100 Insulin) levothyroxine 100 mcg tablet 100 mcg PO DAILY THYROID 02/08/22 07/20/23 metformin 1,000 mg tablet 1,000 mg PO BID Diabetes 02/08/22 07/20/23 tizanidine 4 mg tablet 8 mg PO DAILY MUSCLE PAIN 02/08/22 07/20/23 tizanidine 4 mg tablet 12 mg PO HS MUSCLE PAIN 02/08/22 07/20/23 benazepril 5 mg tablet 5 mg PO DAILY 07/20/23 07/20/23 buprenorphine 8 mg-naloxone 2 mg 1 film buccal BID 07/20/23 07/20/23 sublingual film (Suboxone) fluticasone propionate 110 inhalation 07/20/23 07/20/23 mcg/actuation HFA aerosol inhaler gabapentin 800 mg tablet 800 mg PO QID 07/20/23 07/20/23 metoprolol succinate 25 mg mg PO 07/20/23 07/20/23 tablet,extended release 24 hr quetiapine 400 mg tablet (Seroquel) 400 mg PO BID 07/20/23 07/20/23 Previous Rx's ?Medication ?Instructions ?Recorded clindamycin HCl 300 mg capsule 300 mg PO Q8H 7 days #21 caps 10/24/23 ketorolac 10 mg tablet 10 mg PO Q8H PRN pain 5 days #20 01/11/24 tabs Allergies Allergy/AdvReac Type Severity Reaction Status Date / Time codeine Allergy Unknown Unknown Verified 01/11/24 16:53 allergy reaction duloxetine (From Cymbalta) Allergy Unknown Unknown Verified 01/11/24 16:53 allergy reaction [facility] <LISANDRO Bang - Last Filed: 01/11/24 21:20> [facility] Disclaimer: The information contained in this section may have been updated after the patient was seen, as this information can be updated by other users. Medical History Thyroid disease Sleep apnea Degenerative disc disease Diabetes mellitus type 2 in obese Hyperlipemia Depression Anxiety Burn of left foot UTI (urinary tract infection) Bilateral sacroiliitis Chronic low back pain COPD exacerbation Esophageal obstruction due to food impaction Concussion without loss of consciousness Chronic pain disorder Therapeutic opioid-induced constipation (OIC) Congestive heart failure Surgical History History of hysterectomy Hx of cholecystectomy History of right wrist replacement Hx of tubal ligation History of History of total bilateral knee replacement Family History Other Cancer Family history of diabetes mellitus type II Family history of hypertension Family history of myocardial infarction Stroke Social History (Updated 12/06/23 @ 14:33 by Kerrie Mendes RN) Smoking Status: Current every day smoker tobacco type: cigarettes packs per day: 1 second hand exposure: No alcohol intake: never substance use type: denies use current occupational status: unemployed household members: none housing: house current occupational exposures/hazards: No caffeine: Yes Other Medical History Have you received the Flu Vaccine for this season: No Have you received the Pneumonia Vaccine: No <LISANDRO Bang - Last Filed: 01/11/24 21:20> ROS Obtained: Yes Systems reviewed as appropriate & no additional complaints except as documented Physical Exam <LISANDRO Bang - Last Filed: 01/11/24 21:20> General General appearance: alert and in no apparent distress Respiratory Respiratory exam: Present normal lung sounds bilaterally Cardiovascular Cardiovascular exam: Present regular rate Neurological Exam Neurological exam: Present alert and oriented X3 Medical Decision Making <LISANDRO Bang - Last Filed: 01/11/24 21:20> Medical Records Medical records reviewed: Yes I reviewed the patient's medical records. Screening: Per USPSTF and CDC recommendations, given the prevalence of disease in our region, it is our hospital?s policy to screen for HIV and viral Hepatitis for all patients aged 18 and over and those with ongoing risk factors. Casimiro Inquiry Pt receiving controlled substance: No Vital Signs: 01/11/24 16:35 01/11/24 17:00 01/11/24 17:31 Temperature 98.3 F Temperature Source Oral Pulse Rate 90 90 Pulse Rate [Left] 97 H Respiratory Rate 16 Blood Pressure 142/73 H 121/48 L Blood Pressure [Right Arm] 155/73 H Blood Pressure Mean [Right Arm] 100 Blood Pressure Source [Right Arm] Automatic Cuff Blood Pressure Position [Right Arm] Sitting 02 Sat by Pulse Oximetry 99 96 97 Oxygen Delivery Method Room Air 01/11/24 18:00 01/11/24 19:00 Temperature 98.1 F Temperature Source Pulse Rate 85 91 H Pulse Rate [Left] Respiratory Rate 20 Blood Pressure 131/72 131/72 Blood Pressure [Right Arm] Blood Pressure Mean [Right Arm] Blood Pressure Source [Right Arm] Blood Pressure Position [Right Arm] 02 Sat by Pulse Oximetry 98 Oxygen Delivery Method Room Air Lab Data Lab results reviewed: Yes I reviewed the patient's lab results. Lab Results 01/11/24 16:51: WBC 8.0, RBC 5.06, Hgb 13.8, Hct 43.5, MCV 86.1, MCH 27.3, MCHC 31.8, RDW 16.6, Plt Count 202, MPV 9.0, Neut % (Auto) 64.1, Lymph % (Auto) 28.7, [place] % (Auto) 4.3, Eos % (Auto) 2.0, Baso % (Auto) 0.9, Neut # (Auto) 5.1, Lymph # (Auto) 2.3, [place] # (Auto) 0.3, Eos # (Auto) 0.2, Baso # (Auto) 0.1, ESR 14, Sodium 140, Potassium 4.4, Chloride 100, Carbon Dioxide 34 H, Anion Gap 10.4, BUN 10, Creatinine 0.60, Estimated Creat Clear 159, Estimated GFR 102, Est GFR ( Amer) 124, Glucose 162 H, Calcium 9.1, C-Reactive Protein 15.3 H 01/11/24 16:51 01/11/24 16:51 Orders (Tests/Meds): ED MEDICATIONS Discontinued Medications Generic Name Dose Route Start Last Admin Trade Name Freq PRN Reason Stop Dose Admin Ketorolac Tromethamine 15 mg 01/11/24 16:35 01/11/24 16:56 Ketorolac 30mg/Ml Vial IV 01/11/24 16:36 15 mg ONCE ONE Administration Sodium Chloride 10 ml 01/11/24 16:54 Sodium Chloride 0.9% 10ml Flush Syringe IV 02/10/24 16:53 NEEDED PRN Maintain IV Site ORDERS Category Date Time Status Knee XR right 3 views [XR knee RT 3V] Stat Exams 01/11/24 16:35 Completed BMP [Basic Metabolic Panel] Stat Lab 01/11/24 16:51 Completed CBC w/Auto Diff [Complete Blood Count Auto Diff] Stat Lab 01/11/24 16:51 Completed CRP [C-Reactive Protein] Stat Lab 01/11/24 16:51 Completed ESR [Erythrocyte Sedimentation Rate] Stat Lab 01/11/24 16:51 Completed Medical Decision Narrative: In summary patient is a 58-year-old female who presents to the emergency department for evaluation of right knee pain. Patient is hemodynamically stable upon arrival, febrile. Physical exam is remarkable for right medial knee pain on palpation. There is no warmth to the joint. It appears to be swollen and has tender range of motion. There are excoriations on the medial aspect as well but no fluctuance or ecchymosis. Patient is neurovascular intact distally. . Differential diagnosis includes hardware failure versus infection versus early cellulitis etc. Initial workup will be conducted with plain film x-rays hematologic labs and I considered a POCUS however patient has no concerning physical exam findings suggestive of deep space abscess thus deferred. Initial interventions include crystalloid bolus Toradol Tylenol. Initial workup reviewed by me shows her hematologic labs are remarkable for a normal white count with no shift CRP is elevated at 15.3 my informal interpretation of her plain film imaging shows no hardware failure does show mild joint effusion and osteoarthritis but no other acute bony injuries. Upon repeat evaluation patient had significant improvement after dose of Toradol.. Given this patient is referred back to her orthopedic surgeon Dr. Gregorio in [place] with a prescription for Toradol and strict return precautions. <Waldo Marsh MD - Last Filed: 01/11/24 21:46> Vital Signs: 01/11/24 16:35 01/11/24 17:00 01/11/24 17:31 Temperature 98.3 F Temperature Source Oral Pulse Rate 90 90 Pulse Rate [Left] 97 H Respiratory Rate 16 Blood Pressure 142/73 H 121/48 L Blood Pressure [Right Arm] 155/73 H Blood Pressure Mean [Right Arm] 100 Blood Pressure Source [Right Arm] Automatic Cuff Blood Pressure Position [Right Arm] Sitting 02 Sat by Pulse Oximetry 99 96 97 Oxygen Delivery Method Room Air 01/11/24 18:00 01/11/24 19:00 Temperature 98.1 F Temperature Source Pulse Rate 85 91 H Pulse Rate [Left] Respiratory Rate 20 Blood Pressure 131/72 131/72 Blood Pressure [Right Arm] Blood Pressure Mean [Right Arm] Blood Pressure Source [Right Arm] Blood Pressure Position [Right Arm] 02 Sat by Pulse Oximetry 98 Oxygen Delivery Method Room Air Lab Data Lab Results 01/11/24 16:51: WBC 8.0, RBC 5.06, Hgb 13.8, Hct 43.5, MCV 86.1, MCH 27.3, MCHC 31.8, RDW 16.6, Plt Count 202, MPV 9.0, Neut % (Auto) 64.1, Lymph % (Auto) 28.7, [place] % (Auto) 4.3, Eos % (Auto) 2.0, Baso % (Auto) 0.9, Neut # (Auto) 5.1, Lymph # (Auto) 2.3, [place] # (Auto) 0.3, Eos # (Auto) 0.2, Baso # (Auto) 0.1, ESR 14, Sodium 140, Potassium 4.4, Chloride 100, Carbon Dioxide 34 H, Anion Gap 10.4, BUN 10, Creatinine 0.60, Estimated Creat Clear 159, Estimated GFR 102, Est GFR ( Amer) 124, Glucose 162 H, Calcium 9.1, C-Reactive Protein 15.3 H Orders (Tests/Meds): ED MEDICATIONS Discontinued Medications Generic Name Dose Route Start Last Admin Trade Name Dani PRN Reason Stop Dose Admin Ketorolac Tromethamine 15 mg 01/11/24 16:35 01/11/24 16:56 Ketorolac 30mg/Ml Vial IV 01/11/24 16:36 15 mg ONCE ONE Administration Sodium Chloride 10 ml 01/11/24 16:54 Sodium Chloride 0.9% 10ml Flush Syringe IV 02/10/24 16:53 NEEDED PRN Maintain IV Site ORDERS Category Date Time Status Knee XR right 3 views [XR knee RT 3V] Stat Exams 01/11/24 16:35 Completed BMP [Basic Metabolic Panel] Stat Lab 01/11/24 16:51 Completed CBC w/Auto Diff [Complete Blood Count Auto Diff] Stat Lab 01/11/24 16:51 Completed CRP [C-Reactive Protein] Stat Lab 01/11/24 16:51 Completed ESR [Erythrocyte Sedimentation Rate] Stat Lab 01/11/24 16:51 Completed Medical Decision Narrative: In summary patient is a 58-year-old female who presents to the emergency department for evaluation of right knee pain. Patient is hemodynamically stable upon arrival, febrile. Physical exam is remarkable for right medial knee pain on palpation. There is no warmth to the joint. It appears to be swollen and has tender range of motion. There are excoriations on the medial aspect as well but no fluctuance or ecchymosis. Patient is neurovascular intact distally. . Differential diagnosis includes hardware failure versus infection versus early cellulitis etc. Initial workup will be conducted with plain film x-rays hematologic labs and I considered a POCUS however patient has no concerning physical exam findings suggestive of deep space abscess thus deferred. Initial interventions include crystalloid bolus Toradol Tylenol. Initial workup reviewed by me shows her hematologic labs are remarkable for a normal white count with no shift CRP is elevated at 15.3 my informal interpretation of her plain film imaging shows no hardware failure does show mild joint effusion and osteoarthritis but no other acute bony injuries. Upon repeat evaluation patient had significant improvement after dose of Toradol.. Given this patient is referred back to her orthopedic surgeon Dr. Gregorio in [place] with a prescription for Toradol and strict return precautions. I was consulted by the REY, and we discussed the complexity of the problems being addressed.I approved the treatment and management plan for this patient?s care in the Emergency Department, thus performing a substantive portion of the medical decision making.Signed, Waldo Marsh MD Critical Care <LISANDRO Bang - Last Filed: 01/11/24 21:20> Critical Care Time Critical Care Time: No
[2024-01-11 16:35] VITALS: BP 155/73; PULSE 97; RESP 16; TEMP 36.8; O2SAT 99; BMI 38.9
--- NOTE | 2024-01-11 16:35 | XR_ITS ---
PROCEDURE INFORMATION: Exam: XR Right Knee Exam date and time: 01/11/2024 4:46 PM Age: 58 years old Clinical indication: Pain; Knee; Right; Prior surgery; Surgery date: 6+ months; Surgery type: Previous tka; Additional info: Knee pain, previous tka TECHNIQUE: Imaging protocol: Radiologic exam of the right knee. Views: 3 views. COMPARISON: No relevant prior studies available. FINDINGS: Tubes, catheters and devices: No evidence of hardware malfunction. Bones/joints: Postoperative changes consistent with total right knee arthroplasty. No evidence of acute osseous injury. Soft tissues: Normal. IMPRESSION: 1. Postoperative changes consistent with total right knee arthroplasty. 2. No evidence of hardware malfunction.
[2024-01-11] MEDS: KETOROLAC 30MG/ML VIAL 15 MG IV (16:56)
[2024-01-11 17:00] VITALS: BP 142/73; PULSE 90; O2SAT 96
[2024-01-11 17:06] LABS: Chloride 100 mmol/L (98-107); Potassium 4.4 mmoL/L (3.5-5.1); Sodium 140 mmol/L (136-145)
[2024-01-11 17:09] LABS: Anion Gap 10.4 mEq/L (5-15); Blood Urea Nitrogen 10 mg/dl (7-17); Calcium 9.1 mg/dl (8.4-10.2); Carbon Dioxide 34 mmol/L (22.0-30.0); Creatinine Clearance Estimated 159 mL/min (50-200); Estimated Glomerular Filt Rate 102 ml/min (>60); GFR (African American) 124 ML/MIN (>60); Glucose 162 mg/dl (74-100)
[2024-01-11 17:15] LABS: C-Reactive Protein 15.3 mg/L (0-4)
[2024-01-11 17:19] LABS: Basophils # 0.1 K/mm3 (0-0.2); Basophils % 0.9 % (0.1-2.0); Eosinophils # 0.2 K/mm3 (0.0-0.4); Hematocrit 43.5 % (37.0-47.0); Hemoglobin 13.8 g/dL (12.2-16.2); Lymphocytes # 2.3 K/mm3 (0.7-4.5); Lymphocytes % 28.7 % (10-50); Mean Corpuscular HGB Conc 31.8 g/dL (31.8-35.4); Mean Corpuscular Hemoglobin 27.3 pg (27.0-31.2); Mean Corpuscular Volume 86.1 fl (81-99); Monocytes # 0.3 K/mm3 (0.1-1.0); Monocytes % 4.3 % (1.7-9.3); Neutrophils # 5.1 K/mm3 (1.8-7.8); Neutrophils % 64.1 % (37.0-80.0); Platelet Count 202 K/mm3 (142-424); Red Blood Count 5.06 M/mm3 (4.20-5.40); Red Cell Distribution Width 16.6 % (11.5-17.5)
[2024-01-11 17:31] VITALS: BP 121/48; PULSE 90; O2SAT 97
[2024-01-11 17:46] LABS: Erythrocyte Sedimentation Rate 14 mm/hr (0-30)
[2024-01-11 18:00] VITALS: BP 131/72; PULSE 85; O2SAT 98
[2024-01-11 19:00] VITALS: BP 131/72; PULSE 91; RESP 20; TEMP 36.7; O2SAT 97
== END 2024-01-11 19:03 | disposition home or self-care (01) ==
PROVIDERS: Physician Assistant; Emergency Provider Emergency Medicine; PCP Family Medicine
DX: M25.561 Pain in right knee (principal); L29.9 Pruritus, unspecified
CPT/HCPCS: 73562; 80048; 85025; 85651; 86140; 96374; 99283; J1885

== ENCOUNTER 2024-09-21 13:58 | Outpatient (CLI) | payer OTHER, SELFPAY ==
--- OUTSIDE RECORDS SUMMARY | 2024-09-21 14:01 | XMS_ITS | Clinical Summary ---
Author Organization [facility] Address [address] [place] [address] Care Team Providers Care Forensic Structural Engineer Name Role Phone Kiran Shirley MD Primary Care Provider Allergies Active Allergy Reactions Criticality Noted Date Comments Codeine Itching Medium 02/08/2022 Duloxetine Swelling High 02/08/2022 Sulfa Antibiotics Other (See Comments) Low 11/14/19 16 Yeast Infection Medications tiZANidine (ZANAFLEX) 4 MG tablet Take 1 tablet by mouth Every 6 (Six) Hours As Needed. 4 Active QUEtiapine (SEROquel) 400 MG tablet Take 1 tablet by mouth Daily. 4 Active nystatin-triamc inolone (MYCOLOG II) 775125-3.1 UNIT/GM-% cream APPLY TOPICALLY TO THE AFFECTED AREA(S) TWICE DAILY DIRECTED -- FOR EXTERNAL USE ONLY-- 3 Active metoprolol succinate XL (TOPROL-XL) 25 MG 24 hr tablet Take 1 tablet by mouth Daily. 4 Active metFORMIN (GLUCOPHAGE) 1000 MG tablet Take 1 tablet by mouth Every 12 (Twelve) Hours. 4 Active levothyroxine (SYNTHROID, LEVOTHROID) 100 MCG tablet Take 1 tablet by mouth Daily. 4 Active Lantus SoloStar 100 UNIT/ML injection pen Inject 40 Units under the skin into the appropriate area as directed Daily. Active gabapentin (NEURONTIN) 800 MG tablet TAKE ONE TABLET BY MOUTH FOUR TIMES DAILY MAY CAUSE DROWSINESS 4 Active furosemide (LASIX) 40 MG tablet Take 1 tablet by mouth As Needed. 4 Active Flovent HFA 110 MCG/ACT inhaler INHALE TWO PUFFS BY MOUTH TWICE DAILY --RINSE MOUTH AFTER USE-- 3 Active FLUoxetine (PROzac) 40 MG capsule Take 1 capsule by mouth Daily. 3 Active ezetimibe (ZETIA) 10 MG tablet Take 1 tablet by mouth Daily. 4 Active Farxiga 5 MG tablet tablet Take 1 tablet by mouth Daily. 4 Active buprenorphine-n aloxone (SUBOXONE) 8-2 MG per SL tablet DISSOLVE 2 TABLETS UNDER THE TONGUE ONCE DAILY 4 Active benazepril (LOTENSIN) 10 MG tablet Take 0.5 tablets by mouth Daily. 4 Active atorvastatin (LIPITOR) 80 MG tablet Take 1 tablet by mouth Daily. 4 Active amLODIPine-trang zepril (LOTREL) 10-20 MG per capsule Take 1 capsule by mouth Daily. Active Active Problems No known active problems Family History Medical History Relation Name Comments Cancer Father Cancer Paternal Grandmother Relation Name Status Comments Father Paternal Grandmother Social History Tobacco Use Types Packs/Day Years Used Date Smoking Tobacco: Some Days Cigarettes 1 47 Passive Smoke Exposure: Current Smokeless Tobacco: Never Tobacco Cessation:Ready to Q uit: Yes; Counseling Given: Not Answered Alcohol Use Standard Drinks/Week Comments Not Currently 0 (1 standard drink = 0.6 oz pur e alcohol) Abuse Screen Answer Date Recorded Unsafe at Home or Work/School Not on file Feels Threatened by Someone? Not on file Does Anyone Keep You from Co ntacting Others or Doint Things Outside the Home? Not on file 11/27/2022 Physical Sign of Abuse Present Not on file 1 Housing Stability Answer Date Recorded Current Living Arrangements Not on file 11/15 Potentially Unsafe Housing Conditions Not on estela e 11/27/2022 Family and Community Support Answer Chay e Recorded Help with Day-to-Day Activities Not on file 11/27/2022 Lonely or Isolated Not on file 11/27/2022 Employment Answer Date Recorded Do you want help finding or keeping work or a marisa b? Not on file 11/27/2022 Disabilities Answer Date Recorded Concentrating, Remembering, or Making Decisions Difficulty Not on file 11/27/2022 Doing Errands Independently Difficulty Not on fi le 11/27/2022 Education Answer Date Recorded Help with school or training? Not on file Preferred Language Not on file 11/27/2022 Comments Unknown Sex and Gender Information Value Date Recorded Sex Assigned at Not on file Legal Sex Female 10:12 AM EDT Gender Identity Not on file Sexual Orientation Not on file Last Filed Vital Signs Vital Sign Reading Time Taken Comments Blood Pressure - - Pulse - - Temperature - - Respiratory Rate - - Oxygen Saturation - - Inhaled Oxygen Concentration - - Weight 98.9 kg (218 lb) 03/08/2023 2:30 PM EST Height 160 cm (5' 3 ) 03/08/2023 2:30 PM EST pt reported Body Mass Index 38.62 03/08/2023 2:30 PM EST Plan of Treatment Health Maintenance Due Date Last Done Comments Annual Gynecologic Pelvic an d Breast Exam 1964 MAMMOGRAM 2004 COLOGUARD 2009 COLON CANCER SCREENING 5 YEA R SIGMOIDOSCOPY 2009 COLONOSCOPY 2009 [address] CANCER SCREENING 2009 [address] COLONOGRAPHY 2009 FECAL OCCULT BLOOD TEST 2009 FIT Testing (1 year) 2009 ZOSTER VACCINE (2 of 2) 01/21/2021 11/26/2020 Pneumococcal Vaccine 50+ (2 of 2 - PCV) 12/06/2021 12/06/2020, 04/25/2018 ANNUAL PHYSICAL 03/08/2023 COVID-19 Vaccine (1 - 2023-2 5 season) 2023 INFLUENZA VACCINE 11/15/2024 11/26/2020, , 11/18/2009 TDAP/TD VACCINES (3 - Td or Tdap) 12/06/2030 021, 02/02/2007 LUNG CANCER SCREENING Discontinued 10/22/2015 HEPATITIS C SCREENING Completed 05/22/2022, 023 HEMOGLOBIN A1C Discontinued 11/17/2022, 02/08/2022 [facility] Care Teams Forensic Structural Engineer Relationship Specialty Start Date End Date Kiran Shirley MD [address] [id number] [address] [place] [id number] PCP - General Family Medicine 07/22/22
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
== END 2024-09-21 23:59 | disposition home or self-care (01) ==
LOC: RAD 13:58
PROVIDERS: PCP Family Medicine; Visit Provider Physician Assistant
DX: J40 Bronchitis, not specified as acute or chronic (principal)
CPT/HCPCS: 71046

== ENCOUNTER 2024-12-11 14:48 | Outpatient (RCR) | payer OTHER, SELFPAY ==
--- NOTE | 2024-12-11 16:02 | HMH.PTOPEV ---
PT Evaluation Rehab PT Outpatient Evaluation Start: 12/11/24 14:58 Freq: Status: Active Protocol: Document 12/11/24 14:58 DEVEN (Rec: 12/11/24 15:53 DEVEN [id number]) E-signed By Rory Abebe, PT Outpatient Therapy Subjective History Subjective History Pt is a 59 yof who is referred to [facility] outpatient PT with complaints of chronic low back pain. Pt reports that she has dealt with low back pain for approximately 10 years. Pt reports that in the past 6 months, it has progressed to the point where she is only able to walk 50-60 ft at a time before she has excruciating pain in her lower back and requires to sit down. Pt reports that the pain subsides almost completely with sitting. Pt reports that bending over will also provide her some quick relief. 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 Pt reports that she uses a SP Cane for all mobility. Pt denies falls. PMH: hx of CVA, hx SAVI (x2), TKA (x2), T2DM, HTN, HLD, current smoker New diagnosis of No cancer in past 12 months? Chief Complaint Pain,Stiff,Weakness Symptom Type Ache,Throb,Sharp Symptoms Relieved By OTC Meds,Prescription Meds Symptoms Aggravated Standing,Walking,Lifting By Prior Functional None Limitations Current Functional Lifting,Housework,Standing,Squatting,Walking,Stairs Limitations Symptom Description Intermittent,Activity Dependent Level of pain today 10 (0-10) Pain scale - at its 0 best (0-10) Pain scale - at its 10 worst (0-10) Lumbopelvic Eval Posture Thoracic Spine Increased Kyphosis Posture Standing Position Lumbar Spine Posture Flexed Standing Position Assistive device Assistive Devices Straight Cane Gait Observation General Gait Pattern Hips Posterior to JIO Observation Palapation tenderness bilateral lumbar spinal Yes: L4-S1 TTP 4/4 tenderness paraspinal Yes: L4-S1 TTP 4/4 tenderness Accessory Movement L4 bilateral L5 bilateral S1 bilateral Range of Motion Lumbar Spine Active 65 Flexion Range of Motion (degrees) Lumbar Spine Active 5 Extension Range of Motion (degrees) Left Lumbar Spine 40 Lateral Flexion Active Range of Motion (degrees) Right Lumbar Spine 40 Lateral Flexion Active Range of Motion (degrees) Lumbar Spine ROM Soft Tissue Tightness,Pain Limitations Manual Muscle Test Bilateral Knee Extension 5 Normal Strength Grade Knee Flexion 5 Normal Strength Grade Hip Flexion Strength 4+ Good+ Grade Hip Abduction 4 Good Strength Grade Hip Adduction 4- Good- Strength Grade Ankle Dorsiflexion 5 Normal Strength Grade DTR Rt Patellar 2+ Lt Patellar 2+ Rt Gastroc/Soleus 1+ Lt Gastroc/Soleus 1+ Altered Sensation Bilateral Comment Intact to LT grossly and symmetrically Special Tests Lumbar Spine Screen Positive Forward Bending Test Negative Left,Negative Right - Standing Hip Scouring ( Negative Left,Negative Right Quadrant) Test Sciatic Nerve Negative Left,Negative Right Tension Test Reverse Sciatic Negative Left,Negative Right Nerve Tension Test Crossed Straight Leg Negative Left,Negative Right Raise Test Hip Faye's Test Negative Left,Negative Right Sacroiliac Joint Negative Left,Negative Right Compression Test Sacroiliac Joint Negative Left,Negative Right Distraction Test Oswestry Index Section 1 Pain Intensity The pain comes and goes and is severe Section 2 Personal Care ( increase the pain and I find it necessary to change my Washing,Dresing) way of doing it Section 3 Lifting I can lift heavy weights, but it gives me extra pain Section 4 Walking I cannot walk at all without increasing pain Section 5 Sitting I can sit in my favorite chair for as long as I like Section 6 Standing I avoid standing because it increases the pain immediately Section 7 Sleeping Because of my pain, my normal night's sleep is less than 4 hours Section 8 Social Life Pain has restricted my social life and I do not go out often Section 9 Traveling I get some pain when traveling, but none of my usual forms of travel m Section 10 Changing Degreee of My pain is rapidly getting worse Pain Score and Risk Level Oswestry Score 31 Oswestry Risk Level Severe Disability Miscellaneous Dx PT Eval Objective Objective Double Leg Lowering Test: + Outpatient Therapy Assessment Impairments Problems/ Palpation Tenderness,Impaired Range of Motion,Impaired Impairmments Strength,Impaired Gait Pattern,Impaired Walking, Impaired Standing,Impaired Household Care,Impaired Stair Climbing,Impaired Squatting,Impaired Balance, Subjective C/O Pain,Impaired Self Care/Self Management Prognosis Rehab Potential Fair Comment w HEP compliance Clinical Impression Consistent with Yes Diagnosis Consistent with Lumbar Stenosis Additional details: Pt presents with signs and symptoms consistent with lumbar stenosis. PT Patient Goals PT Patient Goals PT Short Term In 4 weeks: Patient Goals 1. Patient will report a 48 hour average pain of 5/10 on the numeric pain rating scale to demonstrate improvement in quality of life and increased functional capacity. 2. Patient will improve b/l hip abductor strength upon manual muscle testing to 4+/5 facilitate increased spinal stabilization and improved functional capabilities. 3. Patient will demonstrate a reduction in trigger point sensitivity to Grade 2 with manual palpation to improve comfort during activity and soft tissue mobility. 4. Patient will improve lumbar ROM extension to 10 degrees to demonstrate improved movement patterns with functional mobility and ADLs. 5. Patient will be able to stand for 15 minutes at one time to demonstrate independence with team guide, such as washing her dishes. 6. Pt will demonstrate HEP compliance by completing prescribed HEP 4-5x/week. 7. Pt will improve JAY score to 28 to demonstrate improved functional mobility, overall improvement and improved quality of life. PT Retirement Patient In 8 weeks: Goals 1. Patient will report a 48 hour average pain of 2-3/10 on the numeric pain rating scale to demonstrate improvement in quality of life and increased functional capacity. 2. Patient will improve R hip abductor strength upon manual muscle testing to 5/5 facilitate increased spinal stabilization and improved functional capabilities. 3. Patient will demonstrate a reduction in trigger point sensitivity to Grade 0-1 with manual palpation to improve comfort during activity and soft tissue mobility. 4. Patient will improve lumbar extension to 15-20 degrees to demonstrate improved movement patterns with functional mobility and ADLs. 5. Patient will be able to stand/walk for 1 hour at one time to demonstrate improved community ambulation for activities, such as grocery shopping and other activities. 6. Pt will be able to lift a 10# weight from floor with proper lifting mechanics and less than 2/10 pain to demonstrate the ability to lift items, such as grocery bags, milk jugs, laundry basket, etc. 7. Pt will improve JAY score to 24 to demonstrated improved functional mobility, overall improvement and improved quality of life. Outpatient Therapy Plan of Care Treatment Plan May Include Therapeutic Exercise Yes Including Home Exercise Program Manual Therapy Yes Techniques Neuromuscular Re- Yes education Therapeutic Yes Activities to Return to Previous Functional/Work Level Gait Training Yes ADL/Self Care Yes Education Dry Needling Yes Thermal Modalities Yes Electrical Yes Stimulation Ultrasound/ Yes Phonophoresis Iontophoresis Yes Massage Yes Manual Lymphatic Yes Drainage Eval/Re-Eval Yes Frequency Times per week 2 Duration Number of Weeks 8 Addendums This patient is a No candidate for social or vocational rehab ? Patient/Guardian Yes verbally acknowledges understanding of treatment program and consents to further treatment? Patient/Guardian Yes verbally acknowledges understanding of diagnosis, prognosis and goals for treatment? Eval Complexity PT Charges 52392 - High Complexity Shoulder/Elbow Eval Shoulder Objective Measurements Elbow Objective Measurements PHYSICIAN CERTIFICATION: I certify the specified therapy services for Shoshanabryant Garcia are required, authorized, and reviewed every 30 days.
== END 2024-12-11 23:59 | disposition home or self-care (01) ==
LOC: PT 14:48
PROVIDERS: PCP Family Medicine; Visit Provider Family Medicine
DX: M47.27 Other spondylosis with radiculopathy, lumbosacral region (principal)
CPT/HCPCS: 97163

== ENCOUNTER 2025-01-10 15:00 | Outpatient (RCR) | payer OTHER, SELFPAY ==
--- NOTE | 2025-01-10 16:09 | HMH.RHREAS ---
Rehab Reassessment Rehab OP Re-assessment Start: 01/08/25 16:52 Freq: Status: Active Protocol: Document 01/10/25 15:28 DEVEN (Rec: 01/10/25 16:09 DEVEN [id number]) E-signed By Rory Abebe, PT Oswestry Index Section 1 Pain Intensity The pain comes and goes and is severe Section 2 Personal Care ( increase the pain and I find it necessary to change my Washing,Dresing) way of doing it Section 3 Lifting I can lift heavy weights, but it gives me extra pain Section 4 Walking I cannot walk at all without increasing pain Section 5 Sitting I can sit in my favorite chair for as long as I like Section 6 Standing I can stand as long as I want without pain Section 7 Sleeping I get pain in bed, but it does not prevent me from sleeping well Section 8 Social Life I hardly have any social life because of pain Section 9 Traveling I get some pain when traveling, but none of my usual forms of travel m Section 10 Changing Degreee of My pain is gradually getting worse Pain Score and Risk Level Oswestry Score 25 Oswestry Risk Level Severe Disability Rehab Re-assessment Subjective Subjective Pt reports that she is 10% improved at this point. Pt reports that she has not been able to come to PT consistently but reports that the two visits this week have definitely helped some. Pt reports that she continues to feel a knot in the L side of her Low back. However, patient reports that she continues to only be able to stand and walk for very short distances. Pt reports that she has not been as compliant with her exercises as she should be. Pt reports that she would like to continue with PT at this time. Objective Objective Notes JAY: 25 (31 on IE) MMT: 4/5 to B hips/knees ROM: - 7 degrees extension TTP 3/4 to l4-s1 Assessment Progress Assessment Slower Than Expected Assessment Notes Pt has only attended 2 PT sessions since her initial evaluation. Pt demonstrates no functional progress besides her JAY score. Pt is still only able to walk 40 -50 ft at a time before requiring to sit. Pt is agreeable to be more consistent with appointment attendance. Skilled PT remains indicated at this time. PT Patient Goals PT Short Term In 4 weeks: Patient Goals 1. Patient will report a 48 hour average pain of 5/10 on the numeric pain rating scale to demonstrate improvement in quality of life and increased functional capacity. 2. Patient will improve b/l hip abductor strength upon manual muscle testing to 4+/5 facilitate increased spinal stabilization and improved functional capabilities. 3. Patient will demonstrate a reduction in trigger point sensitivity to Grade 2 with manual palpation to improve comfort during activity and soft tissue mobility. 4. Patient will improve lumbar ROM extension to 10 degrees to demonstrate improved movement patterns with functional mobility and ADLs. 5. Patient will be able to stand for 15 minutes at one time to demonstrate independence with bag adjuster, such as washing her dishes. 6. Pt will demonstrate HEP compliance by completing prescribed HEP 4-5x/week. 7. Pt will improve JAY score to 28 to demonstrate improved functional mobility, overall improvement and improved quality of life. MET PT Blower Insulator Patient In 8 weeks: Goals 1. Patient will report a 48 hour average pain of 2-3/10 on the numeric pain rating scale to demonstrate improvement in quality of life and increased functional capacity. 2. Patient will improve b/l hip abductor strength upon manual muscle testing to 5/5 facilitate increased spinal stabilization and improved functional capabilities. 3. Patient will demonstrate a reduction in trigger point sensitivity to Grade 0-1 with manual palpation to improve comfort during activity and soft tissue mobility. 4. Patient will improve lumbar extension to 15-20 degrees to demonstrate improved movement patterns with functional mobility and ADLs. 5. Patient will be able to stand/walk for 1 hour at one time to demonstrate improved community ambulation for activities, such as grocery shopping and other activities. 6. Pt will be able to lift a 10# weight from floor with proper lifting mechanics and less than 2/10 pain to demonstrate the ability to lift items, such as grocery bags, milk jugs, laundry basket, etc. 7. Pt will improve JAY score to 24 to demonstrated improved functional mobility, overall improvement and improved quality of life. Plan Plan Continue as per initial POC, utilizing the following methods and activities. This progress note is being sent to the referring provider for an update on the pt's care. Frequency of Therapy 2/week Duration of Therapy 4 weeks Therapeutic Exercise Yes Including Home Exercise Program Manual Therapy Yes Techniques Neuromuscular Re- Yes education Therapeutic Yes Activities to Return to Previous Functional/Work Level Gait Training Yes Mechanical Traction Yes Thermal Modalities Yes Electrical Yes Stimulation Ultrasound/ Yes Phonophoresis Iontophoresis Yes Massage Yes Manual Lymphatic Yes Drainage Eval/Re-Eval Yes Time and Billing Re-Eval Time 10 Re-Eval Billing 0 Units Charge for PT No reassessment? PHYSICIAN CERTIFICATION: I certify the specified therapy services for Shoshana Garcia are required, authorized, and reviewed every 30 days.
== END 2025-01-10 23:59 | disposition home or self-care (01) ==
LOC: PT 15:00
PROVIDERS: PCP Family Medicine; Visit Provider Family Medicine
DX: M54.9 Dorsalgia, unspecified (principal); G89.29 Other chronic pain
CPT/HCPCS: 97014; 97110; G0283

== ENCOUNTER 2025-01-25 17:00 | Outpatient (RCR) | payer OTHER, SELFPAY | END 2025-01-25 23:59 | disposition home or self-care (01) | LOC: PT 17:00 | PROVIDERS: PCP Family Medicine; Visit Provider Family Medicine | DX: M47.27 Other spondylosis with radiculopathy, lumbosacral region (principal) | CPT/HCPCS: 97014; 97110; G0283 ==